=== PATIENT | female | born 1935 | race Caucasian/White ===

== ENCOUNTER 2018-09-27 13:47 | Inpatient (IN) ==
[2018-09-27] MEDS ORDERED: ACETAMINOPHEN 325 MG TAB PO PRN (14:16)
[2018-09-27] MEDS ORDERED: PATIENT'S ALLERGY INFO NEEDS ENTERED SCH (14:45)
--- NOTE | 2018-09-27 15:02 | History & Physical Report ---
Date of Service September 27, 2018 Assessment & Plan (1) Acute kidney injury superimposed on CKD: Hx CKD III. Baseline Cr: ~1.1-1.3. H/O hospitalization 09/04/2018- 09/09/2018 at [facility] for acute on chronic diastolic heart failure, atrial fibrillation with RVR. Had diuresis with IV Lasix. Cr: 1.5 upon hospital discharge 09/14/2018 was noted to have K:5.8, Cr: 1.9. Potassium supplement was discontinued. Patient had repeat follow-up with PCP on 09/25/2018 and K: 5.2 and Cr: 2.3. During hospitalization at [facility] pt was taken off lisinopril and HCTZ. Presented to hospital today for further workup and treatment of JOHN. Pt has had decreased oral intake past week as did not want to be using restroom when out for appointments Today BUN: 35, Cr: 1.9 -gentle IVF -monitor renal functions -avoid nephrotoxic agents when possible -hold lasix -may need to consider nephrology consult (2) Weakness: Pt reports generalized weakness and fatigue since hospital admission in 08/2018 No focal deficits noted -PT/OT eval (3) Atrial fibrillation: Hx PAF Recent A-fib RVR with hospitalization at [facility] in 08/2018. Pt was started on amiodarone 200 mg 2 tabs twice daily, then transition to 1 tab twice daily on a 09/22/2018 for 14 days and is to start 1 tab daily on 10/06/2018. She was also started on Eliquis Denies current CP, SOB, palpitations EKG: rate 111, atrial fibrillation, PVC -continue amiodarone, metoprolol, Eliquis -repeat EKG in am to monitor QTc (4) Chronic diastolic heart failure: Recent hospitalization for acute on chronic diastolic HF with reported diuresis of 3.5L with IV lasix. Reported echo from that hospitalization EF: 55%, concentric LVH, moderate mitral regurgitation, moderate tricuspid regurgitation, RSVP of 51 mmHg. CXR: Cardiomegaly without radiographic evidence of congestive failure. Suspect trace pleural effusions. 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 Reports 2 seizures during hospitalization at [facility] in 08/2018. Reported no acute process noted on MRA of the neck & MRA of brain. She was started on Keppra in addition to her phenobarbital -Seizure precautions -Continue Keppra, phenobarbital (7) HTN (hypertension): Reported pt was taken off lisinopril in 08/2018 Stable at 124/86 -continue metoprolol DVT Prophylaxis -On Eliquis DNR/DNI as per discussion with pt Follows with Dr Leo for routine care Pt was seen with Dr Manning. See addendum. History of Present Illness Chief Complaint: Sent in from PCP for JOHN Primary Care Provider: Tyra Leo, Pt is 83 y/o F with PMH HTN, HLD,chronic diastolic HF, pulmonary hypertension, CAD S/P stents, paroxysmal atrial fibrillation, CKD III, IBS, seizure disorder, macular degeneration presented to [facility] as a direct admission for JOHN from PCP. Patient with history of hospitalization 09/04/2018-09/09/2018 for acute on chronic diastolic heart failure, atrial fibrillation with RVR, altered mental status. Patient was diuresed with IV Lasix of 3.5 L. Reported creatinine remains stable and was discharged with a creatinine of 1.5. Was seen by cardiology and was placed on amiodarone for her atrial fibrillation with RVR and was started on Eliquis. Reported 2 seizures during hospitalization and reported no acute process noted on MRA of the neck & MRA of brain. She was started on Keppra in addition to her phenobarbital. Reported echo from that hospitalization EF: 55%, concentric LVH, moderate mitral regurgitation, moderate tricuspid regurgitation, RSVP of 51 mmHg. During hospitalization at [facility] pt was taken off lisinopril and HCTZ. Patient was started on amiodarone 200 mg 2 tabs twice daily, then transition to 1 tab twice daily on a 09/22/2018 for 14 days and is to start 1 tab daily on 10/06/2018. Patient followed up with PCP clinic upon hospital discharge and on 09/14/2018 was noted to have K:5.8, Cr: 1.9. Potassium supplement was discontinued. Patient had repeat follow-up with PCP on 09/25/2018 and K: 5.2 and Cr: 2.3. she was directed to hospital for JOHN. Patient and daughter reports that she has continued to be taking her Lasix 20 mg daily.Pt admits has been feeling tired and weak. She reports chronic intermittent heart fluttering. Denies any heart fluttering or heart racing now. Denies CP, SOB, dizziness. Pt reports chronic diarrhea after eating. Does not have diarrhea if she does not eat. Reports past diagnosis of IBS and celiac. Patient does not follow a gluten-free diet. Admits has not been eating or drinking much the past week as she has needed to go to Dr's appointments and didn't want to be having to use the bathroom when she was out. Using a walker to ambulate. Denies falls. reports chronic upper back pain, denies worsening. Denies fever/chills, diaphoresis, N/V, SAWYER, syncope, neck pain, orthopnea, cough, sore throat, choking, otalgia, rhinorrhea, abdominal pain, paresthesias, extremity edema, new rashes, urinary symptoms, hematochezia, melena. Allergies Allergy/AdvReac Type Severity Reaction Status Date / Time Egg Derived Allergy Severe Difficulty Verified 09/27/18 15:05 Breathing ciprofloxacin [From Cipro] Allergy Redness of Verified 09/27/18 15:06 Skin Penicillins Allergy Rash Verified 09/27/18 15:00 phenytoin [From Dilantin] Allergy Swelling Verified 09/27/18 15:00 lorazepam [From Ativan] AdvReac confusion Verified 09/27/18 15:00 Home Medications Home Medications Medication Instructions Recorded Confirmed Type amiodarone 200 mg PO BID 09/27/18 09/27/18 History apixaban 2.5 mg PO BID 09/27/18 09/27/18 History aspirin 81 mg PO DAILY 09/27/18 09/27/18 History furosemide [Lasix] 20 mg PO DAILY 09/27/18 09/27/18 History levetiracetam 500 mg PO BID 09/27/18 09/27/18 History metoprolol tartrate 25 mg PO TID 09/27/18 09/27/18 History phenobarbital 30 mg PO TID 09/27/18 09/27/18 History Past Med/Surg History Medical History Mitral regurgitation (Chronic) Aortic valve stenosis (Chronic) Hearing loss (Chronic) Seizure disorder (Chronic) Macular degeneration (Chronic) IBS (irritable bowel syndrome) (Chronic) Paroxysmal atrial fibrillation (Chronic) CAD (coronary artery disease) (Chronic) Pulmonary hypertension (Chronic) History of CHF (congestive heart failure) (Chronic) HTN (hypertension) (Chronic) HLD (hyperlipidemia) (Chronic) CKD (chronic kidney disease), stage III (Chronic) Surgical History History of ankle surgery (Chronic) History of cardiac catheterization (Chronic) 2013 at [facility] - diffuse disease H/O 3 bare metal stents History of cataract surgery (Chronic) Hx of tonsillectomy (Chronic) Family History Other Colorectal cancer Hypertension Social History Preferred Language: Uzbek Communication Ability: Effective Communication Ability Comment: macular degeneration Agency Operator Required: No Beliefs That Will Affect Care: None Current Living Situation: Family Other Information That Helps Us Care for You: No Feels Safe at Home: Yes Safety Concerns: Feels Safe At This Time Smoking Status: Former smoker Do You Dip or Chew Tobacco: No Second Hand Expos ure: No Tobacco Cessation Education Requested by Patient: No Hx Alcohol Use: No Hx Substance Use: No Review of Systems Review of Systems: All systems reviewed & are unremarkable except as noted in HPI & below Physical Exam Physical Exam: General: no acute distress, WDWN Head: normocephalic, atraumatic Eyes: PERRL, EOM's intact, conjunctiva non-injected, anicteric ENT: Hard of hearing, normal inspection external ears, nose, mucous membranes moist Neck: supple, trachea midline Lungs: clear, no respiratory distress, no wheezing/rhonchi/rales CV: irregularly irregular, rate 112, no significant pretibial edema Abd: normal BS, soft, non-tender Ext: no cyanosis, no calf tenderness Neuro: A&O x 3, no focal deficits noted, normal affect Skin: warm, dry Results & Data Laboratory Results Short CBC 09/27/18 Range/Units 15:05 WBC 5.66 (4.8-10.8) K/uL Hgb 13.9 (12.0-16.0) g/dL Hct 39.1 (37-47) % Plt Count 136 (130-400) K/uL BMP 09/27/18 15:05 Sodium 140 Potassium 3.8 Chloride 108 H Carbon Dioxide 23 BUN 35 H Creatinine 1.99 H Glucose 108 H Calcium 9.0 Liver Function 09/27/18 Range/Units 15:05 Total Bilirubin 0.3 (0.2-1) mg/dl AST 18 (15-37) U/L ALT 20 (12-78) U/L Alkaline Phosphatase 42 L (45-117) U/L Albumin 3.4 (3.4-5.0) gm/dl Diagnostic Findings CXR: IMPRESSION: 1. Cardiomegaly without radiographic evidence of congestive failure. 2. Suspect trace pleural effusions. Supervising Physician Co-Signing Physician Notes Patient is an 83-year-old female with history of chronic diastolic heart failure, hypertension, paroxysmal atrial fibrillation, coronary artery disease, seizure disorder and other problems presents for evaluation of worsening renal insufficiency. Patient was recently hospitalized for management of acute heart failure and A. fib RVR. She is discharged on diuretics which she continues to take. Outpatient labs done 2 days ago suggestive of mild hyperkalemia and JOHN with creatinine elevated 2.3. Currently she was noted to be in A. fib RVR but denies any history of chest pain, palpitations, dizziness, shortness of breath. Also denies any history of flank pain, dysuria. Reports history of chronic diarrhea which was thought to be secondary to IBS, celiac disease. Today her creatinine level is elevated at 1.9. Chest x-ray suggestive of trace pleural effusion, cardiomegaly but otherwise clinically does not seem to be volume overloaded. On exam patient is elderly, no distress, + legally blind, normocephalic atraumatic, lungs are clear to auscultation, irregularly irregular rhythm, tachycardia, abdomen soft nontender, grossly no focal deficits neurologically, no obvious pedal edema. Patient is admitted for management of JOHN on CKD stage III, A. fib RVR. Will hold her diuretics. Plan to give gentle IV fluids. Monitor renal function, avoid nephrotoxic agents as able. Consider renal ultrasound, nephrology consult if renal function continues to worsen. Continue metoprolol, amiodarone for A. fib RVR, on Eliquis for anticoagulation. QTC is prolonged at 516 in setting of amiodarone use. Repeat EKG in the morning. Avoid QTC prolonging meds as able. Consider cardiology eval if A. fib RVR is uncontrolled. Currently no signs of acute decompensated CHF. I personally reviewed the record. Patient is interviewed and examined at bedside. Patient's care is coordinated with Virginia Mendez PA-C. Please refer to the documentation above for details of patient's presentation and for discussion of other issues.
[2018-09-27 15:35] LABS: Basophils # (auto) 0.02 K/uL (0-0.2); Basophils % (auto) 0.4 %; Eosinophils # (auto) 0.27 K/uL (0-0.5); Eosinophils % (auto) 4.8 %; Hematocrit (blood only) 39.1 % (37-47); Hemoglobin 13.9 g/dL (12.0-16.0); Immature Granulocytes # (auto) 0.01 K/uL (0.00-0.02); Immature Granulocytes % (auto) 0.2 %; Lymphocytes % (auto) 35.3 %; Mean Corpuscular Hgb Conc 35.5 g/dL (32-36); Mean Corpuscular Volume 87.1 fL (80-100); Mean Platelet Volume 10.4 fL (7.4-10.4); Monocytes # (auto) 0.32 K/uL (0.11-0.59); Monocytes % (auto) 5.7 %; Neutrophils # (auto) 3.04 K/uL (1.4-6.5); Neutrophils % (auto) 53.6 %; Platelet Count 136 K/uL (130-400); RDW Coefficient of Variation 13.8 % (11.5-14.5); RDW Standard Deviation 43.6 fL (36.4-46.3); Red Blood Count 4.49 M/uL (4.2-5.4); White Blood Count 5.66 K/uL (4.8-10.8)
[2018-09-27 15:48] LABS: INR 1.1 (0.9-1.1); Partial Thromboplastin Time 27.1 Seconds (21.0-31.0)
[2018-09-27 15:57] LABS: Albumin Level 3.4 gm/dl (3.4-5.0); BUN Creatinine Ratio 17.8 (10-20); Creatinine Clr Calc Pharmacy 18.2 ml/min; Est GFR (African American) 26.1; Est GFR (Non-African American) 22.5; Potassium 3.8 mmol/L (3.5-5.1)
[2018-09-27 16:00] LABS: Albumin Globulin Ratio 1.1 (0.9-2); Bilirubin,Total 0.3 mg/dl (0.2-1); Globulin 3.2 gm/dl (2.5-4.0); Total Protein 6.6 gm/dl (6.4-8.2)
[2018-09-27] MEDS ORDERED: SODIUM CHLORIDE 0.9% 1000ML 1,000 ML IV SCH (16:15)
--- NOTE | 2018-09-27 16:26 | XRay Report ---
SINGLE VIEW CHEST CLINICAL HISTORY: Dyspnea. FINDINGS: An AP, portable, upright chest radiograph is obtained. No prior studies are available for c omparison at the time of dictation. The examination is degraded by portable technique, apical lordoti c positioning, and patient rotation. The heart is enlarged and there is atherosclerotic calcificatio n of the thoracic aorta. The pulmonary vasculature is noncongested. Nonspecific interstitial thickeni ng is likely chronic. No airspace consolidation is seen. Trace pleural effusions are suspected. No pn eumothorax is seen. The skeletal structures are osteopenic. The bony thorax is grossly intact. IMPRESSION: 1. Cardiomegaly without radiographic evidence of congestive failure. 2. Suspect trace pleural effusions. Electronically signed by: Rivera Amaro M.D. 09/27/2018 4:25 PM
[2018-09-27 18:49] LABS: Appearance Urine Clear (Clear); Bacteria Urine Automated 2+ (Negative); Bilirubin Urine Negative (Negative); Blood Urine Trace (Negative); Color Urine Yellow; Glucose Urine UA Negative (Negative); Ketones Urine Negative (Negative); Leukocyte Esterase Urine 2+ (Negative); Nitrite Urine Positive (Negative); Protein Urine Negative (Negative); RBC Urine Automated 0-4 /hpf (0-4); Specific Gravity Urine 1.017 (1.000-1.030); Urobilinogen Urine Negative (Negative)
[2018-09-27] MEDS ORDERED: METOPROLOL TARTRATE 25 MG TAB PO SCH (21:00)
[2018-09-27] MEDS: levETIRAcetam 500 MG TAB PO SCH (21:26)
[2018-09-27] MEDS: AMIODARONE 200 MG TAB PO SCH (21:27)
[2018-09-27] MEDS: APIXABAN 2.5 MG TAB PO SCH (21:27)
[2018-09-27] MEDS: PHENobarbital 32.4 MG TAB PO SCH (21:29)
[2018-09-28] MEDS ORDERED: POTASSIUM CHLORIDE 20 MEQ TABCR PO STA ×2 (03:05→05:05)
[2018-09-28] MEDS ORDERED: LACTATED RINGER'S 1,000 ML IV ONE ×2 (03:06→07:00)
[2018-09-28] MEDS: cefTRIAXone SODIUM 1,000 MG in DEXTROSE 5% 50 ML IV SCH (03:34)
[2018-09-28 03:39] LABS: Basophils # (auto) 0.03 K/uL (0-0.2); Basophils % (auto) 0.8 %; Eosinophils # (auto) 0.24 K/uL (0-0.5); Eosinophils % (auto) 6.1 %; Hematocrit (blood only) 34.7 % (37-47); Hemoglobin 12.3 g/dL (12.0-16.0); Immature Granulocytes # (auto) 0.01 K/uL (0.00-0.02); Immature Granulocytes % (auto) 0.3 %; Lymphocytes # (auto) 1.73 K/uL (1.2-3.4); Lymphocytes % (auto) 44.2 %; Mean Corpuscular Hgb Conc 35.4 g/dL (32-36); Mean Corpuscular Volume 87.4 fL (80-100); Monocytes # (auto) 0.24 K/uL (0.11-0.59); Monocytes % (auto) 6.1 %; Neutrophils # (auto) 1.66 K/uL (1.4-6.5); Neutrophils % (auto) 42.5 %; Platelet Count 112 K/uL (130-400); RDW Coefficient of Variation 13.7 % (11.5-14.5); RDW Standard Deviation 43.6 fL (36.4-46.3); Red Blood Count 3.97 M/uL (4.2-5.4); White Blood Count 3.91 K/uL (4.8-10.8)
[2018-09-28 03:57] LABS: BUN Creatinine Ratio 16.8 (10-20); Creatinine Clr Calc Pharmacy 21.5 ml/min; Est GFR (African American) 31.8; Est GFR (Non-African American) 27.4; Potassium 3.3 mmol/L (3.5-5.1)
[2018-09-28] MEDS: METOPROLOL TARTRATE 25 MG TAB PO SCH ×4 (08:29→21:18)
[2018-09-28] MEDS: AMIODARONE 200 MG TAB PO SCH ×2 (08:30→21:17)
[2018-09-28] MEDS: ASPIRIN 81 MG ECTAB PO SCH (08:31)
[2018-09-28] MEDS: levETIRAcetam 500 MG TAB PO SCH ×2 (08:32→21:17)
[2018-09-28] MEDS: APIXABAN 2.5 MG TAB PO SCH ×2 (08:32→21:17)
[2018-09-28] MEDS: PHENobarbital 32.4 MG TAB PO SCH ×3 (08:43→21:17)
--- NOTE | 2018-09-28 18:07 | Hospitalist Progress Note ---
Date of Service September 28, 2018 Assessment & Plan (1) Acute kidney injury superimposed on CKD: Improved with holding Lasix on admission and giving gentle IVF. She has underlying CKD Stage 3. While hospitalized at [place] recently in mid-August for acute diastolic heart failure, she underwent IV diuresis with Lasix with a reported creat 1.5 on discharge on 09/09. In followup with PCP, K was 5.8 and creat was 1.9, so K supplementation was discontinued. In repeat f/u on 09/25 K was 5.2 and creat 2.3. Although she was taken off lisinopril and HCTZ while hospitalized at [place], these were the findings. Cont current management (2) HTN (hypertension): Recently taken off of Lisinopril and HCTZ in the setting of acute hyperkalemia and JOHN. Now taking Lasix 20mg PO daily at home which has been held during this admission for JOHN. BP is at goal despite these changes. Will give additional medication as needed but not required at this time. Will review outpatient records further for PCP plan on this. (3) Atrial fibrillation: chronic, on Eliquis, undergoing amio load recently started during another OSH hospitalization two weeks ago. Also takes metoprolol. Currently in atrial fibrillation on telemetry. (4) Seizure disorder: Cont phenobarbital and keppra per home regimen. recent seizure activity two weeks ago while hospitalized. Pt has a h/o epilepsy which is typically controlled. She is unsure what provoked these events. Cont seizure precautions. (5) DVT prophylaxis: Eliquis DNR/DNI Dispo-home once medically stable Gaye Jones DO [facility] Hospitalist Subjective Feels well today, denies pain, nausea, SOB, chest pain, denies UTI symptoms, has chronic diarrhea as a celiac per her report. Tolerating PO. Afebrile. Review of Systems Review of Systems: All systems reviewed & are unremarkable except as noted in HPI & below Physical Exam Physical Exam: CONSTITUTIONAL: WNWD, vitals as above, generally well- appearing EYES: normal conjuctivae, no scleral icterus ENT: MMM RESPIRATORY: clear to auscultation bilaterally, no crackles, rales or wheezes, normal respiratory effort CARDIOVASCULAR: regular rate and rhythm, S1 and 2 heard without murmurs, gallops or rubs, no JVD, no peripheral edema GASTROINTESTINAL: normal bowel sounds, soft, nontender, nondistended MUSCULOSKELETAL: strength 5/5 throughout, head is normocephalic and atraumatic SKIN: warm and dry NEUROLOGIC: CN 2-12 grossly intact, no gross focal deficits. PSYCHIATRIC: alert cooperative and oriented to person, place and time. Results & Data Vital Signs (Past 12 Hours) Vital Signs Temp Pulse Resp BP Pulse Ox Pulse Ox 09/28/18 14:53 36.3 C L 117 H 18 114/80 98 09/28/18 13:25 94 09/28/18 11:58 36.3 C L 93 H 16 96/59 L 97 09/28/18 11:30 94 09/28/18 07:30 36.6 C 78 17 94/57 L 94 Laboratory Results Short CBC 09/28/18 Range/Units 03:29 WBC 3.91 L (4.8-10.8) K/uL Hgb 12.3 (12.0-16.0) g/dL Hct 34.7 L (37-47) % Plt Count 112 L (130-400) K/uL BMP 09/28/18 03:29 Sodium 140 Potassium 3.3 L Chloride 110 H Carbon Dioxide 25 BUN 28 H Creatinine 1.69 H D Glucose 94 Calcium 8.0 L Liver Function 09/28/18 Range/Units 03:29 Albumin 3.0 L (3.4-5.0) gm/dl Urine 09/27/18 Range/Units 18:19 Urine Color Yellow Urine Appearance Clear (Clear) Urine pH 5.0 (4.5-7.5) Ur Specific [place] 1.017 (1.000-1.030) Urine Protein Negative (Negative) Urine Glucose (UA) Negative (Negative)
[2018-09-29] MEDS: cefTRIAXone SODIUM 1,000 MG in DEXTROSE 5% 50 ML IV SCH (04:14)
[2018-09-29 07:33] LABS: Hematocrit (blood only) 37.2 % (37-47); Hemoglobin 13.1 g/dL (12.0-16.0); Mean Corpuscular Hgb Conc 35.2 g/dL (32-36); Mean Corpuscular Volume 88.6 fL (80-100); Platelet Count 117 K/uL (130-400); RDW Coefficient of Variation 14.1 % (11.5-14.5); White Blood Count 3.52 K/uL (4.8-10.8)
[2018-09-29] MEDS: METOPROLOL TARTRATE 25 MG TAB PO SCH ×2 (07:37→12:37)
[2018-09-29] MEDS: PHENobarbital 32.4 MG TAB PO SCH ×2 (07:37→13:28)
[2018-09-29] MEDS: AMIODARONE 200 MG TAB PO SCH (07:38)
[2018-09-29] MEDS: APIXABAN 2.5 MG TAB PO SCH (07:38)
[2018-09-29] MEDS: ASPIRIN 81 MG ECTAB PO SCH (07:38)
[2018-09-29] MEDS: levETIRAcetam 500 MG TAB PO SCH (07:38)
[2018-09-29 08:10] LABS: Est GFR (African American) 35.5; Potassium 4.4 mmol/L (3.5-5.1)
[2018-09-29 08:11] LABS: BUN Creatinine Ratio 14.5 (10-20); Calcium 8.6 mg/dl (8.5-10.1); Creatinine Clr Calc Pharmacy 23.6 ml/min; Est GFR (Non-African American) 30.7
[2018-09-29] MEDS ORDERED: cephALEXin 500 MG CAP PO SCH (11:30)
--- NOTE | 2018-09-29 15:21 | Discharge Summary ---
Date of Service September 29, 2018 Admission HPI Per Admitting Provider Pt is 83 y/o F with PMH HTN, HLD,chronic diastolic HF, pulmonary hypertension, CAD S/P stents, paroxysmal atrial fibrillation, CKD III, IBS, seizure disorder, macular degeneration presented to [facility] as a direct admission for JOHN from PCP. Patient with history of hospitalization 09/04/2018-09/09/2018 for acute on chronic diastolic heart failure, atrial fibrillation with RVR, altered mental status. Patient was diuresed with IV Lasix of 3.5 L. Reported creatinine remains stable and was discharged with a creatinine of 1.5. Was seen by cardiology and was placed on amiodarone for her atrial fibrillation with RVR and was started on Eliquis. Reported 2 seizures during hospitalization and reported no acute process noted on MRA of the neck & MRA of brain. She was started on Keppra in addition to her phenobarbital. Reported echo from that hospitalization EF: 55%, concentric LVH, moderate mitral regurgitation, moderate tricuspid regurgitation, RSVP of 51 mmHg. During hospitalization at [place] pt was taken off lisinopril and HCTZ. Patient was started on amiodarone 200 mg 2 tabs twice daily, then transition to 1 tab twice daily on a 09/22/2018 for 14 days and is to start 1 tab daily on 10/06/2018. Patient followed up with PCP clinic upon hospital discharge and on 09/14/2018 was noted to have K:5.8, Cr: 1.9. Potassium supplement was discontinued. Patient had repeat follow-up with PCP on 09/25/2018 and K: 5.2 and Cr: 2.3. she was directed to hospital for JOHN. Patient and daughter reports that she has continued to be taking her Lasix 20 mg daily.Pt admits has been feeling tired and weak. She reports chronic intermittent heart fluttering. Denies any heart fluttering or heart racing now. Denies CP, SOB, dizziness. Pt reports chronic diarrhea after eating. Does not have diarrhea if she does not eat. Reports past diagnosis of IBS and celiac. Patient does not follow a gluten-free diet. Admits has not been eating or drinking much the past week as she has needed to go to Dr's appointments and didn't want to be having to use the bathroom when she was out. Using a walker to ambulate. Denies falls. reports chronic upper back pain, denies worsening. Denies fever/chills, diaphoresis, N/V, SAWYER, syncope, neck pain, orthopnea, cough, sore throat, choking, otalgia, rhinorrhea, abdominal pain, paresthesias, extremity edema, new rashes, urinary symptoms, hematochezia, melena. Admission Exam Per Admitting Provider General: no acute distress, WDWN Head: normocephalic, atraumatic Eyes: PERRL, EOM's intact, conjunctiva non-injected, anicteric ENT: Hard of hearing, normal inspection external ears, nose, mucous membranes moist Neck: supple, trachea midline Lungs: clear, no respiratory distress, no wheezing/rhonchi/rales CV: irregularly irregular, rate 112, no significant pretibial edema Abd: normal BS, soft, non-tender Ext: no cyanosis, no calf tenderness Neuro: A&O x 3, no focal deficits noted, normal affect Skin: warm, dry Principal Diagnosis JOHN Asymptomatic bacteriuria atrial fibrillation HTN seizure disorder Discharge Data Allergies Allergy/AdvReac Type Severity Reaction Status Date / Time Egg Derived Allergy Severe Difficulty Verified 09/27/18 15:05 Breathing ciprofloxacin [From Cipro] Allergy Redness of Verified 09/27/18 15:06 Skin Penicillins Allergy Rash Verified 09/27/18 15:00 phenytoin [From Dilantin] Allergy Swelling Verified 09/27/18 15:00 lorazepam [From Ativan] AdvReac confusion Verified 09/27/18 15:00 Consultations 09/27/18 14:18 Consult Case Management - Discharge Planning Routine Hospital Course (1) Acute kidney injury superimposed on CKD: (2) HTN (hypertension): (3) Atrial fibrillation: (4) Asymptomatic bacteriuria: (5) Seizure disorder: She was admitted to the hospitalist service and Lasix was held. Although she did not come in on lisinopril and HCTZ she had been recently taking this which was previously discontinued by other providers. She was given gentle IV fluids. She was noted to be have been recently hospitalized in [facility] in mid August for acute diastolic heart failure and had undergone treatment with IV diuresis with Lasix. At discharge she had a reported creatinine of 1.5; this was 09/09. Follow-up with primary care provider revealed a potassium 5.8 and creatinine was 1.9, so potassium supplementation was discontinued at that time. She had another follow-up with primary care doctor on 09/25 where potassium was 5.2 and creatinine was 2.3. She had been compliant with prescribed Lasix and had held potassium when she was instructed to do so. She reported drinking less water around this time in order to not have to urinate so much publically and when going out of her home. She was instructed to go to the ER. Despite multiple blood pressure medicine changes in recent weeks her blood pressure remained at goal during this hospitalization. She was noted to be undergoing an amiodarone load which was recently started at the prior hospitalization and she remains on Eliquis and metoprolol. She also was noted to have recent seizure activity two weeks ago while hospitalized and continues her antiepileptics including Keppra which is a new medication for her. She remained on seizure precautions with no further seizure events this hospitalization. She was placed on rocephin empirically for asymptomatic bacteriuria and was found to have E coli in her urine. As she was asymptomatic and had received some antibiotics in the hospital, these were not continued at discharge. By hospital day 3 creatinine had improved to 1.54 which was close to her baseline 1.1-1.3. Lasix was held until further follow-up with primary care doctor. She is not taking potassium supplementation, lisinopril or HCTZ. She was told to stay away from those, as well. Amiodarone was refilled to continue her amiodarone load per daughter's request as this was depleted. At time of discharge she was mentating and ambulating at baseline and was tolerating p.o. She was hemodynamic is stable and afebrile and close primary care follow-up was recommended. Physical exam at discharge was unremarkable. Total Time Total Time Spent Total Time Spent (In Minutes): 60 Total Time Includes: Examination of the Patient, Discharge Planning, Medication Reconciliation and Communication With Other Providers Discharge Plan Discharge Items Patient Disposition: Home - Home Health Services Reason For Visit: JOHN Discharge Diagnosis: JOHN UTI Condition: Good Discharge Goals: Improve disease control Activity: Resume your previous activity Non-emergency contact: Primary Care Provider Call non-emergency contact if: you have any medication questions, your symptoms worsen, your pain is not controlled and you have a fever Follow-up/Referrals: Leo,Tyra M., DO [Primary Care Provider] - Diet: Heart Healthy Addtl Provider Instructions: Please take all medications as instructed on discharge list below. It is recommended that you follow-up with your primary care provider within 1 week of discharge. It was a pleasure taking care of you! Please call if you have any questions or problems. You can reach a [facility] Hospitalist on duty at [facility] 24 hours a day by calling [phone]. Take care of yourself. Gaye Jones DO [facility] Hospitalist Prescriptions: New amiodarone 200 mg tablet 200 mg PO UD Qty: 60 RF: 0 Continued amiodarone 200 mg Tablet 200 mg PO BID RF: 0 levetiracetam 500 mg Tablet 500 mg PO BID RF: 0 aspirin 81 mg Tablet,Delayed Release (Dr/Ec) 81 mg PO DAILY RF: 0 phenobarbital 30 mg Tablet 30 mg PO TID RF: 0 metoprolol tartrate 25 mg Tablet 25 mg PO TID RF: 0 apixaban 2.5 mg Tablet 2.5 mg PO BID RF: 0 Discontinued furosemide [Lasix] 20 mg Tablet 20 mg PO DAILY RF: 0 Stand-Alone Forms: My [facility] Discharge Orders: Discharge Order (Routine); Ordered 09/29/18 Ordered By: Gaye Jones Admission Data Admit Date/Time: 09/27/18 13:47 Attending Provider: Gaye Jones Admit Provider: Rafael Manning Primary Care Provider: Tyra Leo Service: Telemetry Other Interventions: Discharge Summary Assessment (RN) Last Done: 09/29/18 12:19 DC Date/Time DO NOT enter until pt leaves facility: 09/29/18 15:38
[2018-10-06] MEDS ORDERED: AMIODARONE 200 MG TAB PO SCH (09:00)
== END 2018-09-29 15:38 | disposition home health service (06) | DRG 683 ==
LOC: SUATTDRO 13:47 → 2W 13:47
DX: I48.2 Chronic atrial fibrillation; G40.909 Epilepsy, unspecified, not intractable, without status epilepticus; H35.30 Unspecified macular degeneration; N18.3 Chronic kidney disease, stage 3 (moderate); Z88.0 Allergy status to penicillin; I27.20 Pulmonary hypertension, unspecified; N17.9 Acute kidney failure, unspecified; Z95.5 Presence of coronary angioplasty implant and graft; I50.32 Chronic diastolic (congestive) heart failure; N39.0 Urinary tract infection, site not specified; I25.10 Atherosclerotic heart disease of native coronary artery without angina pectoris; I13.0 Hypertensive heart and chronic kidney disease with heart failure and stage 1 through stage 4 chronic kidney disease, or unspecified chronic kidney disease

== ENCOUNTER 2019-01-03 11:37 | Inpatient (IN) ==
[2019-01-03] MEDS ORDERED: ACETAMINOPHEN 325 MG TAB PO PRN (11:59)
[2019-01-03 14:04] LABS: Basophils # (auto) 0.03 K/uL (0-0.2); Basophils % (auto) 0.6 %; Eosinophils # (auto) 0.07 K/uL (0-0.5); Eosinophils % (auto) 1.4 %; Hematocrit (blood only) 42.1 % (37-47); Hemoglobin 13.9 g/dL (12.0-16.0); Immature Granulocytes # (auto) 0.01 K/uL (0.00-0.02); Immature Granulocytes % (auto) 0.2 %; Lymphocytes # (auto) 1.68 K/uL (1.2-3.4); Lymphocytes % (auto) 33.9 %; Mean Corpuscular Hemoglobin 30.8 pg (25-34); Mean Corpuscular Volume 93.3 fL (80-100); Mean Platelet Volume 10.1 fL (7.4-10.4); Monocytes # (auto) 0.36 K/uL (0.11-0.59); Monocytes % (auto) 7.3 %; Neutrophils % (auto) 56.6 %; Platelet Count 173 K/uL (130-400); RDW Coefficient of Variation 16.2 % (11.5-14.5); RDW Standard Deviation 55.3 fL (36.4-46.3); Red Blood Count 4.51 M/uL (4.2-5.4); White Blood Count 4.95 K/uL (4.8-10.8)
--- NOTE | 2019-01-03 14:06 | XRay Report ---
SINGLE VIEW CHEST CLINICAL HISTORY: Dyspnea. FINDINGS: An AP, portable, upright chest radiograph is compared to study performed earlier the same d ay 01/03/2019. The examination is degraded by portable technique and patient rotation. The heart is enlarged and there is atherosclerotic calcification of the thoracic aorta. There is pulmonary vascula r congestion and interstitial edema. There are layering pleural effusions with bibasilar consolidatio n. No pneumothorax is seen. The skeletal structures are osteopenic. The bony thorax is grossly intact . IMPRESSION: 1. Cardiomegaly with evidence of congestive failure and interstitial edema. 2. Layering pleural effusions with bibasilar consolidation. 3. This has modestly worsened from today's earlier examination. Electronically signed by: Rivera Amaro M.D. 01/03/2019 2:05 PM
[2019-01-03 14:12] LABS: INR 2.8 (0.9-1.1); Partial Thromboplastin Ratio 1.3; Partial Thromboplastin Time 35.3 Seconds (21.0-31.0); Prothrombin Time 26.5 Seconds (9.0-12.0)
[2019-01-03 14:21] LABS: Albumin Level 3.4 gm/dl (3.4-5.0); BUN Creatinine Ratio 15.3 (10-20); Calcium 8.7 mg/dl (8.5-10.1); Creatinine Clr Calc Pharmacy 25.4 ml/min; Est GFR (African American) 38.6; Est GFR (Non-African American) 33.3; Potassium 4.7 mmol/L (3.5-5.1)
[2019-01-03 14:24] LABS: Albumin Globulin Ratio 1.1 (0.9-2); Bilirubin,Total 0.7 mg/dl (0.2-1); Globulin 3.2 gm/dl (2.5-4.0); Total Protein 6.6 gm/dl (6.4-8.2)
[2019-01-03] MEDS ORDERED: METOPROLOL TARTRATE 25 MG TAB PO SCH (14:50)
--- NOTE | 2019-01-03 14:51 | History & Physical Report ---
Date of Service January 03, 2019 Assessment & Plan (1) Atrial fibrillation with RVR: Pt is 83 y/o F with PMH atrial fibrillation on Coumadin, CAD s/p stents, HTN, HLD, chronic diastolic heart failure, seizure disorder, CKD III, reported IBS and celiac disease presented to [facility] from [facility] for A. fib RVR, SOB. Reported started with increased SOB last night with palpitations. At [facility] found to have HR in 140's-160's A-fib RVR. She was given diltiazem 10 mg IV followed by diltiazem drip at 5 mg/hr with rate down to 105. It is reported patient oxygen saturations in the low 90s and she was on 5 L nasal cannula with oxygen saturation 90%. Had reported once better rate control patient shortness of breath had decreased. At [facility] initial troponin was negative, INR: 3.2, BNP: 5882, no leukocytosis, BUN: 22, CR: 1.5, GFR: 41, K: 4.6, NA: 144. Frontal view CXR: Sizable right and probably small left pleural effusions, at least subsegmental atelectasis in lower lungs. Limited study. Currently BP: 134/90, P: 103, R: 19, 90% on 6L nasal cannula. On Cardizem 5mg/hr IV. Pt denies current palpitations and feels her SOB has improved from initial presentation at [facility] INR: 2.8 -Cardizem drip -Metoprolol tartrate 25mg po BID -Hold home amiodarone while on Cardizem drip -Continue Coumadin -Monitor INR -Trend troponin -Cardiology consult -Monitor CBC, BMP (2) Acute on chronic diastolic (congestive) heart failure: Pt with reported intermittent SOB and increased edema over past couple of months and needing home Lasix dose adjustments. Current regimen in Lasix 20mg every other day alternating with 10mg. Reported echo from [facility] in 08/2018: EF: 55%, concentric LVH, moderate mitral regurgitation, moderate tricuspid regurgitation, RSVP of 51 mmHg. Currently Pt requiring 6L NC oxygen to maintain sat 90%. RR: 19 and nonlabored. Rales bilateral bases, mild BLE edema CXR: 1. Cardiomegaly with evidence of congestive failure and interstitial edema. 2. Layering pleural effusions with bibasilar consolidation. 3. This has modestly worsened from today's earlier examination. -Hold home Lasix -Lasix 20mg IV now and tomorrow -Monitor I's & O's -Low sodium diet -Supplemental oxygen as needed -Echo (3) CAD (coronary artery disease): S/P stents in past -No Current CP. Initial troponin negative at [facility] -Continue aspirin, metoprolol (4) Seizure disorder: Reported started after head injury in the 1970s. 2 seizures reported during hospitalization in [place] in 08/2018 when her phenobarbital was held, phenobarbital was reinitiated and patient was started on Keppra Patient denies any seizures since -Continue phenobarbital, Keppra (5) HTN (hypertension): Stable -Currently on Cardizem IV, and oral metoprolol tartrate (6) CKD (chronic kidney disease), stage III: CR: 1.4 Baseline ~1.4 -Monitor renal functions (7) Chronic diarrhea: Patient with reported chronic loose stools for 10 years. Patient states typically has several loose stools in the mornings. Has reported history of IBS and celiac, however patient continues to consume gluten DVT Prophylaxis -INR: 2.8 on Coumadin DNR/DNI as per discussion with pt Follows with Dr Tony Pinto for routine care Pt was seen and care coordinated with Dr Araujo. See addendum History of Present Illness Chief Complaint: SOB Primary Care Provider: Tyra Leo, DO Pt is 83 y/o F with PMH atrial fibrillation on Coumadin, CAD s/p stents, HTN, HLD, chronic diastolic heart failure, seizure disorder, CKD III, reported IBS and celiac disease presented to [facility] from [facility] for A. fib RVR shortness of breath. Patient reports during the middle the night had increased shortness of breath and felt like her heart was racing. She presented to [facility] this morning with reported heart rate 140s-160s and found to be in A. fib RVR. She was given diltiazem 10 mg IV followed by diltiazem drip at 5 mg/hr with rate down to 105. It is reported patient oxygen saturations in the low 90s and she was on 5 L nasal cannula with oxygen saturation 90%. Had reported once better rate control patient shortness of breath had decreased. At [facility] initial troponin was negative, INR: 3.2, BNP: 5882, no leukocytosis, BUN: 22, CR: 1.5, GFR: 41, K: 4.6, NA: 144. Frontal view CXR: Sizable right and probably small left pleural effusions, at least subsegmental atelectasis in lower lungs. Limited study. Patient was transferred to [facility] per patient preference. Patient states ambulance ride here because some lower back discomfort however feels better since she is in hospital bed. Reports feels like her breathing has improved since her initial presentation to [facility]. She is still on diltiazem drip at 5 mg/hour. HR: 103, BP: 134/90, RR: 19 and unlabored, 90% on 6 L nasal cannula. Was able to talk with pt's daughter on the phone. She was able to confirm pt's home medications and reports pt did not have her morning meds today. Pt's daughter reports that pt has been having trouble with increased edema and SOB intermittently over past several months and her Lasix dosages have been adjusted. States in October PCP restarted lasix 20mg daily secondary to increased edema and weight gain. Reports currently pt on Lasix 20mg every other day alternating with 10mg every other day. Admits pt often with food indiscretions. Patient states she has not felt like she has had increased lower extremity edema. There has also been recent changes with her metoprolol dosing 1 month ago, was edema and weight from 12.5 mg twice daily to 25 mg in the morning and 12.5 mg in the evening. Patient reports has had weight loss since her initial illness in the spring. She states she has had generalized weakness and fatigue for months. She uses a walker sometimes at home. Reports lives with daughter. Denies any seizures since 08/2017. Denies fever/chills, diaphoresis, N/V/D/C, falls, SAWYER, dizziness, syncope, vision changes, neck pain, CP, SOB, orthopnea, palpitations, cough, sore throat, choking, otalgia, rhinorrhea, abdominal pain, paresthesias, extremity edema, rashes, urinary symptoms. History of hospitalization at [facility] 09/27/2018-09/29/2018 for JOHN History of hospitalization 09/04/2018-09/09/2018 at [place] with hospital for acute on chronic diastolic heart failure, A. fib RVR, altered mental status, reported she was treated with IV Lasix and diuresed well. Lisinopril and HCTZ were discontinued. It is reported that her phenobarbital had been held upon initial hospitalization and patient had reported 2 seizures during hospitalization. Patient was then started on Keppra in addition to her phenobarbital which has been continued. Patient was started on amiodarone and Eliquis during that hospitalization. Patient has been transitioned from Eliquis to Coumadin secondary to concern with interaction between Eliquis and phenobarbital. Allergies Allergy/AdvReac Type Severity Reaction Status Date / Time Egg Derived Allergy Severe Difficulty Verified 09/27/18 15:05 Breathing ciprofloxacin [From Cipro] Allergy Redness of Verified 09/27/18 15:06 Skin Penicillins Allergy Rash Verified 09/27/18 15:00 phenytoin [From Dilantin] Allergy Swelling Verified 09/27/18 15:00 lorazepam [From Ativan] AdvReac confusion Verified 09/27/18 15:00 Home Medications Home Medications Medication Instructions Recorded Confirmed Type aspirin 81 mg PO DAILY 09/27/18 01/03/19 History levetiracetam 500 mg PO BID 09/27/18 01/03/19 History metoprolol tartrate 25 mg PO DAILY 09/27/18 01/03/19 History phenobarbital 30 mg PO TID 09/27/18 01/03/19 History amiodarone 200 mg PO DAILY 01/03/19 01/03/19 History furosemide 10 mg PO Q2D 01/03/19 01/03/19 History furosemide 20 mg PO Q2D 01/03/19 01/03/19 History metoprolol tartrate 12.5 mg PO PM 01/03/19 01/03/19 History warfarin 5 mg PO UD 01/03/19 01/03/19 History Past Med/Surg History Medical History Mitral regurgitation (Chronic) Aortic valve stenosis (Chronic) Hearing loss (Chronic) Seizure disorder (Chronic) Macular degeneration (Chronic) IBS (irritable bowel syndrome) (Chronic) Paroxysmal atrial fibrillation (Chronic) CAD (coronary artery disease) (Chronic) Pulmonary hypertension (Chronic) History of CHF (congestive heart failure) (Chronic) HTN (hypertension) (Chronic) HLD (hyperlipidemia) (Chronic) CKD (chronic kidney disease), stage III (Chronic) Surgical History History of ankle surgery (Chronic) History of cardiac catheterization (Chronic) 2014 at [place] - diffuse disease H/O 3 bare metal stents History of cataract surgery (Chronic) Hx of tonsillectomy (Chronic) Family History Other Colorectal cancer Hypertension Social History Preferred Language: Occitan Communication Ability: Effective Svp Monetization Required: No Beliefs That Will Affect Care: None marital status: / Current Living Situation: Family Other Information That Helps Us Care for You: No Feels Safe at Home: Yes Safety Concerns: Feels Safe At This Time Smoking Status: Former smoker Second Hand Exposure: No ; Hx Alcohol Use: No Hx Substance Use: No Review of Systems Review of Systems: All systems reviewed & are unremarkable except as noted in HPI & below Physical Exam Physical Exam: General: chronic ill appearing elderly female, no acute distress, WDWN Head: normocephalic, atraumatic Eyes: PERRL, EOM's intact, conjunctiva non-injected, anicteric ENT: normal inspection external ears, nose, mucous membranes moist Neck: supple, trachea midline Lungs: R:19 and non-labored, 90% on 6L NC, +rales at bases bilaterally CV: Irregularly irregular, rate 104, no JVD, 1+ pretibial edema Abd: normal BS, soft, non-tender Ext: no cyanosis, no calf tenderness Neuro: A&O x 3, no focal deficits noted, normal affect Skin: warm, dry Results & Data Vital Signs (Past 12 Hours) Vital Signs Temp Pulse Resp BP Pulse Ox 01/03/19 13:37 37 C 103 H 19 134/90 90 Laboratory Results Short CBC 01/03/19 Range/Units 13:41 WBC 4.95 (4.8-10.8) K/uL Hgb 13.9 (12.0-16.0) g/dL Hct 42.1 (37-47) % Plt Count 173 (130-400) K/uL BMP 09/12/19 13:41 Sodium 142 Potassium 4.7 Chloride 108 H Carbon Dioxide 26 BUN 22 H Creatinine 1.44 H Glucose 97 Calcium 8.7 Liver Function 01/03/19 Range/Units 13:41 Total Bilirubin 0.7 (0.2-1) mg/dl AST 13 L (15-37) U/L ALT 18 (12-78) U/L Alkaline Phosphatase 39 L (45-117) U/L Albumin 3.4 (3.4-5.0) gm/dl Diagnostic Findings CXR: IMPRESSION: 1. Cardiomegaly with evidence of congestive failure and interstitial edema. 2. Layering pleural effusions with bibasilar consolidation. 3. This has modestly worsened from today's earlier examination. Supervising Physician Co-Signing Physician Notes I, Dr. Jnoathan Araujo, have seen and examined the patient with physician podiatric assistant and agree with the assessment and plan as above and would like to comment that This is a 83 year old female Past Medical History: HTN, HLD,chronic diastolic HF, pulmonary hypertension, CAD S/P stents, paroxysmal atrial fibrillation, CKD III, IBS, seizure disorder, macular degeneration who is a direct transfer from [facility] seen there for: Atrial fibrillation with rapid ventricular response and was sent here with diltiazem drip with heart rates currently controlled on IV medications and to be transitioned to oral metoprolol, can consider resuming home dose amiodarone once off cardiazem IV, INR 2.8 is therapeutic on coumadin. will obtain cardiology consult for further assistance and recommendations Acute on chronic diastolic (congestive) heart failure: give Lasix as needed History of coronary artery disease with stents pulmonary hypertension Hypertension - blood pressure controlled Chronic Kidney disease stage III - monitor renal function History of seizure disorder - no acute seizures at this time, continue home phenobarbital, Keppra IBS - monitor if diarrhea Macular degeneration - put vision impaired sign as communication order to nursing staff agree with other assessment and plans as described by physician podiatric assistant on exam general/neuro/psych: speaking in full sentences, no acute distress, able to give history Heart: irregular rhythm, heart rates in the 80s or 90s Lungs: mild congestion, no wheezing, on nasal cannula abdomen: soft, nontender, bowel sounds present My colleague Dr. Manning will be following the patient starting on 01/04/19
[2019-01-03] MEDS ORDERED: FUROSEMIDE 20 MG in SYRINGE 0 ML IV ONE (15:00)
[2019-01-03] MEDS: dilTIAZem HCL 125 MG in DEXTROSE 5% 100 ML IV SCH (15:24)
[2019-01-03] MEDS ORDERED: FUROSEMIDE 20 MG TAB PO SCH (16:15)
[2019-01-03] MEDS: WARFARIN SOD 2.5 MG TAB PO SCH (16:24)
[2019-01-03] MEDS ORDERED: Nursing to Pharmacy Communication ONE (17:57)
[2019-01-03] MEDS ORDERED: FUROSEMIDE 40 MG in SYRINGE 0 ML IV ONE (18:00)
[2019-01-03] MEDS: levETIRAcetam 500 MG TAB PO SCH (19:36)
[2019-01-03] MEDS: METOPROLOL TARTRATE 25 MG TAB PO SCH ×2 (19:36→23:34)
--- NOTE | 2019-01-03 22:41 | Consultation Report ---
DATE OF CONSULTATION: 01/03/2019 INPATIENT CARDIOLOGY CONSULTATION CONSULTATION REQUESTED BY: Dr. Araujo. REASON FOR CONSULTATION: Atrial fibrillation with rapid ventricular response. HISTORY OF PRESENT ILLNESS: Mrs. Estes is a very pleasant 83-year-old woman who is not known to our cardiology practice. She was transferred to [facility] from [facility] ER after presenting there today with complaints of shortness of breath. The patient states that she woke up suddenly last night feeling very short of breath and felt her heart racing. She then went to the Emergency Room later on in the morning where she was found to be in Afib with RVR. She was also found to be rather hypoxic and she was transferred to [facility]. Upon arrival, she was placed on a Cardizem drip and given a low-dose IV Lasix. Currently, she states that she feels although she cannot get a deep breath in, but her heart is stopped racing and she denies any chest pain, lightheadedness, dizziness, or syncope. The patient also reportedly had new-onset seizures when she was hospitalized at [facility] in August when she presented with a similar presentation of AFib and diastolic heart failure. She has been following with neurology. She does not ambulate well at home. Her sight and hearing are severely impaired, and when asked about the Coumadin, she states that she does not like it and does not want to take it anymore. PAST SURGICAL HISTORY: 1. Cardiac catheterization at [place] in 2013 showing diffuse disease and full report not available at this time, otherwise 4 bare metal stents placed in unknown vessels previously. 2. Cataract surgery. 3. Tonsil and adenoidectomy. 4. Knee surgery. 5. Ankle surgery. MEDICAL ILLNESSES: 1. Coronary artery disease status post multiple PCIs to unknown vessels. 2. Paroxysmal atrial fibrillation. 3. Hypertension. 4. Chronic kidney disease. 5. Chronic diastolic heart failure. 6. Macular degeneration with severely impaired sight. 7. Severe hearing impairment. 8. Irritable bowel. 9. Pulmonary hypertension. 10. 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 11. Hypertension. 12. Moderate mitral regurgitation. 13. Moderate tricuspid regurgitation. FAMILY HISTORY: Noncontributory. SOCIAL HISTORY: The patient is a former smoker, quit in 2004. Denies any alcohol or recreational drug use. It is not clear at this time whether the patient lives by herself or with her daughter. No family is present at the bedside. REVIEW OF SYSTEMS: As per HPI, all other review of systems reviewed and negative at this time. ALLERGIES: 1. ATIVAN. 2. CIPRO. 3. PHENYTOIN. 4. EGG AND EGG DERIVATIVES. 5. CAPTOPRIL. 6. PENICILLIN. MEDICATIONS AN OUTPATIENT: 1. Aspirin 81 mg daily. 2. Amiodarone 200 mg daily. 3. Metoprolol tartrate 25 mg q.a.m., 12.5 mg q.p.m. 4. Lasix 20 mg and 10 mg alternating days. 5. Phenobarbital. 6. Warfarin. PHYSICAL EXAMINATION: VITALS: Temperature 36.6, pulse 92, respiratory rate 12, blood pressure 123/74. GENERAL: Awake, alert, oriented x3, in no acute distress, very hard of hearing. HEENT: Normocephalic, atraumatic. Pupils equal, round, reactive to light and accommodation. Extraocular muscles intact. Anicteric sclerae. Moist mucous membranes. NECK: No JVD, no bruit. CARDIOVASCULAR: Irregularly irregular with a holosystolic ejection murmur greatest at the left sternal border midclavicular line with radiation to the left axilla. No rubs. PULMONARY: Poor air movement in the bilateral bases with bibasilar crackles, no rhonchi or wheezing. ABDOMEN: Bowel sounds x4, soft. No rebound, guarding, tenderness. No organomegaly. EXTREMITIES: No clubbing, cyanosis or edema. +2 pedal pulses bilaterally. SKIN: Warm and dry. TEST RESULTS: Chest x-ray was read as cardiomegaly with evidence of congestive heart failure and interstitial edema, layering pleural effusions with bibasilar consolidation. This is modestly worsened from today's earlier examination. EKG performed in the Emergency Department independently reviewed at this time shows atrial fibrillation at 98 beats per minute with occasional PVCs, left axis deviation, inverted T waves in the lateral leads, QTC of 459 milliseconds. LABORATORY STUDIES OF SIGNIFICANCE: INR of 2.8. IMPRESSION: 1. Atrial fibrillation with rapid ventricular response. 2. Fall risk with recently diagnosed seizures. 3. Desire to discontinue Coumadin. 4. Acute decompensated diastolic heart failure. 5. Chronic kidney disease. 6. Coronary artery disease. 7. Pulmonary hypertension. RECOMMENDATIONS: It was my pleasure to see Mrs. Estes in consultation today. From a cardiac standpoint, the patient states that she does not want to remain on anticoagulation. So to that end, attempts at rhythm control are no longer possible, so we will continue with a rate control strategy. To that end, I will increase her metoprolol 25 mg q. 6 hours now and her amiodarone will be discontinued. She is on a Cardizem drip that will be weaned to off. She still examined as significantly volume overloaded, and given her creatinine today, I will give her Lasix 60 mg IV b.i.d. starting tonight and we will follow her volume status clinically.
[2019-01-04] MEDS: METOPROLOL TARTRATE 25 MG TAB PO SCH ×4 (06:02→22:44)
[2019-01-04 06:47] LABS: Hematocrit (blood only) 38.6 % (37-47); Hemoglobin 12.5 g/dL (12.0-16.0); Mean Corpuscular Hemoglobin 30.3 pg (25-34); Mean Corpuscular Hgb Conc 32.4 g/dL (32-36); Mean Corpuscular Volume 93.7 fL (80-100); Mean Platelet Volume 9.5 fL (7.4-10.4); Platelet Count 141 K/uL (130-400); RDW Coefficient of Variation 15.8 % (11.5-14.5); RDW Standard Deviation 54.3 fL (36.4-46.3); Red Blood Count 4.12 M/uL (4.2-5.4); White Blood Count 3.48 K/uL (4.8-10.8)
[2019-01-04 06:56] LABS: INR 3.1 (0.9-1.1)
[2019-01-04 07:18] LABS: BUN Creatinine Ratio 17.2 (10-20); Calcium 8.3 mg/dl (8.5-10.1); Creatinine Clr Calc Pharmacy 27.9 ml/min; Est GFR (African American) 43.6; Est GFR (Non-African American) 37.6; Magnesium 2.1 mg/dl (1.8-2.4); Potassium 4.1 mmol/L (3.5-5.1)
[2019-01-04] MEDS ORDERED: FUROSEMIDE 20 MG in SYRINGE 0 ML IV ONE (08:00)
[2019-01-04] MEDS ORDERED: AMIODARONE 200 MG TAB PO SCH (09:00)
[2019-01-04] MEDS: FUROSEMIDE 60 MG in SYRINGE 0 ML IV SCH ×2 (09:27→17:36)
[2019-01-04] MEDS: levETIRAcetam 500 MG TAB PO SCH ×2 (09:27→20:46)
[2019-01-04] MEDS: ASPIRIN 81 MG ECTAB PO SCH (09:27)
--- NOTE | 2019-01-04 13:59 | Cardiology Progress Note ---
Date of Service January 04, 2019 Assessment & Plan (1) Atrial fibrillation with RVR: rates improving bp a little low this AM, will cont cardizem gtt for now and restart metoprolol once bp allows pt is very addament that she dose not want coumadin therapy, will d/c amio and coumadin given her eye, recent grand mal seizures and ambulatory dysfunction, I believe this is a saini option (2) Acute on chronic diastolic (congestive) heart failure: improving still with crackles at left lung base, cont with IV lasix, will hold AM dose and follow clinically (3) Mitral regurgitation: stable (4) CAD (coronary artery disease): stable (5) Pulmonary hypertension: stable Subjective Pt seen and examined, states that he feels well. Breathing and chest congestion both greatly improved. Breathing still not at baseline but feeling well. tele reviewed: afib rate controlled. Review of Systems Review of Systems: All systems reviewed & are unremarkable except as noted in HPI & below Physical Exam Physical Exam: General: Awake, alert and oriented x 3. No acute distress. HEENT: Normocephalic, atraumatic. Pupils equal, round and reactive to light and accommodation. Extraocular muscles are intact. Anicteric sclera. Moist mucous membranes. Neck: No JVD. No bruit. Cardiovascular: irregularly irregular, unable to appreciate murmur, rub or gallop. Pulmonary: Clear to auscultation bilaterally. No rales, rhonchi, or wheezing. Abdomen: Bowel sounds x 4, soft. No rebound, guarding or tenderness. No organomegaly. Extremities: No clubbing, cyanosis or edema. +2 pedal pulses bilaterally. Skin: Warm and dry. Results & Data Vital Signs (Past 12 Hours) Vital Signs Temp Pulse Resp BP Pulse Ox 01/04/19 11:30 36.7 C 85 16 115/84 90 01/04/19 07:32 36.5 C 79 16 102/90 90 01/04/19 03:15 36.8 C 83 18 94/56 L 91
[2019-01-04] MEDS: WARFARIN SOD 2.5 MG TAB PO SCH (17:36)
--- NOTE | 2019-01-04 18:12 | Hospitalist Progress Note ---
Date of Service January 04, 2019 Assessment & Plan (1) Atrial fibrillation with RVR: Patient is an 83 yr female who presented with increased shortness of breath, palpitations and was found to be in A. fib RVR, CHF exacerbation. Afib RVR on Cardizem drip Also on Metoprolol amiodarone discontinued On Coumadin for anticoagulation Monitor INR:3.1 Cardiology on board May not be an ideal long-term anticoagulation candidate (2) Acute on chronic diastolic (congestive) heart failure: Acute on Chronic diastolic CHF Acute respiratory failure with hypoxia secondary to above CXR: 1. Cardiomegaly with evidence of congestive failure and interstitial edema. 2. Layering pleural effusions with bibasilar consolidation. 3. This has modestly worsened from today's earlier examination. ECHO:EF:55-60%, Mild LVH, grade 1 diastolic dysfunction, moderate aortic stenosis, mild aortic regurgitation, moderate to severe MR, moderate TR, severe left atrial enlargement, pulmonary hypertension. Continue IV diuretics as per cardiology Appreciate cardiology input Monitor I's and O's, electrolytes, renal function, daily weight Continue supplemental oxygen as needed (3) CAD (coronary artery disease): S/P stents in past Continue aspirin, metoprolol (4) Seizure disorder: Reported started after head injury in the 1970s. 2 seizures reported during hospitalization in [place] in 08/2018 when her phenobarbital was held, phenobarbital was reinitiated and patient was started on Keppra Continue phenobarbital, Keppra (5) HTN (hypertension): BP relatively low Monitor on Cardizem IV, PO metoprolol (6) CKD (chronic kidney disease), stage III: Baseline ~1.4 Monitor renal functions Cr at baseline (7) Chronic diarrhea: Patient with reported chronic loose stools for 10 years. Has reported history of IBS and celiac disease Monitor DVT Px: On Coumadin Code Status DNR/DNI Subjective Patient is seen and examined at bedside Complains a lot better today Denies any chest pain, shortness of breath, dizziness, nausea, abdominal pain Heart rate is controlled on Cardizem drip Offers no complaints Review of Systems Review of Systems: All systems reviewed & are unremarkable except as noted in HPI & below Physical Exam Physical Exam: Physical Exam: Vitals signs as noted above General Appearance:Thin, no apparent distress Head: normocephalic, Atraumatic Eyes: normal inspection, EOMI Neck: supple, Trachea midline Respiratory/Chest: Normal breath sounds, CTA Cardiovascular: Irregularly irregular, No murmur Abdomen/GI:Soft, Non tender, Bowel sounds present Extremities/Musculoskelatal:normal inspection, no edema Neurologic/Psych:grossly no focal neurological deficits Skin: normal color, warm Results & Data Vital Signs (Past 12 Hours) Vital Signs Temp Pulse Pulse Resp BP Pulse Ox 01/04/19 16:00 83 01/04/19 15:42 36.4 C L 76 19 105/69 90 01/04/19 11:30 36.7 C 85 16 115/84 90 01/04/19 08:00 74 01/04/19 07:32 36.5 C 79 16 102/90 90 Laboratory Results Short CBC 01/04/19 Range/Units 06:24 WBC 3.48 L (4.8-10.8) K/uL Hgb 12.5 (12.0-16.0) g/dL Hct 38.6 (37-47) % Plt Count 141 (130-400) K/uL BMP 01/04/19 06:24 Sodium 142 Potassium 4.1 Chloride 107 Carbon Dioxide 29 BUN 22 H Creatinine 1.30 H Glucose 83 Calcium 8.3 L Cardiac Enzymes 01/03/19 Range/Units 18:55 Troponin I < 0.015 (0-0.045) ng/ml
[2019-01-05] MEDS: METOPROLOL TARTRATE 25 MG TAB PO SCH ×4 (05:25→23:58)
[2019-01-05 06:11] LABS: Prothrombin Time 33.5 Seconds (9.0-12.0)
[2019-01-05 06:12] LABS: INR 3.6 (0.9-1.1)
[2019-01-05 06:25] LABS: Calcium 8.2 mg/dl (8.5-10.1); Creatinine Clr Calc Pharmacy 22.4 ml/min; Est GFR (African American) 33.4; Est GFR (Non-African American) 28.8; Potassium 3.8 mmol/L (3.5-5.1)
[2019-01-05] MEDS: dilTIAZem HCL 125 MG in DEXTROSE 5% 100 ML IV SCH (07:22)
[2019-01-05] MEDS: FUROSEMIDE 60 MG in SYRINGE 0 ML IV SCH (08:00)
[2019-01-05] MEDS: ASPIRIN 81 MG ECTAB PO SCH (08:00)
[2019-01-05] MEDS: levETIRAcetam 500 MG TAB PO SCH ×2 (08:00→20:49)
--- NOTE | 2019-01-05 09:26 | XRay Report ---
XR chest 2V routine CLINICAL HISTORY: 83 years-old Female presenting with Pleural effusion. TECHNIQUE: Portable upright AP view of the chest was obtained. COMPARISON: 01/03/2019. FINDINGS: Atherosclerosis of the aortic arch. Cardiac silhouette enlarged. Decreased pulmonary vascular promine nce and interstitial prominence. Persistent moderate right pleural effusion. A small left pleural eff usion may also be present. However, improved aeration of the lung bases bilaterally. No pneumothorax. Suspected osteopenia. Upper abdomen normal. IMPRESSION: 1. Resolved pulmonary edema with decreasing congestive change of volume overload. 2. Persistent moderate right pleural effusion and suspected small left pleural effusion. 3. Slight improved aeration of the lung bases. Electronically signed by: Ford Murillo M.D. 01/05/2019 9:25 AM
--- NOTE | 2019-01-05 10:48 | Cardiology Progress Note ---
Date of Service January 05, 2019 Assessment & Plan (1) Atrial fibrillation with RVR: (2) Acute on chronic diastolic (congestive) heart failure: (3) Mitral regurgitation: stable (4) CAD (coronary artery disease): (5) Pulmonary hypertension: The patient's heart rate is stable off the diltiazem. I would continue with the metoprolol. I also feel she is not in acute heart failure any longer and we can switch to oral diuretics. She is currently clinically stable. Subjective No new cardiac complaints. Review of Systems Review of Systems: All systems reviewed & are unremarkable except as noted in HPI & below Nothing additional Physical Exam Physical Exam: General: no acute distress and stated age Head: normocephalic, no masses, lesions, tenderness or abnormalities Eyes: conjunctiva are pink and non-injected, sclera clear Neck: supple, no adenopathy, no bruits, normal jugular venous pulse, no hepatojugular reflux Chest: normal shape and normal respiratory effort Lungs: clear to auscultation and percussion Cardiac Exam: - irregular rate & rhythm, no murmurs gallops or rubs - normal S1, normal S2 Pulses: 2(+) throughout Abdomen: abdomen soft, non-tender, no abnormal masses and no hepatosplenomegaly Musculoskeletal: no gait disturbance, no joint inflammation, no deforming arthritis Extremities: no edema and no cyanosis Neuro: grossly normal exam Results & Data Vital Signs (Past 12 Hours) Vital Signs Temp Pulse Pulse Resp BP Pulse Ox 01/05/19 08:15 36.3 C L 89 16 96/66 L 90 01/05/19 03:37 36.7 C 80 20 92/56 L 93 01/04/19 23:12 88 01/04/19 23:03 36.7 C 86 18 108/64 93
[2019-01-05] MEDS: FUROSEMIDE 40 MG TAB PO SCH (17:45)
--- NOTE | 2019-01-05 17:51 | Hospitalist Progress Note ---
Date of Service January 05, 2019 Assessment & Plan (1) Atrial fibrillation with RVR: Patient is an 83 yr female who presented with increased shortness of breath, palpitations and was found to be in A. fib RVR, CHF exacerbation. Afib RVR Off Cardizem drip Continue Metoprolol amiodarone discontinued On Coumadin for anticoagulation Monitor INR:3.1>>3.6 Appreciate Cardiology Input Hold coumadin today May not be an ideal long-term anticoagulation candidate (2) Acute on chronic diastolic (congestive) heart failure: Acute on Chronic diastolic CHF Acute respiratory failure with hypoxia secondary to above CXR: 1. Cardiomegaly with evidence of congestive failure and interstitial edema. 2. Layering pleural effusions with bibasilar consolidation. 3. This has modestly worsened from today's earlier examination. ECHO:EF:55-60%, Mild LVH, grade 1 diastolic dysfunction, moderate aortic stenosis, mild aortic regurgitation, moderate to severe MR, moderate TR, severe left atrial enlargement, pulmonary hypertension. IV diuretics transition to p.o., Lasix 40 mg twice daily Appreciate cardiology input Monitor I's and O's, electrolytes, renal function, daily weight Wean off of oxygen as able (3) CAD (coronary artery disease): S/P stents in past Continue aspirin, metoprolol (4) Seizure disorder: Reported started after head injury in the 1970s. 2 seizures reported during hospitalization in [place] in 08/2018 when her phenobarbital was held, phenobarbital was reinitiated and patient was started on Keppra Continue phenobarbital, Keppra (5) HTN (hypertension): Continue metoprolol Monitor (6) CKD (chronic kidney disease), stage III: Baseline ~1.4 Monitor renal functions Cr slightly up secondary to IV diuretics (7) Chronic diarrhea: Patient with reported chronic loose stools for 10 years. Has reported history of IBS and celiac disease Monitor DVT Px: Supratherapeutic INR Code Status DNR/DNI Subjective Patient is seen and examined at bedside Feels tired Had back pain overnight which currently resolved Volume status much improved today Heart rate is controlled off Cardizem Denies any chest pain, SOB, dizziness, nausea, abdominal pain Review of Systems Review of Systems: All systems reviewed & are unremarkable except as noted in HPI & below Physical Exam Physical Exam: Physical Exam: Vitals signs as noted above General Appearance:Thin, no apparent distress Head: normocephalic, Atraumatic Eyes: normal inspection, EOMI Neck: supple, Trachea midline Respiratory/Chest: Normal breath sounds, basal crackles Cardiovascular: Irregularly irregular, No murmur Abdomen/GI:Soft, Non tender, Bowel sounds present Extremities/Musculoskelatal:normal inspection, no edema Neurologic/Psych:grossly no focal neurological deficits Skin: normal color, warm Results & Data Vital Signs (Past 12 Hours) Vital Signs Temp Pulse Pulse Resp BP Pulse Ox 01/05/19 15:11 36.4 C L 98 H 18 109/71 93 01/05/19 12:00 36.4 C L 98 H 20 100/69 94 01/05/19 08:15 36.3 C L 89 16 96/66 L 90 01/05/19 08:00 91 H Laboratory Results [facility] 01/05/19 05:33 Sodium 141 Potassium 3.8 Chloride 103 Carbon Dioxide 30 BUN 26 H Creatinine 1.62 H D Glucose 83 Calcium 8.2 L
[2019-01-06] MEDS: METOPROLOL TARTRATE 25 MG TAB PO SCH ×2 (05:13→12:38)
[2019-01-06 05:49] LABS: Prothrombin Time 28.2 Seconds (9.0-12.0)
[2019-01-06 06:10] LABS: BUN Creatinine Ratio 19.4 (10-20); Calcium 8.2 mg/dl (8.5-10.1); Creatinine Clr Calc Pharmacy 20.8 ml/min; Est GFR (African American) 34.2; Est GFR (Non-African American) 29.5; Potassium 3.8 mmol/L (3.5-5.1)
[2019-01-06] MEDS: ASPIRIN 81 MG ECTAB PO SCH (08:58)
[2019-01-06] MEDS: FUROSEMIDE 40 MG TAB PO SCH (08:58)
[2019-01-06] MEDS: levETIRAcetam 500 MG TAB PO SCH (08:58)
--- NOTE | 2019-01-06 10:12 | Cardiology Progress Note ---
Date of Service January 06, 2019 Assessment & Plan (1) Atrial fibrillation with RVR: (2) Acute on chronic diastolic (congestive) heart failure: (3) Mitral regurgitation: (4) CAD (coronary artery disease): (5) Pulmonary hypertension: The patient is currently clinically stable. She is no longer in heart failure. She has chronic atrial fibrillation with good rate control and as previously outlined she is not interested in anticoagulation. She still is requiring oxygen and may need oxygen at home. Otherwise, the patient can be discharged from a cardiac standpoint. Subjective The patient had an uneventful night. She has no new cardiac complaints. Review of Systems Review of Systems: All systems reviewed & are unremarkable except as noted in HPI & below Nothing additional. Physical Exam Physical Exam: General: no acute distress and stated age Head: normocephalic, no masses, lesions, tenderness or abnormalities Eyes: conjunctiva are pink and non-injected, sclera clear Neck: supple, no adenopathy, no bruits, normal jugular venous pulse, no hepatojugular reflux Chest: normal shape and normal respiratory effort Lungs: clear to auscultation and percussion Cardiac Exam: - irregular rate & rhythm, no murmurs gallops or rubs - normal S1, normal S2 Pulses: 2(+) throughout Abdomen: abdomen soft, non-tender, no abnormal masses and no hepatosplenomegaly Musculoskeletal: no gait disturbance, no joint inflammation, no deforming arthritis Extremities: no edema and no cyanosis Neuro: grossly normal exam Results & Data Vital Signs (Past 12 Hours) Vital Signs Temp Pulse Pulse Resp BP Pulse Ox 01/06/19 07:34 36.2 C L 90 16 90/58 L 93 01/06/19 05:12 95 H 20 101/64 01/06/19 04:30 36.3 C L 90 18 95/61 L 93 01/06/19 00:09 84 01/05/19 23:06 36.9 C 90 18 96/62 L 90 Laboratory Results Laboratory Results - last 24 hr 01/06/19 01/06/19 05:09 05:09 PT 28.2 H INR 3.0 H Sodium 141 Potassium 3.8 Chloride 101 Carbon Dioxide 32 Anion Gap 8.0 BUN 31 H Creatinine 1.59 H Est Cr Clr Drug Dosing 20.8 Est GFR ( Amer) 34.2 Est GFR (Non-Af Amer) 29.5 BUN/Creatinine Ratio 19.4 Glucose 77 Calcium 8.2 L Medications Administered Current Inpatient Medications Acetaminophen (Tylenol) 650 mg PO Q4H PRN PRN Reason: Pain or Fever Stop: 02/02/19 11:58 Last Admin: 01/04/19 22:44 Dose: 650 mg Documented by: Aspirin (Ecotrin Ectab) 81 mg PO DAILY [facility] Stop: 02/03/19 08:59 Last Admin: 01/06/19 08:58 Dose: 81 mg Documented by: Furosemide (Lasix) 40 mg PO BID17 [facility] Stop: 02/04/19 16:59 Last Admin: 01/06/19 08:58 Dose: 40 mg Documented by: Levetiracetam (Keppra) 500 mg PO BID [facility] Stop: 02/02/19 20:59 Last Admin: 01/06/19 08:58 Dose: 500 mg Documented by: Metoprolol Tartrate (Lopressor) 25 mg PO Q6 [facility] Stop: 02/02/19 17:59 Last Admin: 01/06/19 05:13 Dose: 25 mg Documented by: Phenobarbital (Phenobarbital) 32.4 mg PO TID [facility] Stop: 02/02/19 14:49 Last Admin: 01/05/19 20:49 Dose: 32.4 mg Documented by: Warfarin Sodium (Coumadin) 2.5 mg PO [id number] [facility] Stop: 02/02/19 15:59 Last Admin: 01/04/19 17:36 Dose: 2.5 mg Documented by:
--- NOTE | 2019-01-06 12:37 | Discharge Summary ---
Date of Service January 06, 2019 Admission HPI Per Admitting Provider Pt is 83 y/o F with PMH atrial fibrillation on Coumadin, CAD s/p stents, HTN, HLD, chronic diastolic heart failure, seizure disorder, CKD III, reported IBS and celiac disease presented to [facility] from [place] [facility] for A. fib RVR shortness of breath. Patient reports during the middle the night had increased shortness of breath and felt like her heart was racing. She presented to [place] [facility] this morning with reported heart rate 140s-160s and found to be in A. fib RVR. She was given diltiazem 10 mg IV followed by diltiazem drip at 5 mg/hr with rate down to 105. It is reported patient oxygen saturations in the low 90s and she was on 5 L nasal cannula with oxygen saturation 90%. Had reported once better rate control patient shortness of breath had decreased. At [place] [facility] initial troponin was negative, INR: 3.2, BNP: 5882, no leukocytosis, BUN: 22, CR: 1.5, GFR: 41, K: 4.6, NA: 144. Frontal view CXR: Sizable right and probably small left pleural effusions, at least subsegmental atelectasis in lower lungs. Limited study. Patient was transferred to [facility] per patient preference. Patient states ambulance ride here because some lower back discomfort however feels better since she is in hospital bed. Reports feels like her breathing has improved since her initial presentation to [place] [facility]. She is still on diltiazem drip at 5 mg/hour. HR: 103, BP: 134/90, RR: 19 and unlabored, 90% on 6 L nasal cannula. Was able to talk with pt's daughter on the phone. She was able to confirm pt's home medications and reports pt did not have her morning meds today. Pt's daughter reports that pt has been having trouble with increased edema and SOB intermittently over past several months and her Lasix dosages have been adjusted. States in October PCP restarted lasix 20mg daily secondary to increased edema and weight gain. Reports currently pt on Lasix 20mg every other day alternating with 10mg every other day. Admits pt often with food indiscretions. Patient states she has not felt like she has had increased lower extremity edema. There has also been recent changes with her metoprolol dosing 1 month ago, was edema and weight from 12.5 mg twice daily to 25 mg in the morning and 12.5 mg in the evening. Patient reports has had weight loss since her initial illness in the spring. She states she has had generalized weakness and fatigue for months. She uses a walker sometimes at home. Reports lives with daughter. Denies any seizures since 08/2017. Denies fever/chills, diaphoresis, N/V/D/C, falls, SAWYER, dizziness, syncope, vision changes, neck pain, CP, SOB, orthopnea, palpitations, cough, sore throat, choking, otalgia, rhinorrhea, abdominal pain, paresthesias, extremity edema, rashes, urinary symptoms. History of hospitalization at [facility] 09/27/2018-09/29/2018 for JOHN History of hospitalization 09/04/2018-09/09/2018 at [place] with hospital for acute on chronic diastolic heart failure, A. fib RVR, altered mental status, reported she was treated with IV Lasix and diuresed well. Lisinopril and HCTZ were discontinued. It is reported that her phenobarbital had been held upon initial hospitalization and patient had reported 2 seizures during hospitalization. Patient was then started on Keppra in addition to her phenobarbital which has been continued. Patient was started on amiodarone and Eliquis during that hospitalization. Patient has been transitioned from Eliquis to Coumadin secondary to concern with interaction between Eliquis and phenobarbital. Admission Exam Per Admitting Provider General: chronic ill appearing elderly female, no acute distress, WDWN Head: normocephalic, atraumatic Eyes: PERRL, EOM's intact, conjunctiva non-injected, anicteric ENT: normal inspection external ears, nose, mucous membranes moist Neck: supple, trachea midline Lungs: R:19 and non-labored, 90% on 6L NC, +rales at bases bilaterally CV: Irregularly irregular, rate 104, no JVD, 1+ pretibial edema Abd: normal BS, soft, non-tender Ext: no cyanosis, no calf tenderness Neuro: A&O x 3, no focal deficits noted, normal affect Skin: warm, dry Principal Diagnosis Atrial fibrillation with rapid ventricular rate Acute on chronic diastolic heart failure Discharge Data Allergies Allergy/AdvReac Type Severity Reaction Status Date / Time Egg Derived Allergy Severe Difficulty Verified 09/27/18 15:05 Breathing ciprofloxacin [From Cipro] Allergy Redness of Verified 09/27/18 15:06 Skin Penicillins Allergy Rash Verified 09/27/18 15:00 phenytoin [From Dilantin] Allergy Swelling Verified 09/27/18 15:00 lorazepam [From Ativan] AdvReac confusion Verified 09/27/18 15:00 Consultations 01/03/19 12:01 Consult Case Management - Discharge Planning Routine 01/03/19 14:31 Consult Cardiology Routine Procedures Performed CXR: 1. Cardiomegaly with evidence of congestive failure and interstitial edema. 2. Layering pleural effusions with bibasilar consolidation. 3. This has modestly worsened from today's earlier examination. Hospital Course (1) Atrial fibrillation with RVR: Patient is an 83 yr female who presented with increased shortness of breath, palpitations and was found to be in A. fib RVR, CHF exacerbation. Afib RVR Off Cardizem drip Continue Metoprolol amiodarone discontinued On Coumadin for anticoagulation Monitor INR:3.1>>3.6 Appreciate Cardiology Input Hold coumadin today May not be an ideal long-term anticoagulation candidate (2) Acute on chronic diastolic (congestive) heart failure: Acute on Chronic diastolic CHF Acute respiratory failure with hypoxia secondary to above CXR: 1. Cardiomegaly with evidence of congestive failure and interstitial edema. 2. Layering pleural effusions with bibasilar consolidation. 3. This has modestly worsened from today's earlier examination. ECHO:EF:55-60%, Mild LVH, grade 1 diastolic dysfunction, moderate aortic stenosis, mild aortic regurgitation, moderate to severe MR, moderate TR, severe left atrial enlargement, pulmonary hypertension. IV diuretics transition to p.o., Lasix 40 mg twice daily Appreciate cardiology input Monitor I's and O's, electrolytes, renal function, daily weight Wean off of oxygen as able (3) CAD (coronary artery disease): S/P stents in past Continue aspirin, metoprolol (4) Seizure disorder: Reported started after head injury in the 1970s. 2 seizures reported during hospitalization in [place] in 08/2018 when her phenobarbital was held, phenobarbital was reinitiated and patient was started on Keppra Continue phenobarbital, Keppra (5) HTN (hypertension): Continue metoprolol Monitor (6) CKD (chronic kidney disease), stage III: Baseline ~1.4 Monitor renal functions Cr slightly up secondary to IV diuretics (7) Chronic diarrhea: Patient with reported chronic loose stools for 10 years. Has reported history of IBS and celiac disease Monitor DVT Px: Supratherapeutic INR Code Status DNR/DNI Total Time Total Time Spent Total Time Spent (In Minutes): 35 minutes Total Time Includes: Examination of the Patient, Discharge Planning, Medication Reconciliation, Communication With Other Providers and Other Discharge Plan Discharge Items Patient Disposition: Home - Home Health Services Reason For Visit: ATRIAL FIB Discharge Diagnosis: Atrial fibrillation with rapid ventricular rate Acute on chronic diastolic heart failure Activity: Resume your previous activity Exercise/Sports: Gradually increase as tolerated Non-emergency contact: Primary Care Provider and Aerodynamics Engineer Call non-emergency contact if: you have any medication questions, your symptoms worsen, your pain is not controlled, your pain is worsening, your pain is unusual for you, your pain is concerning for you and you have a fever Follow-up/Referrals: Tyra Leo DO [Primary Care Provider] - Diet: Gluten Free and Heart Healthy Addtl Attending Provider Instructions: Follow-up with your primary care physician on January 10, 2019 at 11 AM Follow-up with your display card writer Dr. Britton as scheduled Seek immediate medical attention if your symptoms reoccur or worsen . Call your Primary Care doctor if any of the following symptoms or problems start or get worse: * Shortness of breath or difficulty breathing * Wake up at night short of breath * Chest pain * Cough * Swelling of your hands, feet, or legs * More fatigued or tired with your normal activity * Palpitations - sudden fast heart beats WEIGHT * Weigh yourself every morning after using the bathroom. * Use the same scale. * Wear the same amount of clothing. * Write your weight down on a chart. * Call your Primary Care doctor if you gain more than 2-3 pounds in 1-2 days. MEDICATIONS * Use this discharge instruction sheet for medication instructions. * Take your medications at the time your doctor ordered. * Do not skip a dose of your medicines. * If you miss a dose of medicine, take it as soon as possible, but DO NOT DOUBLE A DOSE. * Read your medicine information when you get home. * Know all of the side effects of your medicine. If in doubt, ask your pharmacist * Call your Primary Care doctor's office if you have any side effects. * Be sure all of your doctors know what medicine and herbs you take (including cold, flu, and herbal medicine). Take the following with you to your follow-up doctor appointments: * Weight Chart * Medication List * List of questions Do not drink excessive alcohol, beer or wine. . Pending Studies at Discharge: No Stand-Alone Forms: My [facility] Medications and DC Order Prescriptions: New metoprolol tartrate 50 mg tablet 50 mg PO BID 30 Days Qty: 60 RF: 0 furosemide [Lasix] 40 mg tablet 40 mg PO DAILY Qty: 30 RF: 0 Continued levetiracetam 500 mg Tablet 500 mg PO BID RF: 0 aspirin 81 mg Tablet,Delayed Release (Dr/Ec) 81 mg PO DAILY RF: 0 phenobarbital 30 mg Tablet 30 mg PO TID RF: 0 Discontinued metoprolol tartrate 25 mg Tablet 25 mg PO DAILY RF: 0 warfarin 5 mg Tablet 5 mg PO UD RF: 0 furosemide 20 mg tablet 20 mg PO Q2D RF: 0 furosemide 20 mg Tablet 10 mg PO Q2D RF: 0 metoprolol tartrate 25 mg Tablet 12.5 mg PO PM RF: 0 amiodarone 200 mg tablet 200 mg PO DAILY RF: 0 Discharge Orders: Discharge Order (Routine); Ordered 01/06/19 Ordered By: Rafael Hoff/Other Patient Handouts: Metoprolol Tartrate Oral tablet, Furosemide Oral tablet, Heart Failure Tracking Weight Admission Data Admit Date/Time: 01/03/19 13:29 Attending Provider: Rafael Manning Admit Provider: Jonathan Araujo Primary Care Provider: Tyra Leo Other Providers: Leroy Britton ; Jonathan Araujo Other Interventions: Discharge Summary Assessment (RN) Last Done: 01/06/19 16:03 DC Date/Time DO NOT enter until pt leaves facility: 01/06/19 18:30
--- NOTE | 2019-01-06 12:56 | Hospitalist Progress Note ---
Date of Service January 06, 2019 Assessment & Plan (1) Atrial fibrillation with RVR: Patient is an 83 yr female who presented with increased shortness of breath, palpitations and was found to be in A. fib RVR, CHF exacerbation. Afib RVR Off Cardizem drip Continue Metoprolol--Increased to 50mg BID amiodarone discontinued as per Cardiology recommendations Coumadin also discontinued based on patient's preference/Risk factors--ambulatory dysfunction/seizure history Appreciate Cardiology Input Needs follow up with Cardiology upon discharge (2) Acute on chronic diastolic (congestive) heart failure: Acute on Chronic diastolic CHF Acute respiratory failure with hypoxia secondary to above CXR: 1. Cardiomegaly with evidence of congestive failure and interstitial edema. 2. Layering pleural effusions with bibasilar consolidation. 3. This has modestly worsened from today's earlier examination. ECHO:EF:55-60%, Mild LVH, grade 1 diastolic dysfunction, moderate aortic stenosis, mild aortic regurgitation, moderate to severe MR, moderate TR, severe left atrial enlargement, pulmonary hypertension. IV diuretics transition to p.o., Lasix 40 mg twice daily>>plan to discharge on lasix 20mg daily Appreciate cardiology input Monitor I's and O's, electrolytes, renal function, daily weight Wean off of oxygen as able 2 step: Qualifies for oxygen (3) CAD (coronary artery disease): S/P stents in past Continue aspirin, metoprolol (4) Seizure disorder: Reported started after head injury in the 1970s. 2 seizures reported during hospitalization in [place] in 08/2018 when her phenobarbital was held, phenobarbital was reinitiated and patient was started on Keppra Continue phenobarbital, Keppra (5) HTN (hypertension): Continue metoprolol Monitor (6) CKD (chronic kidney disease), stage III: Baseline ~1.4 Monitor renal functions Cr slightly up secondary to IV diuretics (7) Chronic diarrhea: Patient with reported chronic loose stools for 10 years. Has reported history of IBS and celiac disease Monitor DVT Px: was on coumadin Code Status DNR/DNI Subjective Patient is seen and examined at bedside States feeling much better today Patient states that she prefers the anticoagulation be discontinued Denies any chest pain, SOB, dizziness, nausea, abdominal pain Discusses with Cardiology today Qualifies for Oxygen on 2 step Review of Systems Review of Systems: All systems reviewed & are unremarkable except as noted in HPI & below Physical Exam Physical Exam: Physical Exam: Vitals signs as noted above General Appearance:Thin, no apparent distress Head: normocephalic, Atraumatic Eyes: normal inspection, EOMI Neck: supple, Trachea midline Respiratory/Chest: Normal breath sounds, CTA Cardiovascular: Irregularly irregular, No murmur Abdomen/GI:Soft, Non tender, Bowel sounds present Extremities/Musculoskelatal:normal inspection, no edema Neurologic/Psych:grossly no focal neurological deficits Skin: normal color, warm Results & Data Vital Signs (Past 12 Hours) Vital Signs Temp Pulse Pulse Pulse Pulse Pulse Resp 01/06/19 12:29 36.7 C 95 H 16 01/06/19 12:10 114 H 70 93 H 73 01/06/19 07:34 36.2 C L 90 16 01/06/19 05:12 95 H 20 01/06/19 04:30 36.3 C L 90 18 Resp Resp Resp Resp BP Pulse Ox Pulse Ox 01/06/19 12:29 98/63 L 90 01/06/19 12:10 20 20 18 18 96 01/06/19 07:34 90/58 L 93 01/06/19 05:12 101/64 01/06/19 04:30 95/61 L 93 Pulse Ox Pulse Ox Pulse Ox 01/06/19 12:29 01/06/19 12:10 87 L 98 93 01/06/19 07:34 01/06/19 05:12 01/06/19 04:30 Laboratory Results BMP 01/06/19 05:09 Sodium 141 Potassium 3.8 Chloride 101 Carbon Dioxide 32 BUN 31 H Creatinine 1.59 H Glucose 77 Calcium 8.2 L
[2019-01-06] MEDS ORDERED: METOPROLOL TARTRATE 50 MG TAB PO SCH (21:00)
[2019-01-08] MEDS ORDERED: WARFARIN SOD 5 MG TAB PO SCH (16:00)
== END 2019-01-06 18:30 | disposition home health service (06) | DRG 291 ==
LOC: 2S 13:29 → SUATTDRO 13:29

== ENCOUNTER 2019-07-08 03:25 | Inpatient (IN) ==
--- NOTE | 2019-07-08 03:29 | Emergency Department Note ---
ED Provider Note NAME: VONDA MACIEL AGE: 84 SEX: F ARRIVES VIA: Ambulance INFORMANT: [Patient] ED PROVIDER(S): [Ebonie Elizondo, ] CHIEF COMPLAINT: [Chest pain and shortness of breath] IMPRESSION: [Hypoxia Right-sided pleural effusion A. fib with RVR] PLAN: Disposition: [Admitted to [facility] service] Condition: [Good] MEDICAL DECISION MAKING: This is an 84-year-old female patient who presents from home by EMS for chest pain and shortness of breath. The patient was found to be hypoxic. The patient has a long history of CHF, A. fib and seizure disorder. The patient's chest x-ray reveals enlargement to her right-sided pleural ef fusion and she has obvious congestive heart failure. The patient was hypoxic when EMS arrived. She describes worsening shortness of breath and a sharp chest pain. Once EMS applied O2, the O2 saturations came up and the chest pain resolved. Triage Nursing notes reviewed and agree them. [Prior medical records reviewed] Vital Signs: reviewed and remarkable for hypoxia Differential diagnosis: [Pneumonia, congestive heart failure, cardiac ischemia] Diagnostics interpreted by me: ECG: Atrial fibrillation with rapid ventricular response at a rate of 127. There is T wave inversion in leads I and aVL and V5 and V6. These ischemic changes are new since December 2018. Cardiac Monitoring: A. fib with RVR at a rate of 124 Laboratory studies: [See below] Imaging studies: Chest x-ray: Large right-sided pleural effusion which has increased in size compared to December 2018. Other findings consistent with CHF as interpreted by me. Consultation(s): Dr. Ramos HPI: This is a 84-year-old female patient who presents to the emergency department from home with cough, shortness of breath and congestion over the weekend. The patient became more concerned tonight when she developed chest pain in the upper part of her chest that became sharp and worse overnight. The patient has had a productive cough of green sputum. The patient has a history of A. fib but stopped taking her Coumadin in the fall. She has a history of congestive heart failure and occasionally wears oxygen when she goes out or for sleep. EMS found the patient to have an oxygen saturation of 88% and provided her a DuoNeb treatment in route to the hospital she states that her breathing is somewhat better. ROS: See above HPI for pertinent positives & negatives. A total of [10] systems reviewed and were otherwise negative. PAST MEDICAL HISTORY:[See Below] PAST SURGICAL HISTORY:[See Below] FAMILY HISTORY:[See Below] SOCIAL HISTORY:[See Below] HOME MEDICATIONS:[See Below] ALLERGIES:[See Below] VITALS:[See Below] PHYSICAL EXAMINATION: HEENT: Head - normocephalic and atraumatic Pupils are equal, round, and reactive to light. Extraocular eye muscles are intact, and sclera are anicteric. Nose - moist nasal mucosa without discharge. Mouth - moist buccal mucosa. Oropharynx is nonerythematous and there is no tonsillar exudate or edema noted. Neck: Supple; no cervical lymphadenopathy or nuchal rigidity Heart: Irregularly irregular rhythm with a tachycardic rate no murmurs appreciated Lungs: Absent breath sounds in the right lower lung with rales heard on the left. Abdomen: Soft, completely nontender, nondistended, with good bowel sounds. There are no palpable pulsatile masses or hepatosplenomegaly. There is no guarding, rigidity, or rebound noted. Extremities: 1+ edema in both lower extremities. There are easily palpable peripheral pulses. Skin: warm and dry with good turgor and no rashes. ED COURSE: 0355: The patient was evaluated in room A2. A complete history and physical was performed. An order was placed for continuous cardiac monitoring. The patient was in A. fib with RVR at a rate of 125. An IV lock was initiated with labs drawn as above. A portable chest x-ray was performed. The patient was hypoxic and remained on oxygen. The case was discussed with the [facility] Hospitalist and they will evaluate for further management. I reviewed the results of the x-ray and labs with the patient. She remains on supplemental oxygen and her O2 saturations are stable. I have personally spent greater than 30 minutes of critical care time in the direct management of this patient. This includes bedside care, interpretation of diagnostic studies, and testing, discussion with consultants, patient, and family members, and other required patient management activities. This 30 minutes is in excess of all separately billable procedures. Impression & Plan Hypoxia, Pleural effusion, Atrial fibrillation with rapid ventricular response Past Med/Surg History Social History Preferred Language: Liberian Communication Ability: Impaired Nursing Home Physician Required: No Beliefs That Will Affect Care: None marital status: / Current Living Situation: Family Feels Safe at Home: Yes Smoking Status: Never smoker Second Hand Exposure: No ; Hx Alcohol Use: No Hx Substance Use: No Results & Data Vital Signs Vital Signs - 24 hr 07/08/19 03:30 07/08/19 03:32 07/08/19 03:47 Temperature 37.3 C Temperature Source Oral Pulse Rate 124 H 125 H Pulse Rate [Right Finger] Pulse Rate from SpO2 Sensor 108 H Pulse Rhythm Irregular Regular Pulse Rhythm [Right Finger] Pulse Strength Normal Pulse Strength [Right Finger] Respiratory Rate 22 25 H Respiratory Effort / Characteristics Non-Labored Respiratory Depth Normal Respiratory Pattern Regular Blood Pressure 136/84 119/66 Blood Pressure [Right Arm] Blood Pressure Mean 101 80 Blood Pressure Mean [Right Arm] Blood Pressure Position Sitting Pulse Oximetry 95 98 96 Oxygen Delivery Method Nasal Cannula Nasal Cannula Oxygen Flow Rate 2 Sepsis Recent Fever Within 48 Hours No Sepsis Action Taken by Nursing No Action Required Pulse Oximetry Post Tiitration 98 07/08/19 04:49 07/08/19 05:31 07/08/19 06:08 Temperature Temperature Source Pulse Rate Pulse Rate [Right Finger] 116 H 118 H 112 H Pulse Rate from SpO2 Sensor Pulse Rhythm Pulse Rhythm [Right Finger] Regular Regular Pulse Strength Pulse Strength [Right Finger] Normal Normal Respiratory Rate 22 18 20 Respiratory Effort / Characteristics Non-Labored Spontaneous Non-Labored Spontaneous Non-Labored Respiratory Depth Normal Normal Respiratory Pattern Regular Regular Blood Pressure Blood Pressure [Right Arm] 114/76 139/85 Blood Pressure Mean Blood Pressure Mean [Right Arm] 88 103 Blood Pressure Position Pulse Oximetry 95 91 94 Oxygen Delivery Method Nasal Cannula Nasal Cannula Nasal Cannula Oxygen Flow Rate 2 3 2 Sepsis Recent Fever Within 48 Hours Sepsis Action Taken by Nursing Pulse Oximetry Post Tiitration 07/08/19 06:27 Temperature Temperature Source Pulse Rate 110 H Pulse Rate [Right Finger] Pulse Rate from SpO2 Sensor Pulse Rhythm Pulse Rhythm [Right Finger] Pulse Strength Pulse Strength [Right Finger] Respiratory Rate 22 Respiratory Effort / Characteristics Respiratory Depth Respiratory Pattern Blood Pressure 139/85 Blood Pressure [Right Arm] Blood Pressure Mean Blood Pressure Mean [Right Arm] Blood Pressure Position Pulse Oximetry 92 Oxygen Delivery Method Nasal Cannula Oxygen Flow Rate 2 Sepsis Recent Fever Within 48 Hours Sepsis Action Taken by Nursing Pulse Oximetry Post Tiitration Laboratory Data Result diagrams: 07/08/19 04:28 07/08/19 04:28 Lab Results 07/08/19 07/08/19 07/08/19 Range/Units 04:28 04:28 04:28 WBC 3.04 L (4.8-10.8) K/uL RBC 4.25 (4.2-5.4) M/uL Hgb 13.7 (12.0-16.0) g/dL Hct 39.8 (37-47) % MCV 93.6 (80-100) fL MCH 32.2 (25-34) pg MCHC 34.4 (32-36) g/dL RDW Std Deviation 46.1 (36.4-46.3) fL RDW Coeff of Anmol 13.4 (11.5-14.5) % Plt Count 132 (130-400) K/uL MPV 9.2 (7.4-10.4) fL Immature Gran % (Auto) 0.0 % Neut % (Auto) 70.8 % Lymph % (Auto) 20.7 % Rolette % (Auto) 5.9 % Eos % (Auto) 2.3 % Baso % (Auto) 0.3 % Immature Gran # (Auto) 0.00 (0.00-0.02) K/uL Neut # (Auto) 2.15 (1.4-6.5) K/uL Lymph # (Auto) 0.63 L (1.2-3.4) K/uL Rolette # (Auto) 0.18 (0.11-0.59) K/uL Eos # (Auto) 0.07 (0-0.5) K/uL Baso # (Auto) 0.01 (0-0.2) K/uL PT 11.6 (9.0-12.0) Seconds INR 1.1 (0.9-1.1) APTT 27.5 (21.0-31.0) Seconds PTT Ratio 1.0 ABG pH (7.35-7.45) ABG pCO2 (35-46) mmHg ABG pO2 (80-95) mmHg ABG HCO3 (19-24) mmol/L ABG O2 Saturation (90-95) % ABG Base Excess (-9-1.8) mEq/L Michael Test (Pos) Barometric Pressure mm/Hg Oxygen Given Sodium 142 (136-145) mmol/L Potassium 3.5 (3.5-5.1) mmol/L Chloride 110 H (98-107) mmol/L Carbon Dioxide 27 (21-32) mmol/L Anion Gap 5.0 (3-11) BUN 19 H (7-18) mg/dl Creatinine 1.19 (0.6-1.2) mg/dl Est Cr Clr Drug Dosing 28.9 ml/min Est GFR ( Amer) 48.2 Est GFR (Non-Af Amer) 41.6 BUN/Creatinine Ratio 16.2 (10-20) Glucose 112 H (70-99) mg/dl Estimat Average Glucose mg/dl Hemoglobin A1c (4.5-5.6) % Lactate (0.4-2.0) mmol/L Calcium 8.7 (8.5-10.1) mg/dl Magnesium (1.8-2.4) mg/dl Total Bilirubin 0.7 (0.2-1) mg/dl AST 14 L (15-37) U/L ALT 14 (12-78) U/L Alkaline Phosphatase 41 L (45-117) U/L Troponin I < 0.015 (0-0.045) ng/ml NT-Pro-B Natriuret Pep (0-1800) pg/ml Total Protein 6.6 (6.4-8.2) gm/dl Albumin 3.4 (3.4-5.0) gm/dl Globulin 3.2 (2.5-4.0) gm/dl Albumin/Globulin Ratio 1.1 (0.9-2) TSH (0.300-4.500) uIu/ml Phenobarbital (15-40) mcg/mL Influenza Type A (PCR) (Neg) Influenza Type B (PCR) (Neg) 07/08/19 07/08/19 07/08/19 Range/Units 04:28 05:32 05:50 WBC (4.8-10.8) K/uL RBC (4.2-5.4) M/uL Hgb (12.0-16.0) g/dL Hct (37-47) % MCV (80-100) fL MCH (25-34) pg MCHC (32-36) g/dL RDW Std Deviation (36.4-46.3) fL RDW Coeff of Anmol (11.5-14.5) % Plt Count (130-400) K/uL MPV (7.4-10.4) fL Immature Gran % (Auto) % Neut % (Auto) % Lymph % (Auto) % Rolette % (Auto) % Eos % (Auto) % Baso % (Auto) % Immature Gran # (Auto) (0.00-0.02) K/uL Neut # (Auto) (1.4-6.5) K/uL Lymph # (Auto) (1.2-3.4) K/uL Rolette # (Auto) (0.11-0.59) K/uL Eos # (Auto) (0-0.5) K/uL Baso # (Auto) (0-0.2) K/uL PT (9.0-12.0) Seconds INR (0.9-1.1) APTT (21.0-31.0) Seconds PTT Ratio ABG pH (7.35-7.45) ABG pCO2 (35-46) mmHg ABG pO2 (80-95) mmHg ABG HCO3 (19-24) mmol/L ABG O2 Saturation (90-95) % ABG Base Excess (-9-1.8) mEq/L Michael Test (Pos) Barometric Pressure mm/Hg Oxygen Given Sodium (136-145) mmol/L Potassium (3.5-5.1) mmol/L Chloride (98-107) mmol/L Carbon Dioxide (21-32) mmol/L Anion Gap (3-11) BUN (7-18) mg/dl Creatinine (0.6-1.2) mg/dl Est Cr Clr Drug Dosing ml/min Est GFR ( Amer) Est GFR (Non-Af Amer) BUN/Creatinine Ratio (10-20) Glucose (70-99) mg/dl Estimat Average Glucose mg/dl Hemoglobin A1c (4.5-5.6) % Lactate 1.1 (0.4-2.0) mmol/L Calcium (8.5-10.1) mg/dl Magnesium 1.9 (1.8-2.4) mg/dl Total Bilirubin (0.2-1) mg/dl AST (15-37) U/L ALT (12-78) U/L Alkaline Phosphatase (45-117) U/L Troponin I (0-0.045) ng/ml NT-Pro-B Natriuret Pep 3387 H (0-1800) pg/ml Total Protein (6.4-8.2) gm/dl Albumin (3.4-5.0) gm/dl Globulin (2.5-4.0) gm/dl Albumin/Globulin Ratio (0.9-2) TSH 2.400 (0.300-4.500) uIu/ml Phenobarbital (15-40) mcg/mL Influenza Type A (PCR) Neg for Influ A (Neg) Influenza Type B (PCR) Neg for Influ B (Neg) 07/08/19 07/08/19 07/08/19 Range/Units 05:50 05:50 06:02 WBC (4.8-10.8) K/uL RBC (4.2-5.4) M/uL Hgb (12.0-16.0) g/dL Hct (37-47) % MCV (80-100) fL MCH (25-34) pg MCHC (32-36) g/dL RDW Std Deviation (36.4-46.3) fL RDW Coeff of Anmol (11.5-14.5) % Plt Count (130-400) K/uL MPV (7.4-10.4) fL Immature Gran % (Auto) % Neut % (Auto) % Lymph % (Auto) % Rolette % (Auto) % Eos % (Auto) % Baso % (Auto) % Immature Gran # (Auto) (0.00-0.02) K/uL Neut # (Auto) (1.4-6.5) K/uL Lymph # (Auto) (1.2-3.4) K/uL Rolette # (Auto) (0.11-0.59) K/uL Eos # (Auto) (0-0.5) K/uL Baso # (Auto) (0-0.2) K/uL PT (9.0-12.0) Seconds INR (0.9-1.1) APTT (21.0-31.0) Seconds PTT Ratio ABG pH 7.47 H (7.35-7.45) ABG pCO2 37 (35-46) mmHg ABG pO2 61 L (80-95) mmHg ABG HCO3 26 H (19-24) mmol/L ABG O2 Saturation 92.4 (90-95) % ABG Base Excess 3.0 H (-9-1.8) mEq/L Michael Test Pos (Pos) Barometric Pressure 744.0 mm/Hg Oxygen Given 2L Sodium (136-145) mmol/L Potassium (3.5-5.1) mmol/L Chloride (98-107) mmol/L Carbon Dioxide (21-32) mmol/L Anion Gap (3-11) BUN (7-18) mg/dl Creatinine (0.6-1.2) mg/dl Est Cr Clr Drug Dosing ml/min Est GFR ( Amer) Est GFR (Non-Af Amer) BUN/Creatinine Ratio (10-20) Glucose (70-99) mg/dl Estimat Average Glucose 103 mg/dl Hemoglobin A1c 5.2 (4.5-5.6) % Lactate (0.4-2.0) mmol/L Calcium (8.5-10.1) mg/dl Magnesium (1.8-2.4) mg/dl Total Bilirubin (0.2-1) mg/dl AST (15-37) U/L ALT (12-78) U/L Alkaline Phosphatase (45-117) U/L Troponin I (0-0.045) ng/ml NT-Pro-B Natriuret Pep (0-1800) pg/ml Total Protein (6.4-8.2) gm/dl Albumin (3.4-5.0) gm/dl Globulin (2.5-4.0) gm/dl Albumin/Globulin Ratio (0.9-2) TSH (0.300-4.500) uIu/ml Phenobarbital 33.4 (15-40) mcg/mL Influenza Type A (PCR) (Neg) Influenza Type B (PCR) (Neg) Administered Medications Doxycycline Hyclate 100 mg/ (Dextrose) 110 mls @ 50 mls/hr IV NOW STA Stop: 07/08/19 08:10 Last Admin: 07/08/19 06:26 Dose: 50 mls/hr Documented by: [id number] Ioversol (Optiray 320 125ml) 125 ml IV ONCE PRN PRN Reason: Interaction Checking Stop: 07/12/19 06:23 Last Admin: 07/08/19 06:24 Dose: 95 ml Documented by: [id number] Discontinued Medications Furosemide (Lasix) 40 mg IV NOW STA Stop: 07/08/19 06:12 Last Admin: 07/08/19 06:26 Dose: 40 mg Documented by: [id number] Ipratropium Hendrix (Atrovent 0.02% 0.5mg/2.5ml) 0.5 mg INH ONE STA Stop: 07/08/19 05:36 Last Admin: 07/08/19 05:31 Dose: 0.5 mg Documented by: [id number] Levalbuterol HCl (Xopenex 1.25mg/0.5ml Neb) 1.25 mg INH ONE STA Stop: 07/08/19 05:36 Last Admin: 07/08/19 05:31 Dose: 1.25 mg Documented by: [id number] Methylprednisolone (Solumedrol) 20 mg IV NOW STA Stop: 07/08/19 05:58 Last Admin: 07/08/19 06:06 Dose: 20 mg Documented by: [id number] Metoprolol Tartrate (Lopressor) 2.5 mg IV NOW STA Stop: 07/08/19 05:43 Last Admin: 07/08/19 05:54 Dose: 2.5 mg Documented by: [id number] Potassium Chloride (Klor-Con M10) 50 meq PO NOW STA Stop: 07/08/19 05:22 Last Admin: 07/08/19 05:54 Dose: 50 meq Documented by: [id number] Discharge Plan Visit Data Chief Complaint: Shortness of Breath/Dyspnea Stated Complaint: Cough, shortness of breath ED Provider: Ebonie Elizondo Discharge Problem: Hypoxia, Pleural effusion, Atrial fibrillation with rapid ventricular response Discharge Instructions Interventions: ED Discharge Assessment Last Done: 07/08/19 06:27 Forms Stand Alone Forms: [facility] Prescriptions Prescriptions: No Action levetiracetam 500 mg Tablet 500 mg PO BID RF: 0 aspirin 81 mg Tablet,Delayed Release (Dr/Ec) 81 mg PO DAILY RF: 0 furosemide [Lasix] 40 mg tablet 40 mg PO DAILY Qty: 30 RF: 0 atorvastatin 10 mg tablet 10 mg PO DAILY RF: 0 metoprolol tartrate 50 mg tablet 50 mg PO BID RF: 0 phenobarbital 30 mg tablet 45 mg PO BID RF: 0 Referrals Referrals: Velma Rose MD [Primary Care Provider] -
[2019-07-08 04:46] LABS: Basophils # (auto) 0.01 K/uL (0-0.2); Basophils % (auto) 0.3 %; Eosinophils # (auto) 0.07 K/uL (0-0.5); Eosinophils % (auto) 2.3 %; Hematocrit (blood only) 39.8 % (37-47); Hemoglobin 13.7 g/dL (12.0-16.0); Lymphocytes # (auto) 0.63 K/uL (1.2-3.4); Lymphocytes % (auto) 20.7 %; Mean Corpuscular Hemoglobin 32.2 pg (25-34); Mean Corpuscular Hgb Conc 34.4 g/dL (32-36); Mean Corpuscular Volume 93.6 fL (80-100); Mean Platelet Volume 9.2 fL (7.4-10.4); Monocytes # (auto) 0.18 K/uL (0.11-0.59); Monocytes % (auto) 5.9 %; Neutrophils # (auto) 2.15 K/uL (1.4-6.5); Neutrophils % (auto) 70.8 %; Platelet Count 132 K/uL (130-400); RDW Coefficient of Variation 13.4 % (11.5-14.5); RDW Standard Deviation 46.1 fL (36.4-46.3); Red Blood Count 4.25 M/uL (4.2-5.4); White Blood Count 3.04 K/uL (4.8-10.8)
[2019-07-08 05:00] LABS: INR 1.1 (0.9-1.1); Partial Thromboplastin Time 27.5 Seconds (21.0-31.0); Prothrombin Time 11.6 Seconds (9.0-12.0)
[2019-07-08 05:02] LABS: Alanine Aminotransferase 14 U/L (12-78); Albumin Level 3.4 gm/dl (3.4-5.0); Aspartate Aminotransferase 14 U/L (15-37); BUN Creatinine Ratio 16.2 (10-20); Blood Urea Nitrogen 19 mg/dl (7-18); Calcium 8.7 mg/dl (8.5-10.1); Carbon Dioxide 27 mmol/L (21-32); Chloride 110 mmol/L (98-107); Creatinine Clr Calc Pharmacy 28.9 ml/min; Est GFR (African American) 48.2; Est GFR (Non-African American) 41.6; Glucose 112 mg/dl (70-99); Potassium 3.5 mmol/L (3.5-5.1); Sodium 142 mmol/L (136-145)
[2019-07-08 05:07] LABS: Albumin Globulin Ratio 1.1 (0.9-2); Alkaline Phosphatase 41 U/L (45-117); Bilirubin,Total 0.7 mg/dl (0.2-1); Globulin 3.2 gm/dl (2.5-4.0); Total Protein 6.6 gm/dl (6.4-8.2); Troponin I < 0.015 ng/ml (0-0.045)
[2019-07-08] MEDS ORDERED: POTASSIUM CHLORIDE 10 MEQ TABCR PO STA (05:21)
[2019-07-08] MEDS ORDERED: XOPENEX/ATROVENT 1.25mg/0.5MG NEB COMBO NEB STA (05:22)
[2019-07-08] MEDS ORDERED: METOPROLOL TARTRATE 25 MG TAB PO STA (05:24)
[2019-07-08] MEDS ORDERED: LEVALBUTEROL 1.25MG/0.5ML NEB INH STA (05:35)
[2019-07-08] MEDS ORDERED: IPRATROPIUM BROMIDE NEB SOLN 0.02% 2.5 ML VIAL INH STA (05:35)
[2019-07-08] MEDS ORDERED: METOPROLOL TARTRATE 1 MG/ML VIAL IV STA (05:42)
[2019-07-08] MEDS ORDERED: DOXYCYCLINE HYCLATE 100 MG in DEXTROSE 5% 100 ML IV STA (05:59)
--- NOTE | 2019-07-08 05:59 | History & Physical Report ---
Date of Service July 08, 2019 Assessment & Plan (1) Respiratory failure, acute and chronic: hx pulmonary hypertension on home O2 Decompensated heart failure, hx diastolic dysfunction, valvular heart disease (severe , moderate MR/TR, mild AR) Bronchopneumonia (community-acquired infection), possible sepsis Rapid A. fib n secondary to illness Not on anticoagulation as per patient preference HTN, stable hyperlipidemia on statin Rx seizure disorder, stable on regimen (although patient endorses symptoms of visual hallucinations which she attributes to AED tx) past tobacco abuse PCU Supplemental O2 Baseline ABG Diuretic Rx Strict I/Os, daily weights, CHF education, may need fluid restriction Cardiology consult RE decompensated heart failure Cultures, check lactic acid Ceftriaxone, Doxycycline Solu-Medrol 1 dose, neb treatment for pneumonia potentially contributing to hypoxemia Facilitate home beta-elissa, may need titration IV heparin for Afib thromboembolic prophylaxis inpatient PT OT eval DVT prophylaxis. Heparin DNR Total critical care time was 45 minutes. Text document was generated using [employer] voice recognition software. It may contain grammatical or spelling errors. Kindly contact undersigned for clarification of any documentation item in ques tion. History of Present Illness Surgery, tonsillectomy cataract surgery, tonsillectomy/adenectomy, Chief Complaint: Cough, S OB Primary Care Provider: Velma Pinto MD History obtained from patient and records. Medical history significant for chronic respiratory failure secondary to pulmonary hypertension on home O2, chronic diastolic heart failure (EF 55 to 60%, TTE 2018), CAD status post stent, A. fib not on anticoagulation as per patient preference, valvular heart disease (severe , moderate MR/TR, mild AR), pulmonary hypertension as per records, HTN, hyperlipidemia, seizure disorder, celiac disease, past tobacco abuse. Recent confinement December 2018 for A. fib with RVR, decompensated heart failure. Patient Coumadin stopped on discharge as per patient preference. 2 days history of junky cough, chest congestion symptoms with pleuritic chest pain. Sick contacts. Denies aspiration. Denies unusual fluid retention. Compliant with home meds as per patient. EMS summoned this a.m. for worsening respiratory distress. 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 Allergies Allergy/AdvReac Type Severity Reaction Status Date / Time Egg Derived Allergy Severe Difficulty Verified 07/08/19 04:07 Breathing ciprofloxacin [From Cipro] Allergy Redness of Verified 07/08/19 04:07 Skin Penicillins Allergy Rash Verified 07/08/19 04:07 phenytoin [From Dilantin] Allergy Swelling Verified 07/08/19 04:07 lorazepam [From Ativan] AdvReac confusion Verified 07/08/19 04:07 Home Medications Home Medications Medication Instructions Recorded Confirmed Type aspirin 81 mg PO DAILY 09/27/18 07/08/19 History levetiracetam 500 mg PO BID 09/27/18 07/08/19 History furosemide [Lasix] 40 mg PO DAILY #30 tab 01/06/19 07/08/19 Rx atorvastatin 10 mg PO DAILY 07/08/19 07/08/19 History metoprolol tartrate 50 mg PO BID 07/08/19 07/08/19 History phenobarbital 45 mg PO BID 07/08/19 07/08/19 History Past Med/Surg History Medical History Aortic valve stenosis (Chronic) CAD (coronary artery disease) (Chronic) CKD (chronic kidney disease), stage III (Chronic) Hearing loss (Chronic) History of CHF (congestive heart failure) (Chronic) HLD (hyperlipidemia) (Chronic) HTN (hypertension) (Chronic) IBS (irritable bowel syndrome) (Chronic) Macular degeneration (Chronic) Mitral regurgitation (Chronic) Paroxysmal atrial fibrillation (Chronic) Pulmonary hypertension (Chronic) Seizure disorder (Chronic) Surgical History History of ankle surgery (Chronic) History of cardiac catheterization (Chronic) 2013 at [place] - diffuse disease H/O 3 bare metal stents History of cataract surgery (Chronic) Hx of tonsillectomy (Chronic) Family History Other Colorectal cancer Hypertension Social History Preferred Language: Frisian Communication Ability: Effective 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 Required: No Beliefs That Will Affect Care: None marital status: / Current Living Situation: Family Current Living Situation Comment: Lives with Daughter Myra Other Information That Helps Us Care for You: Yes Feels Safe at Home: Yes Smoking Status: Former smoker Do You Dip or Chew Tobacco: No ; Second Hand Exposure: No ; Tobacco Cessation Education Requested by Patient: No Hx Alcohol Use: No Hx Substance Use: No Review of Systems Review of Systems: As per HPI, all 10 systems reviewed, visual hallucinations which patient attributes to seizure medication, all other ROS negative Physical Exam Physical Exam: GENERAL: Slightly uncomfortable, minimal respiratory distress SKIN: Normal color, warm HEENT: Rea palpebral conjunctivae, no ptosis, dry buccal mucosa, O2 mask in place NECK : Supple, no tenderness CHEST : Decreased breath sounds right, no tenderness HEART : Tachycardic, irregular, systolic murmur ABDOMEN: Some distention, nontender EXTREMITIES : Minimal LE swelling, no LE tenderness, no other conspicuous deformities noted NEUROLOGIC : Coherent, mild hearing impairment, no facial asymmetry, no other gross focality Results & Data Vital Signs (Past 12 Hours) Vital Signs Temp Pulse Pulse Resp BP BP Pulse Ox 07/08/19 05:31 118 H 18 91 07/08/19 04:49 116 H 22 114/76 95 07/08/19 03:47 125 H 25 H 119/66 96 07/08/19 03:32 37.3 C 124 H 22 136/84 98 07/08/19 03:30 95 Laboratory Results Laboratory Results WBC 3.04 K/uL (4.8-10.8) L 07/08/19 04:28 RBC 4.25 M/uL (4.2-5.4) 07/08/19 04:28 Hgb 13.7 g/dL (12.0-16.0) 07/08/19 04:28 Hct 39.8 % (37-47) 07/08/19 04:28 MCV 93.6 fL (80-100) 07/08/19 04:28 MCH 32.2 pg (25-34) 07/08/19 04:28 MCHC 34.4 g/dL (32-36) 07/08/19 04:28 RDW Std Deviation 46.1 fL (36.4-46.3) 07/08/19 04:28 RDW Coeff of Anmol 13.4 % (11.5-14.5) 07/08/19 04:28 Plt Count 132 K/uL (130-400) 07/08/19 04:28 MPV 9.2 fL (7.4-10.4) 07/08/19 04:28 Immature Gran % (Auto) 0.0 % 07/08/19 04:28 Neut % (Auto) 70.8 % 07/08/19 04:28 Lymph % (Auto) 20.7 % 07/08/19 04:28 [place] % (Auto) 5.9 % 07/08/19 04:28 Eos % (Auto) 2.3 % 07/08/19 04:28 Baso % (Auto) 0.3 % 07/08/19 04:28 Immature Gran # (Auto) 0.00 K/uL (0.00-0.02) 07/08/19 04:28 Neut # (Auto) 2.15 K/uL (1.4-6.5) 07/08/19 04:28 Lymph # (Auto) 0.63 K/uL (1.2-3.4) L 07/08/19 04:28 [place] # (Auto) 0.18 K/uL (0.11-0.59) 07/08/19 04:28 Eos # (Auto) 0.07 K/uL (0-0.5) 07/08/19 04:28 Baso # (Auto) 0.01 K/uL (0-0.2) 07/08/19 04:28 PT 11.6 Seconds (9.0-12.0) 07/08/19 04:28 INR 1.1 (0.9-1.1) 07/08/19 04:28 APTT 27.5 Seconds (21.0-31.0) 07/08/19 04:28 PTT Ratio 1.0 07/08/19 04:28 Sodium 142 mmol/L (136-145) 07/08/19 04:28 Potassium 3.5 mmol/L (3.5-5.1) 07/08/19 04:28 Chloride 110 mmol/L (98-107) H 07/08/19 04:28 Carbon Dioxide 27 mmol/L (21-32) 07/08/19 04:28 Anion Gap 5.0 (3-11) 07/08/19 04:28 BUN 19 mg/dl (7-18) H 07/08/19 04:28 Creatinine 1.19 mg/dl (0.6-1.2) 07/08/19 04:28 Est Cr Clr Drug Dosing 28.9 ml/min 07/08/19 04:28 Est GFR ( Amer) 48.2 07/08/19 04:28 Est GFR (Non-Af Amer) 41.6 07/08/19 04:28 BUN/Creatinine Ratio 16.2 (10-20) 07/08/19 04:28 Glucose 112 mg/dl (70-99) H 07/08/19 04:28 Calcium 8.7 mg/dl (8.5-10.1) 07/08/19 04:28 Total Bilirubin 0.7 mg/dl (0.2-1) 07/08/19 04:28 AST 14 U/L (15-37) L 07/08/19 04:28 ALT 14 U/L (12-78) 07/08/19 04:28 Alkaline Phosphatase 41 U/L (45-117) L 07/08/19 04:28 Troponin I < 0.015 ng/ml (0-0.045) 07/08/19 04:28 Total Protein 6.6 gm/dl (6.4-8.2) 07/08/19 04:28 Albumin 3.4 gm/dl (3.4-5.0) 07/08/19 04:28 Globulin 3.2 gm/dl (2.5-4.0) 07/08/19 04:28 Albumin/Globulin Ratio 1.1 (0.9-2) 07/08/19 04:[address] chest: 1. No evidence for pulmonary embolus. 2. Large right pleural effusion. 3. Small patchy densities within the base of the left lower lobe. This could represent atelectasis or pneumonia. 4. Mild interlobular septal thickening suggestive of developing congestive change. 5. Cardiomegaly. 6. A 2.5 cm indeterminate left adrenal gland nodule. EKG as per my interpretation : rate 130, A. fib, LAD, LAFB, T wave inversion lateral leads
[2019-07-08 06:07] LABS: Magnesium 1.9 mg/dl (1.8-2.4); Thyroid Stimulating Hormone 2.4 uIu/ml (0.300-4.500)
[2019-07-08] MEDS ORDERED: FUROSEMIDE 40 MG/4 ML VIAL IV STA (06:11)
[2019-07-08 06:16] LABS: Influenza A virus by PCR Neg for Influ A (Neg); Influenza B virus by PCR Neg for Influ B (Neg)
--- NOTE | 2019-07-08 06:22 | XRay Report ---
XR chest 1V portable CLINICAL HISTORY: Chest Pain pain COMPARISON STUDY: 01/05/2019 FINDINGS: Cardiomegaly. Increased pulmonary vasculature. Persistent right pleural effusion slightly i ncreased in volume from the prior study. IMPRESSION: 1. Congestive heart failure. 2. Right pleural effusion slightly increased in volume from the prior study. ACT 112: Negative or not required by law. The above report was generated using voice recognition software. It may contain grammatical, syntax or spelling errors. Electronically signed by: Darin Phelan M.D. 07/08/2019 6:20 AM
[2019-07-08 06:23] LABS: HCO3 ABG 26 mmol/L (19-24); Oxygen Saturation ABG 92.4 % (90-95); PCO2 ABG 37 mmHg (35-46); PO2 ABG 61 mmHg (80-95); pH ABG 7.47 (7.35-7.45)
[2019-07-08] MEDS ORDERED: OPTIRAY 320 125ml IV PRN (06:24)
[2019-07-08 06:26] LABS: Allen Test Pos (Pos)
[2019-07-08 06:33] LABS: Estimated Average Glucose 103 mg/dl; Hemoglobin A1C 5.2 % (4.5-5.6)
[2019-07-08] MEDS ORDERED: ACETAMINOPHEN 325 MG TAB PO PRN (07:25)
[2019-07-08] MEDS ORDERED: MoRPHine SULFATE 2 MG/ML CARP IV PRN (07:25)
[2019-07-08] MEDS ORDERED: PROMETHAZINE HCL 12.5 MG in SODIUM CHLORIDE 0.9% 50 ML IV PRN (07:25)
[2019-07-08] MEDS ORDERED: NITROGLYCERIN SL 0.4 MG/TAB TAB SL PRN (07:25)
[2019-07-08] MEDS ORDERED: OXYCODONE HCL IR 5 MG TAB (IMMEDIATE RELEASE) PO PRN (07:25)
[2019-07-08] MEDS ORDERED: Heparin IV Standard *NO* Bolus IV SCH (07:30)
--- NOTE | 2019-07-08 07:37 | CT Scan Report ---
CHEST CTA for PULMONARY ARTERIES CT DOSE: 233.98 mGy.cm HISTORY: Pulmonary embolus. Shortness of breath. TECHNIQUE: Multiaxial CT images of the chest were performed following the intravenous administration of contrast to evaluate the pulmonary arteries. Maximal intensity projection images were also obtaine d. A dose lowering technique was utilized adhering to the principles of ALARA. COMPARISON STUDY: None. FINDINGS: Limited contrast within the thoracic aorta. No definite evidence for dissection. The ascend ing thoracic aorta measures up to 4.1 cm in diameter. There is a large right pleural effusion. This r esults in near complete compressive atelectasis of the right middle lobe and right lower lobe. There is small patchy densities within the base of the left lower lobe. There is mild interlobular septal t hickening suggestive of developing congestive change. A 4 mm subpleural nodule within the left upper lobe on image 153. No pneumothorax. No suspicious lytic are blastic osseous lesions. Limited views of the upper abdomen demonstrate normal liver and spleen. There is an indeterminate 2.5 cm left adrenal gland nodule. The heart is enlarged. No mediastinal or hilar lymphadenopathy. The right lower lobe s ubsegmental pulmonary arteries are nondiagnostic. Otherwise, no definite filling defects within the p ulmonary arteries to suggest pulmonary embolus. IMPRESSION: 1. No evidence for pulmonary embolus. 2. Large right pleural effusion. 3. Small patchy densities within the base of the left lower lobe. This could represent atelectasis or pneumonia. 4. Mild interlobular septal thickening suggestive of developing congestive change. 5. Cardiomegaly. 6. A 2.5 cm indeterminate left adrenal gland nodule. ACT 112: Negative or not required by law. Electronically signed by: Werner Escalante M.D. 07/08/2019 7:35 AM
[2019-07-08] MEDS: HEPARIN SODIUM/DEXTROSE 25,000 UNITS/500 ML BAG IV SCH (08:09)
[2019-07-08] MEDS: IPRATROPIUM BROMIDE NEB SOLN 0.02% 2.5 ML VIAL INH SCH ×3 (08:16→19:47)
[2019-07-08] MEDS: LEVALBUTEROL 1.25MG/0.5ML NEB INH SCH ×3 (08:16→19:48)
[2019-07-08] MEDS ORDERED: STAT IV Infusion **Titration per Protocol STA (09:40)
--- NOTE | 2019-07-08 09:52 | Cardiology Consultation ---
Date of Consultation July 08, 2019 Assessment & Plan (1) Pleural effusion on right: (2) Acute on chronic diastolic (congestive) heart failure: (3) Respiratory failure, acute and chronic: (4) Atrial fibrillation with RVR: (5) Mitral regurgitation: (6) Aortic valve stenosis: (7) CAD (coronary artery disease): 84-year-old female presents to the ER with acute decompensated heart failure secondary to diastolic dysfunction and valvular heart disease. Radiographic evidence of a large right-sided pleural effusion likely secondary to acute decompensated heart failure. Rapid atrial fibrillation noted since admission as well. Patient clinically improved with diuretic therapy. Heart r ates remain elevated on telemetry. Recommend addition of IV Cardizem, 5 mg/h without bolus at this time. Continue metoprolol 50 mg twice daily. IV heparin infusion initiated. Pulmonary consultation regarding thoracentesis. In regard to patient's chronic anticoagulation, it appears that warfarin was discontinued during recent hospitalization 12/2018 due to personal preference. Her stroke risk is significant given risk factors and age. Will discuss long- term anticoagulation prior to discharge. Continue IV heparin and aspirin currently in anticipation of thoracentesis. Continue IV diuretic therapy. Monitor daily weight, fluid balance, GFR, and electrolytes. History of Present Illness Reason for Consultation: CHF, rapid A. fib Requesting Physician: Dr. Rasmussen Attending Physician: Carmelo Rasmussen MD History of Present Illness 84-year-old female presented to the emergency department shortness of breath. Patient states "I could not breathe". Symptoms began last Monday and were progressive over the week. Notes shortness of breath at rest and with activity. She summoned EMS 07/07/2019 due to worsening symptoms. In the ER she was noted to be hypoxic and supplemental oxygen was applied. She was treated with IV diuretic therapy with improvement of dyspnea. History significant for chronic atrial fibrillation, mixed valvular heart disease including moderate aortic stenosis, mild aortic insufficiency, moderate severe mitral regurgitation, and moderate tricuspid regurgitation with moderate pulmonary hypertension. Recently hospitalized 12/2018 with decompensated heart failure and rapid A. fib. Treated with IV diltiazem infusion during hospitalization as well as IV diuretics. Coumadin discontinued per patient preference during recent hospitalization. Chest x-ray and CT on admission currently demonstrate a large right-sided pleural effusion. Allergies Allergy/AdvReac Type Severity Reaction Status Date / Time Egg Derived Allergy Severe Difficulty Verified 07/08/19 04:07 Breathing ciprofloxacin [From Cipro] Allergy Redness of Verified 07/08/19 04:07 Skin Penicillins Allergy Rash Verified 07/08/19 04:07 phenytoin [From Dilantin] Allergy Swelling Verified 07/08/19 04:07 lorazepam [From Ativan] AdvReac confusion Verified 07/08/19 04:07 Home Medications Home Medications Medication Instructions Recorded Confirmed Type aspirin 81 mg PO DAILY 09/27/18 07/08/19 History levetiracetam 500 mg PO BID 09/27/18 07/08/19 History furosemide [Lasix] 40 mg PO DAILY #30 tab 01/06/19 07/08/19 Rx atorvastatin 10 mg PO DAILY 07/08/19 07/08/19 History metoprolol tartrate 50 mg PO BID 07/08/19 07/08/19 History phenobarbital 45 mg PO BID 07/08/19 07/08/19 History Patient History Medical History Aortic valve stenosis (Chronic) CAD (coronary artery disease) (Chronic) CKD (chronic kidney disease), stage III (Chronic) Hearing loss (Chronic) History of CHF (congestive heart failure) (Chronic) HLD (hyperlipidemia) (Chronic) HTN (hypertension) (Chronic) IBS (irritable bowel syndrome) (Chronic) Macular degeneration (Chronic) Mitral regurgitation (Chronic) Paroxysmal atrial fibrillation (Chronic) Pulmonary hypertension (Chronic) Seizure disorder (Chronic) Surgical History History of ankle surgery (Chronic) History of cardiac catheterization (Chronic) 2014 at [place] - diffuse disease H/O 3 bare metal stents History of cataract surgery (Chronic) Hx of tonsillectomy (Chronic) Family History Other Colorectal cancer Hypertension Social History Preferred Language: Mexican Communication Ability: Effective Drum Handler Required: No Beliefs That Will Affect Care: None marital status: / Current Living Situation: Family Current Living Situation Comment: Lives with Daughter Myra Other Information That Helps Us Care for You: Yes Feels Safe at Home: Yes Smoking Status: Former smoker Do You Dip or Chew Tobacco: No ; Second Hand Exposure: No ; Tobacco Cessation Education Requested by Patient: No Hx Alcohol Use: No Hx Substance Use: No Review of Systems Review of Systems: All systems reviewed & are unremarkable except as noted in HPI & below Physical Exam Constitutional: + ill appearing; no acute distress Respiratory: no labored breathing, no retractions and does not use accessory muscles Auscultation: + breath sounds absent (Right lower lung field) and + rales (Right sided midlung field); no rhonchi and no wheezes Cardiovascular: Rate/Rhythm: + tachycardic and + irregularly irregular Heart Sounds: normal S1, normal S2 and + murmur (2/6 systolic ejection murmur heard best at the base, 1/6 midsystolic murmur heard at the left sternal border.); no cardiac rub Vessels: + JVD Extremities: + edema (1+ bilateral ankle and pretibial) Gastrointestinal (Abdomen): normal bowel sounds, soft, nontender, no hepatosplenomegaly Inspection/Auscultation: abdomen not distended Percussion/Palpation: abdomen soft; abdomen nontender, no guarding and abdomen not rigid Musculoskeletal: Head/Neck/Chest: normocephalic and head atraumatic Skin: no rashes and no lesions Neurologic: moves all extremities; no focal motor deficits Psychiatric: A+Ox3, euthymic affect Results & Data ([facility]) Vital Signs (Past 12 Hours) Vital Signs Temp Pulse Pulse Resp BP BP Pulse Ox 07/08/19 08:18 107 H 16 92 07/08/19 07:55 36.6 C 122 H 20 141/95 H 93 07/08/19 06:27 110 H 22 139/85 92 07/08/19 06:08 112 H 20 139/85 94 07/08/19 05:31 118 H 18 91 07/08/19 04:49 116 H 22 114/76 95 07/08/19 03:47 125 H 25 H 119/66 96 07/08/19 03:32 37.3 C 124 H 22 136/84 98 07/08/19 03:30 95 (1) Respiratory failure, acute and chronic Respiratory failure complication: hypoxia Qualified Code(s): J96.21 - Acute and chronic respiratory failure with hypoxia (2) CAD (coronary artery disease) Associated angina: with stable angina Coronary Disease-Associated Artery/Lesion type: red devil artery [place] vs. transplanted heart: red devil heart Qualified Code(s): I25.118 - Atherosclerotic heart disease of red devil coronary artery with other forms of angina pectoris (3) Aortic valve stenosis Cardiac valve disease etiology: nonrheumatic Qualified Code(s): I35.0 - Nonrheumatic aortic (valve) stenosis (4) Mitral regurgitation Cardiac valve disease etiology: nonrheumatic Qualified Code(s): I34.0 - Nonrheumatic mitral (valve) insufficiency
[2019-07-08] MEDS: cefTRIAXone SODIUM 1,000 MG in DEXTROSE 5% 50 ML IV SCH (09:56)
[2019-07-08] MEDS: ASPIRIN 81 MG ECTAB PO SCH (09:59)
[2019-07-08] MEDS: POTASSIUM CHLORIDE 20 MEQ TABCR PO SCH ×2 (09:59→20:42)
[2019-07-08] MEDS: ATORVASTATIN 10 MG TAB PO SCH (09:59)
[2019-07-08] MEDS: METOPROLOL TARTRATE 50 MG TAB PO SCH ×2 (09:59→20:42)
[2019-07-08] MEDS: levETIRAcetam 500 MG TAB PO SCH ×2 (09:59→20:41)
--- NOTE | 2019-07-08 10:31 | Hospitalist Progress Note ---
Date of Service delayed entry date of service noted below July 08, 2019 Assessment & Plan (1) Respiratory failure, acute and chronic: hx pulmonary hypertension on home O2 Right Sided Pleural Effusion Decompensated heart failure, hx diastolic dysfunction, valvular heart disease (severe , moderate MR/TR, mild AR) -- Pulmonary SVC consulted for thoracentesis -- Lasix 40mg IV BID Echo Cardiology consulted Bronchopneumonia (community-acquired infection), possible sepsis --- Ceftri + Doxy Nebs Rapid A. fib n secondary to illness -- Diltiazem drip Heparin drip HTN, stable hyperlipidemia on statin Rx seizure disorder, stable on regimen (although patient endorses symptoms of visual hallucinations which she attributes to AED tx) past tobacco abuse DVT prophylaxis. Heparin DNR Disposition lives with daughter at home PT/OT evaluation Admission and Anticipated Discharge Date Admission Date: July 08, 2019 Subjective ff up for SOB, pleural effusion seen resting in bed, comfortable, on 2 L nasal cannula states she feels slightly improved since admission not in distress has occasional chest tightness no palpitations, dizziness, nausea/vomiting no bleeding no abdominal pain no other symptoms Review of Systems Review of Systems: All systems reviewed & are unremarkable except as noted in HPI & below Physical Exam Physical Exam: General- oriented x 3, not in distress, speaks in sentences with no effort or accessory muscle use Head- atraumatic Eyes- PERRL, EOMI, anicteric ENT- oropharynx clear Neck- supple, no JVD, no adenopathy, no thyromegaly; carotids +2/2, no bruits appreciated Lungs- right lung: decreased breath sounds mid-base left lung: clear breath sounds Heart- normal rate, regular rhythm; no murmur, no gallop, no rub appreciated Abdomen- normal bowel sounds, nondistended, soft, nontender, no masses or hepatosplenomegaly Extremities- trace pretibial edema, no calf tenderness; peripheral pulses intact Neuro- alert, oriented x 3; CN 2-12 grossly intact; motor 5/5 bila [address]ally;sensation 100% on all extremities; no other gross focal neurologic deficits Skin- warm & dry Results & Data ([facility]) Vital Signs (Past 12 Hours) Vital Signs Temp Pulse Pulse Resp BP BP Pulse Ox 07/08/19 08:18 107 H 16 92 07/08/19 07:55 36.6 C 122 H 20 141/95 H 93 03/16/20 06:27 110 H 22 139/85 92 07/08/19 06:08 112 H 20 139/85 94 07/08/19 05:31 118 H 18 91 07/08/19 04:49 116 H 22 114/76 95 07/08/19 03:47 125 H 25 H 119/66 96 07/08/19 03:32 37.3 C 124 H 22 136/84 98 07/08/19 03:30 95 Laboratory Results all noted and reviewed (1) Respiratory failure, acute and chronic Respiratory failure complication: hypoxia Qualified Code(s): J96.21 - Acute and chronic respiratory failure with hypoxia
[2019-07-08] MEDS: dilTIAZem HCL 125 MG in DEXTROSE 5% 100 ML IV SCH (10:43)
[2019-07-08] MEDS ORDERED: XOPENEX/ATROVENT 1.25mg/0.5MG NEB COMBO NEB SCH (11:00)
--- NOTE | 2019-07-08 11:28 | Pulmonary Consultation ---
Date of Consultation July 08, 2019 Assessment & Plan (1) Pleural effusion on right: Patient with moderate to large pleural effusion on the right per CT scan as well as chest x-ray. A bedside ultrasound will be performed and it is anticipated the patient will undergo thoracentesis if there is a good approach to the fluid. Risk versus benefits of been discussed with the patient. She has been advised to Dr. Dickerson will review those as well. Patient would like to undergo thoracentesis as possible. Most likely etiology for her pleural effusion is cardiac secondary to her CHF We will send fluid for laboratory analysis if obtained. (2) Atrial fibrillation with rapid ventricular response: Patient has stopped anticoagulation as an outpatient secondary to frequent falls Currently the patient is on a heparin drip Heparin drip was stopped at 10:10 this morning for anticipated thoracentesis Resume heparin drip after the procedure if no complications. (3) Acute on chronic diastolic (congestive) heart failure: This is most likely contributing to her shortness of breath and pleural effusion Continue management per cardiology Discussed with Dr. Awad this morning (4) DVT prophylaxis: We will resume heparin drip after thoracentesis Thank you for including us in the care of this patient. We will follow along with you until we have the results of the pleural fluid Please refer to Dr. Dickerson's addendum for further recommendations. Supervising Physician Co-Signing Physician Notes Patient seen and examined. EMR reviewed. Discussed with patient at bedside. Discussed extensively with PORTIA leon. Agree with his assessment and plan as noted. Patient is an 84-year-old female with a history of diastolic heart failure and atrial fibrillation with rapid ventricular response. She has had an effusion dating back to December 2018. She presented to the emergency room with atrial fibrillation and rapid ventricular response. CTA was performed which revealed a large right-sided simple appearing effusion. The patient was initiated on heparin. Cardiology consultation has been obtained. She is receiving rate limiting agents. The patient denies any trauma. No history of fevers chills or night sweats. She denies any chest pain. The patient underwent diagnostic and therapeutic ultrasound-guided catheter thoracentesis on the right with removal of 2 L of serous appearing fluid. Await pleural fluid studies but suspect this is a transudate related to diastolic heart failure and valvular heart disease. Long-term management will involve diuretics, salt intake, and fluid restriction. Would not recommend serial thoracentesis unless it is a palliative measure. History of Present Illness Attending Physician: Carmelo Rasmussen MD History of Present Illness Attending: Dr. Dickerson Is a an 84-year-old female with a history of chronic diastolic heart failure, CAD, status post stent, atrial fibrillation, RVR, valvular heart disease with severe left ear, moderate MR/TR, mild AR, pulmonary hypertension, hyperlipidemia, seizure disorder, celiac disease, hypertension. She also has a 20+ pack year history of tobacco abuse but quit in the . The patient presented with some shortness of breath and history of 2 days of cough with yellow to green sputum. She also complained of pleuritic chest pain at that time. Patient was brought in by ambulance secondary to worsening respiratory distress. She has no documented hypoxia in the system. The patient is chronically on supplemental O2 at home at 2 L/min via nasal cannula. She states that she does get short of breath with exercise. Due to pleuritic type pain patient had a CTA of the chest which showed no evidence for pulmonary embolus. There was a large right pleural effusion which was identified. We are being consulted to evaluate the effusion for possible intervention with thoracentesis. 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 She understands what a pleural effusion is and also understands that oftentimes a thoracentesis is performed. She states that she understands the risks of bleeding, infection, pneumothorax but would like to undergo the thoracentesis. I informed her that Dr. Dickerson would have to obtain consent. The patient does have a history of atrial fibrillation but anticoagulation was stopped in December 2018 secondary to falls. She is currently on a heparin drip for her atrial fibrillation with RVR. INR is 1.0. Patient currently has no shortness of breath, no cough, no pleuritic pain. She denies hemoptysis. She is able speak in full sentences without dyspnea. She states that currently she has no further complaints. Allergies Allergy/AdvReac Type Severity Reaction Status Date / Time Egg Derived Allergy Severe Difficulty Verified 07/08/19 04:07 Breathing ciprofloxacin [From Cipro] Allergy Redness of Verified 07/08/19 04:07 Skin Penicillins Allergy Rash Verified 07/08/19 04:07 phenytoin [From Dilantin] Allergy Swelling Verified 07/08/19 04:07 lorazepam [From Ativan] AdvReac confusion Verified 03/16/20 04:07 Home Medications Home Medications Medication Instructions Recorded Confirmed Type aspirin 81 mg PO DAILY 09/27/18 07/08/19 History levetiracetam 500 mg PO BID 09/27/18 07/08/19 History furosemide [Lasix] 40 mg PO DAILY #30 tab 01/06/19 07/08/19 Rx atorvastatin 10 mg PO DAILY 07/08/19 07/08/19 History metoprolol tartrate 50 mg PO BID 07/08/19 07/08/19 History phenobarbital 45 mg PO BID 07/08/19 07/08/19 History Patient History Medical History Aortic valve stenosis (Chronic) CAD (coronary artery disease) (Chronic) CKD (chronic kidney disease), stage III (Chronic) Hearing loss (Chronic) History of CHF (congestive heart failure) (Chronic) HLD (hyperlipidemia) (Chronic) HTN (hypertension) (Chronic) IBS (irritable bowel syndrome) (Chronic) Macular degeneration (Chronic) Mitral regurgitation (Chronic) Paroxysmal atrial fibrillation (Chronic) Pulmonary hypertension (Chronic) Seizure disorder (Chronic) Surgical History History of ankle surgery (Chronic) History of cardiac catheterization (Chronic) 2014 at [place] - diffuse disease H/O 3 bare metal stents History of cataract surgery (Chronic) Hx of tonsillectomy (Chronic) Family History Other Colorectal cancer Hypertension Social History Preferred Language: Uzbek Communication Ability: Effective Automobile Technician Required: No Beliefs That Will Affect Care: None marital status: / Current Living Situation: Family Current Living Situation Comment: Lives with Daughter Myra Other Information That Helps Us Care for You: Yes Feels Safe at Home: Yes Smoking Status: Former smoker Do You Dip or Chew Tobacco: No ; Second Hand E xposure: No ; Tobacco Cessation Education Requested by Patient: No Hx Alcohol Use: No Hx Substance Use: No Review of Systems Review of Systems: All systems reviewed & are unremarkable except as noted in HPI & below Physical Exam Physical Exam: GENERAL : No acute distress EYES: No icterus, gaze conjugate NOSE: No evidence of epistaxis MOUTH: No lesions or candidiasis NECK: Supple LUNGS: Patient has decreased breath sounds at the right side. Otherwise, no adventitious breath sounds. Good inspiratory effort without induced cough. HEART: Irregular, irregular. Rate at 120 bpm ABDOMEN: Soft, NT, ND, BS Present EXTREMITIES: Trace bilateral LE edema, pedal pulses intact and equal bilaterally NEURO: A&OX3. Cranial nerves II through XII appear grossly intact without focal deficit. Results & Data ([facility]) Vital Signs (Past 12 Hours) Vital Signs Temp Pulse Pulse Resp BP BP Pulse Ox 07/08/19 10:42 36.6 C 120 H 20 135/84 93 07/08/19 08:18 107 H 16 92 07/08/19 08:00 123 H 07/08/19 07:55 36.6 C 122 H 20 141/95 H 93 07/08/19 06:27 110 H 22 139/85 92 07/08/19 06:08 112 H 20 139/85 94 07/08/19 05:31 118 H 18 91 07/08/19 04:49 116 H 22 114/76 95 07/08/19 03:47 125 H 25 H 119/66 96 07/08/19 03:32 37.3 C 124 H 22 136/84 98 07/08/19 03:30 95 Laboratory Results 07/08/19 04:28 07/08/19 04:28 INR 1.1 (0.9-1.1) 07/08/19 04:28 Diagnostic Findings CHEST CTA for PULMONARY ARTERIES CT DOSE: 233.98 mGy.cm HISTORY: Pulmonary embolus. Shortness of breath. TECHNIQUE: Multiaxial CT images of the chest were performed following the intravenous administration of contrast to evaluate the pulmonary arteries. Maximal intensity projection images were also obtained. A dose lowering technique was utilized adhering to the principles of ALARA. COMPARISON STUDY: None. FINDINGS: Limited contrast within the thoracic aorta. No definite evidence for dissection. The ascending thoracic aorta measures up to 4.1 cm in diameter. There is a large right pleural effusion. This results in near complete compre ssive atelectasis of the right middle lobe and right lower lobe. There is small patchy densities within the base of the left lower lobe. There is mild interlobular septal thickening suggestive of developing congestive change. A 4 mm subpleural nodule within the left upper lobe on image 153. No pneumothorax. No suspicious lytic are blastic osseous lesions. Limited views of the upper abdomen demonstrate normal liver and spleen. There is an indeterminate 2.5 cm left adrenal gland nodule. The heart is enlarged. No mediastinal or hilar lymphadenopathy. The right lower lobe subsegmental pulmonary arteries are nondiagnostic. Otherwise, no definite filling defects within the pulmonary arteries to suggest pulmonary embolus. IMPRESSION: 1. No evidence for pulmonary embolus. 2. Large right pleural effusion. 3. Small patchy densities within the base of the left lower lobe. This could represent atelectasis or pneumonia. 4. Mild interlobular septal thickening suggestive of developing congestive ch amrik. 5. Cardiomegaly. 6. A 2.5 cm indeterminate left adrenal gland nodule. Electronically signed by: Werner Escalante M.D. 07/08/2019 7:35 AM PG Care Time/CCT Total # of Minutes Spent Total Time Spent with Patient: Total time spent is greater than 50% in coordination of care (as documented) at patient's floor/unit and/or counseling patient: 30 minutes independent of any procedures Coding Level of Care Code 05029 Inpt Consult Level 5 Diagnoses Pleural effusion on right J90 Atrial fibrillation with rapid ventricular response I48.91 Acute on chronic diastolic (congestive) heart failure I50.33 DVT prophylaxis Z29.9
[2019-07-08] MEDS ORDERED: Nursing to Pharmacy Communication ONE (12:16)
--- NOTE | 2019-07-08 12:29 | XRay Report ---
XR chest 1V portable CLINICAL HISTORY: S/P R Thoracentesis postthoracentesis COMPARISON STUDY: 07/08/2019 FINDINGS: Cardiomegaly. Improved aeration right base post right-sided thoracentesis. No evidence for pneumothorax. Left lung is similar. IMPRESSION: 1. Improved aeration right base postthoracentesis. 2. No evidence of pneumothorax. ACT 112: Negative or not required by law. The above report was generated using voice recognition software. It may contain grammatical, syntax or spelling errors. Electronically signed by: Darin Phelan M.D. 07/08/2019 12:27 PM
--- NOTE | 2019-07-08 12:32 | Procedure Note ---
Procedure Note Date of Service July 08, 2019 Procedure: Diagnostic therapeutic ultrasound-guided catheter thoracentesis Architecture Professor: Dr. Tigre Dickerson Indication: Pleural effusion Consent: Signed by patient and verified with timeout prior to procedure Anesthesia: 8 mL's 1% lidocaine without epinephrine local. Procedure: Consent was verified and timeout performed. Appropriate imaging studies were reviewed prior to the procedure. Patient was placed in a seated position and limited thoracic ultrasound was performed of the right chest. See separate imaging. Site appropriate for thoracentesis was selected. The skin was prepped and draped in normal sterile fashion. Lidocaine was used for local analgesia. Fluid was aspirated via the finder needle. A small skin jeff was made with the scalpel and the catheter over the needle apparatus was advanced over the rib into the pleural space. Using the syringe one-way valve system, a total of 2000 mL's of clear serous fluid was removed. Procedure was terminated due to patient coughing. The catheter was removed and observed to be intact. A sterile dressing was applied. Post procedure chest x-ray was performed and reviewed at bedside. There is a small amount of residual left-sided pleural effusion noted. No pneumothorax. Fluid was sent for cell count with differential, pH, LDH, Gram stain and culture, total protein, and glucose. The patient tolerated the procedure well without obvious complication Coding CPT Codes Pulmonary/Thoracic - Pulmonary and Thoracic: 33402 Thoracentesis w imaging ([id number]) [facility] Procedure Codes (Charges) Pulmonary/Thoracic Procedure 1: Pulmonary and Thoracic: 34088 Thoracentesis w imaging
[2019-07-08 12:49] LABS: Total Protein Pleural Fluid 3.6 g/dl
--- NOTE | 2019-07-08 12:50 | Communication Note ---
Date of Service: July 08, 2019 Note initiated in error.
[2019-07-08 13:23] LABS: Appearance Pleural Fluid CLEAR; Basophils, Fluid 0 %; Color Pleural Fluid YELLOW; Eosinophils, Fluid 0 %; Lymphocytes, Fluid 52 %; Mono,Macrophage,Mesothelial 48 %; Neutrophils, Fluid 0 %; RBC Pleural Fluid (A) < 3000 /uL; Source Pleural Fluid RIGHT LUNG; WBC Pleural Fluid (A) 110 /uL
[2019-07-08] MEDS: FUROSEMIDE 40 MG in SYRINGE 0 ML IV SCH (16:52)
[2019-07-08] MEDS ORDERED: FUROSEMIDE 40 MG/4 ML VIAL IV SCH (17:00)
[2019-07-08 19:32] LABS: Partial Thromboplastin Ratio 2.6
[2019-07-08 19:42] LABS: Partial Thromboplastin Time 73.5 Seconds (21.0-31.0)
[2019-07-08] MEDS: DOXYCYCLINE HYCLATE 100 MG CAP PO SCH (20:41)
[2019-07-09] MEDS: LEVALBUTEROL 1.25MG/0.5ML NEB INH SCH ×4 (01:18→20:29)
[2019-07-09] MEDS: IPRATROPIUM BROMIDE NEB SOLN 0.02% 2.5 ML VIAL INH SCH ×4 (01:18→20:28)
[2019-07-09 02:45] LABS: Basophils # (auto) 0.01 K/uL (0-0.2); Basophils % (auto) 0.3 %; Hemoglobin 12.6 g/dL (12.0-16.0); Immature Granulocytes # (auto) 0.01 K/uL (0.00-0.02); Immature Granulocytes % (auto) 0.3 %; Lymphocytes # (auto) 1.02 K/uL (1.2-3.4); Lymphocytes % (auto) 26.3 %; Mean Corpuscular Hemoglobin 31.4 pg (25-34); Mean Corpuscular Hgb Conc 33.2 g/dL (32-36); Mean Corpuscular Volume 94.8 fL (80-100); Mean Platelet Volume 10.1 fL (7.4-10.4); Monocytes # (auto) 0.42 K/uL (0.11-0.59); Monocytes % (auto) 10.8 %; Neutrophils # (auto) 2.42 K/uL (1.4-6.5); Neutrophils % (auto) 62.3 %; Platelet Count 134 K/uL (130-400); RDW Coefficient of Variation 13.6 % (11.5-14.5); RDW Standard Deviation 46.8 fL (36.4-46.3); Red Blood Count 4.01 M/uL (4.2-5.4); White Blood Count 3.88 K/uL (4.8-10.8)
[2019-07-09 03:03] LABS: BUN Creatinine Ratio 16.8 (10-20); Calcium 8.6 mg/dl (8.5-10.1); Creatinine Clr Calc Pharmacy 25.9 ml/min; Est GFR (African American) 43.3; Est GFR (Non-African American) 37.4; Potassium 4.4 mmol/L (3.5-5.1)
[2019-07-09 03:12] LABS: Partial Thromboplastin Ratio > 5.0
[2019-07-09 03:15] LABS: Partial Thromboplastin Time > 139.0 Seconds (21.0-31.0)
[2019-07-09 05:09] LABS: Partial Thromboplastin Ratio 3.1
[2019-07-09 05:51] LABS: Partial Thromboplastin Time 85.1 Seconds (21.0-31.0)
--- NOTE | 2019-07-09 05:51 | Electrocardiogram Report ---
Test Reason : Blood Pressure : / mmHG Vent. Rate : 127 BPM Atrial Rate : 131 BPM P-R Int : 000 ms QRS Dur : 102 ms QT Int : 342 ms P-R-T Axes : 000 -40 129 degrees QTc Int : 497 ms Atrial fibrillation with rapid ventricular response Left axis deviation Septal infarct (cited on or before 08-JUL-2019) Abnormal ECG When compared with ECG of 04-JAN-2019 06:43, Vent. rate has increased BY 50 BPM T wave inversion more evident in Lateral leads Confirmed by Bipin Zavala ([id number]) on 07/09/2019 5:51:29 AM Referred By: REFERRED SELF Confirmed By:Bipin Zavala
[2019-07-09] MEDS: dilTIAZem HCL 125 MG in DEXTROSE 5% 100 ML IV SCH (06:41)
--- NOTE | 2019-07-09 08:29 | Pulmonology Progress Note ---
Date of Service July 09, 2019 Assessment & Plan (1) Pleural effusion on right: Impression: 84-year-old female admitted with acute on chronic heart failure and A. fib with RVR. She underwent thoracentesis on the right yesterday. The fluid is chronic as it is been there on x-ray dating back to December 2018. Total protein is mildly elevated but otherwise appears consistent with a transudate and is likely consistent with the patient's diagnosis of heart failure. Await cytology. Recommendations: 1. Pleural effusion: Continue management with diuretics. If the effusion should reaccumulate, consideration of repeat thoracentesis may be appropriate although long-term management typically involves salt restriction, fluid restriction, and diuretics. She will need to follow-up with her outpatient provider to review cytology results once they become available. I anticipate this should be ready within 1 to 2 days. 2. Hypoxemic respiratory failure: Related to fluid overload and pleural effusion. Continue to wean oxygen as tolerated. Target oxygen saturation 88- 90. 3. Will sign off at this point time. Feel free to contact us if we can be of additional assistance. (2) Respiratory failure, acute and chronic: Respiratory failure complication: hypoxia Qualified Code(s): J 96.21 - Acute and chronic respiratory failure with hypoxia (3) Acute on chronic diastolic (congestive) heart failure: Subjective Patient seen and examined. No issues overnight. She thinks her shortness of breath is better after thoracentesis. No increased chest pain, cough, or sputum production. Review of Systems Review of Systems: Unchanged from prior Physical Exam Constitutional: WD/WN, vitals as above Neck: trachea midline, no thyromegaly Respiratory: Decreased breath sounds at the right lung base. Thoracentesis site clean dry and intact Cardiovascular: Heart Sounds: normal S1 and normal S2 Extremities: + edema Gastrointestinal (Abdomen): normal bowel sounds, soft, nontender, no hepatosplenomegaly Musculoskeletal: Extremities: extremities normal to inspection Skin: no rashes, warm and dry Neurologic: Nonfocal exam Lymphatic: no cervical lymphadenopathy Results & Data ([facility]) Vital Signs (Past 12 Hours) Vital Signs Temp Pulse Resp BP Pulse Ox 07/09/19 07:43 36.2 C L 101 H 22 105/67 91 07/09/19 07:34 78 16 91 07/09/19 03:30 36.5 C 95 H 18 100/68 92 07/09/19 01:20 82 18 91 07/08/19 23:15 94 H 18 111/69 95 Laboratory Results 07/09/19 01:53 07/09/19 01:53 Pleural fluid studies: Differential showed 52% lymphocytes 40% mesothelial cells pH 7.4 Total protein 3.6 LDH 71 Glucose 134 Gram stain and culture negative to date Cytology pending Diagnostic Findings Postthoracentesis x-ray reviewed. Small right-sided pleural effusion present. No pneumothorax. PG Care Time/CCT Total # of Minutes Spent Total Time Spent with Patient: Total time spent is greater than 50% in coordination of care (as documented) at patient's floor/unit and/or counseling patient: Coding Level of Care Code 42258 Subseq Hosp Care Lvl 2 Diagnoses Pleural effusion on right J90 Respiratory failure, acute and chronic J96.21 Respiratory failure complication: hypoxia Acute on chronic diastolic (congestive) heart failure I50.33
[2019-07-09] MEDS: FUROSEMIDE 40 MG in SYRINGE 0 ML IV SCH ×2 (08:47→17:18)
[2019-07-09] MEDS: levETIRAcetam 500 MG TAB PO SCH ×2 (08:48→20:14)
[2019-07-09] MEDS: cefTRIAXone SODIUM 1,000 MG in DEXTROSE 5% 50 ML IV SCH (08:48)
[2019-07-09] MEDS: METOPROLOL TARTRATE 50 MG TAB PO SCH ×3 (08:48→20:14)
[2019-07-09] MEDS: POTASSIUM CHLORIDE 20 MEQ TABCR PO SCH ×2 (08:48→20:14)
[2019-07-09] MEDS: ASPIRIN 81 MG ECTAB PO SCH (08:48)
[2019-07-09] MEDS: DOXYCYCLINE HYCLATE 100 MG CAP PO SCH (08:48)
[2019-07-09] MEDS: HEPARIN SODIUM/DEXTROSE 25,000 UNITS/500 ML BAG IV SCH (08:49)
--- NOTE | 2019-07-09 10:32 | Cardiology Progress Note ---
Date of Service July 09, 2019 Assessment & Plan (1) Pleural effusion on right: (2) Acute on chronic diastolic (congestive) heart failure: (3) Respiratory failure, acute and chronic: (4) Atrial fibrillation with RVR: (5) Mitral regurgitation: (6) Aortic valve stenosis: (7) CAD (coronary artery disease): Continue IV Lasix 40 mg twice daily. Monitor daily weight, fluid balance, GFR, and electrolytes Titrate metoprolol to 50 mg 3 times daily. Discontinue IV diltiazem today pending heart rate response to titration of beta- elissa therapy. In regard to patient's chronic anticoagulation, it appears that warfarin was discontinued during recent hospitalization 12/2018 due to personal preference. Her stroke risk is significant given risk factors and age. She is a fall risk, however, no significant injuries reported. Prefers to avoid oral anticoagulation at this time, however, she has not made a final decision. She will discuss further with her daughter. Continue IV heparin and aspirin. Subjective Patient seen and examined at the bedside. Shortness of breath improved with thoracentesis and diuretic therapy. 2000 cc of serosanguineous fluid drained. Protein mildly elevated on fluid analysis, however, subjectively appeared to be transudate of per review of operative note. Denies chest pain or palpitations. Heart rate remains elevated on telemetry. IV diltiazem infusing at 5 mg/h. Denies orthopnea or PND. Reports feeling "hot". Denies subjective chills. No fevers recorded. No cough or sputum production. Weight is down approximately 2 kg since admission. Review of Systems Review of Systems: All systems reviewed & are unremarkable except as noted in HPI & below Physical Exam Constitutional: + ill appearing; no acute distress Respiratory: no labored breathing, no retractions and does not use accessory muscles Auscultation: + breath sounds absent (Right base) and + rales (B/L bases); no rhonchi and no wheezes Cardiovascular: Rate/Rhythm: + tachycardic and + irregularly irregular Heart Sounds: normal S1, normal S2 and + murmur (2/6 systolic ejection murmur heard best at the base, 1/6 midsystolic murmur heard at the left sternal border.); no cardiac rub Vessels: + JVD Extremities: + edema (1+ bilateral ankle and pretibial) Gastrointestinal (Abdomen): normal bowel sounds, soft, nontender, no hepatosplenomegaly Inspection/Auscultation: abdomen not distended Percussion/Palpation: abdomen soft; abdomen nontender, no guarding and abdomen not rigid Musculoskeletal: Head/Neck/Chest: normocephalic and head atraumatic Skin: no rashes and no lesions Neurologic: moves all extremities; no focal motor deficits Psychiatric: A+Ox3, euthymic affect Results & Data Vital Signs (Past 12 Hours) Vital Signs Temp Pulse Resp BP Pulse Ox 07/09/19 07:43 36.2 C L 101 H 22 105/67 91 07/09/19 07:34 78 16 91 07/09/19 03:30 36.5 C 95 H 18 100/68 92 07/09/19 01:20 82 18 91 07/08/19 23:15 94 H 18 111/69 95 (1) Respiratory failure, acute and chronic Respiratory failure complication: hypoxia Qualified Code(s): J96.21 - Acute and chronic respiratory failure with hypoxia (2) CAD (coronary artery disease) Associated angina: with stable angina Coronary Disease-Associated Artery/Lesion type: [place] artery [place] vs. transplanted heart: [place] heart Qualified Code(s): I25.118 - Atherosclerotic heart disease of [place] coronary artery with other forms of angina pectoris (3) Aortic valve stenosis Cardiac valve disease etiology: nonrheumatic Qualified Code(s): I35.0 - Nonrheumatic aortic (valve) stenosis (4) Mitral regurgitation Cardiac valve disease etiology: nonrheumatic Qualified Code(s): I34.0 - Nonrheumatic mitral (valve) insufficiency
[2019-07-09] MEDS: ATORVASTATIN 10 MG TAB PO SCH (11:06)
--- NOTE | 2019-07-09 11:53 | Hospitalist Progress Note ---
Date of Service July 09, 2019 Assessment & Plan (1) Respiratory failure, acute and chronic: 84-year-old female with history of chronic respiratory failure secondary to pulmonary hypertension, oxygen dependent, Chronic diastolic heart failure, valvular heart disease, CAD status post stent placement, chronic atrial fibrillation not on anticoagulation, Other problems noted below presenting with shortness of breath. Right Sided Pleural Effusion Secondary to decompensated heart failure, chronic diastolic dysfunction, valvular heart disease (severe , moderate MR/TR, mild AR) --Status post thoracentesis by pulmonary service 07/08/2019 Total of 2 L clear serous fluid was removed Pleural fluid studies indicative of transudative fluid Cytology pending -- Continue Lasix 40 mg IV every 12 hours Monitor I's and O's --Pneumonia unlikely, discontinue antibiotics Chronic atrial fibrillation, in RVR --Currently on diltiazem drip Metoprolol succinate 50 mg 3 times daily started --Also on heparin drip Not on anticoagulation outpatient Patient to discuss possible initiation of oral anticoagulation with her daughter Further recommendations per cardiology service HTN -- stable --Monitor while on metoprolol SEIZURE DISORDER --Stable on Keppra and phenobarbital DVT prophylaxis. Heparin drip DNR Disposition lives with daughter at home PT/OT evaluation ordered Admission and Anticipated Discharge Date Admission Date: July 08, 2019 Subjective Follow-up for right pleural effusion, hypoxia, atrial fibrillation in RVR Seen resting in bed, comfortable, not in distress, on 2 L of oxygen via nasal cannula Remains in atrial fibrillation, heart rate controlled States she feels improved compared to yesterday No chest pain, palpitations, dizziness, shortness of breath No bleeding Denies other symptoms Review of Systems Review of Systems: All systems reviewed & are unremarkable except as noted in HPI & below Physical Exam Physical Exam: General- oriented x 3, not in distress, speaks in sentences with no effort or accessory muscle use Eyes- anicteric Neck- no JVD Lungs-mild rales at the right base, no wheezing Clear breath sounds in the left Heart- normal rate, irregularly irregular rhythm; no murmurs Abdomen- normal bowel sounds, nondistended, soft, nontender Extremities- no pretibial edema, no calf tenderness Neuro- alert, oriented x 3; no new gross focal neurologic deficits Skin- warm & dry Results & Data ([facility]) Vital Signs (Past 12 Hours) Vital Signs Temp Pulse Resp BP Pulse Ox 07/09/19 11:17 36.9 C 95 H 22 98/70 L 91 07/09/19 07:43 36.2 C L 101 H 22 105/67 91 07/09/19 07:34 78 16 91 07/09/19 03:30 36.5 C 95 H 18 100/68 92 07/09/19 01:20 82 18 91 Laboratory Results Laboratory Results - last 24 hr 07/08/19 07/09/19 07/09/19 18:42 01:53 01:53 WBC 3.88 L RBC 4.01 L Hgb 12.6 Hct 38.0 MCV 94.8 MCH 31.4 MCHC 33.2 RDW Std Deviation 46.8 H RDW Coeff of Anmol 13.6 Plt Count 134 MPV 10.1 Immature Gran % (Auto) 0.3 Neut % (Auto) 62.3 Lymph % (Auto) 26.3 Story % (Auto) 10.8 Eos % (Auto) 0.0 Baso % (Auto) 0.3 Immature Gran # (Auto) 0.01 Neut # (Auto) 2.42 Lymph # (Auto) 1.02 L Story # (Auto) 0.42 Eos # (Auto) 0.00 Baso # (Auto) 0.01 APTT 73.5 H* PTT Ratio 2.6 Sodium 140 Potassium 4.4 D Chloride 105 Carbon Dioxide 27 Anion Gap 8.0 BUN 22 H Creatinine 1.30 H Est Cr Clr Drug Dosing 25.9 Est GFR ( Amer) 43.3 Est GFR (Non-Af Amer) 37.4 BUN/Creatinine Ratio 16.8 Glucose 118 H Calcium 8.6 07/09/19 07/09/19 07/09/19 01:53 04:22 12:10 WBC RBC Hgb Hct MCV MCH MCHC RDW Std Deviation RDW Coeff of Anmol Plt Count MPV Immature Gran % (Auto) Neut % (Auto) Lymph % (Auto) Story % (Auto) Eos % (Auto) Baso % (Auto) Immature Gran # (Auto) Neut # (Auto) Lymph # (Auto) Story # (Auto) Eos # (Auto) Baso # (Auto) APTT > 139.0 H* 85.1 H* 89.5 H* PTT Ratio > 5.0 3.1 3.2 Sodium Potassium Chloride Carbon Dioxide Anion Gap BUN Creatinine Est Cr Clr Drug Dosing Est GFR ( Amer) Est GFR (Non-Af Amer) BUN/Creatinine Ratio Glucose Calcium (1) Respiratory failure, acute and chronic Respiratory failure complication: hypoxia Qualified Code(s): J96.21 - Acute and chronic respiratory failure with hypoxia
[2019-07-09 12:44] LABS: Partial Thromboplastin Ratio 3.2
[2019-07-09 12:55] LABS: Partial Thromboplastin Time 89.5 Seconds (21.0-31.0)
[2019-07-09 19:49] LABS: Partial Thromboplastin Ratio 2.5
[2019-07-09 19:57] LABS: Partial Thromboplastin Time 69.3 Seconds (21.0-31.0)
[2019-07-10] MEDS: IPRATROPIUM BROMIDE NEB SOLN 0.02% 2.5 ML VIAL INH SCH ×4 (01:00→19:30)
[2019-07-10] MEDS: LEVALBUTEROL 1.25MG/0.5ML NEB INH SCH ×4 (01:00→19:30)
[2019-07-10 02:59] LABS: Partial Thromboplastin Ratio 2.2
[2019-07-10 03:07] LABS: Partial Thromboplastin Time 61.8 Seconds (21.0-31.0)
[2019-07-10] MEDS: METOPROLOL TARTRATE 50 MG TAB PO SCH ×4 (05:22→22:39)
[2019-07-10] MEDS: dilTIAZem HCL 125 MG in DEXTROSE 5% 100 ML IV SCH (07:40)
[2019-07-10] MEDS: FUROSEMIDE 40 MG in SYRINGE 0 ML IV SCH ×2 (09:28→16:37)
[2019-07-10] MEDS: ATORVASTATIN 10 MG TAB PO SCH (09:28)
[2019-07-10] MEDS: POTASSIUM CHLORIDE 20 MEQ TABCR PO SCH ×2 (09:29→20:16)
[2019-07-10] MEDS: ASPIRIN 81 MG ECTAB PO SCH (09:29)
[2019-07-10] MEDS: levETIRAcetam 500 MG TAB PO SCH ×2 (09:29→20:15)
[2019-07-10] MEDS: HEPARIN SODIUM/DEXTROSE 25,000 UNITS/500 ML BAG IV SCH ×2 (09:57→23:07)
[2019-07-10 10:47] LABS: BUN Creatinine Ratio 23.8 (10-20); Calcium 8.8 mg/dl (8.5-10.1); Creatinine Clr Calc Pharmacy 24.5 ml/min; Est GFR (African American) 40.7; Est GFR (Non-African American) 35.1; Potassium 4.6 mmol/L (3.5-5.1)
--- NOTE | 2019-07-10 11:01 | Cardiology Progress Note ---
Date of Service July 10, 2019 Assessment & Plan (1) Pleural effusion on right: (2) Acute on chronic diastolic (congestive) heart failure: (3) Respiratory failure, acute and chronic: (4) Atrial fibrillation with RVR: (5) Mitral regurgitation: (6) Aortic valve stenosis: (7) CAD (coronary artery disease): Continue IV Lasix 40 mg twice daily. Discontinue IV diltiazem. Monitor daily weight, fluid balance, GFR, and electrolytes Continue metoprolol to 50 mg 3 times daily. In regard to patient's chronic anticoagulation, it appears that warfarin was discontinued during recent hospitalization 12/2018 due to personal preference. She is a fall risk, however, no significant injuries reported. Prefers to avoid oral anticoagulation at this time, however, she has not made a final decision. She will discuss further with her daughter. Continue IV heparin and aspirin. Subjective Patient seen and examined at the bedside. More confused today. Oriented to person and time. Denies chest pain or shortness of breath currently. Notes co ugh with minimal sputum production. No fevers recorded over the past 24 hours. Telemetry demonstrates mild improvement of resting heart rate with titration of metoprolol to 50 mg 3 times daily. Borderline hypotension intermittently recorded without associated symptoms. Review of Systems Review of Systems: Unobtainable due to cognitive status Physical Exam Constitutional: + ill appearing; no acute distress Respiratory: no labored breathing, no retractions and does not use accessory muscles Auscultation: + breath sounds absent (Right base), + rales (B/L bases) and + rhonchi (Left-sided); no wheezes Cardiovascular: Rate/Rhythm: + irregularly irregular Heart Sounds: normal S1, normal S2 and + murmur (2/6 systolic ejection murmur heard best at the base, 1/6 midsystolic murmur heard at the left sternal border.); no cardiac rub Vessels: + JVD Extremities: + edema (1+ bilateral ankle and pretibial) Gastrointestinal (Abdomen): normal bowel sounds, soft, nontender, no he patosplenomegaly Inspection/Auscultation: abdomen not distended Percussion/Palpation: abdomen soft; abdomen nontender, no guarding and abdomen not rigid Musculoskeletal: Head/Neck/Chest: normocephalic and head atraumatic Skin: no rashes and no lesions Neurologic: moves all extremities; no focal motor deficits Psychiatric: A+Ox3, euthymic affect Results & Data Vital Signs (Past 12 Hours) Vital Signs Temp Pulse Pulse Resp BP BP Pulse Ox 07/10/19 08:01 98/64 L 07/10/19 07:56 36.4 C L 83 18 92/60 L 97 07/10/19 07:00 77 16 97 07/10/19 03:06 36.9 C 100 H 20 105/70 92 07/10/19 01:00 95 H 18 91 07/10/19 00:00 95 H 07/09/19 23:31 37.4 C 91 H 19 103/61 91 (1) Respiratory failure, acute and chronic Respiratory failure complication: hypoxia Qualified Code(s): J96.21 - Acute and chronic respiratory failure with hypoxia (2) CAD (coronary artery disease) Associated angina: with stable angina Coronary Disease-Associated Artery/Lesion type: [place] artery [place] vs. transplanted heart: [place] heart Qualified Code(s): I25.118 - Atherosclerotic heart disease of [place] coronary artery with other forms of angina pectoris (3) Aortic valve stenosis Cardiac valve disease etiology: nonrheumatic Qualified Code(s): I35.0 - Nonrheumatic aortic (valve) stenosis (4) Mitral regurgitation Cardiac valve disease etiology: nonrheumatic Qualified Code(s): I34.0 - Nonrheumatic mitral (valve) insufficiency
--- NOTE | 2019-07-10 21:30 | Hospitalist Progress Note ---
Date of Service July 10, 2019 Assessment & Plan (1) Acute on chronic diastolic (congestive) heart failure: Presented with acute on chronic heart failure, probably multifactorial (left ventricular diastolic heart failure, valvular heart disease, AF with RVR). Cardiology consulted. Receiving IV furosemide. (2) CAD (coronary artery disease): No anginal symptoms. Troponins negative x 2. Continue ASA and metoprolol. (3) Atrial fibrillation: Chronic AF, RVR at time of admission. Cardiology consulted. Receiving IV heparin. ? resume warfarin. Continue metoprolol for rate control. (4) Pleural effusion on right: Chronic right pleural effusion. Thoracentesis performed 07/07. Probable transudate secondary to CHF. Cytology pending. (5) Chronic respiratory failure with hypoxia, on home O2 therapy: Continue supplemental O2. (6) DVT prophylaxis: Currently receiving IV heparin. (7) Discharge planning issues: Discharge disposition to be determined. May need skilled care. Medical follow-up with Dr. Lee. Admission and Anticipated Discharge Date Admission Date: July 08, 2019 Subjective Recheck for multiple problems. Patient seen in their room around 1540. Thoracentesis performed yesterday with improvement of dyspnea. Still has cough productive of green sputum. No fever. Review of Systems: Constitutional- no fever. Cardiac- no chest pain. Pulmonary- as noted above. GI- 1 loose stool during the night; no nausea, vomiting, melena, hematochezia. - no urinary symptoms. Otherwise, as noted above. Physical Exam Constitutional: no acute distress Respiratory: no respiratory distress Auscultation: + rhonchi and + wheezes Cardiovascular: Rate/Rhythm: + irregularly irregular Vessels: + JVD Extr emities: + edema (1+ pretibial); no calf tenderness Gastrointestinal (Abdomen): normal bowel sounds, soft, nontender, no hepatosplenomegaly Skin: no rashes, warm and dry Psychiatric: Orientation: alert Results & Data ([facility]) Vital Signs (Past 12 Hours) Vital Signs Temp Pulse Pulse Resp BP BP Pulse Ox 07/10/19 19:34 18 93 07/10/19 18:55 36.9 C 102 H 20 106/65 95 07/10/19 16:00 89 07/10/19 15:33 36.5 C 94 H 20 123/70 96 07/10/19 13:40 74 18 94 07/10/19 11:00 36.5 C 81 22 111/73 94 Laboratory Results 07/09/19 01:53 07/10/19 10:10 (1) CAD (coronary artery disease) Coronary Disease-Associated Artery/Lesion type: [place] artery [place] vs. transplanted heart: [place] heart Associated angina: with stable angina Qualified Code(s): I25.118 - Atherosclerotic heart disease of [place] coronary artery with other forms of angina pectoris
[2019-07-11] MEDS: LEVALBUTEROL 1.25MG/0.5ML NEB INH SCH ×4 (01:23→18:58)
[2019-07-11] MEDS: IPRATROPIUM BROMIDE NEB SOLN 0.02% 2.5 ML VIAL INH SCH ×4 (01:23→18:58)
[2019-07-11] MEDS: METOPROLOL TARTRATE 50 MG TAB PO SCH ×3 (05:43→20:29)
[2019-07-11 06:18] LABS: Hematocrit (blood only) 37.6 % (37-47); Hemoglobin 12.9 g/dL (12.0-16.0); Mean Corpuscular Hemoglobin 32.1 pg (25-34); Mean Corpuscular Hgb Conc 34.3 g/dL (32-36); Mean Corpuscular Volume 93.5 fL (80-100); Mean Platelet Volume 10.2 fL (7.4-10.4); Platelet Count 122 K/uL (130-400); RDW Coefficient of Variation 13.4 % (11.5-14.5); Red Blood Count 4.02 M/uL (4.2-5.4); White Blood Count 2.98 K/uL (4.8-10.8)
[2019-07-11 06:36] LABS: Partial Thromboplastin Ratio 2.4
[2019-07-11 06:45] LABS: Partial Thromboplastin Time 66.6 Seconds (21.0-31.0)
[2019-07-11 06:51] LABS: BUN Creatinine Ratio 26.9 (10-20); Calcium 8.7 mg/dl (8.5-10.1); Creatinine Clr Calc Pharmacy 26.3 ml/min; Est GFR (African American) 44.1; Est GFR (Non-African American) 38.1; Potassium 4.6 mmol/L (3.5-5.1)
[2019-07-11] MEDS: FUROSEMIDE 40 MG in SYRINGE 0 ML IV SCH ×2 (08:27→17:24)
[2019-07-11] MEDS: ATORVASTATIN 10 MG TAB PO SCH (08:27)
[2019-07-11] MEDS: levETIRAcetam 500 MG TAB PO SCH ×2 (08:27→20:29)
[2019-07-11] MEDS: ASPIRIN 81 MG ECTAB PO SCH (08:27)
[2019-07-11] MEDS: POTASSIUM CHLORIDE 20 MEQ TABCR PO SCH ×2 (08:27→20:28)
--- NOTE | 2019-07-11 08:58 | Cardiology Progress Note ---
Date of Service July 11, 2019 Assessment & Plan (1) Pleural effusion on right: (2) Acute on chronic diastolic (congestive) heart failure: (3) Respiratory failure, acute and chronic: (4) Atrial fibrillation with RVR: (5) Mitral regurgitation: (6) Aortic valve stenosis: (7) CAD (coronary artery disease): Continue IV Lasix 40 mg twice daily. Monitor daily weight, fluid balance, GFR, and electrolytes I will consider addition of low-dose digoxin during hospitalization pending clinical course. Continue metoprolol 50 mg 3 times daily for the time being as I suspect heart rate may trend downward as her respiratory status improves. In regard to patient's chronic anticoagulation, it appears that warfarin was discontinued during recent hospitalization 12/2018 due to personal preference. She is a fall risk, however, no significant injuries reported. Prefers to avoid oral anticoagulation at this time. Continue IV heparin and aspirin. Subjective Patient seen and examined the bedside. More alert today. Denies chest discomfort or heaviness. Shortness of breath and cough improving. Scant green sputum production noted. Appetite is poor. Tolerated approximately half of her a.m. meal. Renal function remains stable on IV diuretic therapy. Telemetry [id number] fibrillation with heart rate averaging 95 to 100 bpm. Metoprolol titrated to 50 mg 3 times daily during hospitalization. IV diltiazem discontinued. Review of Systems Review of Systems: All systems reviewed & are unremarkable except as noted in HPI & below Physical Exam Constitutional: + ill appearing; no acute distress Respiratory: no labored breathing, no retractions and does not use accessory muscles Auscultation: + breath sounds absent (Right base), + rales (B/L bases) and + rhonchi (Left-sided); no wheezes Cardiovascular: Rate/Rhythm: + irregularly irregular Heart Sounds: normal S1, normal S2 and + murmur (2/6 systolic ejection murmur heard best at the base, 1/6 midsystolic murmur heard at the left sternal border.); no cardiac rub Vessels: + JVD Extremities: + edema (1+ bilateral ankle and pretibial) Gastrointestinal (Abdomen): normal bowel sounds, soft, nontender, no hepatosplenomegaly Inspection/Auscultation: abdomen not distended Percussion/Palpation: abdomen soft; abdomen nontender, no guarding and abdomen not rigid Musculoskeletal: Head/Neck/Chest: normocephalic and head atraumatic Skin: no rashes and no lesions Neurologic: moves all extremities; no focal motor deficits Psychiatric: A+Ox3, euthymic affect Results & Data Vital Signs (Past 12 Hours) Vital Signs Temp Pulse Pulse Resp BP BP Pulse Ox 07/11/19 07:16 92 H 16 97 07/11/19 07:09 37.4 C 89 18 92/56 L 99 07/11/19 04:00 36.7 C 104 H 19 106/69 93 07/10/19 23:16 36.4 C L 108 H 16 119/86 97 07/10/19 22:36 109 H 106/73 (1) Respiratory failure, acute and chronic Respiratory failure complication: hypoxia Qualified Code(s): J96.21 - Acute and chronic respiratory failure with hypoxia (2) CAD (coronary artery disease) Associated angina: with stable angina Coronary Disease-Associated Artery/Lesion type: [place] artery [place] vs. transplanted heart: [place] heart Qualified Code(s): I25.118 - Atherosclerotic heart disease of [place] coronary artery with other forms of angina pectoris (3) Aortic valve stenosis Cardiac valve disease etiology: nonrheumatic Qualified Code(s): I35.0 - Nonrheumatic aortic (valve) stenosis (4) Mitral regurgitation Cardiac valve disease etiology: nonrheumatic Qualified Code(s): I34.0 - Nonrheumatic mitral (valve) insufficiency
[2019-07-11 15:59] LABS: Partial Thromboplastin Ratio 2.1
[2019-07-11 16:08] LABS: Partial Thromboplastin Time 59.3 Seconds (21.0-31.0)
--- NOTE | 2019-07-11 21:16 | Hospitalist Progress Note ---
Date of Service July 11, 2019 Assessment & Plan (1) Acute on chronic diastolic (congestive) heart failure: Presented with acute on chronic heart failure, probably multifactorial (left ventricular diastolic heart failure, valvular heart disease, AF with RVR). Cardiology consulted. Receiving IV furosemide with improvement. (2) CAD (coronary artery disease): No anginal symptoms. Troponins negative x 2. Continue ASA and metoprolol. (3) Atrial fibrillation: Chronic AF, RVR at time of admission. Cardiology consulted. Receiving IV heparin. Asked patient her feelings about resuming warfarin. She indicated that she is not interested because of bleeding risk. Continue metoprolol for rate control. (4) Pleural effusion on right: Chronic right pleural effusion. Thoracentesis performed 07/07. Probable transudate secondary to CHF. Cytology negative for malignancy. (5) Chronic respiratory failure with hypoxia, on home O2 therapy: Continue supplemental O2. (6) DVT prophylaxis: Currently receiving IV heparin. (7) Discharge planning issues: Discharge disposition to be determined. May need skilled care. Medical follow-up with Dr. Lee. Admission and Anticipated Discharge Date Admission Date: July 08, 2019 Subjective Recheck for multiple problems. Patient seen in their room around 1620. No fever. Dyspnea improved. Occasional cough. Review of Systems: Constitutional- no fever. Cardiac- no chest pain. Pulmonary- as noted above. GI- no nausea, vomiting, diarrhea, melena, hematochezia. - no urinary symptoms. Otherwise, as noted above. Physical Exam Constitutional: no acute distress Respiratory: no respiratory distress Auscultation: + rhonchi and + wheezes Cardiovascular: Rate/Rhythm: + irregularly irregular Vessels: + JVD Extremities: + edema (1+ pretibial); no calf tenderness Gastrointestinal (Abdomen): normal bowel sounds, soft, nontender, no hepatosplenomegaly Skin: no rashes, warm and dry Psychiatric: Orientation: alert Results & Data ([facility]) Vital Signs (Past 12 Hours) Vital Signs Temp Pulse Pulse Resp BP BP Pulse Ox 07/11/19 19:26 37.5 C 108 H 19 107/72 91 07/11/19 18:58 96 H 16 93 07/11/19 15:19 37.5 C 88 23 99/64 L 92 07/11/19 13:31 78 18 96 07/11/19 11:42 36.7 C 64 17 92/61 L 90 Laboratory Results Laboratory Results - last 24 hr 07/11/19 07/11/19 07/11/19 05:27 05:27 05:27 WBC 2.98 L RBC 4.02 L Hgb 12.9 Hct 37.6 MCV 93.5 MCH 32.1 MCHC 34.3 RDW Std Deviation 46.0 RDW Coeff of Anmol 13.4 Plt Count 122 L MPV 10.2 APTT 66.6 H* PTT Ratio 2.4 Sodium 138 Potassium 4.6 Chloride 102 Carbon Dioxide 29 Anion Gap 7.0 BUN 34 H Creatinine 1.28 H Est Cr Clr Drug Dosing 26.3 Est GFR ( Amer) 44.1 Est GFR (Non-Af Amer) 38.1 BUN/Creatinine Ratio 26.9 H Glucose 93 Calcium 8.7 07/11/19 15:31 WBC RBC Hgb Hct MCV MCH MCHC RDW Std Deviation RDW Coeff of Anmol Plt Count MPV APTT 59.3 H* PTT Ratio 2.1 Sodium Potassium Chloride Carbon Dioxide Anion Gap BUN Creatinine Est Cr Clr Drug Dosing Est GFR ( Amer) Est GFR (Non-Af Amer) BUN/Creatinine Ratio Glucose Calcium (1) CAD (coronary artery disease) Coronary Disease-Associated Artery/Lesion type: [place] artery [place] vs. [place] heart: [place] heart Associated angina: with stable angina Qualified Code(s): I25.118 - Atherosclerotic heart disease of [place] coronary artery with other forms of angina pectoris
[2019-07-12] MEDS: LEVALBUTEROL 1.25MG/0.5ML NEB INH SCH ×4 (01:09→19:14)
[2019-07-12] MEDS: IPRATROPIUM BROMIDE NEB SOLN 0.02% 2.5 ML VIAL INH SCH ×4 (01:09→19:14)
[2019-07-12] MEDS: METOPROLOL TARTRATE 50 MG TAB PO SCH (05:43)
[2019-07-12 06:18] LABS: Partial Thromboplastin Ratio 2.2
[2019-07-12 06:21] LABS: Partial Thromboplastin Time 62.2 Seconds (21.0-31.0)
[2019-07-12] MEDS: ATORVASTATIN 10 MG TAB PO SCH (08:18)
[2019-07-12] MEDS: FUROSEMIDE 40 MG in SYRINGE 0 ML IV SCH ×2 (08:18→17:32)
[2019-07-12] MEDS: POTASSIUM CHLORIDE 20 MEQ TABCR PO SCH ×2 (08:18→20:04)
[2019-07-12] MEDS: levETIRAcetam 500 MG TAB PO SCH ×2 (08:18→20:04)
[2019-07-12] MEDS: ASPIRIN 81 MG ECTAB PO SCH (08:19)
[2019-07-12] MEDS: HEPARIN SODIUM/DEXTROSE 25,000 UNITS/500 ML BAG IV SCH (08:30)
[2019-07-12 08:46] LABS: BUN Creatinine Ratio 28.8 (10-20); Calcium 8.2 mg/dl (8.5-10.1); Creatinine Clr Calc Pharmacy 24.2 ml/min; Est GFR (African American) 44.1; Est GFR (Non-African American) 38.1; Potassium 4.6 mmol/L (3.5-5.1)
[2019-07-12] MEDS: METOPROLOL TARTRATE 25 MG TAB PO SCH ×2 (08:53→20:03)
--- NOTE | 2019-07-12 09:12 | Cardiology Progress Note ---
Date of Service July 12, 2019 Assessment & Plan (1) Pleural effusion on right: (2) Acute on chronic diastolic (congestive) heart failure: (3) Respiratory failure, acute and chronic: (4) Atrial fibrillation with RVR: (5) Mitral regurgitation: (6) Aortic valve stenosis: (7) CAD (coronary artery disease): Review a.m. labs when available. Continue IV Lasix 40 mg twice daily. Monitor daily weight, fluid balance, GFR, and electrolytes Transition metoprolol tartrate 50mg 3 times daily to 75 mg twice daily. She will receive first dose now. Continue to monitor heart rate via telemetry and consider addition of digoxin during hospitalization. In regard to patient's chronic anticoagulation, it appears that warfarin was discontinued during recent hospitalization 12/2018 due to personal preference. Continues to decline oral anticoagulation at this time. Subjective Patient seen and examined today. More alert. Notes mild right-sided flank discomfort near the puncture site of thoracentesis. No erythema or drainage noted on exam. Patient denies chest pain or palpitations. Telemetry continues to demonstrate atrial fibrillation with average heart rate ranging from 95 to 100 bpm. Denies palpitations. No orthopnea or PND. Reports cough with wheezing today. Scant sputum production noted. Fluid balance remains negative. A.m. labs pending. Review of Systems Review of Systems: All systems reviewed & are unremarkable except as noted in HPI & below Physical Exam Constitutional: + ill appearing; no acute distress Respiratory: no labored breathing, no retractions and does not use accessory muscles Auscultation: + breath sounds absent (Right base), + rales (B/L bases) and + rhonchi (Left-sided); no wheezes Cardiovascular: Rate/Rhythm: + irregularly irregular Heart Sounds: normal S1, normal S2 and + murmur (2/6 systolic ejection murmur heard best at the base, 1/6 midsystolic murmur heard at the left sternal border.); no cardiac rub Vessels: + JVD Extremities: + edema (1+ bilateral ankle and pretibial) Gastrointestinal (Abdomen): normal bowel sounds, soft, nontender, no hepatosplenomegaly Inspection/Auscultation: abdomen not distended Percussion/Palpation: abdomen soft; abdomen nontender, no guarding and abdomen not rigid Musculoskeletal: Head/Neck/Chest: normocephalic and head atraumatic Skin: no rashes and no lesions Neurologic: moves all extremities; no focal motor deficits Psychiatric: A+Ox3, euthymic affect Results & Data Vital Signs (Past 12 Hours) Vital Signs Temp Pulse Pulse Pulse Resp BP BP 07/12/19 08:51 101 H 125/84 07/12/19 07:36 100 H 07/12/19 07:20 103 H 18 07/12/19 07:01 36.8 C 95 H 18 102/65 07/12/19 05:43 86 92/86 L 07/12/19 03:47 36.5 C 102 H 18 88/55 L 07/11/19 23:27 36.9 C 100 H 20 108/73 108/73 Pulse Ox 07/12/19 08:51 07/12/19 07:36 07/12/19 07:20 86 L 07/12/19 07:01 90 07/12/19 05:43 07/12/19 03:47 91 07/11/19 23:27 91 (1) Respiratory failure, acute and chronic Respiratory failure complication: hypoxia Qualified Code(s): J96.21 - Acute and chronic respiratory failure with hypoxia (2) CAD (coronary artery disease) Associated angina: with stable angina Coronary Disease-Associated Artery/Lesion type: [place] artery [place] vs. transplanted heart: [place] heart Qualified Code(s): I25.118 - Atherosclerotic heart disease of [place] coronary artery with other forms of angina pectoris (3) Aortic valve stenosis Cardiac valve disease etiology: nonrheumatic Qualified Code(s): I35.0 - Nonrheumatic aortic (valve) stenosis (4) Mitral regurgitation Cardiac valve disease etiology: nonrheumatic Qualified Code(s): I34.0 - Nonrheumatic mitral (valve) insufficiency
[2019-07-12] MEDS ORDERED: DIGOXIN 0.25 MG TAB PO ONE (17:15)
--- NOTE | 2019-07-12 19:33 | Hospitalist Progress Note ---
Date of Service July 12, 2019 Assessment & Plan (1) Acute on chronic diastolic (congestive) heart failure: Presented with acute on chronic heart failure, probably multifactorial (left ventricular diastolic heart failure, valvular heart disease, AF with RVR). Cardiology consulted. Receiving IV furosemide with improvement. (2) CAD (coronary artery disease): No anginal symptoms. Troponins negative x 2. Continue ASA and metoprolol. (3) Atrial fibrillation: Chronic AF, RVR at time of admission. Cardiology consulted. Metoprolol for rate control. Receiving IV heparin. She indicates that she is not interested in taking long-term anticoagulants because of bleeding risk. (4) Pleural effusion on right: Chronic right pleural effusion. Thoracentesis performed 07/07. Probable transudate secondary to CHF. Cytology negative for malignancy. (5) Chronic respiratory failure with hypoxia, on home O2 therapy: Continue supplemental O2. (6) DVT prophylaxis: Currently receiving IV heparin. (7) Discharge planning issues: Discharge disposition to be determined. Pt hopes to be discharged to home. Medical follow-up with Dr. Lee. Admission and Anticipated Discharge Date Admission Date: July 08, 2019 Subjective Recheck for multiple problems. Patient seen in their room around 1600. No fever. No chest pain. Remains in AF. Dyspnea improved. Occasional cough. Ambulated in hallway. Review of Systems: Constitutional- no fever. Cardiac- as noted above. Pulmonary- as noted above. GI- no nausea, vomiting, diarrhea, melena, hematochezia. - no urinary symptoms. Otherwise, as noted above. Physical Exam Constitutional: no acute distress Respiratory: no respiratory distress Auscultation: + rhonchi and + wheezes Cardiovascular: Rate/Rhythm: + irregularly irregular Vessels: + JVD Extremities: + edema (trace - 1+ pretibial); no calf tenderness Gastrointestinal (Abdomen): normal bowel sounds, soft, nontender, no hepatosplenomegaly Skin: no rashes, warm and dry Psychiatric: Orientation: alert Results & Data ([facility]) Vital Signs (Past 12 Hours) Vital Signs Temp Pulse Pulse Pulse Resp BP BP 07/12/19 19:14 110 H 18 07/12/19 17:35 117 H 07/12/19 17:33 73 105/68 07/12/19 15:26 36.9 C 110 H 18 104/69 07/12/19 15:09 103 H 03/20/20 13:17 92 H 18 07/12/19 11:06 36.6 C 93 H 16 107/69 07/12/19 08:51 101 H 125/84 07/12/19 07:36 100 H Pulse Ox 07/12/19 19:14 93 07/12/19 17:35 07/12/19 17:33 07/12/19 15:26 90 07/12/19 15:09 07/12/19 13:17 91 07/12/19 11:06 92 07/12/19 08:51 07/12/19 07:36 (1) CAD (coronary artery disease) Coronary Disease-Associated Artery/Lesion type: [place] artery [place] vs. transplanted heart: [place] heart Associated angina: with stable angina Qualified Code(s): I25.118 - Atherosclerotic heart disease of [place] coronary artery with other forms of angina pectoris
[2019-07-13] MEDS: LEVALBUTEROL 1.25MG/0.5ML NEB INH SCH ×4 (01:11→19:31)
[2019-07-13] MEDS: IPRATROPIUM BROMIDE NEB SOLN 0.02% 2.5 ML VIAL INH SCH ×4 (01:11→19:31)
[2019-07-13 06:19] LABS: Partial Thromboplastin Ratio 2.4
[2019-07-13 06:25] LABS: Calcium 8.2 mg/dl (8.5-10.1); Creatinine Clr Calc Pharmacy 24.8 ml/min; Est GFR (African American) 45.4; Est GFR (Non-African American) 39.2; Potassium 4.5 mmol/L (3.5-5.1)
[2019-07-13 06:36] LABS: Partial Thromboplastin Time 66.9 Seconds (21.0-31.0)
[2019-07-13] MEDS: FUROSEMIDE 40 MG in SYRINGE 0 ML IV SCH (08:07)
[2019-07-13] MEDS: POTASSIUM CHLORIDE 20 MEQ TABCR PO SCH ×2 (08:08→20:22)
[2019-07-13] MEDS: ATORVASTATIN 10 MG TAB PO SCH (08:09)
[2019-07-13] MEDS: METOPROLOL TARTRATE 25 MG TAB PO SCH ×2 (08:09→20:23)
[2019-07-13] MEDS: levETIRAcetam 500 MG TAB PO SCH ×2 (08:09→20:23)
[2019-07-13] MEDS: ASPIRIN 81 MG ECTAB PO SCH (08:09)
[2019-07-13 13:25] LABS: Partial Thromboplastin Ratio 2.2
--- NOTE | 2019-07-13 13:30 | Cardiology Progress Note ---
Date of Service July 13, 2019 Assessment & Plan (1) Pleural effusion on right: (2) Acute on chronic diastolic (congestive) heart failure: (3) Respiratory failure, acute and chronic: (4) Atrial fibrillation with RVR: (5) Mitral regurgitation: (6) Aortic valve stenosis: (7) CAD (coronary artery disease): Volume status markedly improved with IV diuretic therapy and right-sided thoracentesis. Recommend discontinuation of IV diuretic therapy today. Begin Lasix 40 mg daily p.o. in a.m. 07/14/2019. In regard to her rate control medications, continue metoprolol 75 mg twice daily. Add low-dose digoxin 125 mcg on Monday, Monday, and Fridays only. Patient declines oral anticoagula tion. Outpatient cardiology follow-up in 2 to 4 weeks. Subjective Patient seen and examined at bedside. Respiratory status improved. More hypotensive over the past 24 hours. Renal function remained stable. Patient denies palpitations, chest discomfort, or lightheadedness. Tolerating diet and medications. Offers no other concerns/complaints at this time. Review of Systems Review of Systems: All systems reviewed & are unremarkable except as noted in HPI & below Physical Exam Constitutional: + ill appearing; no acute distress Respiratory: no labored breathing, no retractions and does not use accessory muscles Auscultation: + breath sounds absent (Right base), + rales (B/L bases) and + rhonchi (Left-sided); no wheezes Cardiovascular: Rate/Rhythm: + irregularly irregular Heart Sounds: normal S1, normal S2 and + murmur (2/6 systolic ejection murmur heard best at the base, 1/6 midsystolic murmur heard at the left sternal border.); no cardiac rub Vessels: + JVD Extremities: no edema (1+ bilateral ankle and pretibial) Gastrointestinal (Abdomen): normal bowel sounds, soft, nontender, no hepatosplenomegaly Inspection/Auscultation: abdomen not distended Percussion/Palpation: abdomen soft; abdomen nontender, no guarding and abdomen not rigid Musculoskeletal: Head/Neck/Chest: normocephalic and head atraumatic Skin: no rashes and no lesions Neurologic: moves all extremities; no focal motor deficits Psychiatric: A+Ox3, euthymic affect Results & Data Vital Signs (Past 12 Hours) Vital Signs Temp Pulse Pulse Pulse Resp BP Pulse Ox 07/13/19 11:31 37.0 C 69 20 91/75 L 91 07/13/19 07:33 36.8 C 95 H 20 96/60 L 94 07/13/19 07:29 89 07/13/19 07:22 90 18 92 07/13/19 04:30 36.6 C 79 18 81/57 L 96 (1) Respiratory failure, acute and chronic Respiratory failure complication: hypoxia Qualified Code(s): J96.21 - Acute and chronic respiratory failure with hypoxia (2) CAD (coronary artery disease) Associated angina: with stable angina Coronary Disease-Associated Artery/Lesion type: [place] artery [place] vs. transplanted heart: [place] heart Qualified Code(s): I25.118 - Atherosclerotic heart disease of [place] coronary artery with other forms of angina pectoris (3) Aortic valve stenosis Cardiac valve disease etiology: nonrheumatic Qualified Code(s): I35.0 - Nonrheumatic aortic (valve) stenosis (4) Mitral regurgitation Cardiac valve disease etiology: nonrheumatic Qualified Code(s): I34.0 - Nonrheumatic mitral (valve) insufficiency
[2019-07-13 13:38] LABS: Partial Thromboplastin Time 61.9 Seconds (21.0-31.0)
[2019-07-13] MEDS ORDERED: DIGOXIN 0.125 MG TAB PO SCH (16:00)
--- NOTE | 2019-07-13 17:41 | Hospitalist Progress Note ---
Date of Service July 13, 2019 Assessment & Plan (1) Acute on chronic diastolic (congestive) heart failure: Presented with acute on chronic heart failure, probably multifactorial (left ventricular diastolic heart failure, valvular heart disease, AF with RVR). Cardiology consulted. Received IV furosemide with improvement. Transitioning to oral furosemide. (2) CAD (coronary artery disease): No anginal symptoms. Troponins negative x 2. Continue ASA and metoprolol. (3) Atrial fibrillation: Chronic AF, RVR at time of admission. Cardiology consulted. Metoprolol + digoxin for rate control. Receiving IV heparin. Pt not interested in taking long-term anticoagulants because of bleeding risk. (4) Pleural effusion on right: Chronic right pleural effusion. Thoracentesis performed 07/07. Probable transudate secondary to CHF. Cytology negative for malignancy. (5) Chronic respiratory failure with hypoxia, on home O2 therapy: Continue supplemental O2. (6) DVT prophylaxis: Currently receiving IV heparin. (7) Discharge planning issues: Discharge disposition to be determined. Pt hopes to be discharged to home. Medical follow-up with Dr. Lee. Admission and Anticipated Discharge Date Admission Date: July 08, 2019 Subjective Recheck for multiple problems. Patient seen in their room around 1420. Blood pressures running low, but asymptomatic. No fever. No chest pain. Remains in AF. Less SOB. Occasional cough. Review of Systems: Constitutional- no fever. Cardiac- as noted above. Pulmonary- as noted above. GI- no nausea, vomiting, diarrhea, melena, hematochezia. - no urinary symptoms. Otherwise, as noted above. Physical Exam Constitutional: no acute distress Respiratory: no respiratory distress Auscultation: + rhonchi and + wheezes Cardiovascular: Rate/Rhythm: + irregularly irregular Vessels: + JVD Extremities: + edema (trace - 1+ pretibial); no calf tenderness Gastrointestinal (Abdomen): normal bowel sounds, soft, nontender, no hepatosplenomegaly Skin: no rashes, warm and dry Psychiatric: Orientation: alert Results & Data ([facility]) Vital Signs (Past 12 Hours) Vital Signs Temp Pulse Pulse Resp BP Pulse Ox 07/13/19 15:54 92 H 07/13/19 15:30 36.7 C 92 H 17 95/60 L 95 07/13/19 14:51 98 H 07/13/19 13:39 87 18 94 07/13/19 11:31 37.0 C 69 20 91/75 L 91 07/13/19 07:33 36.8 C 95 H 20 96/60 L 94 07/13/19 07:29 89 07/13/19 07:22 90 18 92 Laboratory Results 07/13/19 05:23 (1) CAD (coronary artery disease) Coronary Disease-Associated Artery/Lesion type: [place] artery [place] vs. transplanted heart: [place] heart Associated angina: with stable angina Qualified Code(s): I25.118 - Atherosclerotic heart disease of [place] coronary artery with other forms of angina pectoris
[2019-07-14] MEDS: LEVALBUTEROL 1.25MG/0.5ML NEB INH SCH ×3 (01:31→13:34)
[2019-07-14] MEDS: IPRATROPIUM BROMIDE NEB SOLN 0.02% 2.5 ML VIAL INH SCH ×3 (01:31→13:35)
[2019-07-14 06:11] LABS: Hematocrit (blood only) 40.3 % (37-47); Hemoglobin 13.6 g/dL (12.0-16.0); Mean Corpuscular Hemoglobin 31.7 pg (25-34); Mean Corpuscular Hgb Conc 33.7 g/dL (32-36); Mean Corpuscular Volume 93.9 fL (80-100); Mean Platelet Volume 10.1 fL (7.4-10.4); Platelet Count 132 K/uL (130-400); RDW Coefficient of Variation 13.3 % (11.5-14.5); RDW Standard Deviation 45.4 fL (36.4-46.3); Red Blood Count 4.29 M/uL (4.2-5.4); White Blood Count 2.69 K/uL (4.8-10.8)
[2019-07-14 06:32] LABS: Partial Thromboplastin Time 56.4 Seconds (21.0-31.0)
[2019-07-14] MEDS: HEPARIN SODIUM/DEXTROSE 25,000 UNITS/500 ML BAG IV SCH (06:48)
[2019-07-14 06:49] LABS: BUN Creatinine Ratio 32.2 (10-20); Calcium 8.3 mg/dl (8.5-10.1); Creatinine Clr Calc Pharmacy 24.4 ml/min; Est GFR (African American) 44.6; Est GFR (Non-African American) 38.5; Magnesium 2.4 mg/dl (1.8-2.4); Potassium 4.6 mmol/L (3.5-5.1)
[2019-07-14] MEDS: ASPIRIN 81 MG ECTAB PO SCH (07:52)
[2019-07-14] MEDS: levETIRAcetam 500 MG TAB PO SCH (07:53)
[2019-07-14] MEDS: METOPROLOL TARTRATE 25 MG TAB PO SCH (07:53)
[2019-07-14] MEDS: ATORVASTATIN 10 MG TAB PO SCH (07:54)
[2019-07-14] MEDS: POTASSIUM CHLORIDE 20 MEQ TABCR PO SCH (07:55)
[2019-07-14] MEDS ORDERED: FUROSEMIDE 40 MG TAB PO SCH (09:00)
--- NOTE | 2019-07-14 12:08 | Cardiology Progress Note ---
Date of Service July 14, 2019 Assessment & Plan (1) Pleural effusion on right: (2) Acute on chronic diastolic (congestive) heart failure: (3) Respiratory failure, acute and chronic: (4) Atrial fibrillation with RVR: (5) Mitral regurgitation: (6) Aortic valve stenosis: (7) CAD (coronary artery disease): Continue Lasix 40 mg daily in the outpatient setting with orders to take an additional 40 mg if weight increases more than 2 pounds in a 48-hour period, or 5 pounds in 1 week. Continue metoprolol tartrate 75 mg twice daily in addition to digoxin 125 mcg on Monday, Monday, and Fridays. Patient declines oral anticoagulation. Cardiology will sign off. Please call with questions. Subjective Patient seen and examined the bedside. Blood pressure improved with discontinuation of IV diuretic therapy. Heart rate trending downward. Tolerating metoprolol and digoxin. Patient reports feeling much better. Requesting discharge if possible. Review of Systems Review of Systems: All systems reviewed & are unremarkable except as noted in HPI & below Physical Exam Constitutional: + ill appearing; no acute distress Respiratory: no labored breathing, no retractions and does not use accessory muscles Auscultation: + diminished lung sounds (Right base); no rales (B/L bases), no rhonchi (Left-sided) and no wheezes Cardiovascular: Rate/Rhythm: + irregularly irregular Heart Sounds: normal S1, normal S2 and + murmur (2/6 systolic ejection murmur heard best at the base, 1/6 midsystolic murmur heard at the left sternal border.); no cardiac rub Vessels: no JVD Extremities: no edema Gastrointestinal (Abdomen): normal bowel sounds, soft, nontender, no hepatosplenomegaly Inspection/Auscultation: abdomen not distended Percussion/Palpation: abdomen soft; abdomen nontender, no guarding and abdomen not rigid Musculoskeletal: Head/Neck/Chest: normocephalic and head atraumatic Skin: no rashes and no lesions Neurologic: moves all extremities; no focal motor deficits Psychiatric: A+Ox3, euthymic affect Results & Data Vital Signs (Past 12 Hours) Vital Signs Temp Pulse Pulse Pulse Resp BP Pulse Ox 07/14/19 07:44 36.4 C L 91 H 20 98/66 L 97 07/14/19 07:35 87 07/14/19 07:11 82 18 92 07/14/19 04:43 36.6 C 94 H 20 110/71 95 07/14/19 01:31 97 H 16 96 (1) Respiratory failure, acute and chronic Respiratory failure complication: hypoxia Qualified Code(s): J96.21 - Acute and chronic respiratory failure with hypoxia (2) Mitral regurgitation Cardiac valve disease etiology: nonrheumatic Qualified Code(s): I34.0 - Nonrheumatic mitral (valve) insufficiency (3) Aortic valve stenosis Cardiac valve disease etiology: nonrheumatic Qualified Code(s): I35.0 - Nonrheumatic aortic (valve) stenosis (4) CAD (coronary artery disease) Coronary Disease-Associated Artery/Lesion type: [place] artery [place] vs. transplanted heart: [place] heart Associated angina: with stable angina Qualified Code(s): I25.118 - Atherosclerotic heart disease of [place] coronary artery with other forms of angina pectoris
--- NOTE | 2019-07-14 14:44 | Hospitalist Progress Note ---
Date of Service July 14, 2019 Assessment & Plan (1) Acute on chronic diastolic (congestive) heart failure: Presented with acute on chronic heart failure, probably multifactorial (left ventricular diastolic heart failure, valvular heart disease, AF with RVR). Cardiology consulted. Received IV furosemide with improvement. Transitioned to oral furosemide 40 mg daily + extra dose PRN wt gain. CHF instructions given. (2) CAD (coronary artery disease): No anginal symptoms. Troponins negative x 2. Continue ASA and metoprolol. (3) Atrial fibrillation: Chronic AF, RVR at time of admission. Cardiology consulted. Metoprolol + digoxin for rate control. Discharged on metoprolol tartrate 75 BID + digoxin 0.125 MWF. Received IV heparin. Pt not interested in taking long-term anticoagulants because of bleeding risk. (4) Pleural effusion on right: Chronic right pleural effusion. Thoracentesis performed 07/07. Probable transudate secondary to CHF. Cytology negative for malignancy. (5) Chronic respiratory failure with hypoxia, on home O2 therapy: Continue supplemental O2. (6) DVT prophylaxis: Received IV heparin. Ambulating. (7) Discharge planning issues: Discharged to home. Medical follow-up with Dr. Lee. Offered to call pt's daughter with update. She preferred that I not call. Admission and Anticipated Discharge Date Admission Date: July 08, 2019 Subjective Recheck for multiple problems. Patient seen in their room around 1040. Doing well. Ready to go home. No fever. No chest pain. Remains in AF. Occasional cough. Less SOB. Ambulating. Review of Systems: Constitutional- no fever. Cardiac- as noted above. Pulmonary- as noted above. GI- no nausea, vomiting, diarrhea, melena, hematochezia. - no urinary symptoms. Otherwise, as noted above. Physical Exam Constitutional: no acute distress Respiratory: no respiratory distress Auscultation: + wheezes (diffuse, mild) Cardiovascular: Rate/Rhythm: + irregularly irregular Vessels: + JVD Extremities: + edema (trace pretibial); no calf tenderness Gastrointestinal (Abdomen): normal bowel sounds, soft, nontender, no hepatosplenomegaly Skin: no rashes, warm and dry Psychiatric: Orientation: alert Results & Data ([facility]) Vital Signs (Past 12 Hours) Vital Signs Temp Pulse Pulse Pulse Resp BP Pulse Ox 07/14/19 13:35 76 18 93 07/14/19 12:21 36.3 C L 87 20 105/70 90 07/14/19 07:44 36.4 C L 91 H 20 98/66 L 97 07/14/19 07:35 87 07/14/19 07:11 82 18 92 07/14/19 04:43 36.6 C 94 H 20 110/71 95 Laboratory Results 07/14/19 05:30 07/14/19 05:30 (1) CAD (coronary artery disease) Coronary Disease-Associated Artery/Lesion type: [place] artery [place] vs. transplanted heart: [place] heart Associated angina: with stable angina Qual ified Code(s): I25.118 - Atherosclerotic heart disease of [place] coronary artery with other forms of angina pectoris
--- NOTE | 2019-07-14 21:59 | Discharge Summary ---
Date of Service Date of Admission: 07/08/19 Date of Discharge: 07/14/19 Admission HPI Per Admitting Provider History obtained from patient and records. Medical history significant for chronic respiratory failure secondary to pulmonary hypertension on home O2, chronic diastolic heart failure (EF 55 to 60%, TTE 2018), CAD status post stent, A. fib not on anticoagulation as per patient preference, valvular heart disease (severe , moderate MR/TR, mild AR), pulmonary hypertension as per records, HTN, hyperlipidemia, seizure disorder, celiac disease, past tobacco abuse. Recent confinement December 2018 for A. fib with RVR, decompensated heart failure. Patient Coumadin stopped on discharge as per patient preference. 2 days history of junky cough, chest congestion symptoms with pleuritic chest pain. Sick contacts. Denies aspiration. Denies unusual fluid retention. Compliant with home meds as per patient. EMS summoned this a.m. for worsening respiratory distress. Principal Diagnosis acute on chronic left ventricular diastolic heart failure OTHER ACUTE / SECONDARY DIAGNOSES: right pleural effusion (transudate secondary to CHF) Discharge Data Allergies Allergy/AdvReac Type Severity Reaction Status Date / Time Egg Derived Allergy Severe Difficulty Verified 07/08/19 04:07 Breathing ciprofloxacin [From Cipro] Allergy Intermediate Redness of Verified 07/11/19 07:03 Skin Penicillins Allergy Intermediate Rash Verified 07/11/19 07:03 phenytoin [From Dilantin] Allergy Intermediate Swelling Verified 07/11/19 07:03 lorazepam [From Ativan] AdvReac Intermediate confusion Verified 07/11/19 07:03 Consultations 07/08/19 07:25 Consult Cardiology Routine Consult Case Management - Discharge Planning Routine 07/08/19 08:04 Consult Pulmonology Routine Ordered Studies 07/08/19 05:43 CT angio chest PE protocol Stat 07/08/19 11:46 US point of care ultrasound Routine Hospital Course (1) Acute on chronic diastolic (congestive) heart failure: Presented with acute on chronic heart failure, probably multifactorial (left ventricular diastolic heart failure, valvular heart disease, AF with RVR). Cardiology consulted. Received IV furosemide with improvement. Transitioned to oral furosemide 40 mg daily + extra dose PRN wt gain. CHF instructions given. (2) CAD (coronary artery disease): No anginal symptoms. Troponins negative x 2. Continue ASA and metoprolol. (3) Atrial fibrillation: Chronic AF, RVR at time of admission. Cardiology consulted. Metoprolol + digoxin for rate control. Discharged on metoprolol tartrate 75 BID + digoxin 0.125 MWF. Received IV heparin. Pt not interested in taking long-term anticoagulants because of bleeding risk. (4) Pleural effusion on right: Chronic right pleural effusion. Thoracentesis performed 07/07. Probable transudate secondary to CHF. Cytology negative for malignancy. (5) Chronic respiratory failure with hypoxia, on home O2 therapy: Continue supplemental O2. (6) DVT prophylaxis: Received IV heparin. Ambulating. (7) Discharge planning issues: Discharged to home. Medical follow-up with Dr. Lee. Offered to call pt's daughter with update. She preferred that I not call. Total Time Total Time Spent Total Time Spent (In Minutes): 40 Discharge Plan Discharge Items Patient Disposition: Home - Self-Care Reason For Visit: trouble breathing Discharge Diagnosis: congestive heart failure pleural effusion (fluid around right lung) Condition on Discharge: Fair Activity: As commented below Activity Comment: As tolerated. Pace yourself. Be careful not to fall. Non-emergency contact: Primary Care Provider, Hospitalist and Willower Call non-emergency contact if: you have any medication questions, your symptoms worsen and your temperature is above 101 Follow-up/Referrals: Darin Byrd [Physician Traffic Operations Engineer] - (07/18/2019 4:00 PM Darin Byrd PA-C Cardiology [facility]) Velma Rose MD [Primary Care Provider] - (08/15/2019 6:20 PM Velma Pinto MD ) Diet: Heart Healthy Addtl Attending Provider Instructions: MEDICATION CHANGES: furosemide (Lasix) 40 mg daily take extra dose if weight goes up more than 2 lbs in 2 days or 5 lbs in 1 week Change metoprolol tartrate (Lopressor) to 1 + 1/2 pills (75 mg) twice a day. Start digoxin 0.125 mg 3 times a week on Mon-Mon-Mon SUMMARY OF TEST RESULTS: Chest x-ray and CT scan showed congestive heart failure and fluid around right lung. No sign of cancer in fluid around lung. Echocardiogram showed that heart muscle is strong, but might be a little stiff. You have some heart murmurs that might be contributing to your congestive heart failure. RECOMMENDATIONS FOR FOLLOW-UP: Continue oxygen 2 liters / minute. OTHER INSTRUCTIONS: Seek medical attention if you have: * temperature above 101 * chest pain or trouble breathing * abdominal pain, nausea, vomiting * diarrhea, dark stools or bloody stools * any unanswered questions or concerns Call 911 if symptoms are severe. Please take good care of yourself. Call if you have any questions or problems. You can reach a [facility] hospitalist on duty at [facility] 24 hours a day by calling [phone]. My cell # is [phone]. CONGESTIVE HEART FAILURE INSTRUCTIONS: Call 911 and go to the Emergency Room if: * You have tightness or pain in your chest that does not go away with rest or Nitroglycerin * You are very short of breath even with rest Call your doctor if any of the following symptoms or problems start or get worse: * Shortness of breath or difficulty breathing * Wake up at night short of breath * Chest pain * Cough * Swelling of your hands, fee, or legs * More fatigued or tired with your normal activity * Palpitations - sudden fast heart beats WEIGHT * Weigh yourself every morning after using the bathroom. * Use the same scale. * Wear the same amount of clothing. * Write your weight down on your chart. * Call your doctor if you gain more than 2-3 pounds in 1-2 days. MEDICATIONS * Use this discharge instruction sheet for instructions. * Take your medications at the time your doctor ordered. * Do not skip a dose of your medicines. * If you miss a dose of medicine, take as soon as possible, but DO NOT DOUBLE A DOSE. * Read your medicine information when you get home. * Know all of the side effects of your medicine. * Call your doctor's office if you have any side effects. * Be sure all of your doctors know what medicine and herbs you take (including cold, flu, and herbal medicine). * Pain Medicine: If you do not get relief from your pain, please call your doctor for help. Take the following with you to your follow-up doctor appointments: * Weight Chart * Medication List * List of questions Do not drink excessive alcohol, beer or wine. Pending Studies at Discharge: No Stand-Alone Forms: My [facility], Smoking Cessation Medications and DC Order Prescriptions: New digoxin [Digitek] 125 mcg (0.125 mg) Tablet 125 mcg PO [id number] Qty: 15 RF: 5 metoprolol tartrate 50 mg tablet 75 mg PO BID Qty: 90 RF: 5 Continued levetiracetam 500 mg Tablet 500 mg PO BID RF: 0 aspirin 81 mg Tablet,Delayed Release (Dr/Ec) 81 mg PO DAILY RF: 0 furosemide [Lasix] 40 mg tablet 40 mg PO DAILY Qty: 30 RF: 0 atorvastatin 10 mg tablet 10 mg PO DAILY RF: 0 phenobarbital 30 mg tablet 45 mg PO BID RF: 0 cholestyramine (with sugar) 4 gram powder in packet 4 g PO BID RF: 0 Discontinued metoprolol tartrate 50 mg tablet 50 mg PO BID RF: 0 Discharge Orders: Discharge Order (Routine); Ordered 07/14/19 Ordered By: Isauro Hoff/Other Patient Handouts: Digoxin Admission Data Admit Date/Time: 07/08/19 05:46 Attending Provider: Isauro Jenkins Admit Provider: Gareth Panda Primary Care Provider: Velma Rose Other Providers: Xavier Mercado ; Tigre Dickerson ; Carmelo Rasmussen Other Interventions: Discharge Summary Assessment (RN) Last Done: 07/14/19 16:18 DC Date/Time DO NOT enter until pt leaves facility: 07/14/19 17:43
== END 2019-07-14 17:43 | disposition home or self-care (01) | DRG 291 ==
LOC: ED 03:25 → SUATTDRO 05:46 → 2S 05:46

== ENCOUNTER 2020-05-22 09:12 | Inpatient (IN) ==
[2020-05-22] MEDS ORDERED: HYDROmorphone INJ 0.5 MG/0.5 ML SYR IV PRN (09:16)
--- NOTE | 2020-05-22 09:56 | Emergency Department Note ---
History of Present Illness General Chief complaint: Fall Time Seen by Provider: 05/22/20 09:13 Source: patient, EMS, RN notes reviewed and old records reviewed Mode of arrival: EMS Limitations: no limitations History of Present Illness Provider complaint: Rt hip pain, fall Onset (ago): hour(s) 1 Location: pelvis Radiation: back Severity: moderate Pain Consistency: + intermittent and + now resolved Current Pain Intensity: 0 Quality: + aching Relieved By: + immobilization Exacerbated By: + movement Associated symptoms: no confusion, no chest pain, no diaphoresis, no fe anaya/chills, no headaches, no loss of appetite, no nausea/vomiting, no shortness of breath and no weakness Treatments prior to arrival: none This is an 84-year-old female who presents to the emergency department after tripping over her dog and landing on her right hip. The patient was unable to get up after falling. She called her son who then called EMS. On arrival to the emergency department the patient reports no pain however she cannot move her right hip. She denies hitting her head or any other injury. She describes the pain as an ache made better with immobilization however movement makes the pain worse. She has not taken anything for the pain. Home Medications Medication Instructions Recorded Confirmed Type aspirin 81 mg PO QPM 09/27/18 05/22/20 History levetiracetam 500 mg PO BID 09/27/18 05/22/20 History furosemide [Lasix] 40 mg PO DAILY #30 tab 01/06/19 05/22/20 Rx atorvastatin 10 mg PO QPM 07/08/19 05/22/20 History phenobarbital 30 mg PO TID 07/08/19 05/22/20 History digoxin [Digitek] 125 mcg PO MoWeFr@1600 #15 tab 07/14/19 05/22/20 Rx metoprolol tartrate 75 mg PO BID #90 tab 07/14/19 05/22/20 Rx Allergies Allergy/AdvReac Type Severity Reaction Status Date / Time Egg Derived Allergy Severe Difficulty Verified 05/22/20 09:44 Breathing ciprofloxacin [From Cipro] Allergy Intermediate Redness of Verified 05/22/20 09:44 Skin Penicillins Allergy Intermediate Rash Verified 05/22/20 09:44 phenytoin [From Dilantin] Allergy Intermediate Swelling Verified 05/22/20 09:44 lorazepam [From Ativan] AdvReac Intermediate confusion Verified 05/22/20 09:44 Past Med/Surg History Medical History Aortic valve stenosis CAD (coronary artery disease) Chronic respiratory failure with hypoxia, on home O2 therapy CKD (chronic kidney disease), stage III Hearing loss HLD (hyperlipidemia) HTN (hypertension) IBS (irritable bowel syndrome) Macular degeneration Mitral regurgitation Pulmonary hypertension Seizure disorder Surgical History History of ankle surgery History of cardiac catheterization 2013 at [place] - diffuse disease H/O 3 bare metal stents History of cataract surgery Hx of tonsillectomy Family History Other Colorectal cancer Hypertension Social History Smoking Status: Former smoker Smoking End Date: years ago; Second Hand Exposure: No; Hx Alcohol Use: No Hx Substance Use: No Preferred Language: Belarusian Communication Ability: Effective Awnings Mechanic Required: No Beliefs That Will Affect Care: None marital status: / Current Living Situation: Family Current Living Situation Comment: Lives with Daughter Myra Other Information That Helps Us Care for You: No Feels Safe at Home: Yes Safety Concerns: Feels Safe At This Time Assistive Devices: Oxygen - Continuous Review of Systems A total of 10 systems reviewed and were otherwise negative Physical Exam Vital Signs Vital Signs - 24 hr 05/22/20 09:24 05/22/20 09:29 05/22/20 11:47 Temperature 36.7 C Temperature Source Oral Pulse Rate 84 Pulse Rate [Apical] 80 69 Pulse Rhythm [Apical] Irregular Pulse Strength [Apical] Normal Respiratory Rate 20 20 18 Respiratory Effort / Characteristics Non-Labored Spontaneous Non-Labored Spontaneous Non-Labored Spontaneous Respiratory Depth Normal Normal Normal Respiratory Pattern Regular Regular Regular Blood Pressure 122/63 Blood Pressure [Right Arm] 122/63 129/73 Blood Pressure Mean 82 Blood Pressure Mean [Right Arm] 82 91 Blood Pressure Position [Right Arm] Lying Pulse Oximetry 98 98 100 Oxygen Delivery Method Nasal Cannula Nasal Cannula Nasal Cannula Oxygen Flow Rate 2 2 2 Sepsis Recent Fever Within 48 Hours No Sepsis New/Unexplained Change in Mental Status No Sepsis Action Taken by Nursing No Action Required VITAL SIGNS - Vital signs and nursing notes were reviewed. GENERAL - 84-year-old female appearing stated age who is in no acute distress. Communicates well with provider and answers questions appropriately. SKIN - Without rashes. HEAD - NC/AT. EYES - PERRL with EOMI bilaterally. Sclera anicteric. Palpebral conjunctiva pink and moist with no injection noted. EARS - No deformities of external structures noted on gross examination bilaterally. NOSE - Midline and without cyanosis. No epistaxis or purulent drainage noted. S eptum midline without deviation or septal hematoma noted. MOUTH/OROPHARYNX - Without perioral cyanosis. Buccal mucosa pink and moist and without leukoplakia. Tongue midline with equal elevation of palate bilaterally. No tonsillar hypertrophy, erythema, or exudates noted. dentition noted. NECK - Neck with FROM. Supple to palpation. lymphadenopathy noted. No nuchal rigidity. LUNGS - Chest wall symmetric without accessory muscle use, intercostals retractions, or central cyanosis. Normal vesicular breath sounds CTA B/L. No wheezes, rales, or rhonchi appreciated. CARDIAC - RRR with S1/S2. No murmur, rubs, or gallops appreciated. ABDOMEN - Abdominal contour without pulsations or visible masses. BS normoactive all four quadrants. No tenderness, palpable masses, hepatosplenomegaly, or ascites noted. EXTREMITIES - Pt 3/5 strength Rt hip, No clubbing or peripheral cyanosis. No pretibial edema present. +3/5 radial, posterior tibial, and dorsalis pedis pulses palpated throughout. NEUROLOGIC - Cranial nerves II through XII grossly intact. Sensory intact to light touch throughout. Patellar reflexes +2/4. PSYCH - A&Ox3 and cooperates fully with examiner. Pt is very pleasant and inter acts well with examiner. Course Administered Medications Acetaminophen (Acetaminophen 500 Mg Tab) 1,000 mg PO Q8H [facility] Stop: 06/21/20 21:59 Last Admin: 05/23/20 06:04 Dose: Not Given Documented by: [id number] Admin: 05/22/20 20:56 Dose: 1,000 mg Documented by: [id number] Atorvastatin Calcium (Atorvastatin 10 Mg Tab) 10 mg PO QPM [facility] Stop: 06/21/20 20:59 Last Admin: 05/22/20 20:33 Dose: 10 mg Documented by: [id number] Digoxin (Digoxin 0.125 Mg Tab) 0.125 mg PO MoWeFr@1600 [facility] Stop: 06/21/20 15:59 Last Admin: 05/22/20 16:57 Dose: 0.125 mg Documented by: [id number] Levetiracetam (Levetiracetam 500 Mg Tab) 500 mg PO BID [facility] Stop: 06/21/20 20:59 Last Admin: 05/22/20 20:32 Dose: 500 mg Documented by: [id number] Metoprolol Tartrate (Metoprolol Tartrate 25 Mg Tab) 75 mg PO BID [facility] Stop: 06/21/20 20:59 Last Admin: 05/22/20 20:55 Dose: Not Given Documented by: [id number] Oxycodone HCl (Oxycodone Hcl Ir 5 Mg Tab (Immediate Release)) 5 mg PO Q4H PRN PRN Reason: MODERATE Pain (4,5,6) & Pre PT Stop: 06/05/20 15:14 Last Admin: 05/22/20 21:57 Dose: 5 mg Documented by: [id number] Phenobarbital (Phenobarbital 32.4 Mg Tab) 32.4 mg PO TID [facility] Stop: 06/21/20 20:59 Last Admin: 05/22/20 20:52 Dose: 32.4 mg Documented by: [id number] Senna/Docusate Sodium (Docusate Sodium/Senna 50/8.6mg Tab) 2 tab PO HS [facility] Stop: 06/21/20 20:59 Last Admin: 05/22/20 20:41 Dose: Not Given Documented by: [id number] Discontinued Medications Acetaminophen (Acetaminophen 500 Mg Tab) Confirm Administered Dose 1,000 mg .R OUTE .STK-MED ONE Stop: 05/22/20 13:51 Last Admin: 05/22/20 14:11 Dose: 1,000 mg Documented by: [id number] Loperamide HCl (Loperamide Hcl 2 Mg Cap) 2 mg PO NOW STA Stop: 05/22/20 10:49 Last Admin: 05/22/20 11:01 Dose: 2 mg Documented by: [id number] Medical Decision Making Differential Diagnosis Fracture, dislocation, neurovascular compromise, compartment syndrome, soft tissue injury, as well as other pathologies. Medical Records Attestation: I reviewed the patient's medical records. Home Medications Current Medication List: was personally reviewed by me Laboratory Data Attestation: I reviewed the patient's lab results. Result diagrams: 05/23/20 05:52 05/23/20 05:52 Lab Results 05/22/20 05/22/20 05/22/20 Range/Units 09:47 09:47 09:47 WBC 5.04 (4.8-10.8) K/uL RBC 3.97 L (4.2-5.4) M/uL Hgb 12.4 (12.0-16.0) g/dL Hct 38.1 (37-47) % MCV 96.0 (80-100) fL MCH 31.2 (25-34) pg MCHC 32.5 (32-36) g/dL RDW Std Deviation 50.1 H (36.4-46.3) fL RDW Coeff of Anmol 14.2 (11.5-14.5) % Plt Count 165 (130-400) K/uL MPV 9.7 (7.4-10.4) fL Immature Gran % (Auto) 0.2 % Neut % (Auto) 74.7 % Lymph % (Auto) 16.3 % [place] % (Auto) 5.6 % Eos % (Auto) 3.0 % Baso % (Auto) 0.2 % Neut # (Auto) 3.77 (1.4-6.5) K/uL Lymph # (Auto) 0.82 L (1.2-3.4) K/uL [place] # (Auto) 0.28 (0.11-0.59) K/uL Eos # (Auto) 0.15 (0-0.5) K/uL Baso # (Auto) 0.01 (0-0.2) K/uL Immature Gran # (Auto) 0.01 (0.00-0.02) K/uL PT 10.9 (9.0-12.0) Seconds INR 1.0 (0.9-1.1) APTT 25.9 (21.0-31.0) Seconds PTT Ratio 0.9 Sodium 140 (136-145) mmol/L Potassium 4.0 (3.5-5.1) mmol/L Chloride 99 (98-107) mmol/L Carbon Dioxide 36 H (21-32) mmol/L Anion Gap 4.0 (3-11) BUN 21 H (7-18) mg/dl Creatinine 1.49 H (0.6-1.2) mg/dl Est Cr Clr Drug Dosing 19.8 ml/min Est GFR ( Amer) 36.7 Est GFR (Non-Af Amer) 31.7 BUN/Creatinine Ratio 13.8 (10-20) Glucose 114 H (70-99) mg/dl Calcium 8.8 (8.5-10.1) mg/dl Procalcitonin (0-0.5) ng/ml Urine Color Urine Appearance (Clear) Urine pH (4.5-7.5) Ur Specific [place] (1.000-1.030) Urine Protein (Negative) Urine Glucose (UA) (Negative) Urine Ketones (Negative) Urine Blood (Negative) Urine Nitrite (Negative) Urine Bilirubin (Negative) Urine Urobilinogen (Negative) Ur Leukocyte Esterase (Negative) Urine WBC (Auto) (0-5) /hpf Urine RBC (Auto) (0-4) /hpf U Hyaline Cast (Auto) (0-5) /lpf U Epithel Cells (Auto) (0-5) /lpf Urine Bacteria (Auto) (Negative) Digoxin (0.8-2.0) ng/ml COVID-19 Eval Order SARS-CoV-2 (PCR) (Negative) Influenza Type A (PCR) (Neg) Influenza Type B (PCR) (Neg) RSV (RT-PCR) (Neg) 05/22/20 05/22/20 05/22/20 Range/Units 09:47 09:47 11:10 WBC (4.8-10.8) K/uL RBC (4.2-5.4) M/uL Hgb (12.0-16.0) g/dL Hct (37-47) % MCV (80-100) fL MCH (25-34) pg MCHC (32-36) g/dL RDW Std Deviation (36.4-46.3) fL RDW Coeff of Anmol (11.5-14.5) % Plt Count (130-400) K/uL MPV (7.4-10.4) fL Immature Gran % (Auto) % Neut % (Auto) % Lymph % (Auto) % [place] % (Auto) % Eos % (Auto) % Baso % (Auto) % Neut # (Auto) (1.4-6.5) K/uL Lymph # (Auto) (1.2-3.4) K/uL [place] # (Auto) (0.11-0.59) K/uL Eos # (Auto) (0-0.5) K/uL Baso # (Auto) (0-0.2) K/uL Immature Gran # (Auto) (0.00-0.02) K/uL PT (9.0-12.0) Seconds INR (0.9-1.1) APTT (21.0-31.0) Seconds PTT Ratio Sodium (136-145) mmol/L Potassium (3.5-5.1) mmol/L Chloride (98-107) mmol/L Carbon Dioxide (21-32) mmol/L Anion Gap (3-11) BUN (7-18) mg/dl Creatinine (0.6-1.2) mg/dl Est Cr Clr Drug Dosing ml/min Est GFR ( Amer) Est GFR (Non-Af Amer) BUN/Creatinine Ratio (10-20) Glucose (70-99) mg/dl Calcium (8.5-10.1) mg/dl Procalcitonin < 0.05 (0-0.5) ng/ml Urine Color Yellow Urine Appearance Clear (Clear) Urine pH 7.5 (4.5-7.5) Ur Specific [place] 1.012 (1.000-1.030) Urine Protein Negative (Negative) Urine Glucose (UA) Negative (Negative) Urine Ketones Negative (Negative) Urine Blood Negative (Negative) Urine Nitrite Negative (Negative) Urine Bilirubin Negative (Negative) Urine Urobilinogen Negative (Negative) Ur Leukocyte Esterase Trace H (Negative) Urine WBC (Auto) 5-10 H (0-5) /hpf Urine RBC (Auto) 0-4 (0-4) /hpf U Hyaline Cast (Auto) 1-5 (0-5) /lpf U Epithel Cells (Auto) 20-30 H (0-5) /lpf Urine Bacteria (Auto) 2+ H (Negative) Digoxin 0.4 L (0.8-2.0) ng/ml COVID-19 Eval Order SARS-CoV-2 (PCR) (Negative) Influenza Type A (PCR) (Neg) Influenza Type B (PCR) (Neg) RSV (RT-PCR) (Neg) 05/22/20 05/22/20 Range/Units 11:48 11:48 WBC (4.8-10.8) K/uL RBC (4.2-5.4) M/uL Hgb (12.0-16.0) g/dL Hct (37-47) % MCV (80-100) fL MCH (25-34) pg MCHC (32-36) g/dL RDW Std Deviation (36.4-46.3) fL RDW Coeff of Anmol (11.5-14.5) % Plt Count (130-400) K/uL MPV (7.4-10.4) fL Immature Gran % (Auto) % Neut % (Auto) % Lymph % (Auto) % [place] % (Auto) % Eos % (Auto) % Baso % (Auto) % Neut # (Auto) (1.4-6.5) K/uL Lymph # (Auto) (1.2-3.4) K/uL [place] # (Auto) (0.11-0.59) K/uL Eos # (Auto) (0-0.5) K/uL Baso # (Auto) (0-0.2) K/uL Immature Gran # (Auto) (0.00-0.02) K/uL PT (9.0-12.0) Seconds INR (0.9-1.1) APTT (21.0-31.0) Seconds PTT Ratio Sodium (136-145) mmol/L Potassium (3.5-5.1) mmol/L Chloride (98-107) mmol/L Carbon Dioxide (21-32) mmol/L Anion Gap (3-11) BUN (7-18) mg/dl Creatinine (0.6-1.2) mg/dl Est Cr Clr Drug Dosing ml/min Est GFR ( Amer) Est GFR (Non-Af Amer) BUN/Creatinine Ratio (10-20) Glucose (70-99) mg/dl Calcium (8.5-10.1) mg/dl Procalcitonin (0-0.5) ng/ml Urine Color Urine Appearance (Clear) Urine pH (4.5-7.5) Ur Specific [place] (1.000-1.030) Urine Protein (Negative) Urine Glucose (UA) (Negative) Urine Ketones (Negative) Urine Blood (Negative) Urine Nitrite (Negative) Urine Bilirubin (Negative) Urine Urobilinogen (Negative) Ur Leukocyte Esterase (Negative) Urine WBC (Auto) (0-5) /hpf Urine RBC (Auto) (0-4) /hpf U Hyaline Cast (Auto) (0-5) /lpf U Epithel Cells (Auto) (0-5) /lpf Urine Bacteria (Auto) (Negative) Digoxin (0.8-2.0) ng/ml COVID-19 Eval Order CovFluRsv at [facility] SARS-CoV-2 (PCR) NEGATIVE (Negative) Influenza Type A (PCR) Negative (Neg) Influenza Type B (PCR) Negative (Neg) RSV (RT-PCR) Negative (Neg) Imaging Data Radiologist's Impression: [facility], [phone] XRay Report Patient: VONDA MACIELAdmit Date: 05/22/20MR#: [id number]: [address]Acct ID:[id number]: Date: [address] [place] [address] Zip: [place] [id number]: 84Location: EDSex: FRoom/Bed:Att Phy:Diagnosis: FALL RT HIP PAINPri Phy: Velma Rose MDService Date: 05/22/20Fa Phy:Interpreting Phy: Werner Escalante MDAdmit Phy: Ordering Phy: Sy Junior MD cc: ~ XR chest 1V portable HISTORY: Pt c/o Rt hip pain COMPARISON: Comparison 07/08/2019. FINDINGS: No pneumothorax. The heart is enlarged. There is perihilar interstitial/vascular thickening consistent with pulmonary edema. This has pro gressed. Increase in size in the moderate right pleural effusion. There is also a small left pleural effusion. Right basilar densities have also progressed. IMPRESSION: 1. Interval progression of the mild interstitial pulmonary edema as well as the moderate right and small left pleural effusions. 2. Progressive right basilar densities. This could be due to atelectasis from the pleural effusion or pneumonia. ACT 112: Negative or not required by law. Electronically signed by: Werner Escalante M.D. 05/22/2020 10:29 AM Dictated: 05/22/20 1027Transcribed: 05/22/20 1027 [facility], [id number] XRay Report Patient: VONDA MACIELAdmit Date: 05/22/20MR#: [id number]: [address]Acct ID:[id number]: Date: [address] [place] [address] Zip: [place] [id number]: 84Location: EDSex: FRoom/Bed:Att Phy:Diagnosis: FALL RT HIP PAINPri Phy: Velma Rose, MDService Date: 05/22/20Fam Phy:Interpreting Phy: Werner Roland Phy: Ordering Phy: Sy Junior MD cc: ~ XR pelvis 1-2V routine, XR femur RT 2V routine CLINICAL HISTORY: Pt c/o Rt hip pain. Fall. COMPARISON STUDY: None. FINDINGS: Slightly displaced and mildly impacted subcapital right femoral neck fracture. This demonstrates up to 4 mm of superior displacement. No dislocation. The visualized pelvic bones and left hip are intact. The bones are osteopenic. Vascular calcifications are noted. No fractures within the mid to distal right femur. IMPRESSION: Slightly displaced and impacted subcapital right femoral neck fracture. ACT 112: Negative or not required by law. Electronically signed by: Werner Escalante M.D. 05/22/2020 10:27 AM Dictated: 05/22/20 1025Transcribed: 05/22/20 1025 [facility], [id number] XRay Report Patient: VONDA MACIELAdmit Date: 05/22/20MR#: [id number]: [address]Acct ID:[id number]: Date: [address] [place] [address] Zip: [place] [id number]: 84Location: EDSex: FRoom/Bed:Att Phy:Diagnosis: FALL RT HIP PAINPri Phy: Velma Rose, MDService Date: 05/22/20Fam Phy:Interpreting Phy: Werner Roland Phy: Ordering Phy: Sy Junior MD cc: ~ XR pelvis 1-2V routine, XR femur RT 2V routine CLINICAL HISTORY: Pt c/o Rt hip pain. Fall. COMPARISON STUDY: None. FINDINGS: Slightly displaced and mildly impacted subcapital right femoral neck fracture. This demonstrates up to 4 mm of superior displacement. No dislocation. The visualized pelvic bones and left hip are intact. The bones are osteopenic. Vascular calcifications are noted. No fractures within the mid to distal right femur. IMPRESSION: Slightly displaced and impacted subcapital right femoral neck fracture. ACT 112: Negative or not required by law. Electronically signed by: Werner Escalante M.D. 05/22/2020 10:27 AM Dictated: 05/22/20 1025Transcribed: 05/22/20 102 ECG Data Attestation: I personally reviewed and interpreted this ECG as follows: Indication: + weakness Rate (beats per minute): 79 Rhythm: + atrial fibrillation ECG Intervals/blocks: + Normal QT-c (456) ECG [place]: + Left axis deviation ECG ST segments: no ST depression and no ST elevation Comparison ECG Date: from (07/08/2019) Change: no significant change MDM Narrative Patient was seen and evaluated as above in room C8. Review was performed of nursing notes and vital signs. I did review pertinent previous visits and patient history. After obtaining a thorough history and physical examination the above work up was performed. This is an 84-year-old female who presents emergency department complaining of a fall. Patient is complaining of right hip pain. She was sent for x-rays of the hip which is concerning for a right femoral fracture. I did discuss the case with the patient's daughter as well as the orthopedic surgeon on-call. She will be admitted to the hospitalist. Her hemoglobin and creatinine are at her baseline. Patient is in agreement with the treatment plan. While in the department, I personally reevaluated the patient several times and each time the patient was found to be resting comfortably. The patient was educated upon management, educated upon todays findings/results, educated upon importance of follow up from today's visit, educated upon symptoms in which to return, had questions answered prior to discharge, verbalized understanding, and was discharged home in good condition. An order was placed for continuous cardiac monitoring. The monitor shows a rate of 79 with Atrial Fib rhythm. The patient was evaluated during a period of high volume and high acuity while the hospital was at overcapacity during the global COVID-19 pandemic, and that diagnosis was suspected/considered upon their initial presentation. Their evaluation, treatment and testing was consistent with current guidelines for patients who present with complaints or symptoms that may be related to COVID- 19. Impression & Plan Closed subcapital fracture of right femur, Chronic diastolic heart failure, Chronic diarrhea, Atrial fibrillation, HTN (hypertension), CKD (chronic kidney disease), stage III Discharge Plan Visit Data Chief Complaint: Fall ED Provider: Sy Junior Discharge Problem: Closed subcapital fracture of right femur, Chronic diastolic heart failure, Chronic diarrhea, Atrial fibrillation, HTN (hypertension), CKD (chronic kidney disease), stage III Patient Disposition: Admitted As Inpatient Discharge Instructions Interventions: ED Discharge Assessment Last Done: 05/22/20 14:34 Discharge Problem: Closed subcapital fracture of right femur Qualifiers: Encounter type: initial encounter Qualified Code(s): S72.011A - Unspecified intracapsular fracture of right femur, initial encounter for closed fracture Atrial fibrillation Qualifiers: Atrial fibrillation type: unspecified Qualified Code(s): I48.91 - Unspecified atrial fibrillation HTN (hypertension) Qualifiers: Hypertension type: unspecified Qualified Code(s): I10 - Essential (primary) hyp ertension CKD (chronic kidney disease), stage III Qualifiers: Chronic kidney disease stage 3 subtype: unspecified whether 3a or 3b Qualified Code(s): N18.30 - Chronic kidney disease, stage 3 unspecified
[2020-05-22 10:00] LABS: Basophils # (auto) 0.01 K/uL (0-0.2); Basophils % (auto) 0.2 %; Eosinophils # (auto) 0.15 K/uL (0-0.5); Hematocrit (blood only) 38.1 % (37-47); Hemoglobin 12.4 g/dL (12.0-16.0); Immature Granulocytes # (auto) 0.01 K/uL (0.00-0.02); Immature Granulocytes % (auto) 0.2 %; Lymphocytes # (auto) 0.82 K/uL (1.2-3.4); Lymphocytes % (auto) 16.3 %; Mean Corpuscular Hemoglobin 31.2 pg (25-34); Mean Corpuscular Hgb Conc 32.5 g/dL (32-36); Mean Platelet Volume 9.7 fL (7.4-10.4); Monocytes # (auto) 0.28 K/uL (0.11-0.59); Monocytes % (auto) 5.6 %; Neutrophils # (auto) 3.77 K/uL (1.4-6.5); Neutrophils % (auto) 74.7 %; Platelet Count 165 K/uL (130-400); RDW Coefficient of Variation 14.2 % (11.5-14.5); RDW Standard Deviation 50.1 fL (36.4-46.3); Red Blood Count 3.97 M/uL (4.2-5.4); White Blood Count 5.04 K/uL (4.8-10.8)
[2020-05-22 10:09] LABS: Partial Thromboplastin Ratio 0.9; Partial Thromboplastin Time 25.9 Seconds (21.0-31.0); Prothrombin Time 10.9 Seconds (9.0-12.0)
[2020-05-22 10:17] LABS: BUN Creatinine Ratio 13.8 (10-20); Calcium 8.8 mg/dl (8.5-10.1); Creatinine Clr Calc Pharmacy 19.8 ml/min; Est GFR (African American) 36.7; Est GFR (Non-African American) 31.7
--- NOTE | 2020-05-22 10:28 | XRay Report ---
XR pelvis 1-2V routine, XR femur RT 2V routine CLINICAL HISTORY: Pt c/o Rt hip pain. Fall. COMPARISON STUDY: None. FINDINGS: Slightly displaced and mildly impacted subcapital right femoral neck fracture. This demonst rates up to 4 mm of superior displacement. No dislocation. The visualized pelvic bones and left hip a re intact. The bones are osteopenic. Vascular calcifications are noted. No fractures within the mid t o distal right femur. IMPRESSION: Slightly displaced and impacted subcapital right femoral neck fracture. ACT 112: Negative or not required by law. Electronically signed by: Werner Escalante M.D. 05/22/2020 10:27 AM
--- NOTE | 2020-05-22 10:31 | XRay Report ---
XR chest 1V portable HISTORY: Pt c/o Rt hip pain COMPARISON: Comparison 07/08/2019. FINDINGS: No pneumothorax. The heart is enlarged. There is perihilar interstitial/vascular thickening consistent with pulmonary edema. This has progressed. Increase in size in the moderate right pleural effusion. There is also a small left pleural effusion. Right basilar densities have also progressed. IMPRESSION: 1. Interval progression of the mild interstitial pulmonary edema as well as the moderate right and sm all left pleural effusions. 2. Progressive right basilar densities. This could be due to atelectasis from the pleural effusion or pneumonia. ACT 112: Negative or not required by law. Electronically signed by: Werner Escalante M.D. 05/22/2020 10:29 AM
[2020-05-22] MEDS ORDERED: LOPERAMIDE HCL 2 MG CAP PO STA (10:48)
--- NOTE | 2020-05-22 11:23 | History & Physical Report ---
Date of Service May 22, 2020 Assessment & Plan (1) Closed subcapital fracture of right femur: (2) Chronic respiratory failure with hypoxia, on home O2 therapy: (3) Chronic diastolic heart failure: (4) Atrial fibrillation: (5) Seizure disorder: (6) Pulmonary hypertension: (7) CAD (coronary artery disease): (8) HTN (hypertension): (9) CKD (chronic kidney disease), stage III: (10) HLD (hyperlipidemia): This is an 84yo F with a PMH of chronic respiratory failure secondary to pu lmonary hypertension on home O2, chronic diastolic heart failure (EF 55 to 60%, TTE 2019), CAD status post stent, A. fib not on anticoagulation as per patient preference, valvular heart disease (severe , moderate MR/TR, mild AR), pulmonary hypertension as per records, HTN, hyperlipidemia, seizure disorder, celiac disease and other medical problems listed below who presents after a fall at home. Subcapital fracture of right femur Fell this morning at home. Pelvis/R femur XR with slightly displaced and impacted subcapital right femoral neck fracture Discussed with ortho - plan on OR tomorrow. NPO @ [place] EKG with chronic A Fib and no acute ischemic change. CXR with interval progression of the mild interstitial pulmonary edema as well as the moderate right and small left pleural effusions Appears euvolemic on exam. Saturating at 99% on room air Per Revised Cardiac Risk Index for Pre-Operative Risk, patient is a class III or 10.1% 30-day risk of , RI, or cardiac arrest Continue home medications, avoid IV fluids due to h/o severe aortic stenosis [place] orthopedics and anesthesiology consulted Pre-op abx and pain control ordered Chronic Atrial Fibrillation Present at time of admission, ECG with A Fib at 79 bpm Continue metoprolol and digoxin for rate control Not interested in taking long-term anticoagulants because of bleeding risk Chronic diastolic heart failure Valvular heart disease (severe , moderate MR/TR, mild AR) EF 55 to 60%, TTE 2019. CXR today with interval progression of the mild interstitial pulmonary edema as well as the moderate right and small left pleural effusions Continue home lasix dose, limiting IV fluids in setting of severe Continue Lopressor Chronic respiratory failure with hypoxia, requiring home O2 Pulmonary hypertension Continue supplemental O2 R pleural effusion Chronic - thoracentesis performed on previous admission in 07/11, probable transudate secondary to CHF Seizure disorder Continue Keppra, phenobarbital CAD No anginal symptoms or acute ischemic change on EKG. Continue aspirin and metoprolol HTN Normotensive. Continue metoprolol tartrate CKD III Kidney function slightly worse than baseline with Cr 1.49 (baseline ~1.3). Avoid nephrotoxic agents, monitor with daily BMP Abnormal UA 2+ bacteria, trace leuk esterase and 20-30 epi cells - asymptomatic. Follow urine cx and start abx if indicated DVT Ppx: SCDs Code status: DNR PCP: Rosa Dispo: Admitted to [facility]. Discharge planning ordered. Patient seen in collaboration with Dr. Harrington. Please see addendum. History of Present Illness Chief Complaint: fall at home Primary Care Provider: Velma Pinto MD This is an 84yo F with a PMH of chronic respiratory failure secondary to pulmonary hypertension on 2L home O2, chronic diastolic heart failure (EF 55- 60%, TTE 2018), CAD status post stent, A. fib not on anticoagulation as per patient preference, valvular heart disease (severe , moderate MR/TR, mild AR), pulmonary hypertension as per records, HTN, hyperlipidemia, seizure disorder, celiac disease and other medical problems listed below who presents after a fall at home. Tripped over her dog this morning and fell onto her right side. Endorsing pain in pelvis radiating to in her groin, especially with movement. Denies any other issues. No fever, chills, headache, lightheadedness, visual changes, sore throat, cough, chest pain, palpitations, shortness of breath, abdominal pain, nausea, vomiting, dysuria, constipation or diarrhea. Allergies Allergy/AdvReac Type Severity Reaction Status Date / Time Egg Derived Allergy Severe Difficulty Verified 05/22/20 09:44 Breathing ciprofloxacin [From Cipro] Allergy Intermediate Redness of Verified 05/22/20 09:44 Skin Penicillins Allergy Intermediate Rash Verified 05/22/20 09:44 phenytoin [From Dilantin] Allergy Intermediate Swelling Verified 05/22/20 09:44 lorazepam [From Ativan] AdvReac Intermediate confusion Verified 05/22/20 09:44 Home Medications Medication Instructions Recorded Confirmed Type aspirin 81 mg PO QPM 09/27/18 05/22/20 History levetiracetam 500 mg PO BID 09/27/18 05/22/20 History furosemide [Lasix] 40 mg PO DAILY #30 tab 01/06/19 05/22/20 Rx atorvastatin 10 mg PO QPM 07/08/19 05/22/20 History phenobarbital 30 mg PO TID 07/08/19 05/22/20 History digoxin [Digitek] 125 mcg PO MoWeFr@1600 #15 tab 07/14/19 05/22/20 Rx metoprolol tartrate 75 mg PO BID #90 tab 07/14/19 05/22/20 Rx Past Med/Surg History Medical History Aortic valve stenosis CAD (coronary artery disease) Chronic respiratory failure with hypoxia, on home O2 therapy CKD (chronic kidney disease), stage III Hearing loss HLD (hyperlipidemia) HTN (hypertension) IBS (irritable bowel syndrome) Macular degeneration Mitral regurgitation Pulmonary hypertension Seizure disorder Surgical History History of ankle surgery History of cardiac catheterization 2013 at [facility] [place] disease H/O 3 bare metal stents History of cataract surgery Hx of tonsillectomy Family History Other Colorectal cancer Hypertension Social History Smoking Status: Former smoker Smoking End Date: years ago; Second Hand Exposure: No; Hx Alcohol Use: No Hx Substance Use: No Preferred Language: Slovak Communication Ability: Effective Deputy County Attorney Required: No Beliefs That Will Affect Care: None marital status: / Current Living Situation: Family Current Living Situation Comment: Lives with Daughter Myra Other Information That Helps Us Care for You: No Feels Safe at Home: Yes Safety Concerns: Feels Safe At This Time Assistive Devices: Denture - Upper, Denture - Lower and Oxygen - Continuous Review of Systems Review of Systems: At least ten systems reviewed and negative except as noted in the HPI. Physical Exam Physical Exam: General Appearance: vitals as above, NAD, sitting up in bed, pleasant, conversing easily Head: normocephalic, atraumatic Eyes: normal inspection, PERRL, conjunctivae normal, anicteric sclerae ENT: external ear and nose normal, oropharynx normal Neck: normal visual inspection, trachea midline, no thyromegaly Respiratory: normal respiratory effort, lungs clear to auscultation, no wheeze, rales, rhonchi. No accessory muscle use Cardiovascular: regular rate, rhythm, 2/6 systolic murmur, normal peripheral pulses, no BLE edema. Vessels: no JVD Chest: normal inspection of chest Abdomen/GI: normal bowel sounds, soft, nontender, no hepatosplenomegaly Extremities/Musculoskeletal: R pelvis and femur with TTP but able to move with minimal pain. No cyanosis or clubbing, extremities motor strength 5/5 Neurologic: PERRL, EOMI, accommodation nl, no face palsy, no dysarthria, CN's II-XI intact bilaterally and moves all extremities Psychiatric: A+Ox3, euthymic affect Skin: no rashes, normal color, warm/dry Results & Data Results & Data ([facility]) Vital Signs (Past 12 Hours) Vital Signs Temp Pulse Pulse Resp BP BP Pulse Ox 05/22/20 09:29 80 20 122/63 98 05/22/20 09:24 36.7 C 84 20 122/63 98 Laboratory Results Short CBC 05/22/20 Range/Units 09:47 WBC 5.04 (4.8-10.8) K/uL Hgb 12.4 (12.0-16.0) g/dL Hct 38.1 (37-47) % Plt Count 165 (130-400) K/uL BMP 05/22/20 09:47 Sodium 140 Potassium 4.0 Chloride 99 Carbon Dioxide 36 H BUN 21 H Creatinine 1.49 H Glucose 114 H Calcium 8.8 Urine 05/22/20 Range/Units 11:10 Urine Color Yellow Urine Appearance Clear (Clear) Urine pH 7.5 (4.5-7.5) Ur Specific [place] 1.012 (1.000-1.030) Urine Protein Negative (Negative) Urine Glucose (UA) Negative (Negative) Diagnostic Findings CXR: IMPRESSION: 1. Interval progression of the mild interstitial pulmonary edema as well as the moderate right and small left pleural effusions. 2. Progressive right basilar densities. This could be due to atelectasis from the pleural effusion or pneumonia. Pelvis XR: IMPRESSION: Slightly displaced and impacted subcapital right femoral neck fracture. R femur XR: IMPRESSION: Slightly displaced and impacted subcapital right femoral neck fracture. ECG Rhythm: atrial fibrillation Supervising Physician Co-Signing Physician Notes Ground-level fall at home S/P Subcapital fracture of right femur History of chronic hypoxic respiratory failure on 2 L History of right pleural effusion History of atrial fibrillation not on anticoagulation History of seizure disorder History of irritable bowel syndrome History of coronary artery disease History of hypertension History of hyperlipidemia History of CKD stage III While doing okay. Reports she tripped over her dog this morning and fell on the ground. Denies hitting her head or losing any consciousness. At the moment denies any chest pain, shortness of breath, abdominal pain or any dysuria. Does report pain at the right lower extremity with movement. Rest of the review of system is negative. No known Covid exposures or recent travel. Reports she does have shortness of breath at baseline. We will continue with chronic daily medications. Orthopedics have been consulted. Likely to go to the OR tomorrow. UA positive but patient denies any urinary symptoms. Patient was seen and discussed with PORTIA Tong. (1) CAD (coronary artery disease) Associated angina: with stable angina Coronary Disease-Associated Artery/Lesion type: [place] artery [place] vs. transplanted heart: [place] heart Qualified Code(s): I25.118 - Atherosclerotic heart disease of [place] coronary artery with other forms of angina pectoris
[2020-05-22 11:31] LABS: Appearance Urine Clear (Clear); Bacteria Urine Automated 2+ (Negative); Bilirubin Urine Negative (Negative); Blood Urine Negative (Negative); Color Urine Yellow; Epithelial Cell Urine Auto 20-30 /lpf (0-5); Glucose Urine UA Negative (Negative); Ketones Urine Negative (Negative); Leukocyte Esterase Urine Trace (Negative); Nitrite Urine Negative (Negative); Protein Urine Negative (Negative); RBC Urine Automated 0-4 /hpf (0-4); Specific Gravity Urine 1.012 (1.000-1.030); Urobilinogen Urine Negative (Negative); pH Urine 7.5 (4.5-7.5)
[2020-05-22 12:37] LABS: Influenza A virus by PCR Negative (Neg); Influenza B virus by PCR Negative (Neg); RSV by PCR Negative (Neg); SARS CoV2 RNA(COVID-19) InHosp NEGATIVE (Negative)
--- NOTE | 2020-05-22 13:02 | Electrocardiogram Report ---
Test Reason : Blood Pressure : / mmHG Vent. Rate : 079 BPM Atrial Rate : 091 BPM P-R Int : 000 ms QRS Dur : 102 ms QT Int : 398 ms P-R-T Axes : 000 -55 123 degrees QTc Int : 456 ms Poor data quality, interpretation may be adversely affected Atrial fibrillation Left axis deviation Low voltage QRS Cannot rule out Anterior infarct (cited on or before 08-JUL-2019) Abnormal ECG When compared with ECG of 08-JUL-2019 03:35, Vent. rate has decreased BY 48 BPM T wave inversion no longer evident in Lateral leads Confirmed by Valeriy Box ([id number]) on 05/22/2020 1:02:23 PM Referred By: SELF Confirmed By:Everett Box
[2020-05-22] MEDS ORDERED: ACETAMINOPHEN 500 MG TAB ONE (13:50)
[2020-05-22] MEDS ORDERED: ONDANSETRON INJ 2 MG/ML 2 ML VIAL IV PRN (15:15)
[2020-05-22] MEDS ORDERED: POLYETHYLENE (MIRALAX) 17 GM PACK PO PRN (15:15)
[2020-05-22] MEDS ORDERED: ACETAMINOPHEN 500 MG TAB PO PRN (15:15)
[2020-05-22] MEDS ORDERED: NALOXONE HCL 0.4 MG/1 ML VIAL/CARP IV PRN (15:15)
[2020-05-22] MEDS ORDERED: MAGNESIUM HYDROXIDE SUSP 30 ML UDC PO PRN (15:15)
[2020-05-22] MEDS ORDERED: oxyCODONE HCL IR 5 MG TAB (IMMEDIATE RELEASE) PO PRN ×2 (15:15)
[2020-05-22] MEDS ORDERED: bisacodyL 10 MG SUPP PR PRN (15:15)
[2020-05-22] MEDS: DIGOXIN 0.125 MG TAB PO SCH (16:57)
--- NOTE | 2020-05-22 18:03 | Orthopedic Consultation ---
Date of Service May 22, 2020 Assessment & Plan (1) Closed subcapital fracture of right femur: I discussed the nature of her fracture pattern with her today in the emergency room. I recommended surgical treatment to return to walking as soon as medically stable. Given her medical comorbidities and complexity with anesthesia, I think it is best to minimize her surgery. Close reduction with percutaneous screw fixation is likely her best surgery. This risk nonunion which may ultimately lead to a hemiarthroplasty procedure. Given her alignment and impaction of the fracture I think screw fixation is adequate. We discussed that hemiarthroplasty is a partial replacement of the hip and will require more extensive incision, bleeding and surgical complications. Discussed the risks and benefits of percutaneous screw fixation which include infection, neurovascular injury, nonunion, malunion, persistent hip pain, need for repeat or revision procedures, symptomatic hardware, blood clots, and complications lead anesthesia. She asked appropriate questions, demonstrated good underst anding, and wants to proceed with right hip closed reduction internal fixation with percutaneous screws. I told her I would contact her family to confirm this consent. She was agreeable. Appreciate admission to the hospitalist service and medical management. Can proceed with surgery as soon as medically clear. Plan for 6 weeks of DVT prophylaxis, which can be Lovenox as an inpatient and conversion to aspirin when ambulatory unless there is another contraindication. History of Present Illness Reason for Consultation: Right hip injury Requesting Physician: . Attending Physician: Norah Harrington MD 84yo F with past medical history significant for chronic respiratory failure secondary to pulmonary hypertension, chronic diastolic heart failure, CAD, A. fib, valvular heart disease and other medical problems l fell at home while stumbling over the dog. She had immediate pain on her right hip and was unable to ambulate. She was taken to the emergency room. Subsequent evaluation demo nstrated a femoral neck fracture. She is admitted to the hospital and consult orthopedics for definitive management. She reports that she is a household only ambulator with the assistance of a walker most of the time. She does live with her daughter and is mostly independent. She describes no specific antecedent hip pain. She does have degenerative disc disease and low back issues, which is a reason for the walker. Allergies Allergy/AdvReac Type Severity Reaction Status Date / Time Egg Derived Allergy Severe Difficulty Verified 05/22/20 09:44 Breathing ciprofloxacin [From Cipro] Allergy Intermediate Redness of Verified 05/22/20 09:44 Skin Penicillins Allergy Intermediate Rash Verified 05/22/20 09:44 phenytoin [From Dilantin] Allergy Intermediate Swelling Verified 05/22/20 09:44 lorazepam [From Ativan] AdvReac Intermediate confusion Verified 05/22/20 09:44 Home Medications Medication Instructions Recorded Confirmed Type aspirin 81 mg PO QPM 09/27/18 05/22/20 History levetiracetam 500 mg PO BID 09/27/18 05/22/20 History furosemide [Lasix] 40 mg PO DAILY #30 tab 01/06/19 05/22/20 Rx atorvastatin 10 mg PO QPM 07/08/19 05/22/20 History phenobarbital 30 mg PO TID 07/08/19 05/22/20 History digoxin [Digitek] 125 mcg PO MoWeFr@1600 #15 tab 07/14/19 05/22/20 Rx metoprolol tartrate 75 mg PO BID #90 tab 07/14/19 05/22/20 Rx Past Med/Surg History Medical History Aortic valve stenosis CAD (coronary artery disease) Chronic respiratory failure with hypoxia, on home O2 therapy CKD (chronic kidney disease), stage III Hearing loss HLD (hyperlipidemia) HTN (hypertension) IBS (irritable bowel syndrome) Macular degeneration Mitral regurgitation Pulmonary hypertension Seizure disorder Surgical History History of ankle surgery History of cardiac catheterization 2013 at [facility] - diffuse disease H/O 3 bare metal stents History of cataract surgery Hx of tonsillectomy Family History Other Colorectal cancer Hypertension Social History Smoking Status: Former smoker Smoking End Date: years ago; Second Hand Exposure: No; Hx Alcohol Use: No Hx Substance Use: No Preferred Language: Ukrainian Communication Ability: Effective 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 Physical Exam RLE: She has equal leg lengths as she lies supine on the [facility]. She has intact plantarflexion, dorsiflexion, EHL activity. She can actively extend the knee. She has a bolster behind the knee to push against. I am able to perform a straight leg raise with her with gentle assistance and she can maintain this against gravity with minimal discomfort. There is minimal discomfort with logroll. She remains tender slightly around the greater trochanter. She is neurovascular intact. Constitutional well developed and well nourished; no acute distress and not intoxicated appearing ENMT external ear and nose normal, oropharynx normal Respiratory normal respiratory effort; no respiratory distress Cardiovascular Extremities: normal capillary refill; no edema Skin no rashes, warm and dry Psychiatric A+Ox3, euthymic affect Results & Data Results & Data Laboratory Results . H & H 05/22/20 Range/Units 09:47 Hgb 12.4 (12.0-16.0) g/dL Hct 38.1 (37-47) % Coagulation 05/22/20 Range/Units 09:47 INR 1.0 (0.9-1.1) Diagnostic Findings Radiographic work-up includes AP pelvis as well as AP and lateral views of the right femur. These demonstrate a valgus impacted femoral neck fracture in the subcapital region. Lateral view shows adequate alignment. These findings coupled with her exam and ability to straight leg raise make this likely a stable pattern amenable to screw fixation. PG Care Time/CCT Total # of Minutes Spent Total Time Spent with Patient: Total time spent is greater than 50% in coordination of care (as documented) at patient's floor/unit and/or counseling patient: Coding Level of Care Code 85844 Office/OBS Consult Lvl 4 Diagnoses Closed subcapital fracture of right femur S72.011A
[2020-05-22] MEDS: levETIRAcetam 500 MG TAB PO SCH (20:32)
[2020-05-22] MEDS: ATORVASTATIN 10 MG TAB PO SCH (20:33)
[2020-05-22] MEDS: DOCUSATE SODIUM/SENNA 50/8.6MG TAB PO SCH (20:41)
[2020-05-22] MEDS: METOPROLOL TARTRATE 25 MG TAB PO SCH (20:55)
[2020-05-22] MEDS: ACETAMINOPHEN 500 MG TAB PO SCH (20:56)
[2020-05-23] MEDS ORDERED: CLINDAMYCIN 900 MG in DEXTROSE 5% 50 ML IV SCH (06:00)
[2020-05-23] MEDS: ACETAMINOPHEN 500 MG TAB PO SCH ×3 (06:04→21:01)
[2020-05-23 06:26] LABS: Hematocrit (blood only) 35.1 % (37-47); Hemoglobin 11.6 g/dL (12.0-16.0); Mean Corpuscular Hemoglobin 31.7 pg (25-34); Mean Corpuscular Volume 95.9 fL (80-100); Mean Platelet Volume 9.6 fL (7.4-10.4); Platelet Count 140 K/uL (130-400); RDW Coefficient of Variation 14.2 % (11.5-14.5); RDW Standard Deviation 50.3 fL (36.4-46.3); Red Blood Count 3.66 M/uL (4.2-5.4); White Blood Count 3.57 K/uL (4.8-10.8)
[2020-05-23 06:59] LABS: Calcium 8.5 mg/dl (8.5-10.1); Creatinine Clr Calc Pharmacy 23.6 ml/min; Est GFR (African American) 45.4; Est GFR (Non-African American) 39.2; Potassium 4.1 mmol/L (3.5-5.1)
--- NOTE | 2020-05-23 07:05 | Anesthesiology Consultation ---
Date of Service May 23, 2020 Assessment & Plan (1) Encounter for pre-operative examination: Chart Review Chart Review: entry level accountant initiated History Surgery Operation Date: 05/23/20 09:20 Proposed Procedures p Right Hip Percutaneous Pinning - Sy Hernandez MD Height/Weight Height: 5 ft Weight: 49.7 kg Allergies Allergy/AdvReac Type Severity Reaction Status Date / Time Egg Derived Allergy Severe Difficulty Verified 05/22/20 09:44 Breathing ciprofloxacin [From Cipro] Allergy Intermediate Redness of Verified 05/22/20 09:44 Skin Penicillins Allergy Intermediate Rash Verified 05/22/20 09:44 phenytoin [From Dilantin] Allergy Intermediate Swelling Verified 05/22/20 09:44 lorazepam [From Ativan] AdvReac Intermediate confusion Verified 05/22/20 09:44 Medications Home Medications Medication Instructions Recorded Confirmed Last Taken aspirin 81 mg PO QPM 09/27/18 05/22/20 07/07/19 levetiracetam 500 mg PO BID 09/27/18 05/22/20 07/07/19 furosemide [Lasix] 40 mg PO DAILY #30 tab 01/06/19 05/22/20 05/22/20 atorvastatin 10 mg PO QPM 07/08/19 05/22/20 07/07/19 phenobarbital 30 mg PO TID 07/08/19 05/22/20 05/22/20 digoxin [Digitek] 125 mcg PO MoWeFr@1600 #15 tab 07/14/19 05/22/20 Unknown metoprolol tartrate 75 mg PO BID #90 tab 07/14/19 05/22/20 05/22/20 Active Medications Generic Name Dose Route Start Last Admin Trade Name Freq PRN Reason Stop Dose Admin Acetaminophen 1,000 mg 05/22/20 22:00 05/23/20 06:04 Acetaminophen 500 Mg Tab PO 06/21/20 21:59 Not Given Q8H ANKIT Atorvastatin Calcium 10 mg 05/22/20 21:00 05/22/20 20:33 Atorvastatin 10 Mg Tab PO 06/21/20 20:59 10 mg QPM ANKIT Administration Digoxin 0.125 mg 05/22/20 16:00 05/22/20 16:57 Digoxin 0.125 Mg Tab PO 06/21/20 15:59 0.125 mg MoWeFr@1600 ANKIT Administration Levetiracetam 500 mg 05/22/20 21:00 05/22/20 20:32 Levetiracetam 500 Mg Tab PO 06/21/20 20:59 500 mg BID ANKIT Administration Metoprolol Tartrate 75 mg 05/22/20 21:00 05/22/20 20:55 Metoprolol Tartrate 25 Mg Tab PO 06/21/20 20:59 Not Given BID ANKIT Oxycodone HCl 5 mg 05/22/20 15:15 05/22/20 21:57 Oxycodone Hcl Ir 5 Mg Tab (Immediate Release) PO 06/05/20 15:14 5 mg Q4H PRN Administration MODERATE Pain (4,5,6) & Pre PT Phenobarbital 32.4 mg 05/22/20 21:00 05/22/20 20:52 Phenobarbital 32.4 Mg Tab PO 06/21/20 20:59 32.4 mg TID ANKIT Administration Senna/Docusate Sodium 2 tab 05/22/20 21:00 05/22/20 20:41 Docusate Sodium/Senna 50/8.6mg Tab PO 06/21/20 20:59 Not Given HS ANKIT Past Medical History Medical History Aortic valve stenosis CAD (coronary artery disease) Chronic respiratory failure with hypoxia, on home O2 therapy CKD (chronic kidney disease), stage III Hearing loss HLD (hyperlipidemia) HTN (hypertension) IBS (irritable bowel syndrome) Macular degeneration Mitral regurgitation Pulmonary hypertension Seizure disorder Past Family History Family History Other Colorectal cancer Hypertension Past Surgical History Surgical History History of ankle surgery History of cardiac catheterization 2014 at [place] - diffuse disease H/O 3 bare metal stents History of cataract surgery Hx of tonsillectomy Social History Smoking Status: Former smoker Smoking End Date: years ago Hx Alcohol Use: No Hx Substance Use: No substance use type: does not use Physical Exam Vital Signs Last Vital Signs Temp 97.3 F L 05/23/20 02:18 Pulse 66 05/23/20 02:32 Resp 18 05/23/20 02:18 BP 107/65 05/23/20 02:18 Pulse Ox 92 05/23/20 02:18 Testing Laboratory Results 05/23/20 05:52 05/23/20 05:52 PT 10.9 Seconds (9.0-12.0) 05/22/20 09:47 INR 1.0 (0.9-1.1) 05/22/20 09:47 APTT 25.9 Seconds (21.0-31.0) 05/22/20 09:47 Urine Color Yellow 05/22/20 11:10 Urine Appearance Clear (Clear) 05/22/20 11:10 Urine pH 7.5 (4.5-7.5) 05/22/20 11:10 Ur Specific [place] 1.012 (1.000-1.030) 05/22/20 11:10 Urine Protein Negative (Negative) 05/22/20 11:10 Urine Glucose (UA) Negative (Negative) 05/22/20 11:10 Urine Ketones Negative (Negative) 05/22/20 11:10 Urine Nitrite Negative (Negative) 05/22/20 11:10 Ur Leukocyte Esterase Trace (Negative) H 05/22/20 11:10 Urine WBC (Auto) 5-10 /hpf (0-5) H 05/22/20 11:10 Urine RBC (Auto) 0-4 /hpf (0-4) 05/22/20 11:10 U Hyaline Cast (Auto) 1-5 /lpf (0-5) 05/22/20 11:10 U Epithel Cells (Auto) 20-30 /lpf (0-5) H 05/22/20 11:10 Urine Bacteria (Auto) 2+ (Negative) H 05/22/20 11:10 Blood Type B Negative 05/22/20 15:31 Antibody Screen NEGATIVE 05/22/20 15:31 Laboratory Tests 05/22/20 11:48 SARS-CoV-2 (PCR) NEGATIVE Electrocardiogram Date: 05/22/20 Atrial fibrillation, rate 79 bpm Left axis deviation Low voltage QRS Cannot rule out Anterior infarct (cited on or before 08-JUL-2019) Abnormal ECG When compared with ECG of 08-JUL-2019 03:35, Vent. rate has decreased BY 48 BPM T wave inversion no longer evident in Lateral leads Confirmed by Valeriy Box ([id number]) on 05/22/2020 1:02:23 PM Chest X-Ray Date: 05/22/20 IMPRESSION: 1. Interval progression of the mild interstitial pulmonary edema as well as the moderate right and small left pleural effusions. 2. Progressive right basilar densities. This could be due to atelectasis from the pleural effusion or pneumonia. Echocardiogram Date: 01/03/19 Normal LV chamber size with mild concentric LVH Normal LV systolic function, EF 55-60% No segmental LV wall motion abnormalities are noted Grade 1 diastolic dysfunction Severely calcified, trileaflet AV with moderately reduced systolic opening. Mod , mild AR. Mod to severe MR Mod TR Severe left atrial enlargement Pulmonary hypertension is present with a PASP of 45 mmHg assuming a RA pressure of 3 mmHg
--- NOTE | 2020-05-23 08:03 | History & Physical Bridge Note ---
Date of Service May 23, 2020 History & Physical Bridge Note I have examined the patient, reviewed the History & Physical and in the interval since the performance of the History & Physical I have noted the following changes of clinical significance: no changes noted. Patient is aware of COVID-19 risks. Patient is asymptomatic for COVID-19. Patient has been tested for COVID-19 - [NEGATIVE]. Discussed the fracture pattern and surgical options with the patient's daughter over the phone at about 1730 last evening. I discussed my recommendation for closed reduction percutaneous screw fixation and return to weightbearing as tolerated. She expressed her desire to have the patient out of the hospital soon as possible for COVID-19 reasons. We discussed that it will be up to her performance with physical therapy and any perisurgical complications. Proceed today with the plan for percutaneous screw fixation of this femoral neck fracture.
[2020-05-23] MEDS: levETIRAcetam 500 MG TAB PO SCH ×2 (08:46→20:09)
[2020-05-23] MEDS: FUROSEMIDE 40 MG TAB PO SCH (08:46)
[2020-05-23] MEDS: METOPROLOL TARTRATE 25 MG TAB PO SCH ×2 (08:47→20:10)
[2020-05-23] MEDS ORDERED: LIDOCAINE HCL 2% 2 ML VIAL/AMP(20MG/ML) INFIL ONE (10:17)
[2020-05-23] MEDS ORDERED: PROPOFOL IV EMULSION 10 MG/ML 20 ML VIAL IV ONE (10:17)
[2020-05-23] MEDS ORDERED: fentaNYL citrate 100 MCG/2 ML VIAL ONE (10:17)
[2020-05-23] MEDS ORDERED: SODIUM CHLORIDE 0.9% INJ 10 ML VIAL ONE (10:21)
[2020-05-23] MEDS ORDERED: ePHEDrine sulfate 50 MG/ML AMP ONE (10:21)
[2020-05-23] MEDS ORDERED: PHENYLEPHRINE HCL 10 MG/ML VIAL ONE (10:21)
--- NOTE | 2020-05-23 10:38 | Hospitalist Progress Note ---
Date of Service May 23, 2020 Assessment & Plan (1) Closed subcapital fracture of right femur: (2) Chronic respiratory failure with hypoxia, on home O2 therapy: (3) Chronic diastolic heart failure: (4) Atrial fibrillation: (5) Seizure disorder: (6) Pulmonary hypertension: (7) CAD (coronary artery disease): (8) HTN (hypertension): (9) CKD (chronic kidney disease), stage III: (10) HLD (hyperlipidemia): Patient is a 84-year-old female with past medical history of chronic respiratory failure secondary to pulmonary hypertension on home O2, chronic diastolic heart failure (EF 55 to 60%, TTE 2019), CAD status post stent, A. fib not on anticoagulation as per patient preference, valvular heart disease (severe , moderate MR/TR, mild AR), pulmonary hypertension as per records, HTN, hyperlipidemia, seizure disorder, celiac disease scented with ground-level fall at home. Subcapital fracture of right femur Patient is NPO. Plan to go to the OR today with orthopedics. Currently on room air. Hemodynamically stable. Pain is well controlled. Per Revised Cardiac Risk Index for Pre-Operative Risk, patient is a class III or 10.1% 30-day risk of , AR, or cardiac arrest Continue home medications, avoid IV fluids due to h/o severe aortic stenosis Pre-op abx and pain control ordered Chronic Atrial Fibrillation [place] rate controlled. We will continue with [employer] metoprolol and digoxin. Not on any anticoagulation [employer] given increased bleeding risk. Chronic diastolic heart failure Valvular heart disease (severe , moderate MR/TR, mild AR) EF 55 to 60%, TTE 2019. CXR today with interval progression of the mild interstitial pulmonary edema as well as the moderate right and small left pleural effusions Continue home lasix dose, limiting IV fluids in setting of severe Continue Lopressor Chronic respiratory failure with hypoxia, requiring home O2 Pulmonary hypertension Continue supplemental O2 R pleural effusion Chronic - thoracentesis performed on previous admission in 07/11, probable transudate secondary to CHF Seizure disorder Continue Keppra, phenobarbital CAD No anginal symptoms or acute ischemic change on EKG. Continue aspirin and metoprolol HTN Normotensive. Continue metoprolol tartrate CKD III Kidney function slightly worse than baseline with Cr 1.49 (baseline ~1.3). Avoid nephrotoxic agents, monitor with daily BMP Abnormal UA Patient denies any urinary symptoms. Cultures are pending. Antibiotics at this time. DVT Ppx: SCDs Code status: DNR PCP: Rosa Admission and Anticipated Discharge Date Admission Date: May 22, 2020 Subjective Patient is doing okay this morning. Remains n.p.o. Plan to go to the OR this morning with orthopedics today. Reports pain is well controlled. States her shortness of breath is also improved. Denies any chest pain abdominal pain. Denies any diarrhea or dysuria. Rest of the review of system is negative. Review of Systems Review of Systems: All systems reviewed & are unremarkable except as noted in HPI & below Physical Exam Physical Exam: General: Awake and alert, does not appear to be in any distress HENT: NCAT, MMM, EOMI Eyes: PERRLA Neck: Supple, normal range of motion CVS: normal rate and rhythm Resp: b/l decreased breath sound Abdomen: Soft, nondistended nontender Extremities: Trace lower extremity edema Neuro: face symmetric, strength grossly equal, no focal deficit Skin: warm and dry, no rashes/lesions/errythema MSK: normal ROM, no joint swelling/erythema Results & Data Results & Data ([facility]) Vital Signs (Past 12 Hours) Vital Signs Temp Pulse Pulse Resp BP Pulse Ox 05/23/20 07:27 36.7 C 79 16 98/58 L 95 05/23/20 07:11 68 05/23/20 02:32 66 05/23/20 02:18 36.3 C L 65 18 107/65 92 (1) Closed subcapital fracture of right femur Encounter type: initial encounter Qualified Code(s): S72.011A - Unspecified intracapsular fracture of right femur, initial encounter for closed fracture (2) Atrial fibrillation Atrial fibrillation type: unspecified Qualified Code(s): I48.91 - Unspecified atrial fibrillation (3) CAD (coronary artery disease) Coronary Disease-Associated Artery/Lesion type: [place] artery [place] vs. transplanted heart: [place] heart Associated angina: with stable angina Qualified Code(s): I25.118 - Atherosclerotic heart disease of [place] coronary artery with other forms of angina pectoris (4) HTN (hypertension) Hypertension type: unspecified Qualified Code(s): I10 - Essential (primary) hypertension (5) CKD (chronic kidney disease), stage III Chronic kidney disease stage 3 subtype: unspecified whether 3a or 3b Qualified Code(s): N18.30 - Chronic kidney disease, stage 3 unspecified
[2020-05-23] MEDS ORDERED: ONDANSETRON INJ 2 MG/ML 2 ML VIAL IV PRN (10:40)
[2020-05-23] MEDS ORDERED: ATROPINE SULFATE 0.1 MG/ML 10ML SYR IV PRN (10:40)
[2020-05-23] MEDS ORDERED: fentaNYL citrate 100 MCG/2 ML VIAL IV PRN (10:40)
[2020-05-23] MEDS ORDERED: ePHEDrine sulfate 50 MG/ML AMP IV PRN (10:40)
[2020-05-23] MEDS ORDERED: BUPIVACAINE 0.25% 30 ML VIAL ONE (10:44)
[2020-05-23] MEDS ORDERED: BUPIVACAINE/EPINEPHRINE 0.5% MPF 1:200,000 30 ML VIAL ONE (10:44)
[2020-05-23] MEDS ORDERED: EPINEPHrine INJ 1 MG/ML AMP ONE (10:44)
[2020-05-23] MEDS ORDERED: NALOXONE HCL 0.4 MG/1 ML VIAL/CARP IV PRN (12:37)
--- NOTE | 2020-05-23 12:44 | Fluoroscopy Report ---
FL hip RT 2-3V CLINICAL HISTORY: RT HIP COMPARISON STUDY: 05/22/2020 FLUOROSCOPY TIME: 78 seconds. NUMBER OF FLUOROSCOPIC IMAGES: 8 FINDINGS: 8 fluoroscopic spot images demonstrate placement of 3 cannulated femoral neck screws. IMPRESSION: Intraoperative fluoroscopic spot images demonstrating placement of 3 cannulated femoral neck screws. ACT 112: Negative or not required by law. Electronically signed by: Alvin Huston M.D. 05/23/2020 12:43 PM
--- NOTE | 2020-05-23 12:49 | Post Operative Brief Note ---
PG Immediate Post Op with CF Date of Surgery May 23, 2020 Pre & Post Diagnosis Operation Date: 05/23/20 09:20 Pre-Op Diagnosis: Right hip fracture Post-Op Diagnosis: Right hip fracture I identified the patient and participated in the time-out.: Yes Procedure Operation Date: 05/23/20 09:20 Actual Procedures p Right Hip Percutaneous Pinning(Right) - Sy Hernandez MD Surgeon Sy Hernandez MD Single Pass Soil Stabilizer Operator Rolando Haynes PA-C Estimated Blood Loss 20 Findings Consistent with Post-Op Diagnosis Drains Wheat Catheter (inserted prior to arrival in perioperative department)
--- NOTE | 2020-05-23 12:51 | Operative Report ---
PG Post Operative Report Pre & Post Diagnosis Operation Date: 05/23/20 09:20 Pre-Op Diagnosis: Right hip fracture Post-Op Diagnosis: Right hip femoral neck valgus impacted fracture I identified the patient and participated in the time-out.: Yes Procedure Operation Date: 05/23/20 09:20 Actual Procedures p Right Hip Percutaneous Pinning(Right) - Sy Hernandez MD Surgeon Sy Hernandez MD Bench Carpenter Rolando Haynes PA-C Estimated Blood Loss 20 Findings Consistent with Post-Op Diagnosis Valgus impacted fracture was stable on fluoroscopic exam preop. It was stabilized with a Synthes 90 mm long 7.3 mm diameter cannulated partially threaded screw plus washer inferiorly, followed by two 80 mm long cannulated 6.5 mm diameter screws plus washers. Specimens none Anesthesia Type MAC Complications none Disposition Accompanied Patient To Recovery: No Disposition: Recovery Room Indications 84-year-old female sustained a fall at home after tripping on her dog resulting in a valgus impacted right femoral neck fracture. Given her medical comorbidities and fracture stability, I recommended percutaneous screw fixation to advance her weightbearing sooner. We discussed the risks and benefits of percutaneous screws versus hemiarthroplasty in detail with the patient and her daughter while obtaining informed consent. All parties were agreeable to proceed. Description of Procedure On the day of surgery should be was greeted in the preoperative holding area and the informed consent was reviewed and confirmed. The surgical site was then identified by the patient and signed by myself. The patient was taken to the operating placed by the OR table and anesthesia was induced. The patient is then positioned on the fracture table. All steven prominences were well padded. The operative foot was placed in the fracture boot with abundant padding. The well leg was secured. We then positioned the lower extremities in a scissor fashion with a non-op leg flexed down to allow visualization with fluoroscopy which was confirmed before we prepped and draped. Surgical timeout was called and verified by all present. Antibiotics were infused, and equipment was available and functional. The procedure was initiated with fluoroscopic evaluation of the fracture. It appeared stable to the preoperative x-rays on fluoroscopic evaluation. The skin was then prepped with ChloraPrep and the area was anesthetized with a total of 60 cc of quarter percent Marcaine with epinephrine around the greater trochanter and directed into the joint which had a hemarthrosis. The leg was then prepped and draped in usual sterile fashion. Surgical timeout was reconfirmed. Surgery was initiated by placement of the pin on the skin to determine trajectory and placement for the first most inferior screw. The wire was sent towards the femoral head across the fracture under fluoroscopic visualization in multiple planes of fluoroscopy to confirm position. A 4 cm incision was made from the pin proximal, through and through the IT band. Additional pins for the anterior superior and posterior superior placements were directed under fluoroscopic guidance. The trajectories showed adequate spread and alignment, on AP and lateral views. Screw lengths were determined using the guide down to bone. The appropriate screw was then loaded onto the guidewire with a washer and directed first under power and then by hand under fluoroscopic evaluation for depth. Fluoroscopy was used once again to confirm position and no cortical break out of the screws. There appeared to be in acceptable alignment. The wounds were then thoroughly irrigated with bulb syringe and normal saline. The IT band was approximated with #1 Vicryl suture. The dermal layer was approximated using 2-0 Vicryl suture. The final skin closure was completed with jatin. Wounds were dressed with sterile Xeroform, sterile gauze, and ABDs, contained by Ioban dressing. The patient tolerated procedure well, awoke from anesthesia without complication, was extubated in the operating room, and transferred to the PACU in stable condition. Disposition: The patient should be be weightbearing as tolerated with walker at all times and can mobilize with PT/OT immediately. 24 hours of antibiotic prophylaxis should be continued. DVT prophylaxis should start postop day 1, but defer to the primary team. Dressing can be changed at postop day 2. Physician assistant service manager attestation: Rolando Haynes PA-C was present and scrubbed for the duration of the case. He was essential to prepping/draping, patient positioning, retraction, and assistance with wound closure. I attest to the content of the Intraoperative Record and any orders documented t herein. Any exceptions are noted below.
--- NOTE | 2020-05-23 13:00 | Anesthesiology Progress Note ---
Date of Service May 23, 2020 Anesthesia Post Procedure Vital Signs Vital Signs: Temp Pulse Pulse Resp BP Pulse Ox 05/23/20 07:27 98.1 F 79 16 98/58 L 95 05/23/20 07:11 68 05/23/20 02:32 66 05/23/20 02:18 97.3 F L 65 18 107/65 92 05/22/20 20:50 59 L 101/64 05/22/20 18:59 98.2 F 83 18 103/60 94 05/22/20 16:57 64 05/22/20 15:15 98.2 F 91 H 88 18 125/7 L 93 05/22/20 14:12 74 18 117/70 94 Pain Intensity Right Hip: Pain Intensity: 10 Left Back: Pain Intensity: 4 Transfer of Care Handoff Completed per policy Notes Mental Status: alert / awake / arousable and participated in evaluation Patient Amnestic to Procedure: Yes Nausea / Vomiting: adequately controlled Pain: adequately controlled Airway Patency, RR, SpO2: stable & adequate BP & HR: stable & adequate Hydration State: stable & adequate Anesthetic Complications: no major complications apparent and Pt Satisfied with anesthetic care
--- NOTE | 2020-05-23 13:40 | XRay Report ---
XR hip RT min 2V CLINICAL HISTORY: Post-Operative implant position FRACTURE STATUS POST SURGERY COMPARISON: 05/22/2020 DISCUSSION: 3 cannulated femoral neck screws fixate a subcapital right hip fracture. Amorphic pelvic calcifications likely represent calcified uterine fibroids IMPRESSION: 1. Subcapital right hip fracture internally fixated with 3 cannulated screws. ACT 112: Negative or not required by law. Electronically signed by: Alvin Huston M.D. 05/23/2020 1:39 PM
[2020-05-23] MEDS: CLINDAMYCIN 900 MG in DEXTROSE 5% 50 ML IV SCH (18:31)
[2020-05-23] MEDS: DOCUSATE SODIUM/SENNA 50/8.6MG TAB PO SCH (20:09)
[2020-05-23] MEDS: ATORVASTATIN 10 MG TAB PO SCH (20:09)
[2020-05-23] MEDS: ASPIRIN 81 MG ECTAB PO SCH (20:09)
[2020-05-24] MEDS: CLINDAMYCIN 900 MG in DEXTROSE 5% 50 ML IV SCH ×2 (00:59→09:30)
[2020-05-24] MEDS: ACETAMINOPHEN 500 MG TAB PO SCH ×3 (05:57→21:34)
[2020-05-24 06:33] LABS: Hematocrit (blood only) 35.3 % (37-47); Hemoglobin 11.7 g/dL (12.0-16.0); Mean Corpuscular Hemoglobin 31.8 pg (25-34); Mean Corpuscular Hgb Conc 33.1 g/dL (32-36); Mean Corpuscular Volume 95.9 fL (80-100); Platelet Count 152 K/uL (130-400); RDW Coefficient of Variation 14.1 % (11.5-14.5); RDW Standard Deviation 49.8 fL (36.4-46.3); Red Blood Count 3.68 M/uL (4.2-5.4); White Blood Count 4.52 K/uL (4.8-10.8)
[2020-05-24 07:12] LABS: BUN Creatinine Ratio 20.8 (10-20); Calcium 8.8 mg/dl (8.5-10.1); Creatinine Clr Calc Pharmacy 21.9 ml/min; Est GFR (African American) 41.4; Est GFR (Non-African American) 35.7; Potassium 4.5 mmol/L (3.5-5.1)
[2020-05-24] MEDS: ENOXAPARIN INJ 30 MG/0.3 ML SYR SQ SCH (09:27)
[2020-05-24] MEDS: levETIRAcetam 500 MG TAB PO SCH ×2 (09:28→21:34)
[2020-05-24] MEDS: METOPROLOL TARTRATE 25 MG TAB PO SCH ×2 (09:28→21:34)
[2020-05-24] MEDS: FUROSEMIDE 40 MG TAB PO SCH (09:28)
--- NOTE | 2020-05-24 10:53 | Hospitalist Progress Note ---
Date of Service May 24, 2020 Assessment & Plan (1) Closed subcapital fracture of right femur: (2) Chronic respiratory failure with hypoxia, on home O2 therapy: (3) Chronic diastolic heart failure: (4) Atrial fibrillation: (5) Seizure disorder: (6) Pulmonary hypertension: (7) CAD (coronary artery disease): (8) HTN (hypertension): (9) CKD (chronic kidney disease), stage III: (10) HLD (hyperlipidemia): Patient is a 84-year-old female with past medical history of chronic respiratory failure secondary to pulmonary hypertension on home O2, chronic diastolic heart failure (EF 55 to 60%, TTE 2019), CAD status post stent, A. fib not on anticoagulation as per patient preference, valvular heart disease (severe , moderate MR/TR, mild AR), pulmonary hypertension as per records, HTN, hyperlipidemia, seizure disorder, celiac disease scented with ground-level fall at home. Subcapital fracture of right femur S/P Right Hip Percutaneous Pinning(Right) Well patient is doing okay. Pain is well controlled. Currently on diet. Continues oxycodone 5 and 10 mg for moderate to severe pain. Zofran as needed for nausea. Stool softeners ordered. Start patient on DVT prophylaxis. Consult PT/OT once OK with Ortho. Orthopedics is on board. Chronic Atrial Fibrillation [place] rate controlled. We will continue with STOCK RAISER metoprolol and digoxin. Not on any anticoagulation STOCK RAISER given increased bleeding risk. Chronic diastolic heart failure Valvular heart disease (severe , moderate MR/TR, mild AR) EF 55 to 60%, TTE 2019. CXR today with interval progression of the mild interstitial pulmonary edema as well as the moderate right and small left pleural effusions Continue home lasix dose, limiting IV fluids in setting of severe Continue Lopressor Chronic respiratory failure with hypoxia, requiring home O2 Pulmonary hypertension Continue supplemental O2 R pleural effusion Chronic - thoracentesis performed on previous admission in 07/11, probable transudate secondary to CHF Seizure disorder Continue Keppra, phenobarbital CAD No anginal symptoms or acute ischemic change on EKG. Continue aspirin and metoprolol HTN Normotensive. Continue metoprolol tartrate CKD III Kidney function slightly worse than baseline with Cr 1.49 (baseline ~1.3). Avoid nephrotoxic agents, monitor with daily BMP Abnormal UA Patient denies any urinary symptoms. Cultures are pending. Antibiotics at this time. DVT Ppx: SCDs Code status: DNR PCP: Rosa Admission and Anticipated Discharge Date Admission Date: May 22, 2020 Subjective Patient is doing okay this morning. Reports her pain is well controlled. Denies any nausea or vomiting. She is awake, alert and oriented x3. Currently on 2 L of nasal cannula that is her baseline. Hemodynamically doing fine. Review of Systems Review of Systems: All systems reviewed & are unremarkable except as noted in HPI & below Physical Exam Physical Exam: General: Awake and alert, does not appear to be in any distress HENT: NCAT, MMM, EOMI Eyes: PERRLA Neck: Supple, normal range of motion CVS: normal rate and rhythm Resp: b/l decreased breath sound Abdomen: Soft, nondistended nontender Extremities: Trace lower extremity edema Neuro: face symmetric, strength grossly equal, no focal deficit Skin: warm and dry, no rashes/lesions/errythema MSK: normal ROM, no joint swelling/erythema Results & Data Results & Data ([facility]) Vital Signs (Past 12 Hours) Vital Signs Temp Pulse Pulse Resp BP Pulse Ox 05/24/20 08:00 68 05/24/20 07:57 36.5 C 80 20 104/69 93 05/24/20 03:04 36.4 C L 76 18 105/65 98 05/24/20 00:26 82 (1) Closed subcapital fracture of right femur Encounter type: initial encounter Qualified Code(s): S72.011A - Unspecified intracapsular fracture of right femur, initial encounter for closed fracture (2) Atrial fibrillation Atrial fibrillation type: unspecified Qualified Code(s): I48.91 - Unspecified atrial fibrillation (3) CAD (coronary artery disease) Coronary Disease-Associated Artery/Lesion type: [place] artery [place] vs. transplanted heart: [place] heart Associated angina: with stable angina Qualified Code(s): I25.118 - Atherosclerotic heart disease of [place] coronary artery with other forms of angina pectoris (4) HTN (hypertension) Hypertension type: unspecified Qualified Code(s): I10 - Essential (primary) hypertension (5) CKD (chronic kidney disease), stage III Chronic kidney disease stage 3 subtype: unspecified whether 3a or 3b Qualifie d Code(s): N18.30 - Chronic kidney disease, stage 3 unspecified
--- NOTE | 2020-05-24 11:17 | Orthopedic Progress Note ---
Date of Service May 24, 2020 Assessment & Plan (1) Closed subcapital fracture of right femur: Making good progress on postoperative day 1. Her lack of pain is encouraging. -PT/OT: Weightbearing as tolerated with assistive device Anticoagulation per the primary team. She remains at risk for DVT from the fracture for up to 6 weeks. Recommend Lovenox starting today followed by changing over to full-strength aspirin as an outpatient. -Finish 24 antibiotic prophylaxis today -Mobilize as able. DC Wheat soon as possible. -Reinforce dressing as needed until postop day 2 when it can be changed as needed. -Dispo: Pending PT/OT evaluation. Patient's daughter desires her to go home soon as possible versus [facility] or rehab because of Covid19 concerns. She states that family has adequate ability to care for her with some visiting therapy. She can be ready for discharge as early as tomorrow depending on pain control and progress with PT/OT. Subjective Postop day 1 Ana Maria reports that her pain is well controlled. She reported her hip feels "better." She says she is eating okay and happy to be over with surgery. No other complaints. Review of Systems All systems reviewed & are unremarkable except as noted in HPI & below. Physical Exam Right hip: The dressing is clean and dry intact with no evidence of drainage. She has positive plantarflexion/dorsiflexion/EHL activity. Sensation grossly intact to light touch distally. Palpable dorsalis pedis pulse Constitutional WD/WN, vitals as above no acute distress and not intoxicated appearing Respiratory normal respiratory effort; no labored breathing Cardiovascular Extremities: normal capillary refill Results & Data Results & Data Laboratory Results . Diagnostic Findings Postoperative x-rays show adequate screw positions and no hardware complications. PG Care Time/CCT Total # of Minutes Spent Total Time Spent with Patient: Total time spent is greater than 50% in coordination of care (as documented) at patient's floor/unit and/or counseling patient: Coding Level of Care Code 63982 Post Operative Follow-Up Diagnoses Closed subcapital fracture of right femur S72.011A Encounter type: initial encounter (1) Closed subcapital fracture of right femur Encounter type: initial encounter Qualified Code(s): S72.011A - Unspecified intracapsular fracture of right femur, initial encounter for closed fracture
[2020-05-24] MEDS ORDERED: HEPARIN SOD 5,000 UNIT/0.5 ML VIAL SQ SCH (14:00)
[2020-05-24] MEDS: ASPIRIN 81 MG ECTAB PO SCH (21:34)
[2020-05-24] MEDS: ATORVASTATIN 10 MG TAB PO SCH (21:34)
[2020-05-24] MEDS ORDERED: ALBUMIN 25% 12.5 GM/50 ML VIAL IV ONE (21:37)
[2020-05-24] MEDS: DOCUSATE SODIUM/SENNA 50/8.6MG TAB PO SCH (22:11)
[2020-05-25] MEDS: traMADol HCL 50 MG TABLET PO PRN (00:29)
[2020-05-25] MEDS: ACETAMINOPHEN 500 MG TAB PO SCH ×3 (05:41→21:15)
[2020-05-25] MEDS: METOPROLOL TARTRATE 25 MG TAB PO SCH ×2 (09:31→21:14)
[2020-05-25] MEDS: ENOXAPARIN INJ 30 MG/0.3 ML SYR SQ SCH (09:32)
[2020-05-25] MEDS: levETIRAcetam 500 MG TAB PO SCH ×2 (09:32→21:15)
[2020-05-25] MEDS: FUROSEMIDE 40 MG TAB PO SCH (09:32)
--- NOTE | 2020-05-25 11:28 | Hospitalist Progress Note ---
Date of Service May 25, 2020 Assessment & Plan (1) Closed subcapital fracture of right femur: (2) Chronic respiratory failure with hypoxia, on home O2 therapy: (3) Chronic diastolic heart failure: (4) Atrial fibrillation: (5) Seizure disorder: (6) Pulmonary hypertension: (7) CAD (coronary artery disease): (8) HTN (hypertension): (9) CKD (chronic kidney disease), stage III: (10) HLD (hyperlipidemia): Patient is a 84-year-old female with past medical history of chronic respiratory failure secondary to pulmonary hypertension on home O2, chronic diastolic heart failure (EF 55 to 60%, TTE 2019), CAD status post stent, A. fib not on anticoagulation as per patient preference, valvular heart disease (severe , moderate MR/TR, mild AR), pulmonary hypertension as per records, HTN, hyperlipidemia, seizure disorder, celiac disease scented with ground-level fall at home. Subcapital fracture of right femur S/P Right Hip Percutaneous Pinning(Right) Overall doing okay. Continue to work with PT/OT. Continues oxycodone 5 and 10 mg for moderate to severe pain. Zofran as needed for nausea. Stool softeners ordered. Continue with Lovenox prophylaxis. Position to full-strength aspirin upon discharge. Orthopedics is on board. Chronic Atrial Fibrillation Rate is controlled. We will continue with PRESS OPERATOR ASSISTANT metoprolol and digoxin. Not on any anticoagulation PRESS OPERATOR ASSISTANT given increased bleeding risk. Chronic diastolic heart failure Valvular heart disease (severe , moderate MR/TR, mild AR) EF 55 to 60%, TTE 2019. CXR today with interval progression of the mild interstitial pulmonary edema as well as the moderate right and small left pleural effusions Continue home lasix dose, limiting IV fluids in setting of severe Continue Lopressor Chronic respiratory failure with hypoxia, requiring home O2 Pulmonary hypertension Continue supplemental O2 R pleural effusion Chronic - thoracentesis performed on previous admission in 07/11, probable trans udate secondary to CHF. Will obtain chest x-ray today given patient reporting chest tightness and follow-up pleural effusion. Seizure disorder Continue Keppra, phenobarbital CAD No anginal symptoms or acute ischemic change on EKG. Continue aspirin and metoprolol HTN Normotensive. Continue metoprolol tartrate CKD III Creatinine at 1.35 today (baseline ~1.3). Avoid nephrotoxic agents, monitor with daily BMP Abnormal UA Patient denies any urinary symptoms. Cultures are pending. Antibiotics at this time. DVT Ppx: SCDs, Lovenox Code status: DNR PCP: Rosa Admission and Anticipated Discharge Date Admission Date: May 22, 2020 Subjective Currently patient is doing okay. Reports pain is controlled however overnight she had significant pain in the right lower extremity with movement. Denies any chest pain or shortness of breath but does report chest tightness. Currently on 2 L of nasal cannula that is at baseline. Have worked with occupational therapy this morning. Denies any nausea or vomiting. Denies any dysuria. Rest of the review of system is negative. Review of Systems Review of Systems: All systems reviewed & are unremarkable except as noted in HPI & below Physical Exam Physical Exam: General: Awake and alert, does not appear to be in any distress HENT: NCAT, MMM, EOMI Eyes: PERRLA Neck: Supple, normal range of motion CVS: normal rate and rhythm Resp: b/l decreased breath sound Abdomen: Soft, nondistended nontender Extremities: Right hip dressings intact Neuro: face symmetric, strength grossly equal, no focal deficit Skin: warm and dry, no rashes/lesions/errythema MSK: normal ROM, no joint swelling/erythema Results & Data Results & Data ([facility]) Vital Signs (Past 12 Hours) Vital Signs Temp Pulse Pulse Resp BP Pulse Ox 05/25/20 07:23 64 05/25/20 07:07 36.3 C L 82 20 110/65 94 05/25/20 04:15 36.6 C 81 20 114/69 97 05/25/20 04:00 36.8 C 81 20 114/69 97 05/24/20 23:37 36.6 C 84 18 98/59 L 95 (1) Closed subcapital fracture of right femur Encounter type: initial encounter Qualified Code(s): S72.011A - Unspecified intracapsular fracture of right femur, initial encounter for closed fracture (2) Atrial fibrillation Atrial fibrillation type: unspecified Qualified Code(s): I48.91 - Unspecified atrial fibrillation (3) CAD (coronary artery disease) Coronary Disease-Associated Artery/Lesion type: [place] artery [place] vs. transplanted heart: [place] heart Associated angina: with stable angina Qualified Code(s): I25.118 - Atherosclerotic heart disease of [place] coronary artery with other forms of angina pectoris (4) HTN (hypertension) Hypertension type: unspecified Qualified Code(s): I10 - Essential (primary) hypertension (5) CKD (chronic kidney disease), stage III Chronic kidney disease stage 3 subtype: unspecified whether 3a or 3b Qualified Code(s): N18.30 - Chronic kidney disease, stage 3 unspecified
--- NOTE | 2020-05-25 13:34 | XRay Report ---
SINGLE VIEW CHEST CLINICAL HISTORY: Pleural effusion. FINDINGS: 2 AP, portable, upright chest radiographs are compared to study dated 05/22/2020. Correlatio n is made with chest CT dated 07/08/2019. The heart is enlarged noting atherosclerotic calcification o f the thoracic aorta. There is pulmonary vascular congestion. There is a moderate to large right pleu ral effusion with associated atelectasis of the right lower lung. There is a small pleural effusion o n the left. No pneumothorax is seen. The skeletal structures are osteopenic. The bony thorax is gross ly intact. IMPRESSION: 1. Cardiomegaly with mild pulmonary vascular congestion. 2. Moderate to large right and small left pleural effusions. This is similar to previous. ACT 112: Negative or not required by law. Electronically signed by: Rivera Amaro M.D. 05/25/2020 1:32 PM
[2020-05-25] MEDS ORDERED: FUROSEMIDE 20 MG in SYRINGE 0 ML IV ONE (15:30)
--- NOTE | 2020-05-25 15:41 | Orthopedic Progress Note ---
Date of Service May 25, 2020 Assessment & Plan (1) Closed subcapital fracture of right femur: Making good progress on postoperative day 2. -PT/OT: Weightbearing as tolerated with assistive device -Continue anticoagulation plan -May change dressing daily, or as needed. [place] can be removed in 2-3 weeks. -Dispo: Cleared for discharge from an orthopedic perspective. Patient's daughter desires her to go home soon as possible versus nursing home or rehab because of Covid19 concerns. Subjective Reports pain in the hip is tolerable, but she also reports that she has pain when she is walking. OT did say that she was able to ambulate to the bathroom today. No other issues. Review of Systems All systems reviewed & are unremarkable except as noted in HPI & below. Physical Exam Right hip: The dressing is clean dry and intact without evidence of drainage. She is distally neurovascularly intact. She has minimal pain with logroll. Constitutional WD/WN, vitals as above no acute distress and not intoxicated appearing Respiratory normal respiratory effort; no labored breathing Cardiovascular Extremities: normal capillary refill Results & Data Results & Data Laboratory Results H & H 05/22/20 05/23/20 05/24/20 Range/Units 09:47 05:52 05:52 Hgb 12.4 11.6 L 11.7 L (12.0-16.0) g/dL Hct 38.1 35.1 L 35.3 L (37-47) % Coagulation 05/22/20 Range/Units 09:47 INR 1.0 (0.9-1.1) Diagnostic Findings . PG Care Time/CCT Total # of Minutes Spent Total Time Spent with Patient: Total time spent is greater than 50% in coordination of care (as documented) at patient's floor/unit and/or counseling patient: Coding Level of Care Code 79946 Post Operative Follow-Up Diagnoses Closed subcapital fracture of right femur S72.011A Encounter type: initial encounter (1) Closed subcapital fracture of right femur Encounter type: initial encounter Qualified Code(s): S72.011A - Unspecified intracapsular fracture of right femur, initial encounter for closed fracture
[2020-05-25] MEDS: DIGOXIN 0.125 MG TAB PO SCH (16:00)
[2020-05-25] MEDS: ATORVASTATIN 10 MG TAB PO SCH (21:15)
[2020-05-25] MEDS: ASPIRIN 81 MG ECTAB PO SCH (21:15)
[2020-05-25] MEDS: DOCUSATE SODIUM/SENNA 50/8.6MG TAB PO SCH (21:15)
[2020-05-26] MEDS: traMADol HCL 50 MG TABLET PO PRN (00:47)
[2020-05-26] MEDS: ACETAMINOPHEN 500 MG TAB PO SCH ×3 (05:34→21:11)
[2020-05-26] MEDS: levETIRAcetam 500 MG TAB PO SCH ×2 (09:11→21:12)
[2020-05-26] MEDS: METOPROLOL TARTRATE 25 MG TAB PO SCH ×2 (09:12→21:12)
[2020-05-26] MEDS: FUROSEMIDE 40 MG TAB PO SCH (09:12)
[2020-05-26] MEDS: ENOXAPARIN INJ 30 MG/0.3 ML SYR SQ SCH (09:13)
--- NOTE | 2020-05-26 10:54 | Hospitalist Progress Note ---
Date of Service May 26, 2020 Assessment & Plan (1) Closed subcapital fracture of right femur: (2) Chronic respiratory failure with hypoxia, on home O2 therapy: (3) Chronic diastolic heart failure: (4) Atrial fibrillation: (5) Seizure disorder: (6) Pulmonary hypertension: (7) CAD (coronary artery disease): (8) HTN (hypertension): (9) CKD (chronic kidney disease), stage III: (10) HLD (hyperlipidemia): Patient is a 84-year-old female with past medical history of chronic respiratory failure secondary to pulmonary hypertension on home O2, chronic diastolic heart failure (EF 55 to 60%, TTE 2019), CAD status post stent, A. fib not on anticoagulation as per patient preference, valvular heart disease (severe , moderate MR/TR, mild AR), pulmonary hypertension as per records, HTN, hyperlipidemia, seizure disorder, celiac disease scented with ground-level fall at home. Subcapital fracture of right femur S/P Right Hip Percutaneous Pinning(Right) Overall doing okay. Continue to work with PT/OT. Accepted to [facility], however pending thoracentesis today. Continues oxycodone 5 and 10 mg for moderate to severe pain. Zofran as needed for nausea. Stool softeners ordered. Continue with Lovenox prophylaxis. Transition to full-strength aspirin upon discharge for six weeks. Orthopedics is on board. Chronic Atrial Fibrillation Rate is controlled. We will continue with KNITTER HAND metoprolol and digoxin. Stolle blood pressure in the high 90s. Not on any anticoagulation KNITTER HAND given increased bleeding risk. Chronic diastolic heart failure Valvular heart disease (severe , moderate MR/TR, mild AR) EF 55 to 60%, TTE 2019. CXR today with interval progression of the mild interstitial pulmonary edema as well as the moderate right and small left pleural effusions Continue home lasix dose. Chronic respiratory failure with hypoxia, requiring home O2 Pulmonary hypertension Continue supplemental O2 2L NC. R pleural effusion Chronic - thoracentesis performed on previous admission in 07/11, probable transudate secondary to CHF. Chest x-ray ordered on 05/25 revealed persistent moderate to large right-sided pleural effusion. Thoracic medicine has been consulted. Plan for possible thoracentesis. Seizure disorder Continue Keppra, phenobarbital CAD No anginal symptoms or acute ischemic change on EKG. Continue aspirin and metoprolol HTN Normotensive. Continue metoprolol tartrate CKD III Creatinine at 1.35 today (baseline ~1.3). Avoid nephrotoxic agents, monitor with daily BMP Abnormal UA Patient denies any urinary symptoms. Cultures with alpha strep. No indication for treatment due to no symptoms. Patient again stated that she does not want me to call any of her any family members DVT Ppx: SCDs, Lovenox Code status: DNR PCP: Rosa Admission and Anticipated Discharge Date Admission Date: May 22, 2020 Subjective Overall patient is doing okay. At her baseline oxygen with 2 L of nasal cannula. Systolic blood pressure in the high 90s overnight. Denies any chest pain, shortness of breath or any dizziness. Denies any abdominal pain, diarrhea or dysuria. Pain is well controlled. Physical Exam Physical Exam: General: Awake and alert, does not appear to be in any distress HENT: NCAT, MMM, EOMI Eyes: PERRLA Neck: Supple, normal range of motion CVS: normal rate and rhythm Resp: b/l decreased breath sound Abdomen: Soft, nondistended nontender Extremities: Right hip dressings intact Neuro: face symmetric, strength grossly equal, no focal deficit Skin: warm and dry, no rashes/lesions/errythema MSK: normal ROM, no joint swelling/erythema Results & Data Results & Data ([facility]) Vital Signs (Past 12 Hours) Vital Signs Temp Pulse Pulse Resp BP Pulse Ox 05/26/20 07:54 87 05/26/20 07:14 36.4 C L 92 H 20 97/62 L 96 05/26/20 02:43 37.0 C 99 H 18 117/76 93 05/26/20 01:46 74 05/25/20 23:27 36.8 C 88 17 105/70 98 (1) Closed subcapital fracture of right femur Encounter type: initial encounter Qualified Code(s): S72.011A - Unspecified intracapsular fracture of right femur, initial encounter for closed fracture (2) Atrial fibrillation Atrial fibrillation type: unspecified Qualified Code(s): I48.91 - Unspecified atrial fibrillation (3) CAD (coronary artery disease) Coronary Disease-Associated Artery/Lesion type: [place] artery [place] vs. transplanted heart: [place] heart Associated angina: with stable angina Qualified Code(s): I25.118 - Atherosclerotic heart disease of [place] coronary artery with other forms of angina pectoris (4) HTN (hypertension) Hypertension type: unspecified Qualified Code(s): I10 - Essential (primary) hypertension (5) CKD (chronic kidney disease), stage III Chronic kidney disease stage 3 subtype: unspecified whether 3a or 3b Qualified Code(s): N18.30 - Chronic kidney disease, stage 3 unspecified
--- NOTE | 2020-05-26 11:15 | XRay Report ---
XR chest 1V portable CLINICAL HISTORY: S/P Thoracentesis COMPARISON STUDY: Chest radiograph May 25, 2020. FINDINGS: Right pleural effusion has decreased in size. Right lower lung aeration has improved. A few lucencies projecting over the right lower lung could reflect a trace pneumothorax. Lucency along the right aspect of the mediastinum is likely artifactual however trace pleural gas could appear similar . Cardiomegaly is again noted. Pulmonary edema has slightly improved. Small left pleural effusion is noted. IMPRESSION: 1. Interval decrease in size of the right pleural effusion with improved right lower lung aeration. P ossible trace right pneumothorax. 2. Mild pulmonary edema, improved since prior exam. 3. Small left pleural effusion. ACT 112: Negative or not required by law. Electronically signed by: Lai Voss M.D. 05/26/2020 11:14 AM
--- NOTE | 2020-05-26 11:24 | Procedure Note ---
Procedure Note Date of Service May 26, 2020 Procedure: Diagnostic therapeutic ultrasound-guided catheter thoracentesis Shrimping Boat Captain: Dr. Zoraida Boston Indication: Pleural effusion Consent: Signed by patient and verified with timeout prior to procedure Anesthesia: 1% lidocaine without epinephrine local. Procedure: Consent was verified and timeout performed. Appropriate imaging studies were reviewed prior to the procedure. Patient was placed in a seated position and limited thoracic ultrasound was performed of the right chest. See separate imaging. Appropriate site above the diaphragm for thoracentesis was selected. The skin was prepped and draped in normal sterile fashion. Lidocaine was used for local analgesia. Fluid was aspirated via the finder needle. A small skin jeff was made with the scalpel and the catheter over the needle apparatus was advanced over the rib into the pleural space. Using the syringe one-way valve system, a total of 900 mL's of serous fluid was removed. Procedure was terminated due to chest discomfort. The catheter was removed and observed to be intact. A sterile dressing was applied. Post procedure chest x-ray was ordered. B-lines on ultrasound were appreciated post procedure on the right side. Fluid was sent for labs, culture and cytology. Complications: None Blood loss: None Coding CPT Codes Pulmonary/Thoracic - Pulmonary and Thoracic: 78535 Thoracentesis w imaging ([id number]) [facility] [place] Procedure Codes ([place]) Pulmonary/Thoracic Procedure 1: Pulmonary and Thoracic: 25384 Thoracentesis w imaging
[2020-05-26 11:29] LABS: Glucose Pleural Fluid 98 mg/dl
[2020-05-26 11:34] LABS: Amylase Pleural Fluid 37 U/L; LDH Pleural Fluid 109 U/L; Total Protein Pleural Fluid 3.1 g/dl
[2020-05-26 11:52] LABS: Albumin Level 2.9 gm/dl (3.4-5.0); Bilirubin,Total 0.5 mg/dl (0.2-1); Total Protein 6.4 gm/dl (6.4-8.2)
--- NOTE | 2020-05-26 11:58 | Orthopedic Progress Note ---
Date of Service May 26, 2020 Assessment & Plan (1) Closed subcapital fracture of right femur: Making good progress on postoperative day 3. -PT/OT: Weightbearing as tolerated with assistive device -Continue anticoagulation plan -May change dressing daily, or as needed. [place] can be removed in 2-3 weeks. -Dispo: Cleared for discharge from an orthopedic perspective. Patient's daughter desires her to go home soon as possible versus custodial or rehab because of Covid19 concerns. Subjective 84 year old white female who is POD #3 of right hip percutaneous pinning. She was doing well this morning. She says that she has not had any hip pain since her surgery. She is continuing with PT/OT. She has no questions or concerns at this point. Review of Systems All systems reviewed & are unremarkable except as noted in HPI & below. Physical Exam Right lower extremity is neurovascularly intact. She is able to wiggle her toes and sensation to touch is grossly intact bilaterally lower extremities. Dressing is in place over the right hip and looks to be clean and dry. PG Care Time/CCT Total # of Minutes Spent Total Time Spent with Patient: Total time spent is greater than 50% in coordination of care (as documented) at patient's floor/unit and/or counseling patient: Supervising Physician Co-Signing Physician Notes Discussed with PA and reviewed chart. No further orthopedic concerns. Will continue to follow Coding Level of Care Code 16625 Post Operative Follow-Up Diagnoses Closed subcapital fracture of right femur S72.011A Encounter type: initial encounter (1) Closed subcapital fracture of right femur Encounter type: initial encounter Qualified Code(s): S72.011A - Unspecified intracapsular fracture of right femur, initial encounter for closed fracture
--- NOTE | 2020-05-26 12:03 | XRay Report ---
XR chest inspiration/expiratio CLINICAL HISTORY: f/u. COMPARISON STUDY: Chest radiograph performed earlier today. FINDINGS: No pneumothorax is identified. The possible trace right pneumothorax shown on prior exam wa s artifactual. Bilateral pleural effusions are again noted. There are bibasilar opacities. Pulmonary edema is present. Cardiomegaly is noted. IMPRESSION: 1. No pneumothorax. The possible trace right pneumothorax on prior exam was artifactual. 2. Bilateral pleural effusions, right larger left, with associated bibasilar opacities. 3. Interstitial pulmonary edema. ACT 112: Negative or not required by law. Electronically signed by: Lai Voss M.D. 05/26/2020 12:02 PM
[2020-05-26 12:51] LABS: Appearance Pleural Fluid CLEAR; Basophils, Fluid 0 %; Color Pleural Fluid YELLOW; Eosinophils, Fluid 1 %; Lymphocytes, Fluid 71 %; Mono,Macrophage,Mesothelial 28 %; Neutrophils, Fluid 0 %; RBC Pleural Fluid (A) < 3000 /uL; Source Pleural Fluid RIGHT LUNG; WBC Pleural Fluid (A) 98 /uL
--- NOTE | 2020-05-26 13:27 | Pulmonary Consultation ---
Date of Consultation May 26, 2020 Assessment & Plan (1) Pleural effusion: --Right-sided pleural effusion Last paracentesis was 07/08/2019 which showed transudate of fluid Patient has moderate amount of right-sided pleural effusion she does complain of mild shortness of breath on exertion Status post thoracentesis 05/26/20: Fluid: LDH 109, protein 3.1, pleural glucose 98, pH 7.4 Serum: LDH 154, protein 6.4 Exudative as per lights criteria looking at LDH. This is likely because of use of Lasix. --Chronic hypoxic respiratory failure Could be from underlying diastolic CHF and chronic pleural effusion Continue with O2 supplementation to keep oxygen saturation around 90%. Plan: Recommend continue with diuresis. The underlying etiology of the pleural effusion is diastolic CHF. Incentive spirometry will be helpful to the patient Possibility of entrapped lung is also there. Patient still has mild amount of fluid on the right side as thoracentesis was stopped because of discomfort. Chest x-ray personally reviewed post thoracentesis. No clear sign of pneumothorax. Report stated possible pneumothorax I will repeat inspiratory and expiratory film. Please note the above document was generated using voice recognition software. It may contain grammatical, syntax or spelling errors.Any formal questions or concerns about the content, text or information contained within the body of this dictation should be directly addressed to the provider for clarification. (2) Asymptomatic bacteriuria: (3) Chronic respiratory failure with hypoxia, on home O2 therapy: History of Present Illness Attending Physician: Norah Harrington MD History of Present Illness 84-year-old female with past medical history of diastolic heart failure, EF 55 to 60%, A. fib not on any coagulation, pulmonary hypertension, chronic hypoxia on 2 L at home was admitted to the hospital because of fall and she was found to have a subcapital fracture of the right femur. Pulmonary consulted because of right-sided pleural effusion At the time of examination patient stated that she has history of right-sided pleural effusion it was tapped in the past with removal of approximately 1 L of fluid. She is unsure whether it grew anything or is short anything. At the time of examination patient denies any shortness of breath at rest. Denies any chest pain, no chest tightness, no dizziness, no headache, no nausea, no vomiting. She is legally blind. Denies any fever or chills. No hemoptysis, no dysuria, no diarrhea. Social history: Less than [id number] smoking history quit long time ago, denies any alcohol use, no illicit drug use. Allergies Allergy/AdvReac Type Severity Reaction Status Date / Time Egg Derived Allergy Severe Difficulty Verified 05/22/20 09:44 Breathing ciprofloxacin [From Cipro] Allergy Intermediate Redness of Verified 05/22/20 09:44 Skin Penicillins Allergy Intermediate Rash Verified 05/22/20 09:44 phenytoin [From Dilantin] Allergy Intermediate Swelling Verified 05/22/20 09:44 gluten Allergy Verified 05/25/20 15:27 lorazepam [From Ativan] AdvReac Intermediate confusion Verified 05/22/20 09:44 Home Medications Medication Instructions Recorded Confirmed Type aspirin 81 mg PO QPM 09/27/18 05/22/20 History levetiracetam 500 mg PO BID 09/27/18 05/22/20 History furosemide [Lasix] 40 mg PO DAILY #30 tab 01/06/19 05/22/20 Rx atorvastatin 10 mg PO QPM 07/08/19 05/22/20 History phenobarbital 30 mg PO TID 07/08/19 05/22/20 History digoxin [Digitek] 125 mcg PO MoWeFr@1600 #15 tab 07/14/19 05/22/20 Rx metoprolol tartrate 75 mg PO BID #90 tab 07/14/19 05/22/20 Rx aspirin 325 mg PO DAILY #42 tab 05/25/20 Rx oxycodone 5 mg PO Q4H PRN #10 tab 05/25/20 Rx polyethylene glycol 3350 [Miralax] 17 g PO DAILY #5 ea 05/25/20 Rx sennosides-docusate sodium 2 tab PO HS #20 tab 05/25/20 Rx [Senokot-S] Patient History Medical History Aortic valve stenosis CAD (coronary artery disease) Chronic respiratory failure with hypoxia, on home O2 therapy CKD (chronic kidney disease), stage III Hearing loss HLD (hyperlipidemia) HTN (hypertension) IBS (irritable bowel syndrome) Macular degeneration Mitral regurgitation Pulmonary hypertension Seizure disorder Surgical History History of ankle surgery History of cardiac catheterization 2014 at [facility] - diffuse disease H/O 3 bare metal stents History of cataract surgery Hx of tonsillectomy Family History Other Colorectal cancer Hypertension Social History Smoking Status: Former smoker Smoking End Date: years ago; Second Hand Exposure: No; Hx Alcohol Use: No Hx Substance Use: No Preferred Language: Bulgarian Communication Ability: Effective Decal Maker Required: No Beliefs That Will Affect Care: None marital status: / Current Living Situation: Family Current Living Situation Comment: Lives with Daughter Myra Other Information That Helps Us Care for You: No Feels Safe at Home: Yes Safety Concerns: Feels Safe At This Time Assistive Devices: Walker Review of Systems Review of Systems: All systems reviewed & are unremarkable except as noted in HPI & below Physical Exam Physical Exam: Constitutional: No acute distress HEENT: EOMI, legally blind Respiratory system: Decreased air entry on the right side, no wheeze, no rhonchi, no crackles CVS: S1-S2 positive, no murmurs or gallops, irregular Abdomen: Soft, nontender, nondistended, positive bowel sounds x4 Extremities: +2 pulses bilaterally radialis/ dorsalis pedis, no cyanosis, no edema Neuro: Awake alert oriented x3 Psych: Normal mood and affect G/U: No Wheat Skin: no rashes, warm and dry Lymphatic: no cervical or axillary lymphadenopathy Results & Data Results & Data ([facility]) Vital Signs (Past 12 Hours) Vital Signs Temp Pulse Pulse Resp BP Pulse Ox 05/26/20 11:22 36.7 C 77 20 121/78 94 05/26/20 07:54 87 05/26/20 07:14 36.4 C L 92 H 20 97/62 L 96 05/26/20 02:43 37.0 C 99 H 18 117/76 93 05/26/20 01:46 74 05/24/20 05:52 05/24/20 05:52 PG Care Time/CCT Total # of Minutes Spent Total Time Spent with Patient: Total time spent is greater than 50% in coordination of care (as documented) at patient's floor/unit and/or counseling patient: Coding Level of Care Code 54157 Initial Inpt Care Lvl 3 Diagnoses Pleural effusion J90 Asymptomatic bacteriuria R82.71 Chronic respiratory failure with hypoxia, on home O2 therapy J96.11; Z99.81
[2020-05-26] MEDS: ASPIRIN 81 MG ECTAB PO SCH (21:12)
[2020-05-26] MEDS: ATORVASTATIN 10 MG TAB PO SCH (21:13)
[2020-05-26] MEDS: DOCUSATE SODIUM/SENNA 50/8.6MG TAB PO SCH (21:16)
[2020-05-27] MEDS: ACETAMINOPHEN 500 MG TAB PO SCH ×3 (05:36→20:39)
[2020-05-27 07:02] LABS: Basophils # (auto) 0.02 K/uL (0-0.2); Basophils % (auto) 0.6 %; Eosinophils # (auto) 0.15 K/uL (0-0.5); Eosinophils % (auto) 4.6 %; Hematocrit (blood only) 32.5 % (37-47); Hemoglobin 10.8 g/dL (12.0-16.0); Lymphocytes # (auto) 0.77 K/uL (1.2-3.4); Lymphocytes % (auto) 23.7 %; Mean Corpuscular Hemoglobin 31.5 pg (25-34); Mean Corpuscular Hgb Conc 33.2 g/dL (32-36); Mean Corpuscular Volume 94.8 fL (80-100); Monocytes # (auto) 0.33 K/uL (0.11-0.59); Monocytes % (auto) 10.2 %; Neutrophils # (auto) 1.98 K/uL (1.4-6.5); Neutrophils % (auto) 60.9 %; Platelet Count 165 K/uL (130-400); RDW Coefficient of Variation 13.9 % (11.5-14.5); RDW Standard Deviation 48.2 fL (36.4-46.3); Red Blood Count 3.43 M/uL (4.2-5.4); White Blood Count 3.25 K/uL (4.8-10.8)
[2020-05-27 07:32] LABS: BUN Creatinine Ratio 19.6 (10-20); Calcium 8.6 mg/dl (8.5-10.1); Est GFR (African American) 41.8; Potassium 4.2 mmol/L (3.5-5.1)
[2020-05-27] MEDS: FUROSEMIDE 40 MG TAB PO SCH (08:30)
[2020-05-27] MEDS: METOPROLOL TARTRATE 25 MG TAB PO SCH ×2 (08:30→20:35)
[2020-05-27] MEDS: levETIRAcetam 500 MG TAB PO SCH ×2 (08:31→20:35)
[2020-05-27] MEDS: ENOXAPARIN INJ 30 MG/0.3 ML SYR SQ SCH (08:31)
--- NOTE | 2020-05-27 09:23 | Pulmonology Progress Note ---
Date of Service May 27, 2020 Assessment & Plan (1) Pleural effusion: --Right-sided pleural effusion Last paracentesis was 07/08/2019 which showed transudate of fluid Patient has moderate amount of right-sided pleural effusion she does complain of mild shortness of breath on exertion Status post thoracentesis 05/26/20: Fluid: LDH 109, protein 3.1, pleural glucose 98, pH 7.4 Serum: LDH 154, protein 6.4 Exudative as per lights criteria looking at LDH. This is likely because of use of Lasix. --Chronic hypoxic respiratory failure Could be from underlying diastolic CHF and chronic pleural effusion Continue with O2 supplementation to keep oxygen saturation around 90%. Plan: Continue with diuresis. The underlying etiology of the pleural effusion is likely diastolic CHF. Incentive spirometry will be helpful to the patient Possibility of entrapped lung is also there. No further recommendation from pulmonary perspective. Please recall as needed. Please note the above document was generated using voice recognition software. It may contain grammatical, syntax or spelling errors.Any formal questions or concerns about the content, text or information contained within the body of this dictation should be directly addressed to the provider for clarification. (2) Asymptomatic bacteriuria: (3) Chronic respiratory failure with hypoxia, on home O2 therapy: Admission and Anticipated Discharge Date Admission Date: May 22, 2020 Subjective Patient seen and examined at bedside. No acute distress. No adverse events overnight. Patient was sleeping prior to examination. On waking up she denies any chest pain. Denies any shortness of breath. No nausea or vomiting. Good appetite. No headache Review of Systems Review of Systems: All systems reviewed & are unremarkable except as noted in Subjective Physical Exam Physical Exam: Constitutional: No acute distress HEENT: EOMI, legally blind Respiratory system: Decreased air entry on the right side, no wheeze, no rhon chi, no crackles CVS: S1-S2 positive, no murmurs or gallops, irregular Abdomen: Soft, nontender, nondistended, positive bowel sounds x4 Extremities: +2 pulses bilaterally radialis/ dorsalis pedis, no cyanosis, no edema Neuro: Awake alert oriented x3 Psych: Normal mood and affect G/U: No Wheat Skin: no rashes, warm and dry Lymphatic: no cervical or axillary lymphadenopathy Results & Data Results & Data ([facility]) Vital Signs (Past 12 Hours) Vital Signs Temp Pulse Pulse Resp BP BP Pulse Ox 05/27/20 07:36 35.9 C L 82 20 114/78 100 05/27/20 07:13 85 05/27/20 02:31 36.5 C 73 18 100/69 93 05/26/20 22:39 36.4 C L 76 18 99/64 L 92 05/27/20 06:36 05/27/20 06:36 PG Care Time/CCT Total # of Minutes Spent Total Time Spent with Patient: Total time spent is greater than 50% in coordi nation of care (as documented) at patient's floor/unit and/or counseling patient: Coding Level of Care Code 48062 Subseq Hosp Care Lvl 3 Diagnoses Pleural effusion J90 Asymptomatic bacteriuria R82.71 Chronic respiratory failure with hypoxia, on home O2 therapy J96.11; Z99.81
[2020-05-27] MEDS: DIGOXIN 0.125 MG TAB PO SCH (15:01)
--- NOTE | 2020-05-27 16:59 | Hospitalist Progress Note ---
Date of Service May 27, 2020 Assessment & Plan (1) Closed subcapital fracture of right femur: s/p fall POD # 3 appreciate input from Orthopedics Wt bearing as tolerated with device change dressing closely and as needed jatin to be removed in 2-3 weeks Continues oxycodone 5 and 10 mg for moderate to severe pain. Stool softeners ordered to prevent narcotic induced constipation Continue with Lovenox prophylaxis. Transition to full-strength aspirin upon discharge for six weeks. pt will need rehab post discharge (2) Chronic respiratory failure with hypoxia, on home O2 therapy: acute on chronic hypoxemic respiratory failure due to chronic rt sided Pleural effusion /decompensated CHF s/p thoracentesis with removal of approx 1 L pleural fluid on 2 L 02 -baseline (3) Chronic diastolic heart failure: Chronic diastolic heart failure Valvular heart disease (severe , moderate MR/TR, mild AR) acute on chronic diastolic heart failure worsening of rt sided pleural effusion s/p thoracentesis cont on home dose of Lasix R pleural effusion Chronic - thoracentesis performed on previous admission in 07/11, probable transudate secondary to CHF. Chest x-ray on 05/25 revealed persistent moderate to large right-sided pleural effusion. s/p thoracentesis on 05/26/20 pulmonology following (4) Atrial fibrillation: chronic afib rate controlled on beta elissa /Dig no a candidate for chronic anticoagulation for fall and bleeding risk (5) Seizure disorder: on keppra (6) Pulmonary hypertension: (7) CAD (coronary artery disease): (8) HTN (hypertension): (9) CKD (chronic kidney disease), stage III: (10) HLD (hyperlipidemia): DVT Ppx: SCDs, Lovenox Code status: DNR PCP: Dr Lee Admission and Anticipated Discharge Date Admission Date: May 22, 2020 Subjective pt says she is feeling much better no complain of SOB , no orthopnea no fever or chills rt hip pain post surgical site -well controlled Review of Systems Review of Systems: All systems reviewed & are unremarkable except as noted in Subjective Physical Exam Physical Exam: Constitutional: No acute distress HEENT: EOMI, legally blind Respiratory system: Decreased air entry on the right side, no wheeze, no rhonchi, no crackles CVS: S1-S2 positive, no murmurs or gallops, irregular Abdomen: Soft, nontender, nondistended, positive bowel sounds x4 Extremities: +2 pulses bilaterally radialis/ dorsalis pedis, no cyanosis, no edema Neuro: Awake alert oriented x3 Psych: Normal mood and affect G/U: No Wheat Results & Data Results & Data ([facility]) Vital Signs (Past 12 Hours) Vital Signs Temp Pulse Pulse Resp BP Pulse Ox 05/27/20 16:00 36.5 C 94 H 18 109/69 100 05/27/20 15:01 68 05/27/20 11:00 36.6 C 72 18 116/70 100 05/27/20 07:36 35.9 C L 82 20 114/78 100 05/27/20 07:13 85 (1) CKD (chronic kidney disease), stage III Chronic kidney disease stage 3 subtype: unspecified whether 3a or 3b Qualified Code(s): N18.30 - Chronic kidney disease, stage 3 unspecified (2) CAD (coronary artery disease) Associated angina: with stable angina Coronary Disease-Associated Artery/Lesion type: tribe artery [place] vs. transplanted heart: tribe heart Qualified Code(s): I25.118 - Atherosclerotic heart disease of tribe coronary artery with other forms of angina pectoris (3) Atrial fibrillation Atrial fibrillation type: unspecified Qualified Code(s): I48.91 - Unspecified atrial fibrillation (4) HTN (hypertension) Hypertension type: unspecified Qualified Code(s): I10 - Essential (primary) hypertension (5) Closed subcapital fracture of right femur Encounter type: initial encounter Qualified Code(s): S72.011A - Unspecified intracapsular fracture of right femur, initial encounter for closed fracture
[2020-05-27] MEDS: ATORVASTATIN 10 MG TAB PO SCH (20:34)
[2020-05-27] MEDS: ASPIRIN 81 MG ECTAB PO SCH (20:35)
[2020-05-27] MEDS: DOCUSATE SODIUM/SENNA 50/8.6MG TAB PO SCH (20:39)
[2020-05-27] MEDS ORDERED: MELATONIN 3 MG TAB PO PRN (23:24)
[2020-05-27] MEDS: traMADol HCL 50 MG TABLET PO PRN (23:27)
[2020-05-27] MEDS ORDERED: MELATONIN 3 MG TAB PO ONE (23:28)
[2020-05-28] MEDS: ACETAMINOPHEN 500 MG TAB PO SCH (05:42)
[2020-05-28] MEDS: FUROSEMIDE 40 MG TAB PO SCH (09:47)
[2020-05-28] MEDS: levETIRAcetam 500 MG TAB PO SCH (09:47)
[2020-05-28] MEDS: ENOXAPARIN INJ 30 MG/0.3 ML SYR SQ SCH (09:48)
[2020-05-28] MEDS: METOPROLOL TARTRATE 25 MG TAB PO SCH (09:48)
--- NOTE | 2020-05-28 09:58 | Communication Note ---
Date of Service: May 28, 2020 pt is doing well respiratory status at baseline stable to be discharged to rehab /[facility] appreciate input from Case Management transport to [facility] arranged at 1: 30 pm ordered chart to be copied patient's daughterMyra updated and in agreement with discharge plan Gem Bustillos MD
--- NOTE | 2020-05-28 10:19 | Communication Note ---
Date of Service: May 28, 2020 pt is currently on Pureed diet : as per documentation of Nutrition /Dietary on 05/27/2020 : pt continues to have decreased appetite , reports difficulty in chewing even with minced and moist diet agreeable to try Pureed diet . Family confirms pt has been having decreased PO intake at home as well , pt was also very fearful of eating , worried about her GI symptoms due to Celiac disease /IBS . Ordered for Glutin free diet -will be continued at rehab as well For Speech eval requested Gem Bustillos MD
--- NOTE | 2020-05-28 11:13 | XRay Report ---
XR chest 1V portable HISTORY: 84 years-old Female pleural effusion follow-up study in a patient with pleural effusion COMPARISON: Chest radiograph 05/26/2020 TECHNIQUE: Portable AP view of the chest FINDINGS: Cardiac silhouette is enlarged. Calcified plaque of the thoracic aorta. No pneumothorax. Interstitial pulmonary edema. Bibasilar and right midlung consolidation with right greater left pleural effusions appear unchanged from comparison. Degenerative changes of the shoulders and spine. IMPRESSION: 1. Cardiomegaly with pulmonary edema. 2. Unchanged right greater than left pleural effusions with bibasilar and right midlung opacities. ACT 112: Negative or not required by law. The above report was generated using voice recognition software. It may contain grammatical, syntax o r spelling errors. Electronically signed by: Merritt Turner M.D. 05/28/2020 11:11 AM
--- NOTE | 2020-05-28 12:25 | Orthopedic Progress Note ---
Date of Service May 28, 2020 Assessment & Plan (1) Closed subcapital fracture of right femur: (1) Closed subcapital fracture of right femur: -PT/OT: Weightbearing as tolerated with assistive device -Continue anticoagulation plan -May change dressing daily, or as needed. [place] can be removed in 2-3 weeks. -Dispo: Cleared for discharge from an orthopedic perspective. Patient's daughter desires her to go home soon as possible versus [facility] or rehab because of Covid19 concerns. Subjective 84 year old white female who is PO5 #3 of right hip percutaneous pinning. She was doing well this morning. She says that she has not had any hip pain since her surgery. She is continuing with PT/OT. She says that she is planning to go home but is unsure when that will be. She has no questions or concerns at this point. Review of Systems All systems reviewed & are unremarkable except as noted in HPI & below. Physical Exam Right lower extremity is neurovascularly intact. She is able to wiggle her toes and sensation to touch is grossly intact bilaterally lower extremities. Dressing is in place over the right hip and looks to be clean and dry. No erythema, tenderness or drainage is noted. There is some mild ecchymosis noted aroudn her thigh. PG Care Time/CCT Total # of Minutes Spent Total Time Spent with Patient: Total time spent is greater than 50% in coordination of care (as documented) at patient's floor/unit and/or counseling patient: Coding Level of Care Code 88790 Post Operative Follow-Up Diagnoses Closed subcapital fracture of right femur S72.011A Encounter type: initial encounter (1) Closed subcapital fracture of right femur Encounter type: initial encounter Qualified Code(s): S72.011A - Unspecified intracapsular fracture of right femur, initial encounter for closed fracture
--- NOTE | 2020-05-28 13:18 | Discharge Summary ---
Date of Service May 28, 2020 Admission HPI Per Admitting Provider This is an 84yo F with a PMH of chronic respiratory failure secondary to pulmonary hypertension on 2L home O2, chronic diastolic heart failure (EF 55- 60%, TTE 2018), CAD status post stent, A. fib not on anticoagulation as per patient preference, valvular heart disease (severe , moderate MR/TR, mild AR), pulmonary hypertension as per records, HTN, hyperlipidemia, seizure disorder, celiac disease and other medical problems listed below who presents after a fall at home. Tripped over her dog this morning and fell onto her right side. Endorsing pain in pelvis radiating to in her groin, especially with movement. Denies any other issues. No fever, chills, headache, lightheadedness, visual changes, sore throat, cough, chest pain, palpitations, shortness of breath, abdominal pain, nausea, vomiting, dysuria, constipation or diarrhea. Principal Diagnosis Right hip fracture Chronic pleural effusion acute on chronic heart failure with diastolic dysfunction /valvular heart disease CKD stage 3 Celiac disease /IBS Discharge Exam Constitutional WD/WN, vitals as above Eyes PERRL, conjunctivae normal, anicteric sclerae ENMT external ear and nose normal, oropharynx normal Neck trachea midline, no thyromegaly Respiratory normal respiratory effort, lungs clear to auscultation Cardiovascular RRR, no murmur, no edema Gastrointestinal (Abdomen) Percussion/Palpation: abdomen soft; abdomen nontender Musculoskeletal no cyanosis or clubbing, extremities motor strength 5/5 Skin no rashes, warm and dry Neurologic PERRL, EOMI, accommodation nl, no face palsy, no dysarthria Psychiatric A+Ox3, euthymic affect Discharge Data Allergies Allergy/AdvReac Type Severity Reaction Status Date / Time Egg Derived Allergy Severe Difficulty Verified 05/22/20 09:44 Breathing ciprofloxacin [From Cipro] Allergy Intermediate Redness of Verified 05/22/20 09:44 Skin Penicillins Allergy Intermediate Rash Verified 05/22/20 09:44 phenytoin [From Dilantin] Allergy Intermediate Swelling Verified 05/22/20 09:44 gluten Allergy Verified 05/25/20 15:27 lorazepam [From Ativan] AdvReac Intermediate confusion Verified 05/22/20 09:44 Consultations 05/22/20 09:18 Consult Case Management - Discharge Planning Routine 05/22/20 15:15 Consult Case Management - Discharge Planning Routine 05/26/20 08:10 Consult Pulmonology Routine Procedures Performed Operation Date: 05/23/20 09:20 Actual Procedures p Right Hip Percutaneous Pinning(Right) - Sy Hernandez MD Ordered Studies 05/23/20 11:29 FL fluoroscopy <1hr Routine FL hip RT 2-3V Routine 05/26/20 08:51 US point of care ultrasound Urgent Hospital Course (1) Closed subcapital fracture of right femur: s/p fall POD # 4 appreciate input from Orthopedics Wt bearing as tolerated with device change dressing closely and as needed jatin to be removed in 2-3 weeks stable to be discharged to rehab today Continues oxycodone 5 and 10 mg for moderate to severe pain. Stool softeners ordered to prevent narcotic induced constipation DVT prophylaxis : full-strength aspirin for six weeks post op pt is stable to be discharged to rehab at [facility] today (2) Chronic respiratory failure with hypoxia, on home O2 therapy: acute on chronic hypoxemic respiratory failure due to chronic rt sided Pleural effusion /decompensated CHF presented with worsening of SOB , orthopnea s/p thoracentesis with removal of approx 1 L pleural fluid respiratory status improved now on 2 L 02 at -baseline pleural effusion cytology was negative for malignancy possible recurrent pleural effusion thought to be due to decompensated CHF with diastolic heart failure ( HFpEF) (3) Chronic diastolic heart failure: Chronic diastolic heart failure Valvular heart disease (severe , moderate MR/TR, mild AR) acute on chronic diastolic heart failure worsening of rt sided pleural effusion s/p thoracentesis cont on home dose of Lasix R pleural effusion Chronic - thoracentesis performed on previous admission in 07/11, probable transudate secondary to CHF. Chest x-ray on 05/25 revealed persistent moderate to large right-sided pleural effusion. s/p thoracentesis on 05/26/20 pulmonology following (4) Atrial fibrillation: chronic afib rate controlled on beta elissa /Dig no a candidate for chronic anticoagulation for fall and bleeding risk (5) Seizure disorder: on keppra /Phenobarbital (6) Pulmonary hypertension: (7) CAD (coronary artery disease): (8) HTN (hypertension): (9) CKD (chronic kidney disease), stage III: (10) HLD (hyperlipidemia): DVT Ppx: SCDs, Lovenox Code status: DNR PCP: Dr Lee Disposition: transfer to Acute rehab [facility] today discharge plan updated to Daughter over phone, in agreement with plan , all qu estions answered Total Time Total Time Spent Total Time Spent (In Minutes): 35mins Total Time Includes: Examination of the Patient, Discharge Planning and Medication Reconciliation Discharge Plan Discharge Items Patient Disposition: Transfer Inpatient Rehab Fac Reason For Visit: FALL, R HIP FX, AFIB Discharge Diagnosis: Right hip fracture Chronic pleural effusion acute on chronic heart failure with diastolic dysfunction /valcular heart disease CKD stage 3 Celiac disease /IBS Activity: As commented below Activity Comment: wt bearing on rt lower ext as tolerated with assistive device Weightbearing: Right weightbearing Weightbearing Comment: as tolerated Non-emergency contact: Primary Care Provider Call non-emergency contact if: you have any medication questions, your symptoms worsen and your pain is not controlled Follow-up/Referrals: Sy Hernandez MD [Surgeon] - (Orthopedics follow up in 2 weeks ) Velma Rose MD [Primary Care Provider] - Diet: Gluten Free and Heart Healthy Fluids: 1500ml (6 cups) Diet Texture: Pureed (blended smooth) Addtl Attending Provider Instructions: Continue the aspirin 325 mg for a total of 6 weeks followed by 81 mg daily. Right lower extremity Wt bearing as tolerated with device change dressing closely and as needed jatin to be removed in 2-3 weeks at Orthopedics clinic Continue with O2 supplementation to keep oxygen saturation around 90%. continue to take lasix 40 mg daily , fluid restriction 1500 ml /daily -which includes all beverages ( water , tea, coffee, juice ) continue to use incentive spirometry every 1-4 hrs while awake Repeat Chest Xray in a week to assess pleural effusion /fluid in lungs continue Gluten Free diet for hx of Celiac disease Continue to take Probiotics 1 capsule three times daily for Irritable bowel syndrome Addtl Poleyard Supervisor Provider Instructions: Call your Primary Care doctor if any of the following symptoms or problems start or get worse: * Shortness of breath or difficulty breathing * Wake up at night short of breath * Chest pain * Cough * Swelling of your hands, feet, or legs * More fatigued or tired with your normal activity * Palpitations - sudden fast heart beats WEIGHT * Weigh yourself every morning after using the bathroom. * Use the same scale. * Wear the same amount of clothing. * Write your weight down on a chart. * Call your Primary Care doctor if you gain more than 2-3 pounds in 1-2 days. MEDICATIONS * Use this discharge instruction sheet for medication instructions. * Take your medications at the time your doctor ordered. * Do not skip a dose of your medicines. * If you miss a dose of medicine, take it as soon as possible, but DO NOT DOUBLE A DOSE. * Read your medicine information when you get home. * Know all of the side effects of your medicine. If in doubt, ask your pharmacist * Call your Primary Care doctor's office if you have any side effects. * Be sure all of your doctors know what medicine and herbs you take (including cold, flu, and herbal medicine). Take the following with you to your follow-up doctor appointments: * Weight Chart * Medication List * List of questions Do not drink excessive alcohol, beer or wine. Pending Studies at Discharge: No Stand-Alone Forms: My [facility] Olina YongChe Skilled Items Patient informed of condition?: Yes DNR: Yes Discharge Level of Care: Acute rehab Communicable Disease: No Discharge Prognosis: Stable Lines: None Urinary Catheter: No Medications and DC Order Prescriptions: New polyethylene glycol 3350 [Miralax] 17 gram Powder In Packet 17 g PO DAILY Qty: 5 RF: 0 sennosides-docusate sodium [Senokot-S] 8.6-50 mg Tablet 2 tab PO HS Qty: 20 RF: 0 aspirin 325 mg tablet 325 mg PO DAILY Qty: 42 RF: 0 oxycodone 5 mg tablet 5 mg PO Q4H PRN (Reason: pain) Qty: 10 RF: 0 Probiotic 100 billion cell capsule 1 cap PO TID 30 Days Qty: 90 RF: 0 Continued levetiracetam 500 mg Tablet 500 mg PO BID RF: 0 furosemide [Lasix] 40 mg tablet 40 mg PO DAILY Qty: 30 RF: 0 atorvastatin 10 mg tablet 10 mg PO QPM RF: 0 phenobarbital 30 mg tablet 30 mg PO TID RF: 0 digoxin [Digitek] 125 mcg (0.125 mg) Tablet 125 mcg PO [id number] Qty: 15 RF: 5 metoprolol tartrate 50 mg tablet 75 mg PO BID Qty: 90 RF: 5 Discontinued aspirin 81 mg Tablet,Delayed Release (Dr/Ec) 81 mg PO QPM RF: 0 Discharge Orders: Discharge Order (Routine); Ordered 05/28/20 Ordered By: Gem Bustillos Admission Data Admit Date/Time: 05/22/20 12:12 Attending Provider: Gem Bustillos Admit Provider: Norah Harrington Primary Care Provider: Velma Rose Other Providers: [facility] ; Zoraida Boston ; Norah Harrington Other Interventions: Discharge Summary Assessment (RN) Last Done: 05/28/20 12:16
== END 2020-05-28 13:40 | DRG 480 ==
LOC: ED 09:12 → SUATTDRO 12:12 → 2N 12:12

== ENCOUNTER 2021-01-07 17:40 | Inpatient (IN) ==
--- NOTE | 2021-01-07 18:19 | Emergency Department Note ---
History of Present Illness General Chief complaint: Shortness of Breath/Dyspnea Stated complaint: BLE swelling Time Seen by Provider: 01/07/21 18:00 Source: patient, RN notes reviewed and old records reviewed Mode of arrival: EMS Limitations: no limitations History of Present Illness This patient is an 85-year-old female who was sent over from the [facility] office after having increasing lower extremity edema. She has a history of CHF and pleural effusion. She is on home oxygen 2 L chronically. She was recently treated for UTI and started on clindamycin. She may be a little bit confused with that. No fever. No fall or trauma. They recently changed her diuretic to torsemide 40 mg twice daily down from Lasix 80 mg twice daily. She has gained about 5 pounds in 4 days. She has been more short of breath than usual and required more oxygen although at present the patient denies any complaints. She denies chest pain or fever or chills or cough. She tells me she has not had the Covid vaccine. [place] fall or trauma. Home Medications Medication Instructions Recorded Confirmed Type atorvastatin 10 mg tablet 10 mg PO QPM 07/08/19 01/07/21 History phenobarbital 30 mg tablet 30 mg PO TID 07/08/19 01/07/21 History digoxin 125 mcg (0.125 mg) tablet 125 mcg PO MoWeFr@1600 #15 tab 07/14/19 01/07/21 Rx (Digitek) acetaminophen 325 mg tablet 325 mg PO Q4 PRN 01/07/21 01/07/21 History (Tylenol) aspirin 81 mg tablet,delayed 81 mg PO DAILY 01/07/21 01/07/21 History release cholecalciferol (vitamin D3) 50 50 mcg PO DAILY 01/07/21 01/07/21 History mcg (2,000 unit) tablet (Vitamin D3) clindamycin HCl 150 mg capsule 150 mg PO TID 01/07/21 01/07/21 History metoprolol tartrate 25 mg tablet 25 mg PO BID 01/07/21 01/07/21 History nitroglycerin 0.4 mg sublingual 0.4 mg SUBLINGUAL UD PRN 01/07/21 01/07/21 History tablet sennosides 8.6 mg-docusate sodium 1 tab PO BID PRN 01/07/21 01/07/21 History 50 mg tablet (Senokot-S) torsemide 20 mg tablet 40 mg PO BID 01/07/21 01/07/21 History Allergies Allergy/AdvReac Type Severity Reaction Status Date / Time Egg Derived Allergy Severe Difficulty Verified 01/07/21 20:18 Breathing ciprofloxacin [From Cipro] Allergy Intermediate Redness of Verified 01/07/21 20:18 Skin Penicillins Allergy Intermediate Rash Verified 01/07/21 20:18 phenytoin [From Dilantin] Allergy Intermediate Swelling Verified 01/07/21 20:18 captopril Allergy Rash Verified 01/07/21 20:22 cephalexin [From Keflex] Allergy Rash Verified 01/07/21 20:22 gluten Allergy Unknown Verified 01/07/21 20:18 lorazepam [From Ativan] AdvReac Intermediate confusion Verified 01/07/21 20:18 Past Med/Surg History Medical History Aortic valve stenosis CAD (coronary artery disease) Chronic respiratory failure with hypoxia, on home O2 therapy CKD (chronic kidney disease), stage III Hearing loss HLD (hyperlipidemia) HTN (hypertension) IBS (irritable bowel syndrome) Macular degeneration Mitral regurgitation Pulmonary hypertension Seizure disorder Surgical History History of ankle surgery History of cardiac catheterization 2013 at [facility] - diffuse disease H/O 3 bare metal stents History of cataract surgery Hx of tonsillectomy Family History Other Colorectal cancer Hypertension Social History Smoking Status: Former smoker Tobacco Type: Cigarettes Second Hand Exposure: No; Do You Dip or Chew Tobacco: No; Tobacco Cessation Education Requested by Patient: No Hx Alcohol Use: No Hx Substance Use: No Preferred Language: Romanian Communication Ability: Effective Psychometrist Required: No Beliefs That Will Affect Care: None marital status: / Current Living Situation: Family Current Living Situation Comment: lives with daughter Other Information That Helps Us Care for You: No Feels Safe at Home: Yes Safety Concerns: Feels Safe At This Time Assistive Devices: Denture - Upper, Denture - Lower, Oxygen - Continuous and Walker Review of Systems A total of 10 systems reviewed and were otherwise negative Physical Exam Vital Signs Vital Signs - 24 hr 01/07/21 17:50 01/07/21 17:56 01/07/21 18:16 Temperature 36.6 C Temperature Source Oral Pulse Rate 85 94 H Pulse Rate [Apical] 89 Pulse Rate from SpO2 Sensor 93 H Pulse Rhythm Irregular Pulse Rhythm [Apical] Regular Pulse Strength Pulse Strength [Apical] Normal Respiratory Rate 21 24 24 Respiratory Effort / Characteristics Spontaneous Short of Breath SOB on Exertion Respiratory Depth Normal Respiratory Pattern Regular Blood Pressure 137/78 Blood Pressure [Right Arm] 137/78 Blood Pressure Mean 97 Blood Pressure Mean [Right Arm] 97 Blood Pressure Position Blood Pressure Position [Right Arm] Semi-fowlers Pulse Oximetry 94 96 96 Oxygen Delivery Method Nasal Cannula Nasal Cannula Room Air Oxygen Flow Rate 4 4 4 Sepsis Recent Fever Within 48 Hours Sepsis New/Unexplained Change in Mental Status Sepsis Action Taken by Nursing Oxygen Flow Rate - Titration 4 Pulse Oximetry Post Tiitration 94 01/07/21 18:17 01/07/21 19:00 01/07/21 20:00 Temperature 36.6 C Temperature Source Oral Pulse Rate 82 88 92 H Pulse Rate [Apical] Pulse Rate from SpO2 Sensor 85 93 H Pulse Rhythm Regular Pulse Rhythm [Apical] Pulse Strength Normal Pulse Strength [Apical] Respiratory Rate 24 18 21 Respiratory Effort / Characteristics Spontaneous Short of Breath SOB on Exertion Respiratory Depth Normal Respiratory Pattern Regular Blood Pressure 137/78 127/79 117/76 Blood Pressure [Right Arm] Blood Pressure Mean 97 95 89 Blood Pressure Mean [Right Arm] Blood Pressure Position Semi-fowlers Blood Pressure Position [Right Arm] Pulse Oximetry 96 100 97 Oxygen Delivery Method Nasal Cannula Nasal Cannula Oxygen Flow Rate 4 4 Sepsis Recent Fever Within 48 Hours No Sepsis New/Unexplained Change in Mental Status No Sepsis Action Taken by Nursing No Action Required Oxygen Flow Rate - Titration Pulse Oximetry Post Tiitration 01/07/21 21:00 01/07/21 22:00 Temperature Temperature Source Pulse Rate 85 81 Pulse Rate [Apical] Pulse Rate from SpO2 Sensor 88 88 Pulse Rhythm Pulse Rhythm [Apical] Pulse Strength Pulse Strength [Apical] Respiratory Rate 20 18 Respiratory Effort / Characteristics Respiratory Depth Respiratory Pattern Blood Pressure 119/74 124/79 Blood Pressure [Right Arm] Blood Pressure Mean 89 94 Blood Pressure Mean [Right Arm] Blood Pressure Position Blood Pressure Position [Right Arm] Pulse Oximetry 96 92 Oxygen Delivery Method Oxygen Flow Rate Sepsis Recent Fever Within 48 Hours Sepsis New/Unexplained Change in Mental Status Sepsis Action Taken by Nursing Oxygen Flow Rate - Titration Pulse Oximetry Post Tiitration General: Well developed well nourished older female who is on baseline oxygen and appears in no acute distress, breathing comfortably on room air. Normal speech HEENT: Normal cephalic atraumatic. Pupils are equal round and reactive to light. Extraocular movements are intact. Oropharynx is pink with moist mucous membranes. No swelling of the mouth lips or tongue. Neck: Supple with a midline trachea. No meningeal signs or stiffness, no JVD or bruits. No Stridor. Chest: Crackles to auscultation bilaterally in the bases. Decreased breath sounds on the right. no increased work of breathing. Heart: Regular rate and rhythm without murmurs or gallops. Abdomen: Soft nontender, nondistended without rebound guarding or rigidity. Extremities: No cyanosis clubbing. 2+ bilateral pitting lower extremity edema. No calf tenderness or assymetry Spine/Back. Non tender to palpation. No CVA tenderness Skin: Good turgor without rashes. Neurologic exam: Cranial nerves two through 12 are intact. Motor and sensation are intact and symmetrical throughout. Course Administered Medications Ceftriaxone Sodium 1,000 mg/ (Dextrose) 50 mls @ 100 mls/hr IV Q24H [facility] Stop: 01/13/21 01:59 Last Infusion: 01/08/21 02:34 Dose: 0 mls/hr Documented by: [id number] Admin: 01/08/21 02:04 Dose: 100 mls/hr Documented by: [id number] Discontinued Medications Furosemide (Furosemide 40 Mg/4 Ml Vial) 40 mg IV NOW [facility] Stop: 01/07/21 19:50 Last Admin: 01/07/21 20:02 Dose: 40 mg Documented by: [id number] Furosemide (Furosemide 40 Mg/4 Ml Vial) 40 mg IV BID [facility] Stop: 02/06/21 22:46 Last Admin: 01/08/21 00:04 Dose: 40 mg Documented by: [id number] Ertapenem 1,000 mg/ Sodium (Chloride) 60 mls @ 100 mls/hr IV Q24H [facility] Stop: 01/18/21 00:30 Last Admin: 01/08/21 01:26 Dose: Not Given Documented by: [id number] Vancomycin HCl 1,000 mg/ (Sodium Chloride) 270 mls @ 200 mls/hr IV Q12H [facility]; Protocol Stop: 01/18/21 00:30 Last Admin: 01/08/21 01:27 Dose: Not Given Documented by: [id number] Miscellaneous Information (Consult Pharmacy) 1 ea N/A NOW STA Stop: 01/07/21 22:48 Last Admin: 01/08/21 01:24 Dose: Not Given Documented by: [id number] Medical Decision Making Differential Diagnosis CHF, renal failure, pleural effusion, sepsis, UTI, acute coronary syndrome, arrhythmia, pneumonia Medical Records Attestation: I reviewed the patient's medical records. Home Medications Current Medication List: was personally reviewed by wy Laboratory Data Attestation: I reviewed the patient's lab results. Result diagrams: 01/07/21 18:39 01/07/21 18:39 Lab Results 01/07/21 01/07/21 01/07/21 Range/Units 18:39 18:39 18:39 WBC 5.62 (4.8-10.8) K/uL RBC 4.42 (4.2-5.4) M/uL Hgb 11.0 L (12.0-16.0) g/dL Hct 37.6 (37-47) % MCV 85.1 (80-100) fL MCH 24.9 L (25-34) pg MCHC 29.3 L (32-36) g/dL RDW Std Deviation 59.2 H (36.4-46.3) fL RDW Coeff of Anmol 19.0 H (11.5-14.5) % Plt Count 160 (130-400) K/uL MPV 10.0 (7.4-10.4) fL Immature Gran % (Auto) 0.2 % Neut % (Auto) 70.8 % Lymph % (Auto) 17.3 % Desha % (Auto) 10.1 % Eos % (Auto) 1.4 % Baso % (Auto) 0.2 % Neut # (Auto) 3.98 (1.4-6.5) K/uL Lymph # (Auto) 0.97 L (1.2-3.4) K/uL Desha # (Auto) 0.57 (0.11-0.59) K/uL Eos # (Auto) 0.08 (0-0.5) K/uL Baso # (Auto) 0.01 (0-0.2) K/uL Immature Gran # (Auto) 0.01 (0.00-0.02) K/uL PT 10.7 (9.0-12.0) Seconds INR 1.1 (0.9-1.1) APTT 26.0 (21.0-31.0) Seconds PTT Ratio 1.0 Sodium 141 (136-145) mmol/L Potassium 4.2 (3.5-5.1) mmol/L Chloride 103 (98-107) mmol/L Carbon Dioxide 40 H (21-32) mmol/L Anion Gap -2.0 L (3-11) BUN 41 H (7-18) mg/dl Creatinine 1.50 H (0.6-1.2) mg/dl Est Cr Clr Drug Dosing 20.3 ml/min Est GFR ( Amer) 36.2 ml/min Est GFR (Non-Af Amer) 31.2 ml/min BUN/Creatinine Ratio 27.5 H (10-20) Glucose 96 (70-99) mg/dl Calcium 7.9 L (8.5-10.1) mg/dl Total Bilirubin 0.3 (0.2-1) mg/dl AST 20 (15-37) U/L ALT 19 (12-78) U/L Alkaline Phosphatase 52 (45-117) U/L Troponin I 0.033 (0-0.045) ng/ml NT-Pro-B Natriuret Pep 07248 H (0-1800) pg/ml Total Protein 6.1 L (6.4-8.2) gm/dl Albumin 2.6 L (3.4-5.0) gm/dl Globulin 3.5 (2.5-4.0) gm/dl Albumin/Globulin Ratio 0.7 L (0.9-2) Lipase 213 (73-393) U/L HCG, Qual (Negative) Urine Color Urine Appearance (Clear) Urine pH (4.5-7.5) Ur Specific [place] (1.000-1.030) Urine Protein (Negative) Urine Glucose (UA) (Negative) Urine Ketones (Negative) Urine Blood (Negative) Urine Nitrite (Negative) Urine Bilirubin (Negative) Urine Urobilinogen (Negative) Ur Leukocyte Esterase (Negative) Urine WBC (Auto) (0-5) /hpf Urine RBC (Auto) (0-4) /hpf U Hyaline Cast (Auto) (0-5) /lpf U Epithel Cells (Auto) (0-5) /lpf Urine Bacteria (Auto) (Negative) Digoxin (0.8-2.0) ng/ml Phenobarbital (15-40) mcg/mL COVID-19 Eval Order SARS-CoV-2 (PCR) (Negative) 01/07/21 01/07/21 01/07/21 Range/Units 18:39 18:39 18:49 WBC (4.8-10.8) K/uL RBC (4.2-5.4) M/uL Hgb (12.0-16.0) g/dL Hct (37-47) % MCV (80-100) fL MCH (25-34) pg MCHC (32-36) g/dL RDW Std Deviation (36.4-46.3) fL RDW Coeff of Anmol (11.5-14.5) % Plt Count (130-400) K/uL MPV (7.4-10.4) fL Immature Gran % (Auto) % Neut % (Auto) % Lymph % (Auto) % Desha % (Auto) % Eos % (Auto) % Baso % (Auto) % Neut # (Auto) (1.4-6.5) K/uL Lymph # (Auto) (1.2-3.4) K/uL Desha # (Auto) (0.11-0.59) K/uL Eos # (Auto) (0-0.5) K/uL Baso # (Auto) (0-0.2) K/uL Immature Gran # (Auto) (0.00-0.02) K/uL PT (9.0-12.0) Seconds INR (0.9-1.1) APTT (21.0-31.0) Seconds PTT Ratio Sodium (136-145) mmol/L Potassium (3.5-5.1) mmol/L Chloride (98-107) mmol/L Carbon Dioxide (21-32) mmol/L Anion Gap (3-11) BUN (7-18) mg/dl Creatinine (0.6-1.2) mg/dl Est Cr Clr Drug Dosing ml/min Est GFR ( Amer) ml/min Est GFR (Non-Af Amer) ml/min BUN/Creatinine Ratio (10-20) Glucose (70-99) mg/dl Calcium (8.5-10.1) mg/dl Total Bilirubin (0.2-1) mg/dl AST (15-37) U/L ALT (12-78) U/L Alkaline Phosphatase (45-117) U/L Troponin I (0-0.045) ng/ml NT-Pro-B Natriuret Pep (0-1800) pg/ml Total Protein (6.4-8.2) gm/dl Albumin (3.4-5.0) gm/dl Globulin (2.5-4.0) gm/dl Albumin/Globulin Ratio (0.9-2) Lipase (73-393) U/L HCG, Qual Negative (Negative) Urine Color Yellow Urine Appearance Clear (Clear) Urine pH 6.0 (4.5-7.5) Ur Specific [place] 1.011 (1.000-1.030) Urine Protein Negative (Negative) Urine Glucose (UA) Negative (Negative) Urine Ketones Negative (Negative) Urine Blood Negative (Negative) Urine Nitrite Positive A (Negative) Urine Bilirubin Negative (Negative) Urine Urobilinogen Negative (Negative) Ur Leukocyte Esterase Negative (Negative) Urine WBC (Auto) 1-5 (0-5) /hpf Urine RBC (Auto) 0-4 (0-4) /hpf U Hyaline Cast (Auto) 1-5 (0-5) /lpf U Epithel Cells (Auto) 10-20 H (0-5) /lpf Urine Bacteria (Auto) 2+ H (Negative) Digoxin 0.7 L (0.8-2.0) ng/ml Phenobarbital 34.2 (15-40) mcg/mL COVID-19 Eval Order SARS-CoV-2 (PCR) (Negative) 01/07/21 01/07/21 Range/Units 19:05 19:05 WBC (4.8-10.8) K/uL RBC (4.2-5.4) M/uL Hgb (12.0-16.0) g/dL Hct (37-47) % MCV (80-100) fL MCH (25-34) pg MCHC (32-36) g/dL RDW Std Deviation (36.4-46.3) fL RDW Coeff of Anmol (11.5-14.5) % Plt Count (130-400) K/uL MPV (7.4-10.4) fL Immature Gran % (Auto) % Neut % (Auto) % Lymph % (Auto) % Desha % (Auto) % Eos % (Auto) % Baso % (Auto) % Neut # (Auto) (1.4-6.5) K/uL Lymph # (Auto) (1.2-3.4) K/uL Desha # (Auto) (0.11-0.59) K/uL Eos # (Auto) (0-0.5) K/uL Baso # (Auto) (0-0.2) K/uL Immature Gran # (Auto) (0.00-0.02) K/uL PT (9.0-12.0) Seconds INR (0.9-1.1) APTT (21.0-31.0) Seconds PTT Ratio Sodium (136-145) mmol/L Potassium (3.5-5.1) mmol/L Chloride (98-107) mmol/L Carbon Dioxide (21-32) mmol/L Anion Gap (3-11) BUN (7-18) mg/dl Creatinine (0.6-1.2) mg/dl Est Cr Clr Drug Dosing ml/min Est GFR ( Amer) ml/min Est GFR (Non-Af Amer) ml/min BUN/Creatinine Ratio (10-20) Glucose (70-99) mg/dl Calcium (8.5-10.1) mg/dl Total Bilirubin (0.2-1) mg/dl AST (15-37) U/L ALT (12-78) U/L Alkaline Phosphatase (45-117) U/L Troponin I (0-0.045) ng/ml NT-Pro-B Natriuret Pep (0-1800) pg/ml Total Protein (6.4-8.2) gm/dl Albumin (3.4-5.0) gm/dl Globulin (2.5-4.0) gm/dl Albumin/Globulin Ratio (0.9-2) Lipase (73-393) U/L HCG, Qual (Negative) Urine Color Urine Appearance (Clear) Urine pH (4.5-7.5) Ur Specific [place] (1.000-1.030) Urine Protein (Negative) Urine Glucose (UA) (Negative) Urine Ketones (Negative) Urine Blood (Negative) Urine Nitrite (Negative) Urine Bilirubin (Negative) Urine Urobilinogen (Negative) Ur Leukocyte Esterase (Negative) Urine WBC (Auto) (0-5) /hpf Urine RBC (Auto) (0-4) /hpf U Hyaline Cast (Auto) (0-5) /lpf U Epithel Cells (Auto) (0-5) /lpf Urine Bacteria (Auto) (Negative) Digoxin (0.8-2.0) ng/ml Phenobarbital (15-40) mcg/mL COVID-19 Eval Order Covid19 at [facility] SARS-CoV-2 (PCR) NEGATIVE (Negative) Imaging Data Attestation: I personally reviewed and interpreted this imaging study as fol lows: My Impression: Chest x-raybilateral moderate pleural effusions with CHF Radiologist's Impression: Chest X-Ray 01/07/21 18:08 SINGLE VIEW CHEST CLINICAL HISTORY: Atypical chest pain. FINDINGS: 2 AP, portable, upright chest radiographs are compared to study dated 05/28/2020 and correlated with chest CT dated 07/08/2019. The heart is enlarged noting atherosclerotic calcification of the thoracic aorta. There is mild pulmonary vascular congestion. There are moderate layering pleural effusions with bibasilar consolidation. No pneumothorax is seen. The skeletal structures are osteopenic. The bony thorax is grossly intact. IMPRESSION: 1. Cardiomegaly with mild pulmonary vascular congestion. 2. Moderate layering pleural effusions with associated bibasilar consolidation. ACT 112: Negative or not required by law. Electronically signed by: Rivera Amaro M.D. 01/07/2021 7:16 PM ECG Data Attestation: I personally reviewed and interpreted this ECG as follows: Indication: + SOB/dyspnea Rate (beats per minute): 89 Rhythm: + atrial fibrillation and + other (Poor baseline) ECG Intervals/blocks: + Normal QRS and + Normal QT ECG [place]: + Left axis deviation ECG Findings: no PACs or no PVCs Comparison ECG Date: from (05/22/20) Change: no significant change MDM Narrative This patient is brought in by EMS after being sent from the doctor's office she has had increasing edema and shortness of breath she said a recent UTI. She appears in no distress on her baseline oxygen we took it off she desats to 78% but on 4 L she is 96%. She does have crackles in the bases and diminished breath sounds on the right. She does have a history of CHF and pleural effusions. She does have 2+ bilateral pitting edema and definitely does look fluid overloaded and I suspect she probably is a pleural effusion as well. IV access was established EKG was obtained and multiple blood testing was obtained. She was reassessed frequently. I did also order Covid testing as she will likely need to be admitted and urinalysis and culture. She did receive a dose of IV Lasix 40 mg here and I did consult Dr. Capps who saw the patient in ED and will admit her for these measures. Continuous cardiac monitoring: Orders placed in EMR for she is cardiac monitoring. Upon my interpretation patient was noted to be in A. fib with a rate of 90. Impression & Plan CHF (congestive heart failure), Pleural effusion, Bilateral edema of lower extremity, Lab test negative for COVID-19 virus Discharge Plan Visit Data Chief Complaint: Shortness of Breath/Dyspnea Stated Complaint: BLE swelling ED Provider: Richard Mcmahan Discharge Problem: CHF (congestive heart failure), Pleural effusion, Bilateral edema of lower extremity, Lab test negative for COVID-19 virus Patient Disposition: Admitted As Inpatient Discharge Instructions Interventions: ED Discharge Assessment Last Done: 01/08/21 00:24 Discharge Problem: CHF (congestive heart failure) Qualifiers: Heart failure type: unspecified Heart failure chronicity: acute on chronic Qualified Code(s): I50.9 - Heart failure, unspecified
[2021-01-07 19:06] LABS: Basophils # (auto) 0.01 K/uL (0-0.2); Basophils % (auto) 0.2 %; Eosinophils # (auto) 0.08 K/uL (0-0.5); Eosinophils % (auto) 1.4 %; Hematocrit (blood only) 37.6 % (37-47); Immature Granulocytes # (auto) 0.01 K/uL (0.00-0.02); Immature Granulocytes % (auto) 0.2 %; Lymphocytes # (auto) 0.97 K/uL (1.2-3.4); Lymphocytes % (auto) 17.3 %; Mean Corpuscular Hemoglobin 24.9 pg (25-34); Mean Corpuscular Hgb Conc 29.3 g/dL (32-36); Mean Corpuscular Volume 85.1 fL (80-100); Monocytes # (auto) 0.57 K/uL (0.11-0.59); Monocytes % (auto) 10.1 %; Neutrophils # (auto) 3.98 K/uL (1.4-6.5); Neutrophils % (auto) 70.8 %; Platelet Count 160 K/uL (130-400); RDW Standard Deviation 59.2 fL (36.4-46.3); Red Blood Count 4.42 M/uL (4.2-5.4); White Blood Count 5.62 K/uL (4.8-10.8)
[2021-01-07 19:17] LABS: INR 1.1 (0.9-1.1); Prothrombin Time 10.7 Seconds (9.0-12.0)
--- NOTE | 2021-01-07 19:17 | XRay Report ---
SINGLE VIEW CHEST CLINICAL HISTORY: Atypical chest pain. FINDINGS: 2 AP, portable, upright chest radiographs are compared to study dated 05/28/2020 and correlat ed with chest CT dated 07/08/2019. The heart is enlarged noting atherosclerotic calcification of the t horacic aorta. There is mild pulmonary vascular congestion. There are moderate layering pleural effus ions with bibasilar consolidation. No pneumothorax is seen. The skeletal structures are osteopenic. T he bony thorax is grossly intact. IMPRESSION: 1. Cardiomegaly with mild pulmonary vascular congestion. 2. Moderate layering pleural effusions with associated bibasilar consolidation. ACT 112: Negative or not required by law. Electronically signed by: Rivera Amaro M.D. 01/07/2021 7:16 PM
[2021-01-07 19:25] LABS: Albumin Level 2.6 gm/dl (3.4-5.0); BUN Creatinine Ratio 27.5 (10-20); Calcium 7.9 mg/dl (8.5-10.1); Creatinine Clr Calc Pharmacy 20.3 ml/min; Est GFR (African American) 36.2 ml/min; Est GFR (Non-African American) 31.2 ml/min; Potassium 4.2 mmol/L (3.5-5.1)
[2021-01-07 19:30] LABS: Albumin Globulin Ratio 0.7 (0.9-2); Bilirubin,Total 0.3 mg/dl (0.2-1); Globulin 3.5 gm/dl (2.5-4.0); Total Protein 6.1 gm/dl (6.4-8.2); Troponin I 0.033 ng/ml (0-0.045)
[2021-01-07 19:36] LABS: Pregnancy Test, Serum Negative (Negative)
[2021-01-07 19:48] LABS: Appearance Urine Clear (Clear); Bacteria Urine Automated 2+ (Negative); Bilirubin Urine Negative (Negative); Blood Urine Negative (Negative); Color Urine Yellow; Glucose Urine UA Negative (Negative); Ketones Urine Negative (Negative); Leukocyte Esterase Urine Negative (Negative); Nitrite Urine Positive (Negative); Protein Urine Negative (Negative); RBC Urine Automated 0-4 /hpf (0-4); Specific Gravity Urine 1.011 (1.000-1.030); Urobilinogen Urine Negative (Negative)
[2021-01-07] MEDS ORDERED: FUROSEMIDE 40 MG/4 ML VIAL IV STA (19:49)
[2021-01-07 19:57] LABS: Digoxin 0.7 ng/ml (0.8-2.0)
[2021-01-07] MEDS ORDERED: CONSULT PHARMACY STA (22:47)
[2021-01-07] MEDS ORDERED: FUROSEMIDE 40 MG/4 ML VIAL IV SCH (22:47)
[2021-01-08] MEDS ORDERED: DOCUSATE SODIUM/SENNA 50/8.6MG TAB PO PRN (00:31)
[2021-01-08] MEDS ORDERED: ERTAPENEM SODIUM 1,000 MG in SODIUM CHLORIDE 0.9% 50 ML IV SCH (00:31)
[2021-01-08] MEDS ORDERED: VANCOMYCIN CONSULT ACTIVE PRN (00:31)
[2021-01-08] MEDS ORDERED: ACETAMINOPHEN 325 MG TAB PO PRN ×2 (00:31)
[2021-01-08] MEDS ORDERED: VANCOMYCIN HCL 1,000 MG in SODIUM CHLORIDE 0.9% 250 ML IV SCH (00:31)
[2021-01-08] MEDS ORDERED: ONDANSETRON INJ 2 MG/ML 2 ML VIAL IV PRN (00:31)
[2021-01-08] MEDS ORDERED: NITROGLYCERIN SL 0.4 MG/TAB TAB SL PRN ×2 (00:31)
[2021-01-08] MEDS ORDERED: ERTAPENEM CONSULT ACTIVE PRN (00:37)
[2021-01-08] MEDS: cefTRIAXone SODIUM 1,000 MG in DEXTROSE 5% 50 ML IV SCH (02:04)
--- NOTE | 2021-01-08 02:22 | History and Physical Report ---
DATE OF ADMISSION: 01/07/2021. CHIEF COMPLAINT: Confusion and UTI and lower extremity edema. 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 The patient lives with her daughter, was brought in because of ongoing lower extremity edema and also UTI and confusion. As per daughter, the patient is having worsening lower extremity edema for the last 4 weeks. Her Lasix was changed to torsemide, but this was not getting better. Recently, she was also found to have UTI and cultures showing Streptococcus viridans and also Aerococcus urinae. Because of multiple allergies, she was placed on clindamycin. She went to PCP today, and because of her not getting better she was advised to come to the ER for IV diuretics and IV antibiotics. As per daughter, no fever or chills, no nausea or vomiting, no diarrhea or constipation. Appetite is okay. She has some trouble chewing because the tooth is getting damaged, but she swallows okay. No complaints of any pain. Currently, the patient is alert and awake, oriented to name and place. She does not know why she was brought into the hospital. She denies any chest pain or shortness of breath or cough or headaches or nausea or abdominal pain. She says she is on oxygen 2 liters all the time and she says she ambulates with a walker, but sometimes she is getting confused. ALLERGIES: EGG-DERIVED, CIPROFLOXACIN, PENICILLINS, PHENYTOIN, CAPTOPRIL, CEPHALEXIN, GLUTEN, ATIVAN. PAST MEDICAL HISTORY: As mentioned above. PAST SURGICAL HISTORY: Cardiac catheterization, status post bare metal stent; cataracts; tonsillectomy and adenoidectomy; right ankle joint arthroplasty; right knee surgery. MEDICATIONS: The patient on Tylenol 325 mg p.o. q. 4 hours p.r.n., aspirin 81 mg p.o. daily, atorvastatin 10 mg p.o. p.m., vitamin D 50 mcg p.o. daily, clindamycin 150 mg p.o. t.i.d., digoxin 125 mcg p.o. Monday, Monday and Monday, metoprolol tartrate 25 mg p.o. b.i.d., nitroglycerin 0.4 mg sublingual p.r.n., phenobarbital 30 mg p.o. t.i.d., Senokot S one tablet p.o. b.i.d. p.r.n., furosemide 40 mg p.o. b.i.d. FAMILY HISTORY: Significant for brother has colon cancer, mother has colon cancer, sister has colon cancer, sister has hypertension. SOCIAL HISTORY: Lives with her daughter. Former smoker, quit in 2004, smoked 3/4 pack a day for 30 years. No alcohol use. No drug use. REVIEW OF SYSTEMS: As per HPI. Could not get complete review of systems as the patient is somewhat confused. PHYSICAL EXAMINATION: VITAL SIGNS: Temperature 36.6, pulse 85, respiratory rate 20, blood pressure 119/74, oxygen 96% on 4 liters. HEENT: Pupils equal, round, and reactive to light. Oral mucosa moist. NECK: No JVD or neck masses. CARDIOVASCULAR: S1 and S2 heard. Regular rate and rhythm. No murmur, no gallop. RESPIRATORY SYSTEM: Normal AP diameter. No accessory muscle use. No wheezing, no crackles. ABDOMEN: Soft, bowel sounds present, nontender, no distention. CENTRAL NERVOUS SYSTEM: Alert and awake, oriented to name and place. Obeys simple commands. Moves extremities. EXTREMITIES: Bilateral lower extremity gross edema present, no erythema seen. LABORATORY DATA: WBC 5.6, hemoglobin 11, hematocrit 37.6, platelets 160. PT 10.7, INR 1.1, APTT 26. Sodium 141, potassium 4.2, chloride 103, bicarbonate 40, BUN 41, creatinine 1.5, serum glucose 96, calcium 7.9, total bilirubin 0.3, AST 20, ALT 19, alkaline phosphatase 52. Troponin 1 of 0.033. BNP 14,000. Lipase 213. Urinalysis positive for nitrite. Phenobarbital level is 34.2. Digoxin 0.7. SARS-CoV-2 PCR negative. IMAGING DATA: Chest x-ray: Cardiomegaly with mild pulmonary vascular congestion, moderate layering pleural effusion with associated bibasilar consolidation. EKG: Poor quality EKG is showing atrial fibrillation at a rate of 89. ASSESSMENT AND PLAN: This is an 85-year-old female who presents with ongoing worsening lower extremity edema, confusion, and urinary tract infection. 1. Ofvne-tc-pzkhfvn diastolic congestive heart failure with preserved ejection fraction: As per daughter, recently Lasix was changed to torsemide, but it is not helping. We will place on IV Lasix 40 b.i.d., monitor in tele floor, I's and O's, daily weights. Will follow echocardiogram. Consult cardiology in a.m. for further recommendations. 2. History of waufz-tr-nydlenx respiratory failure: The patient is chronically on 2 liters oxygen, currently on 4 liters. Will monitor. Mostly secondary to above. 3. Altered mental status, urinary tract infection: Encephalopathy secondary to urinary tract infection. Cultures growing Streptococcus viridans and also Aerococcus urinae. Has multiple allergies. Will empirically start on Rocephin and follow the repeat cultures and follow the response. 4. History of atrial fibrillation, rate controlled with metoprolol tartrate, digoxin. On aspirin. 5. History of coronary artery disease and status post bare metal stents: On aspirin, statin, and beta elissa. 6. History of seizures: On phenobarbital. 7. History of dementia: Will monitor for any delirium. 8. History of chronic kidney disease stage III: Baseline creatinine around 1.4, presently with creatinine of 1.5. Getting diuretics. Will follow the labs. 9. History of pulmonary hypertension: Follow the echo. 10. History of irritable bowel syndrome: With both constipation and diarrhea and celiac disease. Gluten-free diet. Will monitor. 11. History of macular degeneration: As per daughter, vision is not great. Will monitor. precautions for any fall risk. 12. Deep venous thrombosis prophylaxis: Heparin subcutaneous. DISPOSITION: Closely monitor in the tele floor. PT, OT prior to discharge. Social service to help with discharge planning. Level 1 full code if there is chance of recovery, as per my discussion with the daughter. Job ID: [id number] MTDD
[2021-01-08] MEDS: FUROSEMIDE 40 MG in SYRINGE 0 ML IV SCH ×2 (07:59→20:56)
[2021-01-08] MEDS: CHOLECALCIFEROL 1,000 UNITS 25 MCG TAB PO SCH (07:59)
[2021-01-08] MEDS: ASPIRIN 81 MG ECTAB PO SCH (07:59)
[2021-01-08] MEDS: METOPROLOL TARTRATE 25 MG TAB PO SCH ×2 (07:59→20:11)
[2021-01-08] MEDS: HEPARIN SOD 5,000 UNIT/0.5 ML VIAL SQ SCH ×2 (07:59→20:12)
--- NOTE | 2021-01-08 08:01 | Cardiology Consultation ---
Date of Consultation January 08, 2021 Assessment & Plan (1) Acute on chronic diastolic HF (heart failure): Normally maintained on torsemide 40 mg twice daily at home. Hypervolemic on exam. Improvement in breathing status after administration of IV Lasix. Patient is -700 mL. 1. Will give a one-time dose of 20 mg of IV Lasix this morning, for a total of 60 mg. 2. Repeat BMP at 1600-should kidney function stays stable will consider increasing IV Lasix to 60 mg twice daily 3. Echocardiogram results pending 4. 2g sodium diet restriction, 1500 cc fluid restruction 5. Continue spencer for accurate/strict I&Os (2) Permanent atrial fibrillation: Rate controlled. Asymptomatic. Not currently on anticoagulation due to risk of falls, age, kidney disease. Patient is only on aspirin 81 mg daily 1. Continue metoprolol tartrate 25 mg twice daily 2. Continue digoxin 0.125 mg every Monday (3) CAD (coronary artery disease): Remote history of PCI in 2013 at [facility]. Stable, no angina per patient. 1. Update resting echocardiogram 2. Continue aspirin 81 mg daily (4) Acute on chronic respiratory failure with hypoxia: History of chronic respiratory failure requiring supplemental oxygen therapy normally maintained on 2 L and now requiring 4 L (5) Pulmonary hypertension: History of moderate pulmonary hypertension. 1. Echocardiogram pending (6) CKD (chronic kidney disease), stage III: Kidney function stable with a baseline creatinine of 1.4, currently 1.5. Continue to follow with lab work. Patient seen and examined with MERVIN Bennett. Agree with findings and assessment as above. Patient presents with significant volume overload. Given valvular disease and pulmonary hypertension I believe ultimately a poor outcome is to be expected. We will ask our palliative care colleagues to discuss goals of care with family. Supervising Physician Co-Signing Physician Notes Patient seen and examined with MERVIN Bennett. Agree with findings and assessment as above. History of Present Illness Reason for Consultation: Shortness of breath Requesting Physician: [facility] hospitalist group Attending Physician: Kari Crenshaw MD History of Present Illness 85-year-old female who was brought to the emergency department last evening due to concerns of her daughter regarding lower extremity edema and worsening confusion. Patient has a significant history of mixed valvular disease with diastolic heart failure. patient was recently diagnosed with a UTI-due to m ultiple drug allergies she was placed on clindamycin. Lower extremity was worsening over the last 4 weeks and her Lasix was changed to torsemide without significant improvement in symptoms. Home diuretics were held and patient was placed on IV Lasix 40 mg twice daily. Echocardiogram pending. Upon presentation in the room patient was sitting up at 90 degrees in bed sleeping. Patient appeared to be having slightly labored breaths. Patient was unable to provide an accurate history/review of systems and is a poor historian due to underlying dementia. After speaking with the nurse, she notes that the patient was having great difficulty breathing this morning prior to IV Lasix dose. Since receiving Lasix her shortness of breath has slightly improved. Continues to have orthopnea. Lower extremity edema up to thighs. +cough. Currently requiring 4 L of oxygen therapy. Patient has a Spencer catheter for accurate I's and O's. Patient scheduled to have an updated BMP this morning. Lab 01/07: Hemoglobin 11, sodium 141, potassium 4.2, creatinine 1.5, proBNP 14,006, digoxin level 0.7, Covid negative I&O: -790mL, 60.1kg Problem list: Chronic diastolic CHF History of chronic respiratory failure, with chronic hypoxia with supplemental oxygen therapy, 2 L Pulmonary hypertension Moderate valvular heart disease-MR and TR Coronary artery disease, status post PCI Permanent atrial fibrillation, anticoagulation declined/refused in the past Hypertension Dyslipidemia History of seizure disorder History of tobacco use CKD stage III with baseline creatinine of 1.4 Celiac disease Allergies Allergy/AdvReac Type Severity Reaction Status Date / Time Egg Derived Allergy Severe Difficulty Verified 01/07/21 20:18 Breathing ciprofloxacin [From Cipro] Allergy Intermediate Redness of Verified 01/07/21 20:18 Skin Penicillins Allergy Intermediate Rash Verified 01/07/21 20:18 phenytoin [From Dilantin] Allergy Intermediate Swelling Verified 01/07/21 20:18 captopril Allergy Rash Verified 01/07/21 20:22 cephalexin [From Keflex] Allergy Rash Verified 01/07/21 20:22 gluten Allergy Unknown Verified 01/07/21 20:18 lorazepam [From Ativan] AdvReac Intermediate confusion Verified 01/07/21 20:18 Home Medications Medication Instructions Recorded Confirmed Type atorvastatin 10 mg tablet 10 mg PO QPM 07/08/19 01/07/21 History phenobarbital 30 mg tablet 30 mg PO TID 07/08/19 01/07/21 History digoxin 125 mcg (0.125 mg) tablet 125 mcg PO MoWeFr@1600 #15 tab 07/14/19 01/07/21 Rx ([facility]) acetaminophen 325 mg tablet 325 mg PO Q4 PRN 01/07/21 01/07/21 History (Tylenol) aspirin 81 mg tablet,delayed 81 mg PO DAILY 01/07/21 01/07/21 History release cholecalciferol (vitamin D3) 50 50 mcg PO DAILY 01/07/21 01/07/21 History mcg (2,000 unit) tablet (Vitamin D3) clindamycin HCl 150 mg capsule 150 mg PO TID 01/07/21 01/07/21 History metoprolol tartrate 25 mg tablet 25 mg PO BID 01/07/21 01/07/21 History nitroglycerin 0.4 mg sublingual 0.4 mg SUBLINGUAL UD PRN 01/07/21 01/07/21 History tablet sennosides 8.6 mg-docusate sodium 1 tab PO BID PRN 01/07/21 01/07/21 History 50 mg tablet (Senokot-S) torsemide 20 mg tablet 40 mg PO BID 01/07/21 01/07/21 History Patient History Medical History Aortic valve stenosis CAD (coronary artery disease) Chronic respiratory failure with hypoxia, on home O2 therapy CKD (chronic kidney disease), stage III Hearing loss HLD (hyperlipidemia) HTN (hypertension) IBS (irritable bowel syndrome) Macular degeneration Mitral regurgitation Pulmonary hypertension Seizure disorder Surgical History History of ankle surgery History of cardiac catheterization 2013 at [place] - diffuse disease H/O 3 bare metal stents History of cataract surgery Hx of tonsillectomy Family History Other Colorectal cancer Hypertension Social History Smoking Status: Former smoker Tobacco Type: Cigarettes Second Hand Exposure: No; Do You Dip or Chew Tobacco: No; Tobacco Cessation Education Requested by Patient: No Hx Alcohol Use: No Hx Substance Use: No Preferred Language: Montene[place]in Communication Ability: Effective Six Pack Loader Operator Required: No Beliefs That Will Affect Care: None marital status: / Current Living Situation: Family Current Living Situation Comment: lives with daughter Other Information That Helps Us Care for You: No Feels Safe at Home: Yes Safety Concerns: Feels Safe At This Time Assistive Devices: Denture - Upper, Denture - Lower, Oxygen - Continuous and Walker Review of Systems Review of Systems: Unobtainable due to cognitive status (Patient has dementia) Physical Exam Physical Exam: General: No acute distress, glabrous breathing. A+Ox1. HEENT: Normocephalic. Atraumatic. Conjunctiva and sclera clear. NECK: No carotid bruits. +JVD. Heart: Regular rate, irregular rhythm. S1 and S2 noted. Soft systolic murmur. No rubs, gallops. Lungs: Coarse lung sounds bilaterally, + wheezing, + crackles Abdomen: Normal bowel sounds. Soft. Nontender Extremities: +3 bilateral lower extremity edema up to thighs. Thin flakey skin over body. NEURO: No focal deficits. PSYCH: Confused. Results & Data ([facility]) Vital Signs (Past 12 Hours) Vital Signs Temp Pulse Pulse Resp BP BP Pulse Ox 01/08/21 04:26 77 01/08/21 03:28 36.5 C 100 H 15 123/77 96 01/08/21 00:33 36.6 C 96 H 22 114/92 92 01/07/21 23:30 100 H 21 95 01/07/21 23:03 84 20 95 01/07/21 22:00 81 18 124/79 92 01/07/21 21:00 85 20 119/74 96 01/07/21 20:00 92 H 21 117/76 97 Laboratory Results 01/07/21 01/07/21 01/07/21 Range/Units 19:05 19:05 18:49 WBC (4.8-10.8) K/uL RBC (4.2-5.4) M/uL Hgb (12.0-16.0) g/dL Hct (37-47) % MCV (80-100) fL MCH (25-34) pg MCHC (32-36) g/dL RDW Std Deviation (36.4-46.3) fL RDW Coeff of Anmol (11.5-14.5) % Plt Count (130-400) K/uL MPV (7.4-10.4) fL Immature Gran % (Auto) % Neut % (Auto) % Lymph % (Auto) % [place] % (Auto) % Eos % (Auto) % Baso % (Auto) % Neut # (Auto) (1.4-6.5) K/uL Lymph # (Auto) (1.2-3.4) K/uL [place] # (Auto) (0.11-0.59) K/uL Eos # (Auto) (0-0.5) K/uL Baso # (Auto) (0-0.2) K/uL Immature Gran # (Auto) (0.00-0.02) K/uL PT (9.0-12.0) Seconds INR (0.9-1.1) APTT (21.0-31.0) Seconds PTT Ratio Sodium (136-145) mmol/L Potassium (3.5-5.1) mmol/L Chloride (98-107) mmol/L Carbon Dioxide (21-32) mmol/L Anion Gap (3-11) BUN (7-18) mg/dl Creatinine (0.6-1.2) mg/dl Est Cr Clr Drug Dosing ml/min Est GFR ( Amer) ml/min Est GFR (Non-Af Amer) ml/min BUN/Creatinine Ratio (10-20) Glucose (70-99) mg/dl Calcium (8.5-10.1) mg/dl Total Bilirubin (0.2-1) mg/dl AST (15-37) U/L ALT (12-78) U/L Alkaline Phosphatase (45-117) U/L Troponin I (0-0.045) ng/ml NT-Pro-B Natriuret Pep (0-1800) pg/ml Total Protein (6.4-8.2) gm/dl Albumin (3.4-5.0) gm/dl Globulin (2.5-4.0) gm/dl Albumin/Globulin Ratio (0.9-2) Lipase (73-393) U/L HCG, Qual (Negative) Urine Color Yellow Urine Appearance Clear (Clear) Urine pH 6.0 (4.5-7.5) Ur Specific [place] 1.011 (1.000-1.030) Urine Protein Negative (Negative) Urine Glucose (UA) Negative (Negative) Urine Ketones Negative (Negative) Urine Blood Negative (Negative) Urine Nitrite Positive A (Negative) Urine Bilirubin Negative (Negative) Urine Urobilinogen Negative (Negative) Ur Leukocyte Esterase Negative (Negative) Urine WBC (Auto) 1-5 (0-5) /hpf Urine RBC (Auto) 0-4 (0-4) /hpf U Hyaline Cast (Auto) 1-5 (0-5) /lpf U Epithel Cells (Auto) 10-20 H (0-5) /lpf Urine Bacteria (Auto) 2+ H (Negative) Digoxin (0.8-2.0) ng/ml Phenobarbital (15-40) mcg/mL COVID-19 Eval Order Covid19 at [facility] SARS-CoV-2 (PCR) NEGATIVE (Negative) 01/07/21 01/07/21 01/07/21 Range/Units 18:39 18:39 18:39 WBC (4.8-10.8) K/uL RBC (4.2-5.4) M/uL Hgb (12.0-16.0) g/dL Hct (37-47) % MCV (80-100) fL MCH (25-34) pg MCHC (32-36) g/dL RDW Std Deviation (36.4-46.3) fL RDW Coeff of Anmol (11.5-14.5) % Plt Count (130-400) K/uL MPV (7.4-10.4) fL Immature Gran % (Auto) % Neut % (Auto) % Lymph % (Auto) % [place] % (Auto) % Eos % (Auto) % Baso % (Auto) % Neut # (Auto) (1.4-6.5) K/uL Lymph # (Auto) (1.2-3.4) K/uL [place] # (Auto) (0.11-0.59) K/uL Eos # (Auto) (0-0.5) K/uL Baso # (Auto) (0-0.2) K/uL Immature Gran # (Auto) (0.00-0.02) K/uL PT (9.0-12.0) Seconds INR (0.9-1.1) APTT (21.0-31.0) Seconds PTT Ratio Sodium 141 (136-145) mmol/L Potassium 4.2 (3.5-5.1) mmol/L Chloride 103 (98-107) mmol/L Carbon Dioxide 40 H (21-32) mmol/L Anion Gap -2.0 L (3-11) BUN 41 H (7-18) mg/dl Creatinine 1.50 H (0.6-1.2) mg/dl Est Cr Clr Drug Dosing 20.3 ml/min Est GFR ( Amer) 36.2 ml/min Est GFR (Non-Af Amer) 31.2 ml/min BUN/Creatinine Ratio 27.5 H (10-20) Glucose 96 (70-99) mg/dl Calcium 7.9 L (8.5-10.1) mg/dl Total Bilirubin 0.3 (0.2-1) mg/dl AST 20 (15-37) U/L ALT 19 (12-78) U/L Alkaline Phosphatase 52 (45-117) U/L Troponin I 0.033 (0-0.045) ng/ml NT-Pro-B Natriuret Pep 60317 H (0-1800) pg/ml Total Protein 6.1 L (6.4-8.2) gm/dl Albumin 2.6 L (3.4-5.0) gm/dl Globulin 3.5 (2.5-4.0) gm/dl Albumin/Globulin Ratio 0.7 L (0.9-2) Lipase 213 (73-393) U/L HCG, Qual Negative (Negative) Urine Color Urine Appearance (Clear) Urine pH (4.5-7.5) Ur Specific [place] (1.000-1.030) Urine Protein (Negative) Urine Glucose (UA) (Negative) Urine Ketones (Negative) Urine Blood (Negative) Urine Nitrite (Negative) Urine Bilirubin (Negative) Urine Urobilinogen (Negative) Ur Leukocyte Esterase (Negative) Urine WBC (Auto) (0-5) /hpf Urine RBC (Auto) (0-4) /hpf U Hyaline Cast (Auto) (0-5) /lpf U Epithel Cells (Auto) (0-5) /lpf Urine Bacteria (Auto) (Negative) Digoxin 0.7 L (0.8-2.0) ng/ml Phenobarbital 34.2 (15-40) mcg/mL COVID-19 Eval Order SARS-CoV-2 (PCR) (Negative) 01/07/21 01/07/21 Range/Units 18:39 18:39 WBC 5.62 (4.8-10.8) K/uL RBC 4.42 (4.2-5.4) M/uL Hgb 11.0 L (12.0-16.0) g/dL Hct 37.6 (37-47) % MCV 85.1 (80-100) fL MCH 24.9 L (25-34) pg MCHC 29.3 L (32-36) g/dL RDW Std Deviation 59.2 H (36.4-46.3) fL RDW Coeff of Anmol 19.0 H (11.5-14.5) % Plt Count 160 (130-400) K/uL MPV 10.0 (7.4-10.4) fL Immature Gran % (Auto) 0.2 % Neut % (Auto) 70.8 % Lymph % (Auto) 17.3 % [place] % (Auto) 10.1 % Eos % (Auto) 1.4 % Baso % (Auto) 0.2 % Neut # (Auto) 3.98 (1.4-6.5) K/uL Lymph # (Auto) 0.97 L (1.2-3.4) K/uL [place] # (Auto) 0.57 (0.11-0.59) K/uL Eos # (Auto) 0.08 (0-0.5) K/uL Baso # (Auto) 0.01 (0-0.2) K/uL Immature Gran # (Auto) 0.01 (0.00-0.02) K/uL PT 10.7 (9.0-12.0) Seconds INR 1.1 (0.9-1.1) APTT 26.0 (21.0-31.0) Seconds PTT Ratio 1.0 Sodium (136-145) mmol/L Potassium (3.5-5.1) mmol/L Chloride (98-107) mmol/L Carbon Dioxide (21-32) mmol/L Anion Gap (3-11) BUN (7-18) mg/dl Creatinine (0.6-1.2) mg/dl Est Cr Clr Drug Dosing ml/min Est GFR ( Amer) ml/min Est GFR (Non-Af Amer) ml/min BUN/Creatinine Ratio (10-20) Glucose (70-99) mg/dl Calcium (8.5-10.1) mg/dl Total Bilirubin (0.2-1) mg/dl AST (15-37) U/L ALT (12-78) U/L Alkaline Phosphatase (45-117) U/L Troponin I (0-0.045) ng/ml NT-Pro-B Natriuret Pep (0-1800) pg/ml Total Protein (6.4-8.2) gm/dl Albumin (3.4-5.0) gm/dl Globulin (2.5-4.0) gm/dl Albumin/Globulin Ratio (0.9-2) Lipase (73-393) U/L HCG, Qual (Negative) Urine Color Urine Appearance (Clear) Urine pH (4.5-7.5) Ur Specific [place] (1.000-1.030) Urine Protein (Negative) Urine Glucose (UA) (Negative) Urine Ketones (Negative) Urine Blood (Negative) Urine Nitrite (Negative) Urine Bilirubin (Negative) Urine Urobilinogen (Negative) Ur Leukocyte Esterase (Negative) Urine WBC (Auto) (0-5) /hpf Urine RBC (Auto) (0-4) /hpf U Hyaline Cast (Auto) (0-5) /lpf U Epithel Cells (Auto) (0-5) /lpf Urine Bacteria (Auto) (Negative) Digoxin (0.8-2.0) ng/ml Phenobarbital (15-40) mcg/mL COVID-19 Eval Order SARS-CoV-2 (PCR) (Negative) Diagnostic Findings Echo [facility] 01/08/2021 PENDING EKG 01/07/2021 showed: Rate controlled atrial fibrillation, 89 bpm- however it was a poor tracing Echo 02/28/2019 with [facility] The examination is adequate to evaluate the referral indication. The aortic valve is mildly calcified. Aortic stenosis is absent. Mild aortic valve regurgitation is present. Severe mitral regurgitation is present. Moderate tricuspid regurgitation is present. The left atrium is severely enlarged (>48 ml/m^2,). The right atrium is moderately enlarged. The left ventricular cavity size is normal. The qualitative LV ejection fraction is 55-59% (normal). The left ventricular diastolic function is mildly abnormal (grade I). (1) CKD (chronic kidney disease), stage III Chronic kidney disease stage 3 subtype: unspecified whether 3a or 3b Qualified Code(s): N18.30 - Chronic kidney disease, stage 3 unspecified (2) CAD (coronary artery disease) Associated angina: with stable angina Coronary Disease-Associated Artery/Lesion type: [place] artery [place] vs. transplanted heart: [place] heart Qualified Code(s): I25.118 - Atherosclerotic heart disease of [place] coronary artery with other forms of angina pectoris
[2021-01-08] MEDS ORDERED: FUROSEMIDE 20 MG in SYRINGE 0 ML IV ONE (09:45)
--- NOTE | 2021-01-08 09:55 | Electrocardiogram Report ---
Test Reason : Blood Pressure : / mmHG Vent. Rate : 089 BPM Atrial Rate : 326 BPM P-R Int : 000 ms QRS Dur : 072 ms QT Int : 342 ms P-R-T Axes : 000 -52 151 degrees QTc Int : 416 ms Poor data quality, interpretation may be adversely affected Atrial fibrillation Left axis deviation Low voltage QRS Cannot rule out Anteroseptal infarct (cited on or before 08-JUL-2019) Abnormal ECG When compared with ECG of 22-MAY-2020 09:36, QRS duration has decreased Inverted T waves have replaced nonspecific T wave abnormality in Lateral leads Confirmed by Hernando Abel ([id number]) on 01/08/2021 9:55:20 AM Referred By: REFERRED SELF Confirmed By:Hernando Abel
[2021-01-08 10:07] LABS: BUN Creatinine Ratio 26.8 (10-20); Calcium 8.5 mg/dl (8.5-10.1); Creatinine Clr Calc Pharmacy 21.7 ml/min; Est GFR (African American) 34.8 ml/min; Potassium 3.8 mmol/L (3.5-5.1)
--- NOTE | 2021-01-08 11:43 | CT Scan Report ---
CT chest diagnostic wo con CT DOSE: 511.85 mGycm HISTORY: pleural effusion TECHNIQUE: Multiaxial CT images of the chest were performed without contrast. A dose lowering techni que was utilized adhering to the principles of ALARA. COMPARISON: Chest CTA 07/08/2019. FINDINGS: The central airways are patent. No pneumothorax. There is mild respiratory motion artifact. There is interlobular septal thickening within the aerated lungs consistent with mild interstitial p ulmonary edema. Focal areas consolidation within the right upper lobe, right middle lobe, and right l ower lobe demonstrating a round configuration and a few punctate calcifications. This favors chronic round atelectasis. Complete compressive atelectasis of the left lower lobe and partial compressive at electasis of the posterior aspect of the left upper lobe. This is secondary to the moderate to large left pleural effusion which is new compared to the prior chest CT. The moderate to large right pleura l effusion appears partially loculated and demonstrates mild pleural thickening. This is likely due t o the chronic nature of the pleural effusion. There is no gas within the pleural space to suggest a s uperimposed infection/empyema. This has slightly improved in the interval. Mild thickening of the eso phagus is noted. Mild mediastinal lymphadenopathy, unchanged. Calcified plaque within the thoracic ao rta. The ascending thoracic aorta measures up to 4.1 cm in diameter. Dense calcified plaque within th e coronary arteries. Dilated main pulmonary artery measuring up to 3.4 cm in diameter. This is consis tent with mild pulmonary arterial hypertension. No suspicious lytic or blastic osseous lesions. Moder ate cardiomegaly, unchanged. No pericardial effusion. There is moderate body wall edema. Limited view s of the upper abdomen demonstrate a normal liver and spleen. Right adrenal gland thickening persists . There is a partially visualized 2.5 cm left adrenal gland nodule, unchanged. IMPRESSION: 1. Moderate to large bilateral pleural effusions. The right pleural effusion appears partially locula warner and demonstrates mild pleural thickening. This is likely due to the chronic nature of the pleural effusion. There is no gas within the pleural space to suggest an infection/empyema. 2. Consolidation within the bilateral mid to lower lung zones as described above which likely represe nts atelectasis from the pleural effusions. 3. Interlobular septal thickening within the aerated lungs consistent with mild pulmonary edema. 4. Moderate cardiomegaly, unchanged. 5. Mild mediastinal lymphadenopathy, unchanged. 6. Stable left adrenal gland nodule. 7. Mild aneurysmal dilatation of the ascending thoracic aorta measuring 4.1 cm in diameter. ACT 112: Negative or not required by law. Electronically signed by: Werner Escalante M.D. 01/08/2021 11:41 AM
--- NOTE | 2021-01-08 12:06 | Hospitalist Progress Note ---
Date of Service January 08, 2021 Assessment & Plan Admission and Anticipated Discharge Date Admission Date: January 07, 2021 Results & Data Results & Data ([facility]) Vital Signs (Past 12 Hours) Vital Signs Temp Pulse Pulse Resp BP Pulse Ox 01/08/21 11:54 36.5 C 55 L 18 115/80 90 01/08/21 08:25 110 H 01/08/21 07:59 36.4 C L 94 H 20 144/90 H 91 01/08/21 04:26 77 01/08/21 03:28 36.5 C 100 H 15 123/77 96 01/08/21 00:33 36.6 C 96 H 22 114/92 92
[2021-01-08] MEDS ORDERED: DIGOXIN 0.125 MG TAB PO SCH (16:00)
[2021-01-08 16:23] LABS: Calcium 8.6 mg/dl (8.5-10.1); Creatinine Clr Calc Pharmacy 21.8 ml/min; Est GFR (African American) 35.1 ml/min; Est GFR (Non-African American) 30.2 ml/min; Potassium 4.2 mmol/L (3.5-5.1)
[2021-01-08] MEDS: ATORVASTATIN 10 MG TAB PO SCH (20:12)
[2021-01-09] MEDS: cefTRIAXone SODIUM 1,000 MG in DEXTROSE 5% 50 ML IV SCH (02:38)
[2021-01-09 07:27] LABS: Calcium 8.6 mg/dl (8.5-10.1); Creatinine Clr Calc Pharmacy 20.9 ml/min; Est GFR (African American) 32.7 ml/min; Est GFR (Non-African American) 28.2 ml/min; Potassium 4.4 mmol/L (3.5-5.1)
[2021-01-09] MEDS: CHOLECALCIFEROL 1,000 UNITS 25 MCG TAB PO SCH (08:18)
[2021-01-09] MEDS: HEPARIN SOD 5,000 UNIT/0.5 ML VIAL SQ SCH ×2 (08:18→19:59)
[2021-01-09] MEDS: FUROSEMIDE 40 MG in SYRINGE 0 ML IV SCH (08:18)
[2021-01-09] MEDS: ASPIRIN 81 MG ECTAB PO SCH (08:18)
[2021-01-09] MEDS: METOPROLOL TARTRATE 25 MG TAB PO SCH ×2 (08:18→19:59)
--- NOTE | 2021-01-09 10:10 | Cardiology Progress Note ---
Date of Service January 09, 2021 Assessment & Plan (1) Acute on chronic diastolic HF (heart failure): (2) Permanent atrial fibrillation: (3) CAD (coronary artery disease): (4) Acute on chronic respiratory failure with hypoxia: (5) Pulmonary hypertension: (6) CKD (chronic kidney disease), stage III: Plan: Agree with current management. For this patient it is supportive care. Palliative medicine will be seeing her in the near future. Admission and Anticipated Discharge Date Admission Date: January 07, 2021 Subjective The patient is demented but in no acute distress. Review of Systems Review of Systems: Unobtainable due to the patient's cognitive status Physical Exam Physical Exam: General: no acute distress and stated age Head: normocephalic, no masses, lesions, tenderness or abnormalities Eyes: conjunctiva are pink and non-injected, sclera clear Neck: supple, no adenopathy, no bruits, normal jugular venous pulse, no hepatojugular reflux Chest: normal shape and normal respiratory effort Lungs: clear to auscultation and percussion Cardiac Exam: - regular rate & rhythm, no murmurs gallops or rubs - normal S1, normal S2 Pulses: 2(+) throughout Abdomen: abdomen soft, non-tender, no abnormal masses and no hepatosplenomegaly Musculoskeletal: no gait disturbance, no joint inflammation, no deforming arthritis Extremities: no edema and no cyanosis Neuro: grossly normal exam Results & Data ([facility]) Vital Signs (Past 12 Hours) Vital Signs Temp Pulse Pulse Resp BP Pulse Ox 01/09/21 08:52 73 01/09/21 07:23 37.4 C 94 H 18 115/69 92 01/09/21 03:55 36.7 C 76 20 115/78 92 01/08/21 23:32 76 Laboratory Results Laboratory Results - last 24 hr 01/08/21 01/09/21 15:43 06:08 Sodium 139 136 Potassium 4.2 4.4 Chloride 99 97 L Carbon Dioxide 36 H 34 H Anion Gap 4.0 5.0 BUN 42 H 44 H Creatinine 1.54 H 1.63 H Est Cr Clr Drug Dosing 21.8 20.9 Est GFR ( Amer) 35.1 32.7 Est GFR (Non-Af Amer) 30.2 28.2 BUN/Creatinine Ratio 27.0 H 27.0 H Glucose 94 118 H Calcium 8.6 8.6 Medications Administered Current Inpatient Medications Acetaminophen (Acetaminophen 325 Mg Tab) 650 mg PO Q4H PRN PRN Reason: Pain or Fever Stop: 02/07/21 00:30 Aspirin (Aspirin 81 Mg Ectab) 81 mg PO DAILY [facility] Stop: 02/07/21 08:59 Last Admin: 01/09/21 08:18 Dose: 81 mg Documented by: Atorvastatin Calcium (Atorvastatin 10 Mg Tab) 10 mg PO QPM [facility] Stop: 02/07/21 20:59 Last Admin: 01/08/21 20:12 Dose: 10 mg Documented by: Digoxin (Digoxin 0.125 Mg Tab) 0.125 mg PO MoWeFr@1600 [facility] Stop: 02/07/21 15:59 Last Admin: 01/08/21 17:21 Dose: 0.125 mg Documented by: Heparin Sodium (Porcine) (Heparin Sod 5,000 Unit/0.5 Ml Vial) 5,000 units SQ Q12 [facility] Stop: 02/07/21 08:59 Last Admin: 01/09/21 08:18 Dose: 5,000 units Documented by: Furosemide 40 mg/ Syringe 4 mls @ 4 mls/min IV BID [facility] Stop: 02/07/21 08:59 Last Admin: 01/09/21 08:18 Dose: 4 mls/min Documented by: Ceftriaxone Sodium 1,000 mg/ (Dextrose) 50 mls @ 100 mls/hr IV Q24H [facility] Stop: 01/13/21 01:59 Last Infusion: 01/09/21 03:29 Dose: Infused Documented by: Metoprolol Tartrate (Metoprolol Tartrate 25 Mg Tab) 25 mg PO BID [facility] Stop: 02/07/21 08:59 Last Admin: 01/09/21 08:18 Dose: 25 mg Documented by: Nitroglycerin (Nitroglycerin Sl 0.4 Mg/Tab Tab) 0.4 mg SL UD PRN PRN Reason: Chest Pain Stop: 02/07/21 00:30 Ondansetron HCl (Ondansetron Inj 2 Mg/Ml 2 Ml Vial) 4 mg IV Q6H PRN PRN Reason: Nausea Stop: 02/07/21 00:30 Phenobarbital (Phenobarbital 32.4 Mg Tab) 32.4 mg PO TID [facility]; Protocol Stop: 02/07/21 08:59 Last Admin: 01/09/21 08:17 Dose: 32.4 mg Documented by: Senna/Docusate Sodium (Docusate Sodium/Senna 50/8.6mg Tab) 1 tab PO BID PRN PRN Reason: Constipation Stop: 02/07/21 00:30 Vitamin D (Cholecalciferol 1,000 Units 25 Mcg Tab) 2,000 units PO DAILY [facility] Stop: 02/07/21 08:59 Last Admin: 01/09/21 08:18 Dose: 2,000 units Documented by: (1) CAD (coronary artery disease) Coronary Disease-Associated Artery/Lesion type: [place] artery [place] vs. transplanted heart: [place] heart Associated angina: with stable angina Qualified Code(s): I25.118 - Atherosclerotic heart disease of [place] coronary artery with other forms of angina pectoris (2) CKD (chronic kidney disease), stage III Chronic kidney disease stage 3 subtype: unspecified whether 3a or 3b Qualified Code(s): N18.30 - Chronic kidney disease, stage 3 unspecified
[2021-01-09] MEDS ORDERED: ALBUMIN 5% 250 ML IV ONE (16:15)
[2021-01-09 16:21] LABS: iSTAT Allen Test Pass; iSTAT Art Bld Gas pCO2 Correct 78 mmHg (35-46); iSTAT Art Bld Gas pH Corrected 7.237 (7.35-7.45); iSTAT Arterial Blood Gas HCO3 33 meg/L (19-24); iSTAT Arterial Blood Gas pCO2 78 mmHg (35-46); iSTAT Arterial Blood Gas pH 7.24 (7.35-7.45); iSTAT Arterial Blood Gas pO2 75 mmHg (80-95); iSTAT Arterial Blood Gas pO2 C 75; iSTAT Carbon Dioxide 36 mmol/L (24-31); iSTAT Hematocrit 41 % (37-47); iSTAT Hemoglobin 13.9 g/dl (12.0-16.0); iSTAT Potassium 4.8 mmol/L (3.3-5.0); iSTAT Site L Radial; iSTAT Sodium 136 mmol/L (135-144)
--- NOTE | 2021-01-09 16:54 | Pulmonary Consultation ---
Date of Consultation January 09, 2021 Assessment & Plan (1) Acute on chronic diastolic HF (heart failure): (2) Acute on chronic respiratory failure with hypoxia and hypercapnia: (3) Pleural effusion: ABG 01/09/2021: 7.24/78/[address] chest 01/08/2021 personally reviewed: Moderate to large bilateral pleural effusion bilateral lower lobe atelectasis cardiomegaly minimal mediastinal lymphadenopathy --Acute on chronic hypercapnic hypoxic respiratory failure hypoxia is likely from large pleural effusion hypercapnia is likely from CHELE and possibility of Rene-Lamar breathing BNP 14,000 COVID-19 negative Continue with BiPAP keep O2 saturation between 88-92% --Bilateral pleural effusion etiology is likely systolic CHF chronic would recommend continuing with diuresis --Pulmonary hypertension likely type II --Transient hypotension responded to fluids would not give her any more fluid the patient does get hypotensive would consider giving albumin followed by Lasix --Ex-smoker approximately 74-gqax-dwro smoking history quit in 2004 Plan: Continue with BiPAP In a 85-year-old female with diastolic CHF, moderate to severe aortic stenosis and moderate to severe MR I do not think intubation should be considered as it will be inappropriate. If the patient gets intubated it is very difficult for her to be extubated Recommend CT head without contrast to rule out stroke Palliative care consult should be thought of Case discussed with Please note the above document was generated using voice recognition software. It may contain grammatical, syntax or spelling errors.Any formal questions or concerns about the content, text or information contained within the body of this dictation should be directly addressed to the provider for clarification. History of Present Illness Attending Physician: Carmelo Rasmussen MD History of Present Illness 85-year-old female past medical history of diastolic CHF, A. fib not on anticoagulation because of risk of fall, chronic respiratory failure on 2 L nasal cannula, coronary artery disease, pulmonary hypertension, aortic stenosis, MR, moderate TR, dementia, CKD stage III, history of seizures on phenobarbital presented to the hospital because of worsening lower extremity edema and confusion code jenny was called on the floor today as the patient was found to be obtunded and hypotensive patient responded to fluids Dr. Rasmussen gave me a call regarding the patient condition and discussed the case with me on the phone I advised him to start the patient on BiPAP after looking at the ABG which showed acute hypercapnic respiratory failure At the time of examination patient's blood pressure was 120/75, heart rate was in the high 80s to low 90s irregular, patient was saturating 92% on 50% FiO2 on BiPAP 05/10 patient was still somnolent. But she was getting good tidal volume to 450 mL. Patient was moving bilateral upper extremities. Not following any commands. RN was in the room to help me with the history Please make note history was obtained from previous records and H&P Social history approximately 84-[id number]-bupt smoking history quit in 2004 Allergies Allergy/AdvReac Type Severity Reaction Status Date / Time Egg Derived Allergy Severe Difficulty Verified 01/07/21 20:18 Breathing ciprofloxacin [From Cipro] Allergy Intermediate Redness of Verified 01/07/21 20:18 Skin Penicillins Allergy Intermediate Rash Verified 01/07/21 20:18 phenytoin [From Dilantin] Allergy Intermediate Swelling Verified 01/07/21 20:18 captopril Allergy Rash Verified 01/07/21 20:22 cephalexin [From Keflex] Allergy Rash Verified 01/07/21 20:22 gluten Allergy Unknown Verified 01/07/21 20:18 lorazepam [From Ativan] AdvReac Intermediate confusion Verified 01/07/21 20:18 Home Medications Medication Instructions Recorded Confirmed Type atorvastatin 10 mg tablet 10 mg PO QPM 07/08/19 01/07/21 History phenobarbital 30 mg tablet 30 mg PO TID 07/08/19 01/07/21 History digoxin 125 mcg (0.125 mg) tablet 125 mcg PO MoWeFr@1600 #15 tab 07/14/19 01/07/21 Rx ([facility]) acetaminophen 325 mg tablet 325 mg PO Q4 PRN 01/07/21 01/07/21 History (Tylenol) aspirin 81 mg tablet,delayed 81 mg PO DAILY 01/07/21 01/07/21 History release cholecalciferol (vitamin D3) 50 50 mcg PO DAILY 01/07/21 01/07/21 History mcg (2,000 unit) tablet (Vitamin D3) clindamycin HCl 150 mg capsule 150 mg PO TID 01/07/21 01/07/21 History metoprolol tartrate 25 mg tablet 25 mg PO BID 01/07/21 01/07/21 History nitroglycerin 0.4 mg sublingual 0.4 mg SUBLINGUAL UD PRN 01/07/21 01/07/21 History tablet sennosides 8.6 mg-docusate sodium 1 tab PO BID PRN 01/07/21 01/07/21 History 50 mg tablet (Senokot-S) torsemide 20 mg tablet 40 mg PO BID 01/07/21 01/07/21 History Patient History Medical History Aortic valve stenosis CAD (coronary artery disease) Chronic respiratory failure with hypoxia, on home O2 therapy CKD (chronic kidney disease), stage III Hearing loss HLD (hyperlipidemia) HTN (hypertension) IBS (irritable bowel syndrome) Macular degeneration Mitral regurgitation Pulmonary hypertension Seizure disorder Surgical History History of ankle surgery History of cardiac catheterization 2013 at [place] [facility] H/O 3 bare metal stents History of cataract surgery Hx of tonsillectomy Family History Other Colorectal cancer Hypertension Social History Smoking Status: Former smoker Tobacco Type: Cigarettes Second Hand Exposure: No; Do You Dip or Chew Tobacco: No; Tobacco Cessation Education Requested by Patient: No Hx Alcohol Use: No Hx Substance Use: No Preferred Language: Bel[place]ian Communication Ability: Effective Fashion Photographer Required: No Beliefs That Will Affect Care: None marital status: / Current Living Situation: Family Current Living Situation Comment: lives with daughter How many Children do You have: 1 Other Information That Helps Us Care for You: No Feels Safe at Home: Yes Safety Concerns: Feels Safe At This Time Assistive Devices: Walker Review of Systems Review of Systems: Unobtainable due to mental health condition Physical Exam Physical Exam: Constitutional: No acute distress HEENT: EOMI, PERRLA, arcus senilis bilaterally Respiratory system: Decreased air entry bilaterally, no wheeze, no rhonchi, positive crackles bilateral lower lobe CVS: S1-S2 positive, positive 3 out of 6 systolic murmur appreciated best at the apex, irregular Abdomen: Soft, nontender, nondistended, positive bowel sounds x4 Extremities: +2 pulses bilaterally radialis/ dorsalis pedis, no cyanosis, +3 pitting edema bilateral lower extremity Neuro: Moving bilateral upper extremities, somnolent Psych: Unable to assess G/U: Positive Wheat Skin: no rashes, warm and dry Lymphatic: no cervical or axillary lymphadenopathy Results & Data Results & Data ([facility]) Vital Signs (Past 12 Hours) Vital Signs Temp Pulse Pulse Resp BP BP Pulse Ox 01/09/21 15:55 98 H 24 98 01/09/21 15:49 36.7 C 99 H 24 113/62 100 01/09/21 11:26 36.4 C L 88 16 106/73 92 01/09/21 08:52 73 01/09/21 07:23 37.4 C 94 H 18 115/69 92 PG Care Time/CCT Total # of Minutes Spent Total Time Spent with Patient: Total time spent is greater than 50% in coordination of care (as documented) at patient's floor/unit and/or counseling patient: Coding Level of Care Code 60127 Initial Inpt Care Lvl 3 Diagnoses Acute on chronic diastolic HF (heart failure) I50.33 Acute on chronic respiratory failure with hypoxia and hypercapnia J96.21; J96.22 Pleural effusion J90
[2021-01-09 16:58] LABS: Base Excess ABG 5.8 mEq/L (-9-1.8); HCO3 ABG 33 mmol/L (19-24); Oxygen Saturation ABG 95.1 % (90-95); PCO2 ABG 62 mmHg (35-46); PO2 ABG 78 mmHg (80-95); pH ABG 7.35 (7.35-7.45)
[2021-01-09 16:59] LABS: Allen Test Pos (Pos)
[2021-01-09 17:08] LABS: Albumin Level 2.5 gm/dl (3.4-5.0); BUN Creatinine Ratio 25.7 (10-20); Calcium 8.4 mg/dl (8.5-10.1); Est GFR (African American) 31.1 ml/min; Est GFR (Non-African American) 26.8 ml/min; Potassium 4.9 mmol/L (3.5-5.1)
[2021-01-09 17:10] LABS: D Dimer 3070 ug/L FEU (0-500)
[2021-01-09 17:12] LABS: Albumin Globulin Ratio 0.7 (0.9-2); Bilirubin,Total 0.4 mg/dl (0.2-1); Globulin 3.5 gm/dl (2.5-4.0); Troponin I 0.02 ng/ml (0-0.045)
[2021-01-09 17:31] LABS: Basophils # (auto) 0.02 K/uL (0-0.2); Basophils % (auto) 0.2 %; Eosinophils # (auto) 0.03 K/uL (0-0.5); Eosinophils % (auto) 0.3 %; Hematocrit (blood only) 41.9 % (37-47); Hemoglobin 12.1 g/dL (12.0-16.0); Immature Granulocytes # (auto) 0.01 K/uL (0.00-0.02); Immature Granulocytes % (auto) 0.1 %; Lymphocytes # (auto) 2.84 K/uL (1.2-3.4); Lymphocytes % (auto) 29.3 %; Mean Corpuscular Hemoglobin 24.6 pg (25-34); Mean Corpuscular Hgb Conc 28.9 g/dL (32-36); Mean Corpuscular Volume 85.3 fL (80-100); Mean Platelet Volume 11.1 fL (7.4-10.4); Monocytes # (auto) 0.72 K/uL (0.11-0.59); Monocytes % (auto) 7.4 %; Neutrophils # (auto) 6.08 K/uL (1.4-6.5); Neutrophils % (auto) 62.7 %; Platelet Count 201 K/uL (130-400); RDW Coefficient of Variation 19.2 % (11.5-14.5); RDW Standard Deviation 59.2 fL (36.4-46.3); Red Blood Count 4.91 M/uL (4.2-5.4)
--- NOTE | 2021-01-09 17:38 | CT Scan Report ---
CT OF THE HEAD WITHOUT CONTRAST CLINICAL HISTORY: altered mental status, r/o CVA COMPARISON STUDY: No previous studies for comparison. CT DOSE: 1547.15 mGy.cm TECHNIQUE: Helical axial images of the head were obtained without IV contrast. Automated exposure con trol was utilized for the study. A dose lowering technique was utilized adhering to the principles o f ALARA. FINDINGS: This study is mildly compromised by motion artifact. White matter hypodensities favor small vessel disease. No acute intracranial hemorrhage, midline shift or mass effect is present. The ventr icular system is unremarkable. The basal cisterns are patent. No extra-axial collections are present. There are no findings to suggest acute dural sinus thrombosis or acute territorial infarct. 1.4 cm s clerotic focus within the right frontal bone is probably benign. Incidental note is made of incomplet e posterior arch of C1. Visualized portions of the sinuses and mastoid air cells are clear. IMPRESSION: No acute intracranial findings. Exam mildly compromised by motion artifact. ACT 112: Negative or not required by law. Electronically signed by: Lai Voss M.D. 01/09/2021 5:36 PM
--- NOTE | 2021-01-09 18:27 | Hospitalist Progress Note ---
Date of Service January 09, 2021 Assessment & Plan (1) Acute on chronic diastolic HF (heart failure): (2) Acute on chronic respiratory failure with hypoxia and hypercapnia: (3) Permanent atrial fibrillation: (4) CAD (coronary artery disease): Plan: ASSESSMENT AND PLAN: This is an 85-year-old female who presents with ongoing worsening lower extremity edema, confusion, and urinary tract infection. 1. Samtc-[id number]-gpgbwuk diastolic congestive heart failure with preserved ejection fraction: --Hold Lasix in light of hypotension, increasing creatinine Reevaluate in the morning 2. History of [id number]-rb-cmegeqi respiratory failure: The patient is chronically on 2 liters oxygen --Unresponsive, found to have hypercapnia of 70, pH of 7.2 BiPAP ordered, improving Dr. Mott consulted CT head: No acute process 3. Altered mental status, urinary tract infection: Encephalopathy secondary to urinary tract infection. Cultures growing Streptococcus viridans and also Aerococcus urinae. Has multiple allergies. -Urine culture Gardnerella-like bacilli DC antibiotics 4. History of atrial fibrillation, rate controlled with metoprolol tartrate, digoxin. On aspirin. 5. History of coronary artery disease and status post bare metal stents: On aspirin, statin, and beta elissa. 6. History of seizures: On phenobarbital. 7. History of dementia: Will monitor for any delirium. 8. History of chronic kidney disease stage III: Management per #1 9. History of pulmonary hypertension: 10. History of irritable bowel syndrome: With both constipation and diarrhea and celiac disease. Gluten-free diet. 11. History of macular degeneration: As per daughter, vision is not great. Fall precautions 12. Deep venous thrombosis prophylaxis: Heparin subcutaneous. DISP Admission and Anticipated Discharge Date Admission Date: January 07, 2021 Subjective ff up for CHF etc Code purple called as patient was unresponsive hypotensive systolic 60s Seen immediately at the bedside Patient unresponsive to sternal rub, blood pressure systolic 110, O2 saturation: No reading for pulse ox Patient tachypneic Jorpi-ab-dvjm ABG showed pH of 7.2 Discussed with head of it BiPAP ordered O2 sats improved to 91% Patient trying to open her eyes within a few minutes Patient was doing fine at least half an hour before this episode, conversant, not in distress, denies any symptoms as per staffing manager Review of Systems Review of Systems: all noted and negative except for above Physical Exam Physical Exam: General-unresponsive, tachypneic, no accessory muscle use, does not appear to be in acute respiratory distress Eyes- anicteric Neck-mild JVD Lungs-mild rales at the bases Heart- normal rate, irregularly irregular rhythm; no murmurs Abdomen- normal bowel sounds, nondistended, soft, nontender Extremities-mild lower leg edema-improving, no calf tenderness Neuro-unresponsive Skin- warm & dry Results & Data Results & Data ([facility]) Vital Signs (Past 12 Hours) Vital Signs Temp Pulse Pulse Resp BP BP Pulse Ox 01/09/21 15:55 98 H 24 98 01/09/21 15:49 36.7 C 99 H 24 113/62 100 01/09/21 11:26 36.4 C L 88 16 106/73 92 01/09/21 08:52 73 01/09/21 07:23 37.4 C 94 H 18 115/69 92 all noted and reviewed including below (1) CAD (coronary artery disease) Associated angina: with stable angina Coronary Disease-Associated Artery/Lesion type: [place] artery [place] vs. transplanted heart: [place] heart Qualified Code(s): I25.118 - Atherosclerotic heart disease of [place] coronary artery with other forms of angina pectoris
--- NOTE | 2021-01-09 19:55 | Ultrasound Report ---
BILATERAL LOWER EXTREMITY VENOUS DOPPLER CLINICAL HISTORY: leg edema, r/o DVT COMPARISON STUDY: No previous studies for comparison. TECHNIQUE: Sonography of the deep venous system of the bilateral lower extremities was performed. Co mpression and augmentation were evaluated. FINDINGS: This exam was significantly compromised due to suboptimal penetration related to subcutaneo us edema. No deep venous thrombus was identified within the lower extremities however the right calf vessels were suboptimally assessed. In addition, the left femoral vein as well as the left peroneal a nd anterior tibial veins were not well visualized. IMPRESSION: No deep venous thrombus identified within the lower extremities although exam significant ly compromised by suboptimal penetration. Near nondiagnostic evaluation of the calf vessels. ACT 112: Negative or not required by law. Electronically signed by: Lai Voss M.D. 01/09/2021 7:54 PM
[2021-01-09] MEDS: ATORVASTATIN 10 MG TAB PO SCH (20:00)
[2021-01-10] MEDS: cefTRIAXone SODIUM 1,000 MG in DEXTROSE 5% 50 ML IV SCH (01:10)
[2021-01-10 07:26] LABS: BUN Creatinine Ratio 27.9 (10-20); Calcium 8.7 mg/dl (8.5-10.1); Creatinine Clr Calc Pharmacy 17.9 ml/min; Est GFR (African American) 27.5 ml/min; Est GFR (Non-African American) 23.8 ml/min
[2021-01-10] MEDS: CHOLECALCIFEROL 1,000 UNITS 25 MCG TAB PO SCH (09:08)
[2021-01-10] MEDS: ASPIRIN 81 MG ECTAB PO SCH (09:08)
[2021-01-10] MEDS: METOPROLOL TARTRATE 25 MG TAB PO SCH (09:09)
[2021-01-10] MEDS: HEPARIN SOD 5,000 UNIT/0.5 ML VIAL SQ SCH (09:09)
--- NOTE | 2021-01-10 09:20 | Hospitalist Progress Note ---
Date of Service January 10, 2021 Assessment & Plan (1) Acute on chronic diastolic HF (heart failure): (2) Acute on chronic respiratory failure with hypoxia and hypercapnia: (3) Permanent atrial fibrillation: (4) CAD (coronary artery disease): Plan: ASSESSMENT AND PLAN: This is an 85-year-old female who presents with ongoing worsening lower extremity edema, confusion, and urinary tract infection. 1. Dszjc-zp-qzxpzqu diastolic congestive heart failure with preserved ejection fraction: --Hold Lasix in light of hypotension, increasing creatinine --poor urine output crea rising hold Lasix will consult Nephro -- discussed with Pulm, does not recommend Thoracentesis at this time 2. History of rqcue-nw-agcxufh respiratory failure: The patient is chronically on 2 liters oxygen -- 01/09: Unresponsive, found to have hypercapnia of 70, pH of 7.2 BiPAP ordered,improved Dr. [place] consulted CT head: No acute process 01/10: patient not tolerating Bipap appears comfortable on Oxymask 10 L discussed with patient's daughter Myra - agree with Nephro consultation for guidance regarding diuresis agree with placement of Palliative Care consult 3. Altered mental status, urinary tract infection: Encephalopathy secondary to urinary tract infection. Cultures growing Streptococcus viridans and also Aerococcus urinae. Has multiple allergies. -Urine culture Gardnerella-like bacilli DC antibiotics 4. History of atrial fibrillation, rate controlled with metoprolol tartrate, digoxin. On aspirin. 5. History of coronary artery disease and status post bare metal stents: On aspirin, statin, and beta elissa. 6. History of seizures: On phenobarbital. 7. History of dementia: monitor for delirium 8. History of chronic kidney disease stage III: Management per #1 9. History of pulmonary hypertension: 10. History of irritable bowel syndrome: With both constipation and diarrhea and celiac disease. Gluten-free diet. 11. History of macular degeneration: As per daughter, vision is not great. Fall precautions 12. Deep venous thrombosis prophylaxis: Heparin subcutaneous. DISPOSITION pending Admission and Anticipated Discharge Date Admission Date: January 07, 2021 Subjective ff up for acute respiratory failure, CHF etc per RN, patient removing Bipap mask on, saying "enough", also had hallucinations earlier in AM seen resting in bed, sitting up, oxymask on not in distress, but appears weak oriented to person and place appears confused with other questions denies shortness of breath, chest pain, palpitations no abdominal pain, nausea no other pain in her body no other symptoms Review of Systems Review of Systems: all noted and negative except for above Physical Exam Physical Exam: General- oriented x 2, not in distress, speaks in sentences with no effort or accessory muscle use Eyes- anicteric Neck- no JVD Lungs- (+) decreased breath sounds bilateral bases Heart- normal rate, regular rhythm; no murmurs Abdomen- normal bowel sounds, nondistended, soft, nontender Extremities-(+) mild lower leg edema, no calf tenderness Neuro- alert, oriented x 3; no gross focal neurologic deficits Skin- warm & dry Results & Data Results & Data ([facility]) Vital Signs (Past 12 Hours) Vital Signs Temp Pulse Pulse Resp BP Pulse Ox Pulse Ox 01/10/21 07:00 36.7 C 78 18 101/64 93 01/10/21 04:00 36.6 C 86 20 105/71 95 01/10/21 03:28 91 H 20 92 01/10/21 00:00 98 01/09/21 23:26 36.6 C 84 20 107/69 97 01/09/21 21:33 88 21 92 all noted and reviewed including below (1) CAD (coronary artery disease) Associated angina: with stable angina Coronary Disease-Associated Artery/Lesion type: [place] artery [place] vs. transplanted heart: [place] heart Qualified Code(s): I25.118 - Atherosclerotic heart disease of [place] coronary artery with other forms of angina pectoris
--- NOTE | 2021-01-10 12:08 | Pulmonology Progress Note ---
Date of Service January 10, 2021 Assessment & Plan (1) Acute on chronic diastolic HF (heart failure): (2) Acute on chronic respiratory failure with hypoxia and hypercapnia: (3) Pleural effusion: Plan: ABG 01/09/2021: 7.24/78/75 on nonrebreather --> 7.35/62/[address] chest 01/08/2021 personally reviewed: Moderate to large bilateral pleural effusion bilateral lower lobe atelectasis cardiomegaly minimal mediastinal lymphadenopathy --Acute on chronic hypercapnic hypoxic respiratory failure hypoxia is likely from large pleural effusion hypercapnia is likely from CHELE and possibility of Rene[place]Lamar breathing BNP 14,000 COVID-19 negative Continue with BiPAP keep O2 saturation between 88-92% --Bilateral pleural effusion etiology is likely systolic CHF chronic would recommend continuing with diuresis --Pulmonary hypertension likely type II --Ex-smoker approximately [id number] smoking history quit in 2004 Plan: Patient hypercapnia has improved with the help of BiPAP but patient has been refusing BiPAP because of underlying dementia. Overall prognosis is very poor. Patient is unable to be diuresed because of the low blood pressure. Thoracentesis on the patient will not be appropriate thing to do as it will be a temporary measure with high risk and no significant benefit. She still has to use the BiPAP which she is refusing Do not over oxygenate the patient. Keep O2 saturation between 88-92% I think palliative care and comfort measures should be considered. Case discussed with No further recommendations from pulmonary perspective. Will sign off Please call directly with any questions. Please note the above document was generated using voice recognition software. It may contain grammatical, syntax or spelling errors.Any formal questions or concerns about the content, text or information contained within the body of this dictation should be directly addressed to the provider for clarification. Admission and Anticipated Discharge Date Admission Date: January 07, 2021 Subjective Patient seen and examined at bedside. More alert than yesterday She is was getting cleaned with examination Denies any chest pain. No headache Not a good historian Review of Systems Review of Systems: Unobtainable due to mental health condition Physical Exam Physical Exam: Constitutional: No acute distress HEENT: EOMI, PERRLA, arcus senilis bilaterally, hard to hear Respiratory system: Decreased air entry bilaterally, no wheeze, no rhonchi, positive crackles bilateral lower lobe CVS: S1-S2 positive, positive 3 out of 6 systolic murmur appreciated best at the apex, irregular Abdomen: Soft, nontender, nondistended, positive bowel sounds x4 Extremities: +2 pulses bilaterally radialis/ dorsalis pedis, no cyanosis, +3 pitting edema bilateral lower extremity Neuro: Moving bilateral upper extremities, alert and awake Psych: Restless mood and affect G/U: Positive Wheat Skin: no rashes, warm and dry Lymphatic: no cervical or axillary lymphadenopathy Results & Data Results & Data ([facility]) Vital Signs (Past 12 Hours) Vital Signs Temp Pulse Pulse Pulse Resp BP Pulse Ox 01/10/21 11:20 36.7 C 101 H 20 96/67 L 97 01/10/21 08:00 93 H 01/10/21 07:00 36.7 C 78 18 101/64 93 01/10/21 04:00 36.6 C 86 20 105/71 95 01/10/21 03:28 91 H 20 92 01/09/21 15:38 01/10/21 06:25 PG Care Time/CCT Total # of Minutes Spent Total Time Spent with Patient: Total time spent is greater than 50% in coordination of care (as documented) at patient's floor/unit and/or counseling patient: Coding Level of Care Code 53585 Subseq Hosp Care Lvl 2 Diagnoses Acute on chronic diastolic HF (heart failure) I50.33 Acute on chronic respiratory failure with hypoxia and hypercapnia J96.21; J96.22 Pleural effusion J90
[2021-01-10] MEDS ORDERED: BUMETANIDE 2 MG in SYRINGE 0 ML IV SCH ×2 (16:10→16:15)
--- NOTE | 2021-01-10 20:37 | Consultation Report ---
NEPHROLOGY CONSULTATION NOTE DATE OF CONSULTATION: 01/10/2021. REASON FOR CONSULTATION: Acute renal failure in a patient with decompensated congestive heart failure and respiratory failure. HISTORY OF PRESENT ILLNESS: The patient is an 85-year-old female who was admitted 2 days ago because of shortness of breath and respiratory failure as well as confusion and urinary tract infection. At this time, she has massive edema as well as pulmonary edema and pleural effusion. She has been seen by both cardiology and pulmonary. She is written to have Lasix 40 IV b.i.d., but because of low blood pressure, she is not getting consistently. Her urine output for the last 3 days has all been very low at less than 800 mL per day. The patient is not really able to give me any meaningful history. She looks ill. Creatinine has been rising from a baseline of around 1.2 to current level of 1.88. BNP is quite elevated at 14,000. Palliative medicine has been consulted, but has not formally seen the patient yet. ALLERGIES: EGGS, CIPROFLOXACIN, PENICILLIN, PHENYTOIN, CAPTOPRIL, CEPHALEXIN, GLUTEN AND ATIVAN. PAST MEDICAL AND SURGICAL HISTORY: Includes chronic respiratory failure on 2 L oxygen, paroxysmal atrial fibrillation, chronic systolic and diastolic congestive heart failure, coronary artery disease, history of pulmonary hypertension, history of aortic valve stenosis, moderate mitral regurgitation, tricuspid regurgitation, vascular dementia, chronic kidney disease stage III, but most recent baseline creatinine around 1.2, irritable bowel syndrome, celiac disease, history of seizure, cardiac catheterization, status post stent, cataract, tonsillectomy, adenoidectomy, right ankle joint arthroplasty, right knee surgery. HOME MEDICATIONS: Reviewed and is as per the reconciliation list. FAMILY HISTORY: Negative for renal disease or dialysis. SOCIAL HISTORY: The patient lives with her daughter. Former smoker, quit in 2004, smoked 3/4 pack a day for 30 years. No alcohol, no drugs. REVIEW OF SYSTEMS: Could not obtain as the patient is barely talking. She appears very weak and lethargic. PHYSICAL EXAMINATION: GENERAL: Elderly white female who appears chronically ill. She appears quite cachectic. VITAL SIGNS: Blood pressure is 106/69, pulse rate 89, temperature 36.3, 96% on 10 liters oxygen mask. HEENT: Mucous membranes moist. NECK: Supple. Jugular venous distention present. CHEST: Bilateral decreased breath sounds, poor inspiratory effort, basal crackles. CARDIOVASCULAR: S1 and S2, tachycardic. Systolic murmur heard. ABDOMEN: Soft, nontender. EXTREMITIES: Show 3+ edema extending all the way into the upper thigh bilaterally. LABORATORY TEST: BNP is elevated at 14,000. Creatinine is rising, this morning it is 1.88. BUN is 52, CO2 is 33, chloride 98. Sodium 138, potassium 5.0, hemoglobin 13.9. ASSESSMENT AND PLAN: An 85-year-old female with very extensive medical problem list, now admitted with respiratory failure related with massive fluid overload as well as pulmonary congestion with pleural effusion. I have been consulted for rising creatinine for the last few days. Acute renal failure. This is not related with Lasix. Every terminal cardiopulmonary patient has rising creatinine at the very end and this is what we are seeing. Consider palliative medicine, but in the meantime, we can use Bumex 2 mg IV t.i.d. Hold Bumex only if the systolic blood pressure is less than 90. No further workup is needed for acute renal failure. The patient does have significant fluid overload as well as pulmonary congestion with pleural effusion and needs to be diuresed if possible. But given very extensive neurological, cardiac, pulmonary diseases at baseline at advanced age, there really is not a whole lot anybody can do at this late stage and consider palliative medicine. Job ID: [id number] [facility]
--- NOTE | 2021-01-11 08:38 | Hospitalist Progress Note ---
Date of Service January 10, 2021 Assessment & Plan Admission and Anticipated Discharge Date Admission Date: January 07, 2021 Subjective 01/10/21. Was notified patient blood pressure was dropping and hear rates were dropping. Within few minutes patient . Patient on 01/10/21 at 21:16.
--- NOTE | 2021-01-11 08:39 | Death Pronouncement Note ---
Date of Service January 10, 2021 Pronouncement Note Admission Date Admission Date: January 07, 2021 Date and Time of Date of : 01/10/21 Time of : 20:16 Contributing Factors (1) Acute on chronic diastolic HF (heart failure): (2) Acute on chronic respiratory failure with hypoxia and hypercapnia: (3) Pleural effusion: Summary Additional details: Daughter was notified by Nursing staff Additional Data Confirmation of : no pulse, no respirations, no heart sounds and pupils fixed and dilated Family: contacted Attending physician: Carmelo Rasmussen MD
--- NOTE | 2021-01-12 21:01 | Discharge Summary ---
Date of Service January 12, 2021 Admission HPI Per Admitting Provider CHIEF COMPLAINT: Confusion and UTI and lower extremity edema. 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 The patient lives with her daughter, was brought in because of ongoing lower extremity edema and also UTI and confusion. As per daughter, the patient is having worsening lower extremity edema for the last 4 weeks. Her Lasix was changed to torsemide, but this was not getting better. Recently, she was also found to have UTI and cultures showing Streptococcus viridans and also Aerococcus urinae. Because of multiple allergies, she was placed on clindamycin. She went to PCP today, and because of her not getting better she was advised to come to the ER for IV diuretics and IV antibiotics. As per daughter, no fever or chills, no nausea or vomiting, no diarrhea or constipation. Appetite is okay. She has some trouble chewing because the tooth is getting damaged, but she swallows okay. No complaints of any pain. Currently, the patient is alert and awake, oriented to name and place. She does not know why she was brought into the hospital. She denies any chest pain or shortness of breath or cough or headaches or nausea or abdominal pain. She says she is on oxygen 2 liters all the time and she says she ambulates with a walker, but sometimes she is getting confused. Admission Exam (Per Admitting) Constitutional VITAL SIGNS: Temperature 36.6, pulse 85, respiratory rate 20, blood pressure 119/74, oxygen 96% on 4 liters. HEENT: Pupils equal, round, and reactive to light. Oral mucosa moist. NECK: No JVD or neck masses. CARDIOVASCULAR: S1 and S2 heard. Regular rate and rhythm. No murmur, no gallop. RESPIRATORY SYSTEM: Normal AP diameter. No accessory muscle use. No wheezing, no crackles. ABDOMEN: Soft, bowel sounds present, nontender, no distention. CENTRAL NERVOUS SYSTEM: Alert and awake, oriented to name and place. Obeys simple commands. Moves extremities. EXTREMITIES: Bilateral lower extremity gross edema present, no erythema seen. Discharge Data Consultations 01/07/21 20:00 ED Decision to Admit Stat 01/08/21 08:00 Consult Cardiology Routine 01/08/21 09:44 Consult Palliative Care Routine 01/09/21 16:40 Consult Technology Sales Representative Routine 01/10/21 09:04 Consult Nephrology Routine 01/10/21 13:10 Consult Palliative Care Routine Hospital Course (1) Acute on chronic diastolic HF (heart failure): (2) Acute on chronic respiratory failure with hypoxia and hypercapnia: (3) Pleural effusion: ASSESSMENT AND PLAN: This is an 85-year-old female who presents with ongoing worsening lower extremity edema, confusion, and urinary tract infection. 1. Rsvzp-oe-biqpgcm diastolic congestive heart failure with preserved ejection fraction: --Lasix IV given Diuresed poorly Lasix held due to hypotension, rising creatinine -- discussed with Pulm, does not recommend Thoracentesis due to high complication risk --Nephrology consulted, Bumex IV started 2. History of pqynz-hb-lbguzyw respiratory failure: The patient is chronically on 2 liters oxygen -- 01/09: Unresponsive, found to have hypercapnia of 70, pH of 7.2 BiPAP ordered,improved Dr. [place] consulted CT head: No acute process 01/10: patient not tolerating Bipap appears comfortable on Oxymask 10 L discussed with patient's daughter Myra In the evening, blood pressure and heart rate deteriorated Patient 3. Altered mental status, urinary tract infection: Encephalopathy secondary to urinary tract infection. Cultures growing Streptococcus viridans and also Aerococcus urinae. Has multiple allergies. -Urine culture Gardnerella-like bacilli 4. History of atrial fibrillation, rate controlled with metoprolol tartrate, digoxin. 5. History of coronary artery disease and status post bare metal stents 6. History of seizures: 7. History of dementia: monitor for delirium 8. History of chronic kidney disease stage III: Management per #1 9. History of pulmonary hypertension: 10. History of irritable bowel syndrome: With both constipation and diarrhea and celiac disease. 11. History of macular degeneration:
== END 2021-01-10 22:48 | disposition expired | DRG 291 ==
LOC: ED 17:40 → SUATTDRO 22:47 → 2S 22:47